=== PATIENT | female | born 1960 | race Caucasian/White ===

== ENCOUNTER 2016-07-20 19:20 | Inpatient (IN) | payer OTHER ==
[~2016-07-20] VITALS: Ht 162.6 cm; Wt 60.0 kg
[2016-07-20] MEDS ORDERED: FAMOTIDINE 20 MG INJ IV STA (20:12)
[2016-07-20] MEDS ORDERED: ONDANSETRON 4 MG INJ IV STA (20:12)
[2016-07-20] MEDS ORDERED: morphine 4 MG/ML VIAL IV STA (20:12)
[2016-07-20] MEDS ORDERED: IPRATROPIUM (NEB) 0.5 MG/2.5 ML AMP NEB STA (20:21)
[2016-07-20] MEDS ORDERED: ALBUTEROL 0.083% (NEB) 2.5 MG/3 ML AMP NEB STA (20:21)
[2016-07-20 21:36] LABS: ADD SCAN DIFF NO
[2016-07-20 21:39] LABS: HEMATOCRIT 41.1 % (37.0-47.0); HEMOGLOBIN 12.3 g/dl (12.0-16.0); MEAN CORPUSCULAR HEMOGLOBIN 31.5 pg (29.0-33.0); MEAN CORPUSCULAR HGB CONC 29.9 g/dl (32.0-37.0); MEAN CORPUSCULAR VOLUME 105.1 fl (82.0-101.0); MEAN PLATELET VOLUME 10.3 fl (7.4-10.4); PLATELET COUNT 238 10^3/UL (140-415); RED BLOOD COUNT 3.91 10^6/ul (4.20-5.40); RED CELL DISTRIBUTION WIDTH 18.8 % (11.5-14.5); WHITE BLOOD COUNT 15.3 10^3/ul (4.8-10.8)
[2016-07-20 21:54] LABS: ALBUMIN 3.7 g/dl (3.3-4.9)
[2016-07-20 21:55] LABS: CHLORIDE 93 mmol/L (97-110); POTASSIUM 4.1 mmol/L (3.5-5.1); SODIUM 136 mmol/L (135-144)
[2016-07-20 21:56] LABS: INR 1.09; PROTIME 14.1 Sec (12.2-14.2); PT RATIO 1.1
[2016-07-20 21:57] LABS: ALBUMIN/GLOBULIN RATIO 0.82; AMYLASE 114 U/L (11-123); ANION GAP 23 (8-16); ASPARTATE AMINO TRANSFERASE 35 IU/L (15-46); BILIRUBIN,INDIRECT 0.1 mg/dl (0-1.1); BILIRUBIN,TOTAL 0.1 mg/dl (0.2-1.3); BLOOD UREA NITROGEN 39 mg/dl (7-20); CARBON DIOXIDE 24 mmol/L (21-31); CREATININE 6.64 mg/dl (0.44-1.00); PARTIAL THROMBOPLASTIN TIME 32.8 Sec (25.0-35.0); TOTAL PROTEIN 8.2 g/dl (6.1-8.1)
[2016-07-20 21:58] LABS: ALANINE AMINOTRANSFERASE 23 IU/L (13-69); ALKALINE PHOSPHATASE 161 IU/L (42-121); CALCIUM 9.1 mg/dl (8.4-10.2); GLUCOSE 325 mg/dl (70-220)
[2016-07-20] MEDS ORDERED: SOD CHLORIDE 0.9% 500 ML IV ONE (22:05)
[2016-07-20] MEDS ORDERED: NEPH PO (22:10)
[2016-07-20] MEDS ORDERED: FAMOTIDINE 20 MG INJ IV ONE (22:10)
[2016-07-20] MEDS ORDERED: CETI-240 PO (22:11)
[2016-07-20] MEDS ORDERED: ASPI-664 PO (22:11)
[2016-07-20 22:12] LABS: TROPONIN-I < 0.012 ng/ml (0.00-0.12)
[2016-07-20] MEDS ORDERED: CALC667C PO (22:13)
[2016-07-20] MEDS ORDERED: CLOT30CR35 TOP (22:14)
[2016-07-20] MEDS ORDERED: FLUT16SP17 NASAL (22:15)
[2016-07-20] MEDS ORDERED: PANTOPRAZOLE IV 80 MG in SOD CHLORIDE 0.9% 100 ML IVPB ONE (22:15)
[2016-07-20] MEDS ORDERED: CARV6.2579 PO (22:18)
[2016-07-20] MEDS ORDERED: LEVO150T67 PO (22:18)
[2016-07-20] MEDS ORDERED: GLIM1TAB2 PO (22:19)
[2016-07-20] MEDS ORDERED: LOSA50TA6 PO (22:19)
[2016-07-20] MEDS ORDERED: GABA100C14 PO (22:22)
[2016-07-20] MEDS ORDERED: ACET-141 PO (22:22)
[2016-07-20] MEDS ORDERED: ATOR10TA65 PO (22:23)
[2016-07-20] MEDS ORDERED: FOLI-49 PO (22:23)
[2016-07-20] MEDS ORDERED: OMEP20CA16 PO (22:24)
[2016-07-20] MEDS ORDERED: DOCU-159 PO (22:24)
[2016-07-20] MEDS ORDERED: CHOL400C11 PO (22:25)
[2016-07-20] MEDS ORDERED: PANTOPRAZOLE IV 80 MG in SOD CHLORIDE 0.9% 100 ML IV ONE (22:30)
--- NOTE | 2016-07-20 22:37 | RADRPT ---
PROCEDURE: XR Chest. CLINICAL INDICATION: Chest and abdominal pain. TECHNIQUE: Single frontal chest x-ray. COMPARISON: None. FINDINGS: Dense consolidation is seen within the left lung base. Left lung base pneumonia is most likely. Th ere is scarring and atelectasis in the right lung base. The heart size is enlarged. There is no pn eumothorax. Post surgical median sternotomy wires are seen overlying the midline chest. Numerous s urgical clips are seen overlying the left hilum and left mediastinum. Left chest central line is se en in place with the tip in the superior vena cava, in good location. There is no evidence for pneu mothorax. The surrounding osseous structures are unremarkable. IMPRESSION: 1. Dense consolidation in the retrocardiac left lung base. Query pneumonia. 2. Low lung volumes with compressive changes and atelectasis. 3. Cardiomegaly with postsurgical changes from prior CABG surgery. 4. Left chest central line in good position without evidence for pneumothorax. RPTAT: HMJB .Chinmay Castellano MD, MD Date Time Electronically viewed and signed by .Chinmay Castellano MD, on 07/20/2016 22:37 .B/
[2016-07-20 22:38] LABS: LYMPHOCYTES # 0.5 10^3/ul (0.8-2.9); MONOCYTE # 0.3 10^3/ul (0.3-0.9); NEUTROPHIL # 13.8 10^3/ul (1.6-7.5)
[2016-07-20] MEDS ORDERED: CEFTRIAXONE 1 GM/50 ML (PMX) 50 ML IVPB ONE (23:03)
[2016-07-20] MEDS ORDERED: AZITHROMYCIN 500MG/NS (PMX) 250 ML IV ONE (23:03)
--- NOTE | 2016-07-20 23:08 | RADRPT ---
PROCEDURE: CT ABDOMEN/PELVIS WITHOUT CONTRAST CLINICAL INDICATION: 56-year-old female with abdominal pain. TECHNIQUE: The study was performed utilizing a [employer] VCT 64-slice CT scanner. Direct axia l sections were obtained through the abdomen and pelvis without the use of intravenous contrast mate rial. Sagittal and coronal reformations were obtained. One or more of the following dose reduction t echniques were utilized: automated exposure control, adjustment of the mA and/or kV according to pat ient's size or use of iterative reconstruction technique. The images were reviewed on a PACS workst [employer]. CTD/vol = 11.8 mGy; Total Exam DLP = 617.8 mGy-cm. COMPARISON: None. FINDINGS: The inferior aspect of the median sternotomy is noted. Cardiomegaly is present. Coronary artery ca lcifications are visualized. There is a small 3 mm calcification within the inferior aspect of the right middle lobe. There is bibasilar atelectasis with probable superimposed left lung base infiltr ate. There is no evidence for significant pleural effusion. The liver has a normal size and contou r. There is evidence for portal venous gas within the right and left lobes of the liver. No intrah epatic nor extrahepatic biliary ductal dilatation is seen. The gallbladder has mild dependent soft t issue which may represent noncalcified stones versus sludge. The pancreas is without areas of abnorm al attenuation. The spleen is identified and has a normal size without abnormal density. There is m inimal free fluid surrounding the spleen beneath the left hemidiaphragm. The adrenal glands are unr emarkable. The left kidney is absent. The right kidney is atrophic. There is a right mid renal cyst measuring approximately 2.0 x 1.7 x 1.8 cm. There are renal vascular calcifications present. N o hydroureteronephrosis nor nephroureterolithiasis is evident. The urinary bladder is decompressed. The stomach is distended with fluid. There is umbilical hernia with an opening of 4.3 x 1.6 cm. The re are dilated loops of small bowel with pneumatosis intestinalis present. There is gas identified within the mesenteric veins. The colon is decompressed. The appendix is visualized and is without a bnormal thickening or surrounding inflammatory reaction. The uterus is atrophic with calcifications. There is minimal pelvic free fluid. The aortoiliac vessels are diffusely calcified but without an eurysmal dilatation. The osseous structures are intact. Bilateral gluteal calcific injection granulo way are seen within the soft tissues. IMPRESSION: 1. Status post median sternotomy with cardiomegaly and coronary artery calcifications. 2. Bibasilar atelectasis with probable superimposed left lung base infiltrate. 3. Pneumatosis intestinalis with enteric venous gas and intrahepatic portal venous gas. These find ings are most suggestive of ischemic bowel. 4. Atrophic right kidney with absent left kidney. 5. Probable small noncalcified gallstones versus sludge. 6. Minimal left upper quadrant and pelvic free fluid. 7. Extensive vascular calcifications. CRITICAL RESULTS: A call report was made to [facility] ER Dr. Nava on July 20, 2016 at 10:59 p.m. .Donald Juarez MD, MD Date Time Electronically viewed and signed by .Donald Juarez MD, MD on 07/20/2016 23:08 .M/
--- NOTE | 2016-07-20 23:10 | ERA ---
ER Documentation Chief Complaint Date/Time DATE: 07/20/16 TIME: 23:00 Chief Complaint diffuse abd pain w/ vomiting x 2 days, dialyzed today via left morro cath HPI This is a very pleasant 56-year-old female with a known history of end-stage renal disease on hemodialysis every Tuesday and Tuesday. The patient a full run of dialysis earlier today and had 2 L removed. The patient indicates that for the past 3 to 4 days she has been experiencing diffuse abdominal pain which she describes as a cramping like sensation with multiple episodes of nonbloody nonbilious emesis. The patient denies any loose watery stools. She has not experienced any constipation. She does indicate for the past week she has had a productive cough with whitish sputum. She denies any fever shaking or chills. She denies any hemoptysis or hematemesis and no melanotic stools. The patient has a left Morro catheter which she receives her dialysis through in the left chest wall. The patient does make urine and denies any frequency urgency or dysuria. She indicates that the abdominal pain began to significantly worsen over the past 24 hours with no alleviating or exacerbating factors which is why she presents to the emergency department today ROS All systems reviewed and are negative except as per history of present illness. Medications Home Meds Reported Medications Cholecalciferol (Vitamin D3) 400 Unit Capsule, 400 UNIT PO DAILY, CAP 07/20/16 Omeprazole* (Omeprazole*) 20 Mg Capsule.dr, 20 MG PO DAILY, #30 CAP 07/20/16 Docusate Sodium* (Docusate Sodium*) 100 Mg Capsule, 100 MG PO BID, #60 CAP 07/20/16 Folic Acid* (Folic Acid*) 1 Mg Tablet, 1 MG PO DAILY, TAB 07/20/16 Atorvastatin Calcium (Atorvastatin Calcium) 10 Mg Tablet, 10 MG PO QHS, #30 TAB 07/20/16 Gabapentin* (Gabapentin*) 100 Mg Capsule, 100 MG PO TID, #90 CAP 07/20/16 Acetaminophen* (Acetaminophen*) 500 MG Extra Strength Tablet, 1000 MG PO Q6H Y for PAIN AND OR ELEVATED TEMP, TAB 07/20/16 Glimepiride* (Glimepiride*) 1 Mg Tablet, 1 MG PO WITH BREAKFAST, TAB 07/20/16 Losartan Potassium* (Losartan Potassium*) 50 Mg Tablet, 50 MG PO BID, TAB 07/20/16 Carvedilol* (Carvedilol*) 6.25 Mg Tablet, 6.25 MG PO BID, #60 TAB 07/20/16 Levothyroxine Sodium* (Levothyroxine Sodium*) 150 Mcg Tablet, 150 MCG PO BEFORE BREAKFAST, #30 TAB 07/20/16 Fluticasone Propionate* (Fluticasone Propionate* Nasal) 50 Mcg/Irving - 16 Gm Irving.susp, 2 SPRAYS NASAL DAILY, #1 BOTTLE TO EACH NOSTRIL 07/20/16 Clotrimazole* (Lotrimin*) 1%-30 Gm Cream..g., 1 APPLIC TOP BID, TUB 07/20/16 Calcium Acetate* (Calcium Acetate*) 667 Mg Capsule, 3335 MG PO WITH MEALS, #90 CAP 07/20/16 Cetirizine Hcl* (Cetirizine Hcl*) 10 Mg Tablet, 10 MG PO DAILY, #30 TAB 07/20/16 Aspirin* (Aspirin* EC) 81 Mg Tablet.dr, 81 MG PO DAILY, TAB 07/20/16 Multivit/Ca Carb/B Cmplx/Fa* (Cindy-Matias*) 1 Tab Tab, 1 TAB PO DAILY, TAB 07/20/16 Allergies Allergies: Coded Allergies: No Known Allergy (Unverified , 07/20/16) PMhx/Soc History of Surgery: Yes (MULTIPLE FISTULA PLACEMENTS, CABG) Anesthesia Reaction: No Hx Neurological Disorder: No Hx Respiratory Disorders: No Hx Cardiac Disorders: Yes (HTN, CAD) Hx Psychiatric Problems: No Hx Miscellaneous Medical Probl: Yes (DM, ESRD ON HD T//TUE) Hx Alcohol Use: No Hx Substance Use: No Hx Tobacco Use: No Smoking Status: Never smoker Physical Exam Vitals Vital Signs Date Time Temp Pulse Resp B/P Pulse Ox O2 Delivery O2 Flow Rate FiO2 07/20/16 22:15 78 18 118/53 98 Nasal Cannula 4.0 07/20/16 20:41 96 3.0 07/20/16 20:41 68 18 96 Nasal Cannula 3.0 07/20/16 20:05 Nasal Cannula 4 07/20/16 19:23 98.3 74 20 109/53 97 Physical Exam Constitutional:Well-developed. Well-nourished. HEENT:Normocephalic. Atraumatic.Pupils were equal round reactive to light. Very dry mucous membranes.No tonsillar exudates. Neck: No nuchal rigidity. No lymphadenopathy. No posterior cervical spine tenderness or step-offs. Respiratory: Not using accessory muscles of respiration.Lungs were clear to auscultation bilaterally. No rhonchi. No rales. No wheezing. Cardiovascular: Regular rate regular rhythm.No murmurs. No rubs were appreciated.S1, S2 normal. Distal pulses are palpable 2+ bilaterally. GI: Abdomen was soft. Tenderness in the left and the right lower quadrant with no tenderness specifically over McBurney's point. Psoas sign negative. Obturator sign negative. Voluntary guarding with no rebound tenderness. Non Distended. No pulsatile abdominal masses or bruits. No rebound. Bowel sounds were present and normal. Muscle skeletal: Full range of motion of both the upper and lower extremities bilaterally.Normal muscle tone.No assymetrical calf tenderness or swelling. Skin: No petechia, no purpura. No lesions on the palms or the soles of the feet. No maculopapular rash. Left Morro chest wall catheter is clean dry and intact. Patient has maturing fistula on the right upper extremity. Patient has a fistula in the left upper extremity which has no thrill or bruit has not been used for several years according to the patient NEURO: Patient was alert, awake, orientated x3.No facial droop. Gait observed and normal with no ataxia.Speech had regular rate and rhythm. No focal neurological deficits. Result Diagram: 07/20/16210407/20/162104 Results 24 hrs Laboratory Tests Test 07/20/16 21:05 07/20/16 22:40 White Blood Count 15.310^3/ul Red Blood Count 3.9110^6/ul Hemoglobin 12.3g/dl Hematocrit 41.1% Mean Corpuscular Volume 105.1fl Mean Corpuscular Hemoglobin 31.5pg Mean Corpuscular Hemoglobin Concent 29.9g/dl Red Cell Distribution Width 18.8% Platelet Count 78455^3/UL Mean Platelet Volume 10.3fl Neutrophils % 90.0% Band Neutrophils % 5.0% Lymphocytes % 3.0% Monocytes % 2.0% Eosinophils % % Neutrophils # 13.810^3/ul Lymphocytes # 0.510^3/ul Monocytes # 0.310^3/ul Eosinophils # 10^3/ul Prothrombin Time 14.1Sec Prothrombin Time Ratio 1.1 INR International Normalized Ratio 1.09 Activated Partial Thromboplast Time 32.8Sec Sodium Level 136mmol/L Potassium Level 4.1mmol/L Chloride Level 93mmol/L Carbon Dioxide Level 24mmol/L Anion Gap 23 Blood Urea Nitrogen 39mg/dl Creatinine 6.64mg/dl Glucose Level 325mg/dl Lactic Acid Level 2.0mmol/L 2.0mmol/L Calcium Level 9.1mg/dl Total Bilirubin 0.1mg/dl Direct Bilirubin 0.00mg/dl Indirect Bilirubin 0.1mg/dl Aspartate Amino Transf (AST/SGOT) 35IU/L Alanine Aminotransferase (ALT/SGPT) 23IU/L Alkaline Phosphatase 161IU/L Troponin I < 0.012ng/ml Total Protein 8.2g/dl Albumin 3.7g/dl Globulin 4.50g/dl Albumin/Globulin Ratio 0.82 Amylase Level 114U/L Lipase 131U/L Current Medications Medications (Trade) Dose Ordered Sig/Arlene Route PRN Reason Start Time Stop Time Status Last Admin Dose Admin Morphine Sulfate (morphine) 4 mg ONCE STAT IV 07/20/16 20:12 07/20/16 20:14 DC 07/20/16 21:02 Ondansetron HCl (Zofran Inj) 4 mg ONCE STAT IV 07/20/16 20:12 07/20/16 20:14 DC 07/20/16 21:03 Famotidine (Pepcid Iv) 20 mg ONCE STAT IV 07/20/16 20:12 07/20/16 20:14 DC 07/20/16 21:02 Albuterol (Proventil 0.083% (Neb)) 5 mg ONCE STAT NEB 07/20/16 20:21 07/20/16 20:22 DC 07/20/16 20:41 Ipratropium Lyons 0.5 mg 0.5 mg ONCE STAT NEB 07/20/16 20:21 07/20/16 20:22 DC 07/20/16 20:40 Sodium Chloride (NS) 500 ml @ 500 mls/hr Q1H ONCE IV 07/20/16 22:05 07/20/16 23:04 DC 07/20/16 22:25 Famotidine 20 mg 20 mg ONCE ONCE IV 07/20/16 22:10 07/20/16 22:11 Cancel Pantoprazole 80 mg/Sodium Chloride 100 ml @ 400 mls/hr ONCE ONCE IVPB 07/20/16 22:15 07/20/16 22:29 DC 07/20/16 22:24 Pantoprazole 80 mg/Sodium Chloride 100 ml @ 10 mls/hr ONCE ONCE IV 07/20/16 22:30 07/21/16 08:29 Cancel Ceftriaxone Sodium 50 ml @ 100 mls/hr ONCE ONCE IVPB 07/20/16 23:03 07/20/16 23:32 Cancel Azithromycin 250 ml @ 250 mls/hr ONCE ONCE IV 07/20/16 23:03 07/21/16 00:02 Cancel Vancomycin HCl 250 ml @ 125 mls/hr ONCE ONCE IVPB 07/20/16 23:30 07/21/16 01:29 Piperacillin Sod/ Tazobactam Sod 100 ml @ 200 mls/hr ONCE ONCE IVPB 07/20/16 23:26 07/20/16 23:55 07/20/16 23:39 Metronidazole (Flagyl 500 Mg (Pmx)) 100 ml @ 100 mls/hr ONCE ONCE IVPB 07/20/16 23:25 07/21/16 00:24 Ondansetron HCl (Zofran Inj) 4 mg ONCE ONCE IV 07/20/16 23:39 07/20/16 23:40 DC 07/20/16 23:39 Procedures/MDM This patient presented to the emergency department with abdominal pain and was seen and evaluated by myself. My differential diagnosis included but was not limited to abdominal aortic aneurysm, appendicitis, pancreatitis, perforated peptic ulcer, perforated viscus, Boerhaaves syndrome or visceral pain such as diverticulitis, DKA, esophagitis, hepatitis or bowel obstruction. The patient was placed on a labor training manager, continuous pulse oximetry, and IV access was established by nursing staff. The patient has a history of dialysis but did appear to be clinically dehydrated with no signs of fluid overload on the chest radiograph are physical exam and therefore received gentle IV fluid hydration with a 500 cc bolus of normal saline. The patient was given antiemetics which included Zofran. For analgesic control the patient received intravenous morphine. While in the emergency department the patient did have one episode of coffee- ground emesis. The patient had received a Protonix bolus. Given the severity of the patient's symptoms I do feel is necessary to obtain a CT scan of the abdomen. I spoke with the radiologist at 2308 and there was concern for ischemic bowel. The patient had blood cultures and urine cultures that were obtained. A chest radiograph also indicated a possible left lower lobe pneumonia. The patient had been given IV vancomycin, Flagyl and Zosyn to treat all of her infectious processes. CT scan of the abdomen was read by the radiologist and indicated the followin. Status post median sternotomy with cardiomegaly and coronary artery calcifications. 2. Bibasilar atelectasis with probable superimposed left lung base infiltrate. 3. Pneumatosis intestinalis with enteric venous gas and intrahepatic portal venous gas. These findings are most suggestive of ischemic bowel. 4. Atrophic right kidney with absent left kidney. 5. Probable small noncalcified gallstones versus sludge. 6. Minimal left upper quadrant and pelvic free fluid. 7. Extensive vascular calcifications. I have placed a call to the surgeon Dr. Boateng who kindly came to the bedside to evaluate the patient due to the severity of her symptoms. Given the severity of the patient's symptoms she will be immediately taken to the OR for definitive treatment for ischemic bowel disease. The patient had hyperglycemia without ketosis. The patient will be admitted in serious condition the hospitalist Dr. Wallace with an anticipated stay of greater than 2 midnights. The patient will be going to the intensive care unit Critical Care: Time: 55 minutes Treatments/Evaluations: Close monitoring and treatment of unstable vital signs, cardiorespiratory, and neurologic status, while maintaining tight balance of fluid, respiratory, and cardiac interventions. Time does not include performing any of the above billable procedures. Departure Diagnosis: Primary Impression: Ischemic bowel disease Additional Impression: Hyperglycemia without ketosis Condition: Serious JOVANNI SMYTH July 20, 2016 23:09
[2016-07-20] MEDS ORDERED: metroNIDAZOLE 500 MG/NS (PMX) 100 ML IVPB ONE (23:25)
[2016-07-20] MEDS ORDERED: PIPER-TAZO 3.375 GM IV (PMX) 100 ML IVPB ONE (23:26)
[2016-07-20] MEDS ORDERED: VANCOMYCIN 1 GM (PMX) 250 ML IVPB ONE (23:30)
[2016-07-20] MEDS ORDERED: ONDANSETRON 4 MG INJ IV ONE (23:39)
[2016-07-21] VITALS (34 sets, daily range): BP systolic 85–149; BP diastolic 33–69; PULSE 74–89; RESP 6–20; Ht 162.6 cm; Wt 60.0 kg
[2016-07-21] MEDS ORDERED: SOD CHLORIDE 0.9% 1,000 ML IV ONE
[2016-07-21] MEDS ORDERED: ETOMIDATE 20 MG INJ ONE (00:36)
[2016-07-21] MEDS ORDERED: ROCURONIUM 50 MG INJ ONE ×2 (00:36→01:30)
[2016-07-21] MEDS ORDERED: MIDAZOLAM 1 MG/ML 2 ML INJ ONE (00:36)
[2016-07-21] MEDS ORDERED: ONDANSETRON 4 MG INJ ONE (00:39)
[2016-07-21] MEDS ORDERED: METOCLOPRAMIDE 10 MG INJ ONE (00:39)
[2016-07-21] MEDS ORDERED: FENTAnyl 50 MCG/ML VIAL ONE (00:41)
[2016-07-21] MEDS ORDERED: ONDANSETRON 4 MG INJ IV PRN (01:00)
[2016-07-21] MEDS ORDERED: ALBUTEROL 18 GM INHALER INH ONE (01:30)
[2016-07-21] MEDS ORDERED: EPHEDrine SULFATE 50 MG/5 ML SYG ONE (01:37)
[2016-07-21] MEDS ORDERED: EPINEPHrine 0.1 MG/ML SYG ONE (02:01)
[2016-07-21] MEDS ORDERED: ROPIVACAINE 0.5 % 30 ML VIAL ONE (02:03)
[2016-07-21] MEDS ORDERED: ALBUTEROL 0.083% (NEB) 2.5 MG/3 ML AMP HHN ONE (02:30)
[2016-07-21] MEDS ORDERED: HYDROmorphONE 1 MG/ML SYG IV PRN ×3 (02:30)
[2016-07-21] MEDS ORDERED: PHENYLephrine (100 MCG/ML) 5ML SYG ONE (02:39)
[2016-07-21] MEDS: PROPOFOL 100 ML IV SCH ×2 (03:00→15:00)
--- NOTE | 2016-07-21 03:24 | OPR ---
DATE OF OPERATION: 07/21/2016 PREOPERATIVE DIAGNOSIS: Mesenteric ischemia. POSTOPERATIVE DIAGNOSIS: Mesenteric ischemia. PROCEDURE: 1. Exploratory laparotomy. 2. Extensive small-bowel resection. SURGEON: Tasneem ASSISTANT ENGINEER: None. ANESTHESIA: Endotracheal GET ESTIMATED BLOOD LOSS: 50 mL. COMPLICATIONS: None. SPECIMENS: Small bowel. FINDINGS: Ischemia of the proximal small bowel just distal to the ligament of Treitz to the mid to distal jejunum. INDICATIONS: Ms. Christopher is a 56-year-old female with a 4-day history of abdominal pain which worsened after getting hemodialysis today. She presented to the ER at [facility], where a CT showed pneumatosis intestinalis and air in the mesentery, as well as in the portal vein, as well as the liver. She had peritonitis on exam. Due to this constellation of findings, I felt she needed urgent exploration for mesenteric ischemia. I discussed laparotomy and possible bowel resection with the patient and her daughter, as well as her friend. All benefits, risks, alternatives were discussed in detail, questions answered. The patient elected to proceed. DESCRIPTION OF PROCEDURE: Patient was brought to the operating room and placed supine on the table. After preoperative antibiotics and SCDs were placed, the patient was intubated, a Kowalski catheter inserted and the abdomen was cleaned, prepped and draped in the usual sterile fashion. A midline incision was made. Using electrocautery, I dissected down through the abdominal wall until the intra-abdominal fascia was identified, staying midline into the abdominal cavity and immediately identified purulent ascites. The omentum was adherent to both sidewalls, which was taken down with electrocautery. At this point, I noted normal-appearing small bowel, as well as ischemic small bowel. I saw the area of small-bowel ischemia which was from just distal to the ligament of Treitz to mid to distal jejunum. The distal small bowel was all viable. I transected the small bowel at the distal aspect of the ischemia with a 75 mm Endo linear cutter blue load, and I transected just proximal to the ischemic segment close to ligament of Treitz. I then divided the intervening mesentery with a LigaSure and passed the small bowel off as a specimen. I performed a [id number] functional end-to-end double-stapled anastomosis with the 75 mm Endo linear cutter blue load. The enterotomy was closed with a TA 60 stapler. The anastomosis was hemostatic, it was without tension and was airtight. I then placed the bowel back into the abdomen and copiously irrigated and aspirated the abdomen until effluent was clear. I should say that I did visualize my entire colon which was completely viable with no evidence of ischemia. I closed the midline with two 0 loop PDS sutures, 1 superiorly, 1 inferiorly, it was tied in the middle. Wound was irrigated and closed with greyson. A dry sterile dressing was applied. The patient tolerated procedure well, was transferred in fair condition to the ICU intubated Dictated By: ROBERTO RAO MD MAL/NTS Conf#: [id number] DID#: [id number] CC: VERO HINOJOSA MD;*EndCC* MTDD
[2016-07-21] MEDS: AMPICILLIN/SULB 3 GM/NS (PMX) 100 ML IVPB SCH ×4 (03:51→18:42)
[2016-07-21] MEDS: D5-NS + KCL 20 MEQ 1,000 ML IV SCH ×3 (03:51→22:41)
[2016-07-21] MEDS: PANTOPRAZOLE 40 MG INJ IV SCH (05:30)
--- NOTE | 2016-07-21 06:36 | CONS ---
DATE OF ADMISSION: 07/21/2016 DATE OF CONSULTATION: 07/20/2016 PREOPERATIVE CONSULTATION HISTORY OF PRESENT ILLNESS: Ms. Christopher is a 56-year-old female who has a 4-year history o f abdominal pain. She has end-stage renal disease and underwent hemodialysis today, but had persist ent worsening abdominal pain with crampy pain in her abdomen. She had multiple episodes of nonblood y emesis. Due to her persistent symptoms, she presented to the ER. Her workup in the ER was consis tent with pneumatosis and air in the mesentery and portal vein, and I was called for consultation. MEDICATIONS: 1. Cholecalciferol. 2. Omeprazole. 3. Docusate. 4. Folic acid. 5. Atorvastatin. 6. Gabapentin. 7. Acetaminophen. 8. Glimepiride. 9. Losartan. 10. Carvedilol. 11. Levothyroxine. 12. Fluticasone. 13. Clotrimazole. 14. Calcium. 15. Cetirizine. 16. Aspirin. 17. Multivitamin. ALLERGIES: NO KNOWN DRUG ALLERGIES. PAST SURGICAL HISTORY: She is status post CABG as well as multiple fistulas for hemodialysis. PAST MEDICAL HISTORY: Significant for end-stage renal disease, hypertension, high cholesterol, hypo thyroidism, coronary artery disease. SOCIAL HISTORY: Denies drinking, drug use, or smoking. PHYSICAL EXAMINATION: GENERAL: She is an ill-appearing female, in distress. VITAL SIGNS: She has a T-max of 98.3, heart rate 78, BP 118/53. CHEST: Decreased breath sounds bilaterally. HEART: Regular rate and rhythm. ABDOMEN: Mildly distended with peritonitis. LABORATORY DATA: Reveal a white count of 15, hematocrit of 41, platelets of 238. Sodium 136, potas sium 4.1, chloride 93, CO2 of 24, BUN and creatinine 39 and 6.6, and glucose of 325. Her INR is 1.1 with a PTT of 32.8. A CT of the abdomen and pelvis reveals pneumatosis intestinalis with enteric v enous gas and intrahepatic portal venous gas concerning for ischemic bowel. ASSESSMENT AND PLAN: Ms. Ariana Christopher is a 56-year-old female with likely mesenteric is chemia. Based on her clinical findings as well as CT findings, I feel that she needs emergent surge ry. I discussed with her and her family the need for exploratory laparotomy and possible bowel rese ction. All benefits, risks, and alternatives were discussed in detail, all questions answered. The patient elects to proceed. The patient and family understand that the prognosis of this is very gr ave. She will likely survive the operation, but I am not sure she will survive this hospitalization . If surgery is not performed, she will not survive this event, so surgery is obviously indicated. Dictated By: ROBERTO ANTOINE/LEXI Conf#: [id number] DID#: [id number]
[2016-07-21] MEDS ORDERED: ENOXAPARIN 40 MG/0.4 ML SYG SC SCH (07:00)
--- NOTE | 2016-07-21 08:32 | HP ---
DATE OF ADMISSION: 07/21/2016 TIME SEEN: 6 a.m. (the patient was in the OR). HISTORY OF PRESENT ILLNESS: The patient is a 56-year-old female with a history of diabetes and end- stage renal disease on dialysis, hypertension, hypothyroidism who presented to the emergency departm ent with abdominal pain. The patient had been going on for about 4 days with associated nonbilious, nonbloody emesis. When presented to the ER, vitals were stable. CT abdomen and pelvis without con trast shows pneumatosis intestinalis with enteric venous gas and intrahepatic portal venous gas, fin dings most suggestive of ischemic bowel. The patient has been taken to the OR and now is status pos t exploratory laparotomy and extensive small bowel resection. Currently, the patient is intubated a nd admitted to the ICU for postop care. Review of systems currently unable to assess. PAST MEDICAL HISTORY: As per HPI. SOCIAL HISTORY: Unknown. ALLERGIES: NO KNOWN DRUG ALLERGIES. HOME MEDICATIONS: 1. Lipitor. 2. Coreg. 3. Losartan. 4. Tylenol. 5. Aspirin. 6. Gabapentin. 7. Calcium. 8. Fluticasone. 9. Colace. 10. Prilosec. 11. Glimepiride. 12. Synthroid. 13. Vitamin D. 14. Folic acid. 15. Multivitamin. 16. Cetirizine. PHYSICAL EXAMINATION: VITAL SIGNS: Stable. GENERAL: The patient is intubated on the vent. No distress. HEENT: No obvious head deformity. Pupils are slightly sluggish, but reactive to light. CARDIOVASCULAR: Regular rate and rhythm. LUNGS: Clear. Good air movement. ABDOMEN: Surgical site covered with ____ abdomen. EXTREMITIES: No edema. LABORATORY DATA: WBC 15.3, chloride 93, BUN 39, creatinine 6.6, glucose 325, alkaline phosphatase 1 61. Otherwise, CBC and CMP within acceptable range. IMAGING: CT abdomen and pelvis with results as mentioned in the HPI. Chest x-ray shows dense conso lidation in a retrocardiac left lung base, query pneumonia. Cardiomegaly with postsurgical change f rom prior CABG. Left chest central line in good position. IMPRESSION: 1. Mesenteric ischemia, status post exploratory laparotomy with extensive small bowel resection. 2. On a mechanical vent. 3. History of coronary artery disease with coronary artery bypass graft. 4. History of hypertension. 5. History of diabetes. 6. End-stage renal disease, on dialysis. 7. Diabetes. PLAN: Continue ICU monitoring. We will continue vent support. Continue antibiotics. She will be on insulin for her diabetes with adjustment as needed. Follow up surgical recommendations. We will place a pulmonary consult to help manage the vent. Further workup and management per clinical course. Dictated By: VERO CASTRO/LEXI Conf#: [id number] DID#: [id number]
[2016-07-21] MEDS ORDERED: GLUCAGON 1 MG INJ IM PRN (09:00)
[2016-07-21] MEDS ORDERED: GLUCOSE GEL 15 GRAM TUBE PO PRN ×2 (09:00)
[2016-07-21] MEDS ORDERED: GLUCOSE GEL 15 GRAM TUBE BUCCAL PRN (09:00)
[2016-07-21] MEDS ORDERED: DEXTROSE 50% 50 ML SYRINGE IV PRN (09:00)
--- NOTE | 2016-07-21 10:35 | CONS ---
Date/Time of Note Date/Time of Note DATE: 07/21/16 TIME: 10:30 Assessment/Plan Assessment/Plan Additional Assessment/Plan 56 yo Female S/P EX LAP ESRD HTN DM ASHD CAD, S/P CABG Pt had HD yesterday in Unit Will check BMP and CBC, PHos now Cont maintenance HD TTS schedule Next HD tomorrow I was informed Dr Christian Weaver is patients [employer] [facility] Theref[facility] Dr Weaver will assume care of ESRD Thank you for the opportunity to participate in the care of Ms Grant Consultation Date/Type/Reason Admit Date/Time July 21, 2016 at 02:30 Date of Consultation: July 21, 2016 Type of Consultation: Renal Reason for Consultation ESRD Referring Provider: LESLIE DEMPSEY Hx of Present Illness 56-year-old female with a history of diabetes and end-stage renal disease on dialysis, hypertension, hypothyroidism who presented to the emergency department with abdominal pain. Last Dialysis yesterday, TTS schedule. In ED a CT abdomen and pelvis without contrast shows pneumatosis intestinalis with enteric venous gas and intrahepatic portal venous gas, findings most suggestive of ischemic bowel. The patient has been taken to the OR and is status post exploratory laparotomy and extensive small bowel resection. Pt remains intubated in the ICU. Nephrology consulted for management of ESRD unable Subjective hx not possible: pt critical status Past Medical History Medical History: hypertension, renal disease, other Past Surgical History Past Surgical Hx: other (AVF, PC) Family History Significant Family History: no pertinent family hx Social History Alcohol Use: none Smoking Status: Never smoker Drug Use: none Exam/Review of Systems Vital Signs Vitals Vital Signs Date Time Temp Pulse Resp B/P Pulse Ox O2 Delivery O2 Flow Rate FiO2 07/21/16 10:05 81 12 100 30 07/21/16 04:15 149/58 07/21/16 03:00 97.8 Mechanical Ventilator 07/20/16 23:30 4.0 Intake and Output 07/20/16 07/20/16 07/21/16 15:00 23:00 07:00 Intake Total 200 ml Output Total 50 ml Balance 150 ml Exam Constitutional: distress ENMT: intubated, mucosa pink and moist Respiratory: crackles/rales, No diminished breath sounds Cardiovascular: regular rate and rhythm, No edema Gastrointestinal: bowel sounds (diminished), soft Neurological: other (sedated) Skin: No diaphoresis, No rash or lesions Results Result Diagram: 07/20/16210407/20/162104 Results 24 hrs Laboratory Tests Test 07/20/16 21:05 07/20/16 22:40 White Blood Count 15.3 H Red Blood Count 3.91 L Hemoglobin 12.3 Hematocrit 41.1 Mean Corpuscular Volume 105.1 H Mean Corpuscular Hemoglobin 31.5 Mean Corpuscular Hemoglobin Concent 29.9 L Red Cell Distribution Width 18.8 H Platelet Count 238 Mean Platelet Volume 10.3 Neutrophils % 90.0 H Band Neutrophils % 5.0 Lymphocytes % 3.0 L Monocytes % 2.0 Eosinophils % Neutrophils # 13.8 H Lymphocytes # 0.5 L Monocytes # 0.3 Eosinophils # Prothrombin Time 14.1 Prothrombin Time Ratio 1.1 INR International Normalized Ratio 1.09 Activated Partial Thromboplast Time 32.8 Sodium Level 136 Potassium Level 4.1 Chloride Level 93 L Carbon Dioxide Level 24 Anion Gap 23 H Blood Urea Nitrogen 39 H Creatinine 6.64 H Glucose Level 325 H Lactic Acid Level 2.0 2.0 Calcium Level 9.1 Total Bilirubin 0.1 L Direct Bilirubin 0.00 Indirect Bilirubin 0.1 Aspartate Amino Transf (AST/SGOT) 35 Alanine Aminotransferase (ALT/SGPT) 23 Alkaline Phosphatase 161 H Troponin I < 0.012 Total Protein 8.2 H Albumin 3.7 Globulin 4.50 H Albumin/Globulin Ratio 0.82 Amylase Level 114 Lipase 131 Medications Medications Current Medications Ampicillin Sodium/ Sulbactam Sodium (Unasyn 3gm/NS (Pmx)) 100 ml @ 200 mls/hr Q6H IVPB Last administered on 07/21/16 03:51; Admin Dose 200 MLS/HR; Start 12/28 at 01:00; Stop 07/22/16 at 00:59 Morphine Sulfate (morphine) 2 mg Q2H PRN IV PAIN LEVEL 6-10; Start 07/21/16 at 01:00 Ondansetron HCl (Zofran Inj) 4 mg Q6H PRN IV NAUSEA AND/OR VOMITING; Start 12/28 at 01:00 Pantoprazole 40 mg 40 mg DAILY@06 IV Last administered on 07/21/16 05:30; Admin Dose 40 MG; Start 07/21/16 at 06:00 Potassium Chloride/Dextrose/ Sod Cl (D5-NS + KCl 20 Meq) 1,000 ml @ 70 mls/hr [id number] IV Last administered on 07/21/16t 03:51; Admin Dose 70 MLS/HR; Start at 00:57 Enoxaparin Sodium 40 mg 40 mg DAILY@07 SC ; Start 07/21/16 at 07:00 Propofol (Diprivan) 100 ml @ 1.785 mls/ hr Q12H IV ; Start 07/21/16 at 03:00 Insulin Glargine (Lantus) 12 unit DAILY@09 SC ; Start 07/21/16 at 09:00 Diagnostic Test (Pha) (Accu-Chek) 1 ea 02 XX ; Start 07/22/16 at 02:00 Miscellaneous Information 1 ea NOTE XX ; Start 07/21/16 at 09:00 Glucose (Glutose) 15 gm Q15M PRN PO DECREASED GLUCOSE; Start 07/21/16 at 09:00 Glucose (Glutose) 22.5 gm Q15M PRN PO DECREASED GLUCOSE; Start 07/21/16 at 09: 00 Dextrose (D50w Syringe) 25 ml Q15M PRN IV DECREASED GLUCOSE; Start 07/21/16 at 09:00 Dextrose (D50w Syringe) 50 ml Q15M PRN IV DECREASED GLUCOSE; Start 07/21/16 at 09:00 Glucagon (Glucagen) 1 mg Q15M PRN IM DECREASED GLUCOSE; Start 07/21/16 at 09:00 Glucose (Glutose) 15 gm Q15M PRN BUCCAL DECREASED GLUCOSE; Start 07/21/16 at 09 :00 Procedures Procedures PROCEDURE: XR Chest. CLINICAL INDICATION: Chest and abdominal pain. TECHNIQUE: Single frontal chest x-ray. COMPARISON: None. FINDINGS: Dense consolidation is seen within the left lung base. Left lung base pneumonia is most likely. There is scarring and atelectasis in the right lung base. The heart size is enlarged. There is no pneumothorax. Post surgical median sternotomy wires are seen overlying the midline chest. Numerous surgical clips are seen overlying the left hilum and left mediastinum. Left chest central line is seen in place with the tip in the superior vena cava, in good location. There is no evidence for pneumothorax. The surrounding osseous structures are unremarkable. IMPRESSION: 1. Dense consolidation in the retrocardiac left lung base. Query pneumonia. 2. Low lung volumes with compressive changes and atelectasis. 3. Cardiomegaly with postsurgical changes from prior CABG surgery. 4. Left chest central line in good position without evidence for pneumothorax. RPTAT: HMJB .Chinmay Castellano MD, MD Date Time Electronically viewed and signed by .Chinmay Castellano MD, MD on 07/20/2016 22:37 CT Abd IMPRESSION: 1. Status post median sternotomy with cardiomegaly and coronary artery calcifications. 2. Bibasilar atelectasis with probable superimposed left lung base infiltrate. 3. Pneumatosis intestinalis with enteric venous gas and intrahepatic portal venous gas. These findings are most suggestive of ischemic bowel. 4. Atrophic right kidney with absent left kidney. 5. Probable small noncalcified gallstones versus sludge. 6. Minimal left upper quadrant and pelvic free fluid. 7. Extensive vascular calcifications. YUKO ALMODOVAR MD July 21, 2016 10:35
[2016-07-21 10:55] LABS: ADD SCAN DIFF NO
[2016-07-21 11:11] LABS: ABNORMAL IP MESSAGE 1; BASOPHILS % 0.2 % (0.0-2.0); EOSINOPHILS % 0.2 % (0.0-7.0); HEMOGLOBIN 9.2 g/dl (12.0-16.0); LYMPHOCYTES # 0.6 10^3/ul (0.8-2.9); LYMPHOCYTES % 4.8 % (15.0-51.0); MEAN CORPUSCULAR HEMOGLOBIN 32.7 pg (29.0-33.0); MEAN CORPUSCULAR HGB CONC 30.7 g/dl (32.0-37.0); MEAN CORPUSCULAR VOLUME 106.8 fl (82.0-101.0); MEAN PLATELET VOLUME 10.5 fl (7.4-10.4); MONOCYTE # 0.7 10^3/ul (0.3-0.9); MONOCYTES % 5.7 % (0.0-11.0); NEUTROPHIL # 10.5 10^3/ul (1.6-7.5); NEUTROPHILS % 88.7 % (39.0-77.0); PLATELET COUNT 220 10^3/UL (140-415); RED BLOOD COUNT 2.81 10^6/ul (4.20-5.40); RED CELL DISTRIBUTION WIDTH 18.8 % (11.5-14.5); WHITE BLOOD COUNT 11.8 10^3/ul (4.8-10.8)
[2016-07-21 11:20] LABS: CALCIUM 7.8 mg/dl (8.4-10.2); CREATININE 6.13 mg/dl (0.44-1.00); PHOSPHORUS 6.1 mg/dl (2.5-4.9); POTASSIUM 4.1 mmol/L (3.5-5.1)
--- NOTE | 2016-07-21 11:27 | CONS ---
DATE OF ADMISSION: 07/21/2016 DATE OF CONSULTATION: 07/21/2016 PULMONARY CONSULTATION HISTORY OF PRESENT ILLNESS: This is a 56-year-old lady, end-stage renal failure on hemodialysis, hy pertension, hyperlipidemia, hypothyroidism who presented with abdominal pain, nausea, and vomiting. CT of the abdomen showed a suggestion of ischemic bowel. The patient was taken to OR, had explorat ory laparotomy and extensive lysis of adhesions, was transferred to the intensive care for further m onitoring where she continues mechanical ventilation, but appears somewhat somnolent despite not julio ng on significant sedation. PAST MEDICAL HISTORY: As above. MEDICATIONS: Per chart. ALLERGIES: NONE. SOCIAL HISTORY: She is a nonsmoker. FAMILY HISTORY: Noncontributory. SYSTEMS REVIEW: A 14-point review of systems currently unable to perform. PHYSICAL EXAMINATION: GENERAL: Elderly-appearing lady, appears comfortable at rest, no acute distress. VITAL SIGNS: Currently afebrile, pulse is 80, blood pressure 140/50, O2 saturation 96%, FIO2 of 30% . NECK: Supple. No JVD or lymphadenopathy. CARDIAC: S1, S2, no added sounds or murmurs. CHEST: Diminished air entry bilaterally. ABDOMEN: Soft, nontender. No guarding or rebound. EXTREMITIES: No cyanosis, clubbing, edema. NEUROLOGIC: Unable to assess. LABORATORIES: Pending at time of this dictation. Initial white count was 15.3, hemoglobin 12.3, pl atelets of 238. BUN 39, creatinine 6.64. IMAGING: Chest x-ray was reviewed, shows low lung volumes with possible compressive atelectasis ___ _ consolidation in the left lung base. IMPRESSION AND PLAN: 1. Hypoxemic respiratory failure post exploratory laparotomy. 2. Ischemic bowel, status post lysis of adhesions. 3. End-stage renal failure on hemodialysis. 4. Postoperative encephalopathy. The patient will require: 1. Continued mechanical ventilation. 2. CPAP weaning trial. 3. Pain control. 4. DVT and GI prophylaxis. 5. Extubation when stable again. Dictated By: DION GANN/LEXI Conf#: [id number] DID#: [id number]
[2016-07-21] MEDS ORDERED: INSULIN ASPART [NOVOLOG] 3 ML PEN SC SCH (11:30)
--- NOTE | 2016-07-21 11:43 | CONS ---
Date/Time of Note Date/Time of Note DATE: 07/21/16 TIME: 11:40 Assessment/Plan Assessment/Plan Chief Complaint/Hosp Course A/P S/P EX LAP ESRD HTN DM ASHD S/P CABG PLAN HD TTH SAT Problems: Consultation Date/Type/Reason Admit Date/Time July 21, 2016 at 02:30 Initial Consult Date 07/21/16 Type of Consultation: Renal Referring Provider: LESLIE DEMPSEY 24 HR Interval Summary Constitutional: other (on vent d/w dr dempsey) Exam/Review of Systems Vital Signs Vitals Vital Signs Date Time Temp Pulse Resp B/P Pulse Ox O2 Delivery O2 Flow Rate FiO2 07/21/16 10:05 81 12 100 30 07/21/16 04:15 149/58 07/21/16 03:00 97.8 Mechanical Ventilator 07/20/16 23:30 4.0 Intake and Output 07/20/16 07/20/16 07/21/16 15:00 23:00 07:00 Intake Total 270 ml Output Total 50 ml Balance 220 ml Exam Neck: supple Respiratory: clear to auscultation Cardiovascular: regular rate and rhythm Gastrointestinal: bowel sounds (neg), tender Extremities: edema (tr) Results Result Diagram: 07/21/16 1040 07/21/16 1040 Results 24 hrs Laboratory Tests Test 07/20/16 21:05 07/20/16 22:40 07/21/16 10:40 07/21/16 11:30 White Blood Count 15.3 H 11.8 #H Red Blood Count 3.91 L 2.81 #L Hemoglobin 12.3 9.2 #L Hematocrit 41.1 30.0 #L Mean Corpuscular Volume 105.1 H 106.8 H Mean Corpuscular Hemoglobin 31.5 32.7 Mean Corpuscular Hemoglobin Concent 29.9 L 30.7 L Red Cell Distribution Width 18.8 H 18.8 H Platelet Count 238 220 Mean Platelet Volume 10.3 10.5 H Neutrophils % 90.0 H 88.7 H Band Neutrophils % 5.0 Lymphocytes % 3.0 L 4.8 L Monocytes % 2.0 5.7 Eosinophils % 0.2 Neutrophils # 13.8 H 10.5 H Lymphocytes # 0.5 L 0.6 L Monocytes # 0.3 0.7 Eosinophils # 0.0 Prothrombin Time 14.1 Prothrombin Time Ratio 1.1 INR International Normalized Ratio 1.09 Activated Partial Thromboplast Time 32.8 Sodium Level 136 136 Potassium Level 4.1 4.1 Chloride Level 93 L 105 # Carbon Dioxide Level 24 21 Anion Gap 23 H 14 # Blood Urea Nitrogen 39 H 44 H Creatinine 6.64 H 6.13 H Glucose Level 325 H 264 H Lactic Acid Level 2.0 2.0 Calcium Level 9.1 7.8 L Total Bilirubin 0.1 L Direct Bilirubin 0.00 Indirect Bilirubin 0.1 Aspartate Amino Transf (AST/SGOT) 35 Alanine Aminotransferase (ALT/SGPT) 23 Alkaline Phosphatase 161 H Troponin I < 0.012 Total Protein 8.2 H Albumin 3.7 Globulin 4.50 H Albumin/Globulin Ratio 0.82 Amylase Level 114 Lipase 131 Basophils % 0.2 Nucleated Red Blood Cells % 0.0 Basophils # 0.0 Nucleated Red Blood Cells # 0.0 Phosphorus Level 6.1 H Bedside Glucose 234 H Medications Medications Current Medications Ampicillin Sodium/ Sulbactam Sodium (Unasyn 3gm/NS (Pmx)) 100 ml @ 200 mls/hr Q6H IVPB Last administered on 07/21/16 03:51; Admin Dose 200 MLS/HR; Start 12/28 at 01:00; Stop 07/22/16 at 00:59 Morphine Sulfate (morphine) 2 mg Q2H PRN IV PAIN LEVEL 6-10; Start 07/21/16 at 01:00 Ondansetron HCl (Zofran Inj) 4 mg Q6H PRN IV NAUSEA AND/OR VOMITING; Start 12/28 at 01:00 Pantoprazole 40 mg 40 mg DAILY@06 IV Last administered on 07/21/16 05:30; Admin Dose 40 MG; Start 07/21/16 at 06:00 Potassium Chloride/Dextrose/ Sod Cl 1,000 ml @ 70 mls/hr [id number] IV Last administered on 07/21/16 03:51; Admin Dose 70 MLS/HR; Start 07/21/16 at 00:57 Propofol (Diprivan) 100 ml @ 1.785 mls/ hr Q12H IV ; Start 07/21/16 at 03:00 Insulin Glargine (Lantus) 12 unit DAILY@09 SC ; Start 07/21/16 at 09:00 Diagnostic Test (Pha) (Accu-Chek) 1 ea 02 XX ; Start 07/22/16 at 02:00 Miscellaneous Information 1 ea NOTE XX ; Start 07/21/16 at 09:00 Glucose (Glutose) 15 gm Q15M PRN PO DECREASED GLUCOSE; Start 07/21/16 at 09:00 Glucose (Glutose) 22.5 gm Q15M PRN PO DECREASED GLUCOSE; Start 07/21/16 at 09: 00 Dextrose (D50w Syringe) 25 ml Q15M PRN IV DECREASED GLUCOSE; Start 07/21/16 at 09:00 Dextrose (D50w Syringe) 50 ml Q15M PRN IV DECREASED GLUCOSE; Start 07/21/16 at 09:00 Glucagon (Glucagen) 1 mg Q15M PRN IM DECREASED GLUCOSE; Start 07/21/16 at 09:00 Glucose (Glutose) 15 gm Q15M PRN BUCCAL DECREASED GLUCOSE; Start 07/21/16 at 09 :00 Heparin Sodium (Porcine) (Heparin (5000 Units/0.5 ml)) 5,000 unit Q12 SC ; Start 07/21/16 at 21:00 HORACIO PERERA MD July 21, 2016 11:43
[2016-07-21] MEDS: INSULIN GLARGINE [LANtus] 3 ML PEN SC SCH (11:46)
[2016-07-21] MEDS ORDERED: HYPOGLYCEMIA PROTOCOL when Glucose is <70 mg/dL or symptomatic <90 mg/dL. XX ONE (17:00)
[2016-07-21] MEDS ORDERED: Discontinue Glyburide, Glipizide, and/or Glimepiride prior to starting Insulin XX ONE (17:00)
[2016-07-21] MEDS: INSULIN ASPART [NOVOLOG] 3 ML PEN SC SCH ×2 (17:00→21:00)
[2016-07-21] MEDS: morphine 2 MG INJ IV PRN (20:18)
[2016-07-21] MEDS: HEPARIN 5,000 UNIT/0.5 ML VIAL SC SCH (21:55)
[2016-07-21] MEDS ORDERED: ACETAMINOPHEN 1000MG/100ML IV 100 ML IVPB ONE (22:00)
[2016-07-21] MEDS: SOD CHLORIDE 0.9% 500 ML IV PRN (22:00)
[2016-07-21 23:36] LABS: AADO2 Arterial 25.3 mmHg (7.0-24.0); Arterial Base Excess -5.4 mmol/L (-3.0-3); Arterial COHb 1.4 % (0.0-3.0); Arterial Fraction of Oxyhgb 96.2 % (93.0-99.0); Arterial HCO3 20.6 mmol/L (22.0-26.0); Arterial MetHb 0.4 % (0.0-1.5); Arterial Total Hemglobin 8.6 g/dl (12.0-18.0); MODE VENT - AC
--- NOTE | 2016-07-21 23:44 | RADRPT ---
PROCEDURE: XR Chest. CLINICAL INDICATION: Intubation. TECHNIQUE: Portable AP supine view of the chest was obtained. COMPARISON: 07/20/2016 FINDINGS: The cardiomediastinal silhouette is mildly enlarged, post CABG changes are again noted. Distal tip of the new endotracheal tube is projecting in the right main bronchus ostium. The new nasogastric/o rogastric tube tip is projecting in the region of the mid esophagus. Mild bibasilar subsegmental at electasis worse on the left is similar to the prior study. A left sided approach Perma-Cath is agai n noted in good position. There is no obvious pneumothorax. The osseous structures are intact with no evidence for acute abnormality. RPTAT:HJJR IMPRESSION: 1. Distal tip of the new endotracheal tube is within the ostium of the right main bronchus and retr action by 3 cm is recommended. 2. New nasogastric/orogastric tube tip is within the mid esophagus and replacement or advancement i s recommended. 3. Findings are telephoned to the ICU nurseCharline, at 23:44 Physician Khari Date Time Electronically viewed and signed by Physician Khari on 07/21/2016 23:44 /
[2016-07-22] VITALS (96 sets, daily range): BP systolic 55–153; BP diastolic 31–74; PULSE 75–98; RESP 0–25
[2016-07-22] MEDS: SOD CHLORIDE 0.9% 500 ML IV PRN (00:35)
[2016-07-22] MEDS: INSULIN ASPART [NOVOLOG] 3 ML PEN SC SCH ×6 (01:00→20:49)
[2016-07-22] MEDS: PHENYLephrine 40 MG in DEXTROSE 5% 496 ML IV SCH ×2 (01:10→15:12)
[2016-07-22] MEDS ORDERED: PHENYLephrine 20MG IN 250 ML 250 ML ONE (01:13)
[2016-07-22] MEDS ORDERED: ACCU-CHEK XX SCH (02:00)
[2016-07-22] MEDS: morphine 2 MG INJ IV PRN ×2 (02:06→04:18)
[2016-07-22] MEDS: DEXTROSE 50% 50 ML SYRINGE IV PRN (02:16)
[2016-07-22] MEDS ORDERED: AMPICILLIN/SULB 3 GM/NS (PMX) 100 ML IVPB ONE (03:00)
[2016-07-22] MEDS: PROPOFOL 100 ML IV SCH ×2 (03:00→15:00)
[2016-07-22 06:13] LABS: ADD SCAN DIFF NO
[2016-07-22 06:56] LABS: CALCIUM 8.1 mg/dl (8.4-10.2); CREATININE 7.22 mg/dl (0.44-1.00); MAGNESIUM 1.7 mg/dl (1.7-2.5); PHOSPHORUS 5.6 mg/dl (2.5-4.9); POTASSIUM 4.6 mmol/L (3.5-5.1)
[2016-07-22] MEDS: PANTOPRAZOLE 40 MG INJ IV SCH (06:58)
[2016-07-22] MEDS ORDERED: HYDROmorphONE 1 MG/ML SYG IV PRN ×2 (08:00)
[2016-07-22 08:43] LABS: Allen Test ACCEPTAB; Arterial Base Excess -7.6 mmol/L (-3.0-3); Arterial COHb 1.4 % (0.0-3.0); Arterial Fraction of Oxyhgb 95.6 % (93.0-99.0); Arterial HCO3 18.8 mmol/L (22.0-26.0); Arterial MetHb 0.3 % (0.0-1.5); Arterial Total Hemglobin 9.3 g/dl (12.0-18.0); MODE VENT - AC
[2016-07-22] MEDS: INSULIN GLARGINE [LANtus] 3 ML PEN SC SCH (09:00)
--- NOTE | 2016-07-22 09:13 | RADRPT ---
PROCEDURE: Chest Radiograph. CLINICAL INDICATION: Pneumonia. CHF. TECHNIQUE: Single frontal chest radiograph. COMPARISON: Chest radiograph 07/21/2016 FINDINGS: There has been interval retraction of a endotracheal tube, the distal tip is now approximately 3.9 c m above the caleb. A nasogastric tube has been advanced, and the distal tip is now overlying the s tomach, in radiographically appropriate position. A left chest wall tunneled hemodialysis catheter r emains in stable position. The patient is status post sternotomy and CABG. There is patchy left re trocardiac air space disease which may represent atelectasis or infiltrate. There is mild right bas ilar atelectasis. No definitive pleural effusions are seen. The bones are grossly within normal ingram its. IMPRESSION: 1. Interval repositioning of endotracheal tube and nasogastric tube, now in radiographically approp riate position. 2. Left retrocardiac atelectasis and/or infiltrate. 3. Mild right basilar atelectasis. RPTAT: KK .Deepak Rivas MD, Date Time Electronically viewed and signed by .Deepak Rivas MD, on 07/22/2016 09:13 .B/
[2016-07-22 09:50] LABS: ABNORMAL IP MESSAGE 1; BASOPHILS % 0.2 % (0.0-2.0); EOSINOPHILS # 0.2 10^3/ul (0.0-0.5); EOSINOPHILS % 1.1 % (0.0-7.0); HEMATOCRIT 25.7 % (37.0-47.0); HEMOGLOBIN 7.8 g/dl (12.0-16.0); LYMPHOCYTES # 0.6 10^3/ul (0.8-2.9); MEAN CORPUSCULAR HEMOGLOBIN 32.9 pg (29.0-33.0); MEAN CORPUSCULAR HGB CONC 30.4 g/dl (32.0-37.0); MEAN CORPUSCULAR VOLUME 108.4 fl (82.0-101.0); MEAN PLATELET VOLUME 10.1 fl (7.4-10.4); MONOCYTE # 1.2 10^3/ul (0.3-0.9); NEUTROPHIL # 12.8 10^3/ul (1.6-7.5); NEUTROPHILS % 85.6 % (39.0-77.0); NUCLEATED RED BLOOD CELLS% 0.1 /100WBC (0.0-0.0); PLATELET COUNT 237 10^3/UL (140-415); RED BLOOD COUNT 2.37 10^6/ul (4.20-5.40); RED CELL DISTRIBUTION WIDTH 19.4 % (11.5-14.5); WHITE BLOOD COUNT 14.9 10^3/ul (4.8-10.8)
[2016-07-22] MEDS: HEPARIN 5,000 UNIT/0.5 ML VIAL SC SCH ×2 (10:11→20:48)
--- NOTE | 2016-07-22 11:17 | CONS ---
Date/Time of Note Date/Time of Note DATE: 07/22/16 TIME: 11:16 Consult Date/Type/Reason Admit Date/Time July 21, 2016 at 02:30 Initial Consult Date 07/21/16 Type of Consultation: Pulmonary ICU Ordering Provider: LESLIE DEMPSEY Subjective Patient remains awake alert and oriented comfortable at rest on mechanical ventilation Objective Vital Signs Date Time Temp Pulse Resp B/P Pulse Ox O2 Delivery O2 Flow Rate FiO2 07/22/16 11:00 91 13 113/48 100 Mechanical Ventilator 07/22/16 08:15 99.4 07/22/16 08:00 30 07/20/16 23:30 4.0 Intake and Output 07/21/16 07/21/16 07/22/16 15:00 23:00 07:00 Intake Total 660 ml 970 ml 1321.25 ml Output Total 0 ml 220 ml Balance 660 ml 970 ml 1101.25 ml Exam PHYSICAL EXAMINATION: GENERAL: Elderly-appearing lady, appears comfortable at rest, no acute distress. VITAL SIGNS: As above NECK: Supple. No JVD or lymphadenopathy. CARDIAC: S1, S2, no added sounds or murmurs. CHEST: Diminished air entry bilaterally. ABDOMEN: Soft, nontender. No guarding or rebound. EXTREMITIES: No cyanosis, clubbing, edema. NEUROLOGIC: Unable to assess. Results/Medications Result Diagram: 07/22/16 0935 07/22/16 0535 Results 24 hrs Laboratory Tests Test 07/21/16 11:30 07/21/16 17:46 07/21/16 22:01 07/21/16 22:58 Bedside Glucose 234 H 115 111 Blood Gas Specimen Source Blood arterial Arterial Blood Date Drawn 07/21/2016 11:24:34 PM Arterial Blood pH (Temp corrected) 7.302 L Arterial Blood pCO2 (Temp correct) 42.7 Arterial Blood pO2 (Temp corrected) 138.4 H Arterial Blood HCO3 20.6 L Arterial Blood Base Excess -5.4 L Arterial Blood Oxygen Saturation 98.0 Lázaro Test N/A Arterial Blood Gas Puncture Site Right Brachial Arterial Blood Carboxyhemoglobin 1.4 Arterial Blood Methemoglobin 0.4 Blood Gas A-a O2 Differential 25.3 H Oxyhemoglobin Percent 96.2 Total Hemoglobin 8.6 L Blood Gas Temperature 37.0 Blood Gas Respiration Rate 12.0 Blood Gas Actual Respiration Rate 13 Blood Gas Modality VENT - AC FiO2 30.0 Blood Gas Low PEEP Setting 5.0 Blood Gas Notified Whom Kali BHATT Blood Gas Notified Time 07/21/2016 11:35:59 PM Test 07/22/16 02:11 07/22/16 02:43 07/22/16 04:04 07/22/16 05:35 Bedside Glucose 60 L 120 107 Sodium Level 141 Potassium Level 4.6 Chloride Level 112 H Carbon Dioxide Level 20 L Anion Gap 14 Blood Urea Nitrogen 51 H Creatinine 7.22 H Glucose Level 79 # Calcium Level 8.1 L Phosphorus Level 5.6 H Magnesium Level 1.7 Test 07/22/16 07:00 07/22/16 08:59 07/22/16 09:35 Blood Gas Specimen Source Blood arterial Arterial Blood Date Drawn 07/22/2016 8:04:51 AM Arterial Blood pH (Temp corrected) 7.270 *L Arterial Blood pCO2 (Temp correct) 41.8 Arterial Blood pO2 (Temp corrected) 115.8 H Arterial Blood HCO3 18.8 L Arterial Blood Base Excess -7.6 L Arterial Blood Oxygen Saturation 97.3 Lázaro Test ACCEPTAB Arterial Blood Gas Puncture Site Left Radial Arterial Blood Carboxyhemoglobin 1.4 Arterial Blood Methemoglobin 0.3 Blood Gas A-a O2 Differential 49.0 H Oxyhemoglobin Percent 95.6 Total Hemoglobin 9.3 L Blood Gas Temperature 37.0 Blood Gas Modality VENT - AC FiO2 30.0 Blood Gas Tidal Volume 450.0 Blood Gas Critical Value Read Back Janeen GAY RN Blood Gas Notified Whom MISA Blood Gas Notified Time 07/22/2016 8:43:16 AM Bedside Glucose 91 White Blood Count 14.9 #H Red Blood Count 2.37 L Hemoglobin 7.8 L Hematocrit 25.7 L Mean Corpuscular Volume 108.4 H Mean Corpuscular Hemoglobin 32.9 Mean Corpuscular Hemoglobin Concent 30.4 L Red Cell Distribution Width 19.4 H Platelet Count 237 Mean Platelet Volume 10.1 Neutrophils % 85.6 H Lymphocytes % 4.0 L Monocytes % 8.0 Eosinophils % 1.1 Basophils % 0.2 Nucleated Red Blood Cells % 0.1 H Neutrophils # 12.8 H Lymphocytes # 0.6 L Monocytes # 1.2 H Eosinophils # 0.2 Basophils # 0.0 Nucleated Red Blood Cells # 0.0 Medications Current Medications Morphine Sulfate (morphine) 2 mg Q2H PRN IV PAIN LEVEL 6-10 Last administered on 07/22/16 04:18; Admin Dose 2 MG; Start 07/21/16 at 01:00 Ondansetron HCl (Zofran Inj) 4 mg Q6H PRN IV NAUSEA AND/OR VOMITING; Start 12/28 at 01:00 Pantoprazole 40 mg 40 mg DAILY@06 IV Last administered on 07/22/16 06:58; Admin Dose 40 MG; Start 07/21/16 at 06:00 Potassium Chloride/Dextrose/ Sod Cl 1,000 ml @ 70 mls/hr [id number] IV Last administered on 07/21/16 22:41; Admin Dose 70 MLS/HR; Start 07/21/16 at 00:57 Propofol (Diprivan) 100 ml @ 1.785 mls/ hr Q12H IV ; Start 07/21/16 at 03:00 Insulin Glargine (Lantus) 12 unit DAILY@09 SC Last administered on 07/21/16 11 :46; Admin Dose 12 UNIT; Start 07/21/16 at 09:00 Miscellaneous Information 1 ea NOTE XX ; Start 07/21/16 at 09:00 Glucose (Glutose) 15 gm Q15M PRN PO DECREASED GLUCOSE; Start 07/21/16 at 09:00 Glucose (Glutose) 22.5 gm Q15M PRN PO DECREASED GLUCOSE; Start 07/21/16 at 09: 00 Dextrose (D50w Syringe) 25 ml Q15M PRN IV DECREASED GLUCOSE Last administered on 07/22/16 02:16; Admin Dose 25 ML; Start 07/21/16 at 09:00 Dextrose (D50w Syringe) 50 ml Q15M PRN IV DECREASED GLUCOSE; Start 07/21/16 at 09:00 Glucagon (Glucagen) 1 mg Q15M PRN IM DECREASED GLUCOSE; Start 07/21/16 at 09:00 Glucose (Glutose) 15 gm Q15M PRN BUCCAL DECREASED GLUCOSE; Start 07/21/16 at 09 :00 Heparin Sodium (Porcine) (Heparin (5000 Units/0.5 ml)) 5,000 unit Q12 SC Last administered on 07/21/16 21:55; Admin Dose 5,000 UNIT; Start 07/21/16 at 21:00 Insulin Aspart NOVOLOG *MODERATE* ALGORI... Q4 SC ; Start 07/21/16 at 17:00 Phenylephrine HCl/ Dextrose (Sheldon-Syneph/D5W) 500 ml @ 75 mls/hr TITRATE IV Last administered on 07/22/16t 01:10; Admin Dose 26.25 MLS/HR; Start 07/22/16 at 01:30 Hydromorphone HCl (Dilaudid) 0.5 mg Q2 PRN IV SEVERE PAIN LEVEL 7-10; Start 01/28 at 08:00 Hydromorphone HCl (Dilaudid) 0.25 mg Q2 PRN IV PAIN LEVEL 1-6; Start 07/22/16 at 08:00 Assessment/Plan Chief Complaint/Hosp Course IMPRESSION AND PLAN: 1. Hypoxemic respiratory failure post exploratory laparotomy. 2. Ischemic bowel, status post lysis of adhesions. 3. End-stage renal failure on hemodialysis. Evidence of metabolic acidosis today 4. Postoperative encephalopathy. 5. Anemia The patient will require: 1. Continued mechanical ventilation. CPAP weaning trial 2. postextubation incentive spirometry speech therapy evaluation 3. Pain control. 4. DVT and GI prophylaxis. 5. Hemodialysis today with correction of metabolic acidosis Problems: DION CONTRERAS MD, [facility] July 22, 2016 11:17
[2016-07-22] MEDS ORDERED: VANCOMYCIN IV PER PHARMACY XX SCH (12:00)
--- NOTE | 2016-07-22 12:27 | PN ---
DATE: 07/22/2016 SUBJECTIVE: The patient is still intubated, seen by pulmonary team seen by renal team as well. No acute events overnight. Off of pressor support since this morning. OBJECTIVE: VITAL SIGNS: Vital signs stable. ____ The patient is lying in bed, intubated and sedated. HEENT: Unable to fully assess. NECK: Supple, no thyromegaly. LUNGS: Slightly distant breath sounds bilaterally. CARDIOVASCULAR: S1, S2 heard. No rubs or gallops. ABDOMEN: Soft, nontender, nondistended. Normal bowel sounds. No rebound or guarding. MUSCULOSKELETAL: No lower extremity edema bilaterally. NEUROLOGIC: Unable to fully assess. LABORATORY DATA: WBC 14.9, hemoglobin 7.8, hematocrit 25.7, platelets 237. Sodium 141, potassium 4 .6, chloride 112, CO2 20, BUN 51, creatinine 7.22, glucose 79. IMAGING: Chest x-ray this morning, interval repositioning of the endotracheal tube and an NG tube n ow in radiographically appropriate position, ____ atelectasis or infiltrate, mild right basilar ate lectasis. ASSESSMENT AND PLAN: A 56-year-old female with history of diabetes, end-stage renal disease on dial ysis, hypertension, hypothyroidism, presents with abdominal pain secondary to mesenteric ischemia, s tatus post exploratory laparotomy with extensive small bowel resections. 1. Abdominal pain secondary to mesenteric ischemia, status post resection. Follow up postoperative recommendations surgery team and control medications, IV fluids as well. Check labs in the morning . 2. Hypoxemic respiratory failure, status post exploratory laparotomy, follow pulmonary recommendati ons. Continue to try to wean off vent as tolerated. Monitor. DuoNebs p.r.n. 3. End-stage renal disease on dialysis. Follow up renal recommendations for possible dialysis late r today. 4. Hypertension. Continue to monitor for now. Blood pressure stable. 5. Type 2 diabetes, continue sliding scale insulin. Follow up A1c. Continue Lantus. 6. Gastrointestinal prophylaxis, proton pump inhibitor. 7. Deep venous thrombosis prophylaxis, sequential compression devices for now. ____nursing notes. Critical care time spent on patient care today: 40 minutes. Dictated By: LESLIE CAMERON Conf#: [id number] DID#: [id number]
[2016-07-22] MEDS: DEXTROSE 5%-0.45% NACL 1,000 ML IV SCH (13:06)
[2016-07-22] MEDS: CEFEPIME 1GM/50 ML (PMX) 50 ML IVPB SCH (14:19)
[2016-07-22] MEDS ORDERED: VANCOMYCIN 1.25 GM in SOD CHLORIDE 0.9% 250 ML IVPB SCH (14:30)
--- NOTE | 2016-07-22 15:44 | CONS ---
Date/Time of Note Date/Time of Note DATE: 07/22/16 TIME: 15:43 Assessment/Plan Assessment/Plan Chief Complaint/Hosp Course A/P S/P EX LAP AND BOWEL RESECTION ESRD HTN DM ASHD S/P CABG PLAN HD TTH SAT PER SURGERY Problems: Consultation Date/Type/Reason Admit Date/Time July 21, 2016 at 02:30 Initial Consult Date 07/21/16 Type of Consultation: renal Referring Provider: LESLIE DEMPSEY 24 HR Interval Summary Constitutional: no complaints, other (on vent) Exam/Review of Systems Vital Signs Vitals Vital Signs Date Time Temp Pulse Resp B/P Pulse Ox O2 Delivery O2 Flow Rate FiO2 07/22/16 14:30 90 17 92/34 100 07/22/16 14:00 Mechanical Ventilator 07/22/16 13:48 30 07/22/16 12:00 98.4 07/20/16 23:30 4.0 Intake and Output 07/21/16 07/21/16 07/22/16 15:00 23:00 07:00 Intake Total 660 ml 970 ml 1321.25 ml Output Total 0 ml 220 ml Balance 660 ml 970 ml 1101.25 ml Exam Neck: supple Respiratory: clear to auscultation Cardiovascular: regular rate and rhythm Gastrointestinal: bowel sounds (+), soft Results Result Diagram: 07/22/16 0935 07/22/16 0535 Results 24 hrs Laboratory Tests Test 07/21/16 17:46 07/21/16 22:01 07/21/16 22:58 07/22/16 02:11 Bedside Glucose 115 111 60 L Blood Gas Specimen Source Blood arterial Arterial Blood Date Drawn 07/21/2016 11:24:34 PM Arterial Blood pH (Temp corrected) 7.302 L Arterial Blood pCO2 (Temp correct) 42.7 Arterial Blood pO2 (Temp corrected) 138.4 H Arterial Blood HCO3 20.6 L Arterial Blood Base Excess -5.4 L Arterial Blood Oxygen Saturation 98.0 Lázaro Test N/A Arterial Blood Gas Puncture Site Right Brachial Arterial Blood Carboxyhemoglobin 1.4 Arterial Blood Methemoglobin 0.4 Blood Gas A-a O2 Differential 25.3 H Oxyhemoglobin Percent 96.2 Total Hemoglobin 8.6 L Blood Gas Temperature 37.0 Blood Gas Respiration Rate 12.0 Blood Gas Actual Respiration Rate 13 Blood Gas Modality VENT - AC FiO2 30.0 Blood Gas Low PEEP Setting 5.0 Blood Gas Notified Whom Kali BHATT Blood Gas Notified Time 07/21/2016 11:35:59 PM Test 07/22/16 02:43 07/22/16 04:04 07/22/16 05:35 07/22/16 07:00 Bedside Glucose 120 107 Sodium Level 141 Potassium Level 4.6 Chloride Level 112 H Carbon Dioxide Level 20 L Anion Gap 14 Blood Urea Nitrogen 51 H Creatinine 7.22 H Glucose Level 79 # Calcium Level 8.1 L Phosphorus Level 5.6 H Magnesium Level 1.7 Blood Gas Specimen Source Blood arterial Arterial Blood Date Drawn 07/22/2016 8:04:51 AM Arterial Blood pH (Temp corrected) 7.270 *L Arterial Blood pCO2 (Temp correct) 41.8 Arterial Blood pO2 (Temp corrected) 115.8 H Arterial Blood HCO3 18.8 L Arterial Blood Base Excess -7.6 L Arterial Blood Oxygen Saturation 97.3 Lázaro Test ACCEPTAB Arterial Blood Gas Puncture Site Left Radial Arterial Blood Carboxyhemoglobin 1.4 Arterial Blood Methemoglobin 0.3 Blood Gas A-a O2 Differential 49.0 H Oxyhemoglobin Percent 95.6 Total Hemoglobin 9.3 L Blood Gas Temperature 37.0 Blood Gas Modality VENT - AC FiO2 30.0 Blood Gas Tidal Volume 450.0 Blood Gas Critical Value Read Back Janeen GAY RN Blood Gas Notified Whom MISA Blood Gas Notified Time 07/22/2016 8:43:16 AM Test 07/22/16 08:59 07/22/16 09:35 07/22/16 12:16 Bedside Glucose 91 103 White Blood Count 14.9 #H Red Blood Count 2.37 L Hemoglobin 7.8 L Hematocrit 25.7 L Mean Corpuscular Volume 108.4 H Mean Corpuscular Hemoglobin 32.9 Mean Corpuscular Hemoglobin Concent 30.4 L Red Cell Distribution Width 19.4 H Platelet Count 237 Mean Platelet Volume 10.1 Neutrophils % 85.6 H Lymphocytes % 4.0 L Monocytes % 8.0 Eosinophils % 1.1 Basophils % 0.2 Nucleated Red Blood Cells % 0.1 H Neutrophils # 12.8 H Lymphocytes # 0.6 L Monocytes # 1.2 H Eosinophils # 0.2 Basophils # 0.0 Nucleated Red Blood Cells # 0.0 Medications Medications Current Medications Morphine Sulfate (morphine) 2 mg Q2H PRN IV PAIN LEVEL 6-10 Last administered on 07/22/16 04:18; Admin Dose 2 MG; Start 07/21/16 at 01:00 Ondansetron HCl (Zofran Inj) 4 mg Q6H PRN IV NAUSEA AND/OR VOMITING; Start 12/28 at 01:00 Pantoprazole 40 mg 40 mg DAILY@06 IV Last administered on 07/22/16 06:58; Admin Dose 40 MG; Start 07/21/16 at 06:00 Propofol (Diprivan) 100 ml @ 1.785 mls/ hr Q12H IV ; Start 07/21/16 at 03:00 Insulin Glargine (Lantus) 12 unit DAILY@09 SC Last administered on 07/21/16 11 :46; Admin Dose 12 UNIT; Start 07/21/16 at 09:00 Miscellaneous Information 1 ea NOTE XX ; Start 07/21/16 at 09:00 Glucose (Glutose) 15 gm Q15M PRN PO DECREASED GLUCOSE; Start 07/21/16 at 09:00 Glucose (Glutose) 22.5 gm Q15M PRN PO DECREASED GLUCOSE; Start 07/21/16 at 09: 00 Dextrose (D50w Syringe) 25 ml Q15M PRN IV DECREASED GLUCOSE Last administered on 07/22/16 02:16; Admin Dose 25 ML; Start 07/21/16 at 09:00 Dextrose (D50w Syringe) 50 ml Q15M PRN IV DECREASED GLUCOSE; Start 07/21/16 at 09:00 Glucagon (Glucagen) 1 mg Q15M PRN IM DECREASED GLUCOSE; Start 07/21/16 at 09:00 Glucose (Glutose) 15 gm Q15M PRN BUCCAL DECREASED GLUCOSE; Start 07/21/16 at 09 :00 Heparin Sodium (Porcine) (Heparin (5000 Units/0.5 ml)) 5,000 unit Q12 SC Last administered on 07/21/16 21:55; Admin Dose 5,000 UNIT; Start 07/21/16 at 21:00 Insulin Aspart NOVOLOG *MODERATE* ALGORI... Q4 SC ; Start 07/21/16 at 17:00 Phenylephrine HCl/ Dextrose (Sheldon-Syneph/D5W) 500 ml @ 75 mls/hr TITRATE IV Last administered on 07/22/16 15:12; Admin Dose 30 MLS/HR; Start 07/22/16 at 01 :30 Hydromorphone HCl (Dilaudid) 0.5 mg Q2 PRN IV SEVERE PAIN LEVEL 7-10; Start 01/28 at 08:00 Hydromorphone HCl 0.25 mg 0.25 mg Q2 PRN IV PAIN LEVEL 1-6 Last administered on 07/22/16 12:12; Admin Dose 0.25 MG; Start 07/22/16 at 08:00 Cefepime HCl 50 ml @ 100 mls/hr Q24H IVPB Last administered on 07/22/16 14:19 ; Admin Dose 100 MLS/HR; Start 07/22/16 at 14:00 Dextrose/Sodium Chloride 1,000 ml @ 40 mls/hr Q24H IV Last administered on 13:06; Admin Dose 40 MLS/HR; Start 07/22/16 at 13:00 Vancomycin HCl/ Sodium Chloride (Vancocin/NS) 250 ml @ 83.333 mls/ hr ONCE IVPB Last administered on 07/22/16 15:06; Admin Dose 83.333 MLS/HR; Start 01/28 at 14:30; Stop 07/22/16 at 16:30 HORACIO PERERA MD July 22, 2016 15:44
--- NOTE | 2016-07-22 17:36 | PN ---
DATE: SUBJECTIVE: Ms. Lou is postop day 1 from exploratory laparotomy and small bowel resec tion. The patient is intubated but responsive. OBJECTIVE: VITAL SIGNS: She is currently afebrile. Vital signs stable. She is currently on phenylephrine for her dialysis. ABDOMEN: Soft, nondistended. Her wound is clean, dry and intact. LABORATORY DATA: Today reveal white count of 15, hematocrit of 26 and platelets of 237. Sodium 141 , potassium 4.6, chloride 112, CO2 of 20, BUN and creatinine 51 and 7 and glucose of 91. IMAGING: Chest x-ray today revealed left retrocardiac atelectasis or infiltrate and mild right basi lar atelectasis. ASSESSMENT AND PLAN: 1. Ms. Lou is postop day 1 from a small bowel resection, n.p.o., IV fluids, NG tube. 2. Await for ileus to resolve. 3. Wean ventilation. 4. Wean pressors. 5. Prognosis is still guarded. Dictated By: ROBERTO ANTOINE/LEXI Conf#: [id number] DID#: [id number]
--- NOTE | 2016-07-22 18:05 | PN ---
Date/Time of Note Date/Time of Note DATE: 07/21/16 TIME: 11:21 A 56 y female s/p exp lap, SB resection under Ga, pOD # 1. pt is intubated, on vent, V/S stable BP 111/55, HR 76, sat 100%, afebrile. not on any sedative or vasopressor. waiting to be more awake to wean off. are per ICU and surgery team Assessment/Plan VTE Prophylaxis VTE Prophylaxis Intervention: heparin Lines/Catheters IV Catheter Type (from Nrs): Peripheral IV Urinary Cath still in place: Yes Exam/Review of Systems Vital Signs Vitals Vital Signs Date Time Temp Pulse Resp B/P Pulse Ox O2 Delivery O2 Flow Rate FiO2 07/22/16 17:45 83 16 109/49 100 Mechanical Ventilator 07/22/16 17:32 30 07/22/16 16:00 98.9 07/20/16 23:30 4.0 Intake and Output 07/21/16 07/21/16 07/22/16 15:00 23:00 07:00 Intake Total 660 ml 970 ml 1321.25 ml Output Total 0 ml 220 ml Balance 660 ml 970 ml 1101.25 ml Results Result Diagram: 07/22/16 0935 07/22/16 0535 Results 24 hrs Laboratory Tests Test 07/21/16 22:01 07/21/16 22:58 07/22/16 02:11 07/22/16 02:43 Bedside Glucose 111 60 L 120 Blood Gas Specimen Source Blood arterial Arterial Blood Date Drawn 07/21/2016 11:24:34 PM Arterial Blood pH (Temp corrected) 7.302 L Arterial Blood pCO2 (Temp correct) 42.7 Arterial Blood pO2 (Temp corrected) 138.4 H Arterial Blood HCO3 20.6 L Arterial Blood Base Excess -5.4 L Arterial Blood Oxygen Saturation 98.0 Lázaro Test N/A Arterial Blood Gas Puncture Site Right Brachial Arterial Blood Carboxyhemoglobin 1.4 Arterial Blood Methemoglobin 0.4 Blood Gas A-a O2 Differential 25.3 H Oxyhemoglobin Percent 96.2 Total Hemoglobin 8.6 L Blood Gas Temperature 37.0 Blood Gas Respiration Rate 12.0 Blood Gas Actual Respiration Rate 13 Blood Gas Modality VENT - AC FiO2 30.0 Blood Gas Low PEEP Setting 5.0 Blood Gas Notified Bam BHATT Blood Gas Notified Time 07/21/2016 11:35:59 PM Test 07/22/16 04:04 07/22/16 05:35 07/22/16 07:00 07/22/16 08:59 Bedside Glucose 107 91 Sodium Level 141 Potassium Level 4.6 Chloride Level 112 H Carbon Dioxide Level 20 L Anion Gap 14 Blood Urea Nitrogen 51 H Creatinine 7.22 H Glucose Level 79 # Calcium Level 8.1 L Phosphorus Level 5.6 H Magnesium Level 1.7 Blood Gas Specimen Source Blood arterial Arterial Blood Date Drawn 07/22/2016 8:04:51 AM Arterial Blood pH (Temp corrected) 7.270 *L Arterial Blood pCO2 (Temp correct) 41.8 Arterial Blood pO2 (Temp corrected) 115.8 H Arterial Blood HCO3 18.8 L Arterial Blood Base Excess -7.6 L Arterial Blood Oxygen Saturation 97.3 Lázaro Test ACCEPTAB Arterial Blood Gas Puncture Site Left Radial Arterial Blood Carboxyhemoglobin 1.4 Arterial Blood Methemoglobin 0.3 Blood Gas A-a O2 Differential 49.0 H Oxyhemoglobin Percent 95.6 Total Hemoglobin 9.3 L Blood Gas Temperature 37.0 Blood Gas Modality VENT - AC FiO2 30.0 Blood Gas Tidal Volume 450.0 Blood Gas Critical Value Read Back E DEIDRA PRICE Blood Gas Notified Whom OTISD Blood Gas Notified Time 07/22/2016 8:43:16 AM Test 07/22/16 09:35 07/22/16 12:16 07/22/16 17:12 White Blood Count 14.9 #H Red Blood Count 2.37 L Hemoglobin 7.8 L Hematocrit 25.7 L Mean Corpuscular Volume 108.4 H Mean Corpuscular Hemoglobin 32.9 Mean Corpuscular Hemoglobin Concent 30.4 L Red Cell Distribution Width 19.4 H Platelet Count 237 Mean Platelet Volume 10.1 Neutrophils % 85.6 H Lymphocytes % 4.0 L Monocytes % 8.0 Eosinophils % 1.1 Basophils % 0.2 Nucleated Red Blood Cells % 0.1 H Neutrophils # 12.8 H Lymphocytes # 0.6 L Monocytes # 1.2 H Eosinophils # 0.2 Basophils # 0.0 Nucleated Red Blood Cells # 0.0 Bedside Glucose 103 125 Medications Medications Current Medications Morphine Sulfate (morphine) 2 mg Q2H PRN IV PAIN LEVEL 6-10 Last administered on 07/22/16t 04:18; Admin Dose 2 MG; Start 07/21/16 at 01:00 Ondansetron HCl (Zofran Inj) 4 mg Q6H PRN IV NAUSEA AND/OR VOMITING; Start 12/28 at 01:00 Pantoprazole 40 mg 40 mg DAILY@06 IV Last administered on 07/22/16 06:58; Admin Dose 40 MG; Start 07/21/16 at 06:00 Propofol (Diprivan) 100 ml @ 1.785 mls/ hr Q12H IV ; Start 07/21/16 at 03:00 Insulin Glargine (Lantus) 12 unit DAILY@09 SC Last administered on 07/21/16 11 :46; Admin Dose 12 UNIT; Start 07/21/16 at 09:00 Miscellaneous Information 1 ea NOTE XX ; Start 07/21/16 at 09:00 Glucose (Glutose) 15 gm Q15M PRN PO DECREASED GLUCOSE; Start 07/21/16 at 09:00 Glucose (Glutose) 22.5 gm Q15M PRN PO DECREASED GLUCOSE; Start 07/21/16 at 09: 00 Dextrose (D50w Syringe) 25 ml Q15M PRN IV DECREASED GLUCOSE Last administered on 07/22/16 02:16; Admin Dose 25 ML; Start 07/21/16 at 09:00 Dextrose (D50w Syringe) 50 ml Q15M PRN IV DECREASED GLUCOSE; Start 07/21/16 at 09:00 Glucagon (Glucagen) 1 mg Q15M PRN IM DECREASED GLUCOSE; Start 07/21/16 at 09:00 Glucose (Glutose) 15 gm Q15M PRN BUCCAL DECREASED GLUCOSE; Start 07/21/16 at 09 :00 Heparin Sodium (Porcine) (Heparin (5000 Units/0.5 ml)) 5,000 unit Q12 SC Last administered on 07/21/16 21:55; Admin Dose 5,000 UNIT; Start 07/21/16 at 21:00 Insulin Aspart NOVOLOG *MODERATE* ALGORI... Q4 SC ; Start 07/21/16 at 17:00 Phenylephrine HCl/ Dextrose (Sheldon-Syneph/D5W) 500 ml @ 75 mls/hr TITRATE IV Last administered on 07/22/16 15:12; Admin Dose 30 MLS/HR; Start 07/22/16 at 01 :30 Hydromorphone HCl (Dilaudid) 0.5 mg Q2 PRN IV SEVERE PAIN LEVEL 7-10; Start 01/28 at 08:00 Hydromorphone HCl 0.25 mg 0.25 mg Q2 PRN IV PAIN LEVEL 1-6 Last administered on 07/22/16 12:12; Admin Dose 0.25 MG; Start 07/22/16 at 08:00 Cefepime HCl 50 ml @ 100 mls/hr Q24H IVPB Last administered on 07/22/16 14:19 ; Admin Dose 100 MLS/HR; Start 07/22/16 at 14:00 Dextrose/Sodium Chloride (D5-1/2ns) 1,000 ml @ 40 mls/hr Q24H IV Last administered on 07/22/16 13:06; Admin Dose 40 MLS/HR; Start 07/22/16 at 13:00 ELIJAH LONG MD July 22, 2016 18:05
[2016-07-22 18:35] LABS: HEMATOCRIT 28.1 % (37.0-47.0); HEMOGLOBIN 8.8 g/dl (12.0-16.0)
[2016-07-23] VITALS (78 sets, daily range): BP systolic 73–151; BP diastolic 38–97; PULSE 68–100; RESP 0–32
[2016-07-23] MEDS: morphine 2 MG INJ IV PRN ×2 (01:26→08:12)
[2016-07-23] MEDS: INSULIN ASPART [NOVOLOG] 3 ML PEN SC SCH ×6 (01:27→21:00)
[2016-07-23] MEDS: PROPOFOL 100 ML IV SCH ×2 (03:00→13:46)
[2016-07-23 06:18] LABS: ADD SCAN DIFF NO
[2016-07-23 06:28] LABS: BASOPHILS % 0.2 % (0.0-2.0); EOSINOPHILS # 0.2 10^3/ul (0.0-0.5); EOSINOPHILS % 1.3 % (0.0-7.0); HEMOGLOBIN 7.6 g/dl (12.0-16.0); LYMPHOCYTES # 0.8 10^3/ul (0.8-2.9); LYMPHOCYTES % 6.5 % (15.0-51.0); MEAN CORPUSCULAR HEMOGLOBIN 32.1 pg (29.0-33.0); MEAN CORPUSCULAR HGB CONC 30.4 g/dl (32.0-37.0); MEAN CORPUSCULAR VOLUME 105.5 fl (82.0-101.0); MEAN PLATELET VOLUME 10.4 fl (7.4-10.4); MONOCYTE # 0.9 10^3/ul (0.3-0.9); MONOCYTES % 7.2 % (0.0-11.0); NEUTROPHIL # 10.2 10^3/ul (1.6-7.5); NEUTROPHILS % 84.4 % (39.0-77.0); PLATELET COUNT 220 10^3/UL (140-415); RED BLOOD COUNT 2.37 10^6/ul (4.20-5.40); RED CELL DISTRIBUTION WIDTH 19.1 % (11.5-14.5); WHITE BLOOD COUNT 12.1 10^3/ul (4.8-10.8)
[2016-07-23] MEDS: PANTOPRAZOLE 40 MG INJ IV SCH (06:29)
[2016-07-23 08:01] LABS: CALCIUM 8.4 mg/dl (8.4-10.2); CREATININE 4.59 mg/dl (0.44-1.00); MAGNESIUM 1.7 mg/dl (1.7-2.5); PHOSPHORUS 3.7 mg/dl (2.5-4.9); POTASSIUM 3.6 mmol/L (3.5-5.1)
[2016-07-23 08:55] LABS: AADO2 Arterial 71.1 mmHg (7.0-24.0); Allen Test ACCEPTAB; Arterial Base Excess 1.9 mmol/L (-3.0-3); Arterial COHb 1.3 % (0.0-3.0); Arterial Fraction of Oxyhgb 95.6 % (93.0-99.0); Arterial HCO3 25.5 mmol/L (22.0-26.0); Arterial MetHb 0.3 % (0.0-1.5); Arterial Total Hemglobin 10.9 g/dl (12.0-18.0); MODE VENT - AC
[2016-07-23] MEDS: HEPARIN 5,000 UNIT/0.5 ML VIAL SC SCH ×2 (08:59→21:00)
[2016-07-23] MEDS: INSULIN GLARGINE [LANtus] 3 ML PEN SC SCH (09:09)
--- NOTE | 2016-07-23 10:48 | RADRPT ---
PROCEDURE: XR Chest. CLINICAL INDICATION: Pneumonia; CHF. TECHNIQUE: Single frontal view of the chest was obtained. COMPARISON: Chest x-ray 07/22/2016 05:52 a.m. FINDINGS: The soft tissues are normal. A mediastinotomy was performed. Degenerative osteophytes are noted in the thoracic spine. The heart is enlarged. The cardiomediastinal silhouette and hilar structures are normal. The pulmonary vasculature is increased. There are clips in the aorticopulmonary window and along the left heart border from prior bypass surgery. There are vascular calcifications in the aortic arch. There are interstitial infiltrates extending from the perihilar areas. There are bila teral pleural effusions. An NG tube is positioned distal to the GE junction. An endotracheal tube is in place at the level of T4. IMPRESSION: 1. No significant changes noted compared to the prior exam. Satisfactory positioning of the endotra cheal tube, nasogastric tube and Perma-Cath central venous catheter. 2. Cardiomegaly with mild CHF and interstitial pulmonary edema with small pleural effusions. 3. Status post median sternotomy for coronary artery bypass surgery. RPTAT:AAJJ Physician Victorino Date Time Electronically viewed and signed by Physician Victorino on 07/23/2016 10:47 JM/
[2016-07-23] MEDS ORDERED: LORAZEPAM 2 MG INJ IV PRN (13:00)
--- NOTE | 2016-07-23 13:02 | PN ---
Date/Time of Note Date/Time of Note DATE: 07/23/16 TIME: 12:57 Assessment/Plan VTE Prophylaxis VTE Prophylaxis Intervention: SCD's Lines/Catheters IV Catheter Type (from Nrs): Peripheral IV Urinary Cath still in place: Yes Reason Cath still needed: urinary retention Assessment/Plan Chief Complaint/Hosp Course ASSESSMENT AND PLAN: 56-year-old female with history of diabetes, end-stage renal disease on dialysis, hypertension, hypothyroidism, presents with abdominal pain secondary to mesenteric ischemia, status post exploratory laparotomy with extensive small bowel resection. 1. Abdominal pain secondary to mesenteric ischemia, status post resection POD # 2. - Follow up postoperative recommendations surgery team and control medications - continue IV fluids as well. - Check labs in the morning. 2. Hypoxemic respiratory failure, status post exploratory laparotomy. Failed CPAP trial this AM - follow pulmonary recommendations. - Continue to try to wean off vent as tolerated. - Monitor, DuoNebs p.r.n. 3. End-stage renal disease on dialysis. - Follow up renal recommendations; dialysis per their rec's 4. Hypertension. Continue to monitor for now. Blood pressure stable, off pressor now. 5. Type 2 diabetes - continue sliding scale insulin. - Follow up A1c. - Continue Lantus. 6. Gastrointestinal prophylaxis, proton pump inhibitor. 7. Deep venous thrombosis prophylaxis, sequential compression devices for now. Critical care time spent on patient care today: 40 minutes. Problems: Subjective 24 Hr Interval Summary Free Text/Dictation Pt off sedation, not able to be extubated today, off of pressor however. Exam/Review of Systems Vital Signs Vitals Vital Signs Date Time Temp Pulse Resp B/P Pulse Ox O2 Delivery O2 Flow Rate FiO2 07/23/16 12:56 79 07/23/16 10:45 14 109/53 100 07/23/16 10:00 Mechanical Ventilator 07/23/16 08:00 99.4 07/23/16 08:00 30 07/20/16 23:30 4.0 Intake and Output 07/22/16 07/22/16 07/23/16 15:00 23:00 07:00 Intake Total 652.5 ml 1000.5 ml 373 ml Output Total 10 ml 1810 ml 25 ml Balance 642.5 ml -809.5 ml 348 ml Exam GEN: pt intubated HEENT: opens eyes (off sedation) NECK: Supple, no thyromegaly. LUNGS: Slightly distant breath sounds bilaterally. CARDIOVASCULAR: S1, S2 heard. No rubs or gallops. ABDOMEN: Soft, nontender, nondistended. Normal bowel sounds. No rebound or guarding. MUSCULOSKELETAL: No lower extremity edema bilaterally. NEUROLOGIC: Unable to fully assess as lethargic Results Result Diagram: 07/23/16 0500 07/23/16 0500 Results 24 hrs Laboratory Tests Test 07/22/16 17:12 07/22/16 18:07 07/22/16 20:46 07/23/16 01:14 Bedside Glucose 125 154 172 Hemoglobin 8.8 L Hematocrit 28.1 L Test 07/23/16 05:00 07/23/16 05:56 07/23/16 07:00 07/23/16 08:30 White Blood Count 12.1 H Red Blood Count 2.37 L Hemoglobin 7.6 L Hematocrit 25.0 L Mean Corpuscular Volume 105.5 H Mean Corpuscular Hemoglobin 32.1 Mean Corpuscular Hemoglobin Concent 30.4 L Red Cell Distribution Width 19.1 H Platelet Count 220 Mean Platelet Volume 10.4 Neutrophils % 84.4 H Lymphocytes % 6.5 L Monocytes % 7.2 Eosinophils % 1.3 Basophils % 0.2 Nucleated Red Blood Cells % 0.0 Neutrophils # 10.2 H Lymphocytes # 0.8 Monocytes # 0.9 Eosinophils # 0.2 Basophils # 0.0 Nucleated Red Blood Cells # 0.0 Sodium Level 133 L Potassium Level 3.6 Chloride Level 98 # Carbon Dioxide Level 25 Anion Gap 14 Blood Urea Nitrogen 25 #H Creatinine 4.59 #H Glucose Level 138 # Calcium Level 8.4 Phosphorus Level 3.7 Magnesium Level 1.7 Bedside Glucose 129 150 Blood Gas Specimen Source Blood arterial Arterial Blood Date Drawn 07/23/2016 7:22:14 AM Arterial Blood pH (Temp corrected) 7.466 H Arterial Blood pCO2 (Temp correct) 36.2 Arterial Blood pO2 (Temp corrected) 100.3 H Arterial Blood HCO3 25.5 Arterial Blood Base Excess 1.9 Arterial Blood Oxygen Saturation 97.2 Lázaro Test ACCEPTAB Arterial Blood Gas Puncture Site Left Radial Arterial Blood Carboxyhemoglobin 1.3 Arterial Blood Methemoglobin 0.3 Blood Gas A-a O2 Differential 71.1 H Oxyhemoglobin Percent 95.6 Total Hemoglobin 10.9 L Blood Gas Temperature 37.0 Blood Gas Respiration Rate 13.0 Blood Gas Actual Respiration Rate 14 Blood Gas Modality VENT - AC FiO2 30.0 Blood Gas Tidal Volume 450.0 Blood Gas Low PEEP Setting 5.0 Blood Gas Notified Whom [facility] Blood Gas Notified Time 07/23/2016 8:55:24 AM Medications Medications Current Medications Morphine Sulfate (morphine) 2 mg Q2H PRN IV PAIN LEVEL 6-10 Last administered on 07/23/16 08:12; Admin Dose 2 MG; Start 07/21/16 at 01:00 Ondansetron HCl (Zofran Inj) 4 mg Q6H PRN IV NAUSEA AND/OR VOMITING Last administered on 07/23/16 09:21; Admin Dose 4 MG; Start 07/21/16 at 01:00 Pantoprazole 40 mg 40 mg DAILY@06 IV Last administered on 07/23/16 06:29; Admin Dose 40 MG; Start 07/21/16 at 06:00 Propofol (Diprivan) 100 ml @ 1.785 mls/ hr Q12H IV ; Start 07/21/16 at 03:00 Insulin Glargine (Lantus) 12 unit DAILY@09 SC Last administered on 07/23/16 09 :09; Admin Dose 12 UNIT; Start 07/21/16 at 09:00 Miscellaneous Information 1 ea NOTE XX ; Start 07/21/16 at 09:00 Glucose (Glutose) 15 gm Q15M PRN PO DECREASED GLUCOSE; Start 07/21/16 at 09:00 Glucose (Glutose) 22.5 gm Q15M PRN PO DECREASED GLUCOSE; Start 07/21/16 at 09: 00 Dextrose (D50w Syringe) 25 ml Q15M PRN IV DECREASED GLUCOSE Last administered on 07/22/16 02:16; Admin Dose 25 ML; Start 07/21/16 at 09:00 Dextrose (D50w Syringe) 50 ml Q15M PRN IV DECREASED GLUCOSE; Start 07/21/16 at 09:00 Glucagon (Glucagen) 1 mg Q15M PRN IM DECREASED GLUCOSE; Start 07/21/16 at 09:00 Glucose (Glutose) 15 gm Q15M PRN BUCCAL DECREASED GLUCOSE; Start 07/21/16 at 09 :00 Heparin Sodium (Porcine) (Heparin (5000 Units/0.5 ml)) 5,000 unit Q12 SC Last administered on 07/21/16 21:55; Admin Dose 5,000 UNIT; Start 07/21/16 at 21:00 Insulin Aspart NOVOLOG *MODERATE* ALGORI... Q4 SC Last administered on 09:10; Admin Dose 2 UNIT; Start 07/21/16 at 17:00 Phenylephrine HCl/ Dextrose (Sheldon-Syneph/D5W) 500 ml @ 75 mls/hr TITRATE IV Last administered on 07/22/16 15:12; Admin Dose 30 MLS/HR; Start 07/22/16 at 01 :30 Hydromorphone HCl (Dilaudid) 0.5 mg Q2 PRN IV SEVERE PAIN LEVEL 7-10 Last administered on 07/23/16 09:22; Admin Dose 0.5 MG; Start 07/22/16 at 08:00 Hydromorphone HCl 0.25 mg 0.25 mg Q2 PRN IV PAIN LEVEL 1-6 Last administered on 07/22/16 12:12; Admin Dose 0.25 MG; Start 07/22/16 at 08:00 Cefepime HCl 50 ml @ 100 mls/hr Q24H IVPB Last administered on 07/22/16 14:19 ; Admin Dose 100 MLS/HR; Start 07/22/16 at 14:00 Dextrose/Sodium Chloride (D5-1/2ns) 1,000 ml @ 40 mls/hr Q24H IV Last administered on 07/22/16 13:06; Admin Dose 40 MLS/HR; Start 07/22/16 at 13:00 Lorazepam (Ativan) 1 mg Q6H PRN IV ANXIETY; Start 07/23/16 at 13:00 LESLIE DEMPSEY July 23, 2016 13:02
[2016-07-23] MEDS: DEXTROSE 5%-0.45% NACL 1,000 ML IV SCH (13:21)
[2016-07-23] MEDS: CEFEPIME 1GM/50 ML (PMX) 50 ML IVPB SCH (13:29)
--- NOTE | 2016-07-23 13:30 | CONS ---
DATE OF ADMISSION: 07/21/2016 DATE OF CONSULTATION: REASON FOR CONSULTATION: Evaluation for dialysis access. HISTORY OF PRESENT ILLNESS: This is a 56-year-old female currently on a dialysis PermCath. The pat ient has a left upper extremity AV fistula which is not functioning well. The patient is being admi tted because of mesenteric ischemia and has undergone a small bowel resection. PAST MEDICAL HISTORY: Hypertension, hyperlipidemia, end-stage renal disease, diabetes, obesity. PAST SURGICAL HISTORY: As above. ALLERGIES: NONE. SOCIAL HISTORY: No smoking, drinking or drug use. MEDICATIONS: List reviewed. PHYSICAL EXAMINATION: VITAL SIGNS: Blood pressure is 109/53, pulse is 85, respirations 14, saturation is 100% on the vent ilator. CARDIOVASCULAR EXAM: Regular rate and rhythm. LUNGS: Clear. ABDOMEN: Soft. EXTREMITIES: Warm. PermCath was inspected. Left upper extremity AV fistula noted. No thrill or br uit. LABORATORY VALUES: Significant for a hemoglobin of 7.6, white count 12.1, platelet count 220, annabella l coagulation factors and a potassium of 3.6. IMPRESSION: 1. Dysfunctional left upper extremity arteriovenous fistula. 2. Anemia. 3. Status post laparotomy and bowel resection. RECOMMENDATIONS: Will proceed with revision of the left upper extremity AV fistula when the patient is medically more stable. Discussed with the referring physicians. Dictated By: BABITA AVALOS/LEXI Conf#: [id number] DID#: [id number]
--- NOTE | 2016-07-23 14:10 | CONS ---
Date/Time of Note Date/Time of Note DATE: 07/23/16 TIME: 14:09 Consult Date/Type/Reason Admit Date/Time July 21, 2016 at 02:30 Initial Consult Date 07/21/16 Type of Consultation: Pulmonary ICU Ordering Provider: LESLIE DEMPSEY Subjective Patient awake alert and oriented on mechanical ventilation Objective Vital Signs Date Time Temp Pulse Resp B/P Pulse Ox O2 Delivery O2 Flow Rate FiO2 07/23/16 13:45 81 14 111/39 100 07/23/16 13:00 Mechanical Ventilator 07/23/16 12:00 98.4 07/23/16 08:00 30 07/20/16 23:30 4.0 Intake and Output 07/22/16 07/22/16 07/23/16 15:00 23:00 07:00 Intake Total 652.5 ml 1000.5 ml 373 ml Output Total 10 ml 1810 ml 25 ml Balance 642.5 ml -809.5 ml 348 ml Exam PHYSICAL EXAMINATION: GENERAL: Elderly-appearing lady, appears comfortable at rest, no acute distress. VITAL SIGNS: As above NECK: Supple. No JVD or lymphadenopathy. CARDIAC: S1, S2, no added sounds or murmurs. CHEST: Diminished air entry bilaterally. ABDOMEN: Soft, nontender. No guarding or rebound. EXTREMITIES: No cyanosis, clubbing, edema. NEUROLOGIC: Unable to assess. Results/Medications Result Diagram: 07/23/16 0500 07/23/16 0500 Results 24 hrs Laboratory Tests Test 07/22/16 17:12 07/22/16 18:07 07/22/16 20:46 07/23/16 01:14 Bedside Glucose 125 154 172 Hemoglobin 8.8 L Hematocrit 28.1 L Test 07/23/16 05:00 07/23/16 05:56 07/23/16 07:00 07/23/16 08:30 White Blood Count 12.1 H Red Blood Count 2.37 L Hemoglobin 7.6 L Hematocrit 25.0 L Mean Corpuscular Volume 105.5 H Mean Corpuscular Hemoglobin 32.1 Mean Corpuscular Hemoglobin Concent 30.4 L Red Cell Distribution Width 19.1 H Platelet Count 220 Mean Platelet Volume 10.4 Neutrophils % 84.4 H Lymphocytes % 6.5 L Monocytes % 7.2 Eosinophils % 1.3 Basophils % 0.2 Nucleated Red Blood Cells % 0.0 Neutrophils # 10.2 H Lymphocytes # 0.8 Monocytes # 0.9 Eosinophils # 0.2 Basophils # 0.0 Nucleated Red Blood Cells # 0.0 Sodium Level 133 L Potassium Level 3.6 Chloride Level 98 # Carbon Dioxide Level 25 Anion Gap 14 Blood Urea Nitrogen 25 #H Creatinine 4.59 #H Glucose Level 138 # Hemoglobin A1c 5.1 Calcium Level 8.4 Phosphorus Level 3.7 Magnesium Level 1.7 Bedside Glucose 129 150 Blood Gas Specimen Source Blood arterial Arterial Blood Date Drawn 07/23/2016 7:22:14 AM Arterial Blood pH (Temp corrected) 7.466 H Arterial Blood pCO2 (Temp correct) 36.2 Arterial Blood pO2 (Temp corrected) 100.3 H Arterial Blood HCO3 25.5 Arterial Blood Base Excess 1.9 Arterial Blood Oxygen Saturation 97.2 Lázaro Test ACCEPTAB Arterial Blood Gas Puncture Site Left Radial Arterial Blood Carboxyhemoglobin 1.3 Arterial Blood Methemoglobin 0.3 Blood Gas A-a O2 Differential 71.1 H Oxyhemoglobin Percent 95.6 Total Hemoglobin 10.9 L Blood Gas Temperature 37.0 Blood Gas Respiration Rate 13.0 Blood Gas Actual Respiration Rate 14 Blood Gas Modality VENT - AC FiO2 30.0 Blood Gas Tidal Volume 450.0 Blood Gas Low PEEP Setting 5.0 Blood Gas Notified Whom [facility] Blood Gas Notified Time 07/23/2016 8:55:24 AM Test 07/23/16 13:20 Bedside Glucose 114 Medications Current Medications Morphine Sulfate (morphine) 2 mg Q2H PRN IV PAIN LEVEL 6-10 Last administered on 07/23/16 08:12; Admin Dose 2 MG; Start 07/21/16 at 01:00 Ondansetron HCl (Zofran Inj) 4 mg Q6H PRN IV NAUSEA AND/OR VOMITING Last administered on 07/23/16 09:21; Admin Dose 4 MG; Start 07/21/16 at 01:00 Pantoprazole 40 mg 40 mg DAILY@06 IV Last administered on 07/23/16 06:29; Admin Dose 40 MG; Start 07/21/16 at 06:00 Propofol (Diprivan) 100 ml @ 1.785 mls/ hr Q12H IV ; Start 07/21/16 at 03:00 Insulin Glargine (Lantus) 12 unit DAILY@09 SC Last administered on 07/23/16 09 :09; Admin Dose 12 UNIT; Start 07/21/16 at 09:00 Miscellaneous Information 1 ea NOTE XX ; Start 07/21/16 at 09:00 Glucose (Glutose) 15 gm Q15M PRN PO DECREASED GLUCOSE; Start 07/21/16 at 09:00 Glucose (Glutose) 22.5 gm Q15M PRN PO DECREASED GLUCOSE; Start 07/21/16 at 09: 00 Dextrose (D50w Syringe) 25 ml Q15M PRN IV DECREASED GLUCOSE Last administered on 07/22/16 02:16; Admin Dose 25 ML; Start 07/21/16 at 09:00 Dextrose (D50w Syringe) 50 ml Q15M PRN IV DECREASED GLUCOSE; Start 07/21/16 at 09:00 Glucagon (Glucagen) 1 mg Q15M PRN IM DECREASED GLUCOSE; Start 07/21/16 at 09:00 Glucose (Glutose) 15 gm Q15M PRN BUCCAL DECREASED GLUCOSE; Start 07/21/16 at 09 :00 Heparin Sodium (Porcine) (Heparin (5000 Units/0.5 ml)) 5,000 unit Q12 SC Last administered on 07/21/16 21:55; Admin Dose 5,000 UNIT; Start 07/21/16 at 21:00 Insulin Aspart NOVOLOG *MODERATE* ALGORI... Q4 SC Last administered on 09:10; Admin Dose 2 UNIT; Start 07/21/16 at 17:00 Phenylephrine HCl/ Dextrose (Sheldon-Syneph/D5W) 500 ml @ 75 mls/hr TITRATE IV Last administered on 07/22/16 15:12; Admin Dose 30 MLS/HR; Start 07/22/16 at 01 :30 Hydromorphone HCl (Dilaudid) 0.5 mg Q2 PRN IV SEVERE PAIN LEVEL 7-10 Last administered on 07/23/16 09:22; Admin Dose 0.5 MG; Start 07/22/16 at 08:00 Hydromorphone HCl 0.25 mg 0.25 mg Q2 PRN IV PAIN LEVEL 1-6 Last administered on 07/22/16 12:12; Admin Dose 0.25 MG; Start 07/22/16 at 08:00 Cefepime HCl 50 ml @ 100 mls/hr Q24H IVPB Last administered on 07/23/16 13:29 ; Admin Dose 100 MLS/HR; Start 07/22/16 at 14:00 Dextrose/Sodium Chloride (D5-1/2ns) 1,000 ml @ 40 mls/hr Q24H IV Last administered on 07/23/16 13:21; Admin Dose 40 MLS/HR; Start 07/22/16 at 13:00 Lorazepam (Ativan) 1 mg Q6H PRN IV ANXIETY; Start 07/23/16 at 13:00 Assessment/Plan Chief Complaint/Hosp Course IMPRESSION AND PLAN: 1. Hypoxemic respiratory failure post exploratory laparotomy. 2. Ischemic bowel, status post lysis of adhesions. 3. End-stage renal failure on hemodialysis. Evidence of metabolic acidosis today 4. Postoperative encephalopathy. 5. Anemia Plan 1. Continued mechanical ventilation. Failed CPAP weaning trial this morning secondary to increased work of breathing, will repeat 2. postextubation incentive spirometry speech therapy evaluation 3. Pain control. 4. DVT and GI prophylaxis. 5. Continue hemodialysis with volume removal Disposition Continue ICU care Problems: DION CONTRERAS [facility], [facility] July 23, 2016 14:10
--- NOTE | 2016-07-23 19:14 | CONS ---
Date/Time of Note Date/Time of Note DATE: 07/23/16 TIME: 19:12 Assessment/Plan Assessment/Plan Chief Complaint/Hosp Course 1. S/P EX LAP AND BOWEL RESECTION 2. ESRD, HD de[pendent 3. HTN 4. DM 5. ASHD 6. S/P CABG Problems: Additional Assessment/Plan 1. Per primary 2. Continue HD Consultation Date/Type/Reason Admit Date/Time July 21, 2016 at 02:30 Initial Consult Date 07/21/16 Type of Consultation: nephrology Reason for Consultation Dr Weaver Referring Provider: LESLIE DEMPSEY Exam/Review of Systems Vital Signs Vitals Vital Signs Date Time Temp Pulse Resp B/P Pulse Ox O2 Delivery O2 Flow Rate FiO2 07/23/16 18:00 74 12 109/41 100 Mechanical Ventilator 07/23/16 14:00 98.6 07/23/16 08:00 30 07/20/16 23:30 4.0 Intake and Output 07/22/16 07/22/16 07/23/16 15:00 23:00 07:00 Intake Total 652.5 ml 1000.5 ml 373 ml Output Total 10 ml 1810 ml 25 ml Balance 642.5 ml -809.5 ml 348 ml Exam Constitutional: other (sedated) Neck: supple Respiratory: diminished breath sounds Cardiovascular: regular rate and rhythm Gastrointestinal: distended, surgical scars Genitourinary - Female: nl adnexae Results Result Diagram: 07/23/16 0500 07/23/16 0500 Results 24 hrs Laboratory Tests Test 07/22/16 20:46 07/23/16 01:14 07/23/16 05:00 07/23/16 05:56 Bedside Glucose 154 172 129 White Blood Count 12.1 H Red Blood Count 2.37 L Hemoglobin 7.6 L Hematocrit 25.0 L Mean Corpuscular Volume 105.5 H Mean Corpuscular Hemoglobin 32.1 Mean Corpuscular Hemoglobin Concent 30.4 L Red Cell Distribution Width 19.1 H Platelet Count 220 Mean Platelet Volume 10.4 Neutrophils % 84.4 H Lymphocytes % 6.5 L Monocytes % 7.2 Eosinophils % 1.3 Basophils % 0.2 Nucleated Red Blood Cells % 0.0 Neutrophils # 10.2 H Lymphocytes # 0.8 Monocytes # 0.9 Eosinophils # 0.2 Basophils # 0.0 Nucleated Red Blood Cells # 0.0 Sodium Level 133 L Potassium Level 3.6 Chloride Level 98 # Carbon Dioxide Level 25 Anion Gap 14 Blood Urea Nitrogen 25 #H Creatinine 4.59 #H Glucose Level 138 # Hemoglobin A1c 5.1 Calcium Level 8.4 Phosphorus Level 3.7 Magnesium Level 1.7 Test 07/23/16 07:00 07/23/16 08:30 07/23/16 13:20 07/23/16 16:39 Blood Gas Specimen Source Blood arterial Arterial Blood Date Drawn 07/23/2016 7:22:14 AM Arterial Blood pH (Temp corrected) 7.466 H Arterial Blood pCO2 (Temp correct) 36.2 Arterial Blood pO2 (Temp corrected) 100.3 H Arterial Blood HCO3 25.5 Arterial Blood Base Excess 1.9 Arterial Blood Oxygen Saturation 97.2 Lázaro Test ACCEPTAB Arterial Blood Gas Puncture Site Left Radial Arterial Blood Carboxyhemoglobin 1.3 Arterial Blood Methemoglobin 0.3 Blood Gas A-a O2 Differential 71.1 H Oxyhemoglobin Percent 95.6 Total Hemoglobin 10.9 L Blood Gas Temperature 37.0 Blood Gas Respiration Rate 13.0 Blood Gas Actual Respiration Rate 14 Blood Gas Modality VENT - AC FiO2 30.0 Blood Gas Tidal Volume 450.0 Blood Gas Low PEEP Setting 5.0 Blood Gas Notified Wh[facility] Blood Gas Notified Time 07/23/2016 8:55:24 AM Bedside Glucose 150 114 97 Medications Medications Current Medications Morphine Sulfate (morphine) 2 mg Q2H PRN IV PAIN LEVEL 6-10 Last administered on 07/23/16 08:12; Admin Dose 2 MG; Start 07/21/16 at 01:00 Ondansetron HCl (Zofran Inj) 4 mg Q6H PRN IV NAUSEA AND/OR VOMITING Last administered on 07/23/16 09:21; Admin Dose 4 MG; Start 07/21/16 at 01:00 Pantoprazole 40 mg 40 mg DAILY@06 IV Last administered on 07/23/16 06:29; Admin Dose 40 MG; Start 07/21/16 at 06:00 Propofol (Diprivan) 100 ml @ 1.785 mls/ hr Q12H IV ; Start 07/21/16 at 03:00 Insulin Glargine (Lantus) 12 unit DAILY@09 SC Last administered on 07/23/16 09 :09; Admin Dose 12 UNIT; Start 07/21/16 at 09:00 Miscellaneous Information 1 ea NOTE XX ; Start 07/21/16 at 09:00 Glucose (Glutose) 15 gm Q15M PRN PO DECREASED GLUCOSE; Start 07/21/16 at 09:00 Glucose (Glutose) 22.5 gm Q15M PRN PO DECREASED GLUCOSE; Start 07/21/16 at 09: 00 Dextrose (D50w Syringe) 25 ml Q15M PRN IV DECREASED GLUCOSE Last administered on 07/22/16 02:16; Admin Dose 25 ML; Start 07/21/16 at 09:00 Dextrose (D50w Syringe) 50 ml Q15M PRN IV DECREASED GLUCOSE; Start 07/21/16 at 09:00 Glucagon (Glucagen) 1 mg Q15M PRN IM DECREASED GLUCOSE; Start 07/21/16 at 09:00 Glucose (Glutose) 15 gm Q15M PRN BUCCAL DECREASED GLUCOSE; Start 07/21/16 at 09 :00 Heparin Sodium (Porcine) (Heparin (5000 Units/0.5 ml)) 5,000 unit Q12 SC Last administered on 07/21/16 21:55; Admin Dose 5,000 UNIT; Start 07/21/16 at 21:00 Insulin Aspart NOVOLOG *MODERATE* ALGORI... Q4 SC Last administered on 09:10; Admin Dose 2 UNIT; Start 07/21/16 at 17:00 Phenylephrine HCl/ Dextrose (Sheldon-Syneph/D5W) 500 ml @ 75 mls/hr TITRATE IV Last administered on 07/22/16 15:12; Admin Dose 30 MLS/HR; Start 07/22/16 at 01 :30 Hydromorphone HCl (Dilaudid) 0.5 mg Q2 PRN IV SEVERE PAIN LEVEL 7-10 Last administered on 07/23/16 09:22; Admin Dose 0.5 MG; Start 07/22/16 at 08:00 Hydromorphone HCl 0.25 mg 0.25 mg Q2 PRN IV PAIN LEVEL 1-6 Last administered on 07/22/16 12:12; Admin Dose 0.25 MG; Start 07/22/16 at 08:00 Cefepime HCl 50 ml @ 100 mls/hr Q24H IVPB Last administered on 5/12/17at 13:29 ; Admin Dose 100 MLS/HR; Start 07/22/16 at 14:00 Dextrose/Sodium Chloride (D5-1/2ns) 1,000 ml @ 40 mls/hr Q24H IV Last administered on 07/23/16t 13:21; Admin Dose 40 MLS/HR; Start 07/22/16 at 13:00 Lorazepam (Ativan) 1 mg Q6H PRN IV ANXIETY; Start 07/23/16 at 13:00 CARMEN HERRERA July 23, 2016 19:14
[2016-07-24] VITALS (64 sets, daily range): BP systolic 95–170; BP diastolic 40–74; PULSE 62–102; RESP 7–28
[2016-07-24] MEDS: INSULIN ASPART [NOVOLOG] 3 ML PEN SC SCH ×6 (01:00→20:47)
[2016-07-24] MEDS: DEXTROSE 50% 50 ML SYRINGE IV PRN (01:22)
[2016-07-24] MEDS: PROPOFOL 100 ML IV SCH ×2 (02:40→15:00)
[2016-07-24 05:31] LABS: ADD SCAN DIFF NO
[2016-07-24] MEDS: PANTOPRAZOLE 40 MG INJ IV SCH (06:00)
[2016-07-24 06:03] LABS: ABNORMAL IP MESSAGE 1; HEMATOCRIT 21.6 % (37.0-47.0); MEAN CORPUSCULAR HEMOGLOBIN 32.5 pg (29.0-33.0); MEAN CORPUSCULAR HGB CONC 30.6 g/dl (32.0-37.0); MEAN CORPUSCULAR VOLUME 106.4 fl (82.0-101.0); MEAN PLATELET VOLUME 10.8 fl (7.4-10.4); PLATELET COUNT 175 10^3/UL (140-415); RED BLOOD COUNT 2.03 10^6/ul (4.20-5.40); RED CELL DISTRIBUTION WIDTH 18.6 % (11.5-14.5); WHITE BLOOD COUNT 7.2 10^3/ul (4.8-10.8)
[2016-07-24 06:10] LABS: CREATININE 5.52 mg/dl (0.44-1.00); MAGNESIUM 1.8 mg/dl (1.7-2.5); PHOSPHORUS 4.2 mg/dl (2.5-4.9); POTASSIUM 3.3 mmol/L (3.5-5.1)
[2016-07-24 07:04] LABS: HEMOGLOBIN 6.6 g/dl (12.0-16.0)
[2016-07-24] MEDS ORDERED: SOD CHLORIDE 0.9% 250 ML IV* ONE (07:07)
[2016-07-24] MEDS: HEPARIN 5,000 UNIT/0.5 ML VIAL SC SCH ×2 (08:24→20:45)
--- NOTE | 2016-07-24 08:31 | PN ---
Date/Time of Note Date/Time of Note DATE: 07/24/16 TIME: 08:30 Assessment/Plan Lines/Catheters IV Catheter Type (from Nrsg): Peripheral IV Kowalski in Place (from Nrsg): Yes Assessment/Plan Chief Complaint/Hosp Course IMPRESSION: 1. Dysfunctional left upper extremity arteriovenous fistula. 2. Anemia. 3. Status post laparotomy and bowel resection. RECOMMENDATIONS: Will proceed with revision of the left upper extremity AV fistula when the patient is medically more stable. Discussed with the referring physicians. Problems: Subjective 24 Hr Interval Summary Constitutional: improved Pain Control: mild Exam/Review of Systems Vital Signs Vitals Vital Signs Date Time Temp Pulse Resp B/P Pulse Ox O2 Delivery O2 Flow Rate FiO2 07/24/16 06:30 75 22 07/24/16 06:00 107/48 100 Mechanical Ventilator 07/24/16 05:23 30 07/24/16 04:00 98.2 07/20/16 23:30 4.0 Intake and Output 07/23/16 07/23/16 07/24/16 15:00 23:00 07:00 Intake Total 101.25 ml 320 ml 580 ml Output Total 15 ml 0 ml 2300 ml Balance 86.25 ml 320 ml -1720 ml Exam Neck: non-tender, supple Respiratory: clear to auscultation, normal air movement Cardiovascular: nl pulses, regular rate and rhythm Gastrointestinal: nl liver, spleen, non-tender, soft Results Result Diagram: 07/24/16 0515 07/24/16 0515 BABITA GRIGGS MD July 24, 2016 08:31
[2016-07-24] MEDS: INSULIN GLARGINE [LANtus] 3 ML PEN SC SCH (09:00)
[2016-07-24] MEDS: morphine 2 MG INJ IV PRN (10:33)
--- NOTE | 2016-07-24 10:33 | PN ---
DATE: 07/24/2016 SUBJECTIVE: Ms. Lou is postop day 3 from a small-bowel resection. The patient was in tubated and sedated. She is minimally responsive and awake. She had a bowel movement and currently not really responsive. OBJECTIVE VITAL SIGNS: He is afebrile. Vital signs stable. ABDOMEN: Soft, nondistended. Her wound is clean, dry and intact. LABORATORY DATA: Reveal a white count of 7, hematocrit of 22 and platelets of 175. Sodium 133, pot assium 2.3, chloride 100, CO2 of 27, BUN and creatinine 35 and 5.2 and a glucose of 90. ASSESSMENT AND PLAN: 1. Ms. Lou is a 56-year-old female status post a small-bowel resection for mesenteric ischemia. Continue n.p.o., continue IV fluids. Discussed the possibility of starting TPN if unabl e to wean. 2. Hematocrit is 21, recommend blood transfusion today. Dictated By: ROBERTO ANTOINE/LEXI Conf#: [id number] DID#: [id number]
[2016-07-24 10:56] LABS: EOSINOPHILS # 0.1 10^3/ul (0.0-0.5); LYMPHOCYTES # 0.6 10^3/ul (0.8-2.9); MONOCYTE # 0.7 10^3/ul (0.3-0.9); NEUTROPHIL # 5.7 10^3/ul (1.6-7.5); POLYCHROMASIA 1+
--- NOTE | 2016-07-24 11:27 | RADRPT ---
PROCEDURE: XR Chest. CLINICAL INDICATION: Pneumonia, CHF TECHNIQUE: Single frontal chest x-ray. COMPARISON: 07/23/2016 FINDINGS: Hazy opacity at the left lung base is grossly stable, likely atelectasis and/or mild pleural effusio n. No pneumothorax is identified. There is stable mild to moderate cardiomegaly mild pulmonary vas cular congestion. The patient is status post sternotomy. Endotracheal tube, nasogastric tube, and left-sided dialysis catheter remain in place. The osseous structures are unremarkable. IMPRESSION: 1. Stable atelectasis and/or mild effusion at the left lung base. 2. Stable mild to moderate cardiomegaly and mild pulmonary vascular congestion. 3. Lines and tubes remain in place. 4. No significant change. RPTAT: QQ .Eriberto Cannon MD, Date Time Electronically viewed and signed by .Eriberto Cannon MD, on 07/24/2016 11:27 .R/
--- NOTE | 2016-07-24 11:44 | PN ---
Date/Time of Note Date/Time of Note DATE: 07/24/16 TIME: 11:41 Assessment/Plan VTE Prophylaxis VTE Prophylaxis Intervention: SCD's Lines/Catheters IV Catheter Type (from Nrs): Peripheral IV Urinary Cath still in place: Yes Reason Cath still needed: urinary retention Assessment/Plan Chief Complaint/Hosp Course ASSESSMENT AND PLAN: 56-year-old female with history of diabetes, end-stage renal disease on dialysis, hypertension, hypothyroidism, presents with abdominal pain secondary to mesenteric ischemia, status post exploratory laparotomy with extensive small bowel resection. 1. Abdominal pain secondary to mesenteric ischemia, status post resection POD # 3. - Follow up postoperative recommendations surgery team and control medications - continue IV fluids as well. - Check labs in the morning. - for pRBC transfusion today given anemia 2. Hypoxemic respiratory failure, status post exploratory laparotomy. Failed CPAP trial again. - follow pulmonary recommendations. - Continue to try to wean off vent as tolerated. - Monitor, DuoNebs p.r.n. 3. End-stage renal disease on dialysis. - Follow up renal recommendations; dialysis per their rec's 4. Hypertension. Continue to monitor for now. Blood pressure stable, off pressor now. 5. Type 2 diabetes - continue sliding scale insulin. - Continue Lantus. 6. Gastrointestinal prophylaxis, proton pump inhibitor. 7. Deep venous thrombosis prophylaxis, sequential compression devices for now. Critical care time spent on patient care today: 40 minutes. Problems: Subjective 24 Hr Interval Summary Free Text/Dictation Pt agitated this AM, now in restraints. Getting pRBC transfusion today. Had HD this AM. Failed extubation trial yesterday. Exam/Review of Systems Vital Signs Vitals Vital Signs Date Time Temp Pulse Resp B/P Pulse Ox O2 Delivery O2 Flow Rate FiO2 07/24/16 10:30 100 24 147/56 74 Mechanical Ventilator 07/24/16 08:00 30 07/24/16 07:30 98.1 07/20/16 23:30 4.0 Intake and Output 07/23/16 07/23/16 07/24/16 14:59 22:59 06:59 Intake Total 101.25 ml 280 ml 620 ml Output Total 20 ml 0 ml 2300 ml Balance 81.25 ml 280 ml -1680 ml Exam GEN: pt intubated HEENT: opens eyes (off sedation), trying to move around NECK: Supple, no thyromegaly. LUNGS: Slightly distant breath sounds bilaterally. CARDIOVASCULAR: S1, S2 heard. No rubs or gallops. ABDOMEN: Soft, nontender, nondistended. Normal bowel sounds. No rebound or guarding. MUSCULOSKELETAL: No lower extremity edema bilaterally. NEUROLOGIC: Unable to fully assess as lethargic Results Result Diagram: 07/24/16 0515 07/24/16 0515 Results 24 hrs Laboratory Tests Test 07/23/16 13:20 07/23/16 16:39 07/23/16 21:18 07/24/16 01:11 Bedside Glucose 114 97 78 58 L Test 07/24/16 01:50 07/24/16 05:05 07/24/16 05:15 07/24/16 09:21 Bedside Glucose 104 98 115 White Blood Count 7.2 # Red Blood Count 2.03 L Hemoglobin 6.6 *L Hematocrit 21.6 L Mean Corpuscular Volume 106.4 H Mean Corpuscular Hemoglobin 32.5 Mean Corpuscular Hemoglobin Concent 30.6 L Red Cell Distribution Width 18.6 H Platelet Count 175 # Mean Platelet Volume 10.8 H Neutrophils % 79.0 H Lymphocytes % 9.0 L Monocytes % 10.0 Eosinophils % 2.0 Neutrophils # 5.7 Lymphocytes # 0.6 L Monocytes # 0.7 Eosinophils # 0.1 Polychromasia 1+ Sodium Level 133 L Potassium Level 3.3 L Chloride Level 100 Carbon Dioxide Level 27 Anion Gap 9 # Blood Urea Nitrogen 35 H Creatinine 5.52 H Glucose Level 90 # Calcium Level 8.0 L Phosphorus Level 4.2 Magnesium Level 1.8 Medications Medications Current Medications Morphine Sulfate (morphine) 2 mg Q2H PRN IV PAIN LEVEL 6-10 Last administered on 07/24/16 10:33; Admin Dose 2 MG; Start 07/21/16 at 01:00 Ondansetron HCl (Zofran Inj) 4 mg Q6H PRN IV NAUSEA AND/OR VOMITING Last administered on 07/23/16 09:21; Admin Dose 4 MG; Start 07/21/16 at 01:00 Pantoprazole 40 mg 40 mg DAILY@06 IV Last administered on 07/23/16 06:29; Admin Dose 40 MG; Start 07/21/16 at 06:00 Propofol (Diprivan) 100 ml @ 1.785 mls/ hr Q12H IV ; Start 07/21/16 at 03:00 Insulin Glargine (Lantus) 12 unit DAILY@09 SC Last administered on 07/23/16 09 :09; Admin Dose 12 UNIT; Start 07/21/16 at 09:00 Miscellaneous Information 1 ea NOTE XX ; Start 07/21/16 at 09:00 Glucose (Glutose) 15 gm Q15M PRN PO DECREASED GLUCOSE; Start 07/21/16 at 09:00 Glucose (Glutose) 22.5 gm Q15M PRN PO DECREASED GLUCOSE; Start 07/21/16 at 09: 00 Dextrose (D50w Syringe) 25 ml Q15M PRN IV DECREASED GLUCOSE Last administered on 07/24/16 01:22; Admin Dose 25 ML; Start 07/21/16 at 09:00 Dextrose (D50w Syringe) 50 ml Q15M PRN IV DECREASED GLUCOSE; Start 07/21/16 at 09:00 Glucagon (Glucagen) 1 mg Q15M PRN IM DECREASED GLUCOSE; Start 07/21/16 at 09:00 Glucose (Glutose) 15 gm Q15M PRN BUCCAL DECREASED GLUCOSE; Start 07/21/16 at 09 :00 Heparin Sodium (Porcine) (Heparin (5000 Units/0.5 ml)) 5,000 unit Q12 SC Last administered on 07/21/16 21:55; Admin Dose 5,000 UNIT; Start 07/21/16 at 21:00 Insulin Aspart NOVOLOG *MODERATE* ALGORI... Q4 SC Last administered on 09:10; Admin Dose 2 UNIT; Start 07/21/16 at 17:00 Phenylephrine HCl/ Dextrose (Sheldon-Syneph/D5W) 500 ml @ 75 mls/hr TITRATE IV Last administered on 07/22/16 15:12; Admin Dose 30 MLS/HR; Start 07/22/16 at 01 :30 Hydromorphone HCl (Dilaudid) 0.5 mg Q2 PRN IV SEVERE PAIN LEVEL 7-10 Last administered on 07/23/16 09:22; Admin Dose 0.5 MG; Start 07/22/16 at 08:00 Hydromorphone HCl 0.25 mg 0.25 mg Q2 PRN IV PAIN LEVEL 1-6 Last administered on 07/22/16 12:12; Admin Dose 0.25 MG; Start 07/22/16 at 08:00 Cefepime HCl 50 ml @ 100 mls/hr Q24H IVPB Last administered on 07/23/16 13:29 ; Admin Dose 100 MLS/HR; Start 07/22/16 at 14:00 Dextrose/Sodium Chloride (D5-1/2ns) 1,000 ml @ 40 mls/hr Q24H IV Last administered on 07/23/16 13:21; Admin Dose 40 MLS/HR; Start 07/22/16 at 13:00 Lorazepam (Ativan) 1 mg Q6H PRN IV ANXIETY Last administered on 07/24/16 08:14 ; Admin Dose 1 MG; Start 07/23/16 at 13:00 LESLIE DEMPSEY July 24, 2016 11:44
--- NOTE | 2016-07-24 12:08 | CONS ---
Date/Time of Note Date/Time of Note DATE: 07/24/16 TIME: 12:06 Assessment/Plan Assessment/Plan Chief Complaint/Hosp Course 1. S/P EX LAP AND BOWEL RESECTION 2. ESRD, HD dependent 3. HTN 4. DM 5. ASHD 6. S/P CABG Problems: Additional Assessment/Plan 1. Blood transfusion in progress 2. Pt is after HD 3. Hypokalemia 4. Repeat BMP in 2 hours Consultation Date/Type/Reason Admit Date/Time July 21, 2016 at 02:30 Initial Consult Date 07/21/16 Type of Consultation: nephrology Reason for Consultation Weaver Referring Provider: LESLIE DEMPSEY 24 HR Interval Summary Constitutional: no complaints Exam/Review of Systems Vital Signs Vitals Vital Signs Date Time Temp Pulse Resp B/P Pulse Ox O2 Delivery O2 Flow Rate FiO2 07/24/16 10:30 100 24 147/56 74 Mechanical Ventilator 07/24/16 08:00 30 07/24/16 07:30 98.1 07/20/16 23:30 4.0 Intake and Output 07/23/16 07/23/16 07/24/16 15:00 23:00 07:00 Intake Total 101.25 ml 320 ml 580 ml Output Total 15 ml 0 ml 2300 ml Balance 86.25 ml 320 ml -1720 ml Exam Constitutional: alert ENMT: nl external ears & nose Neck: supple Respiratory: clear to auscultation, diminished breath sounds Cardiovascular: regular rate and rhythm Gastrointestinal: soft Results Result Diagram: 07/24/16 0515 07/24/16 0515 Results 24 hrs Laboratory Tests Test 07/23/16 13:20 07/23/16 16:39 07/23/16 21:18 07/24/16 01:11 Bedside Glucose 114 97 78 58 L Test 07/24/16 01:50 07/24/16 05:05 07/24/16 05:15 07/24/16 09:21 Bedside Glucose 104 98 115 White Blood Count 7.2 # Red Blood Count 2.03 L Hemoglobin 6.6 *L Hematocrit 21.6 L Mean Corpuscular Volume 106.4 H Mean Corpuscular Hemoglobin 32.5 Mean Corpuscular Hemoglobin Concent 30.6 L Red Cell Distribution Width 18.6 H Platelet Count 175 # Mean Platelet Volume 10.8 H Neutrophils % 79.0 H Lymphocytes % 9.0 L Monocytes % 10.0 Eosinophils % 2.0 Neutrophils # 5.7 Lymphocytes # 0.6 L Monocytes # 0.7 Eosinophils # 0.1 Polychromasia 1+ Sodium Level 133 L Potassium Level 3.3 L Chloride Level 100 Carbon Dioxide Level 27 Anion Gap 9 # Blood Urea Nitrogen 35 H Creatinine 5.52 H Glucose Level 90 # Calcium Level 8.0 L Phosphorus Level 4.2 Magnesium Level 1.8 Medications Medications Current Medications Morphine Sulfate (morphine) 2 mg Q2H PRN IV PAIN LEVEL 6-10 Last administered on 07/24/16 10:33; Admin Dose 2 MG; Start 07/21/16 at 01:00 Ondansetron HCl (Zofran Inj) 4 mg Q6H PRN IV NAUSEA AND/OR VOMITING Last administered on 07/23/16 09:21; Admin Dose 4 MG; Start 07/21/16 at 01:00 Pantoprazole 40 mg 40 mg DAILY@06 IV Last administered on 07/23/16 06:29; Admin Dose 40 MG; Start 07/21/16 at 06:00 Propofol (Diprivan) 100 ml @ 1.785 mls/ hr Q12H IV ; Start 07/21/16 at 03:00 Insulin Glargine (Lantus) 12 unit DAILY@09 SC Last administered on 07/23/16 09 :09; Admin Dose 12 UNIT; Start 07/21/16 at 09:00 Miscellaneous Information 1 ea NOTE XX ; Start 07/21/16 at 09:00 Glucose (Glutose) 15 gm Q15M PRN PO DECREASED GLUCOSE; Start 07/21/16 at 09:00 Glucose (Glutose) 22.5 gm Q15M PRN PO DECREASED GLUCOSE; Start 07/21/16 at 09: 00 Dextrose (D50w Syringe) 25 ml Q15M PRN IV DECREASED GLUCOSE Last administered on 07/24/16 01:22; Admin Dose 25 ML; Start 07/21/16 at 09:00 Dextrose (D50w Syringe) 50 ml Q15M PRN IV DECREASED GLUCOSE; Start 07/21/16 at 09:00 Glucagon (Glucagen) 1 mg Q15M PRN IM DECREASED GLUCOSE; Start 07/21/16 at 09:00 Glucose (Glutose) 15 gm Q15M PRN BUCCAL DECREASED GLUCOSE; Start 07/21/16 at 09 :00 Heparin Sodium (Porcine) (Heparin (5000 Units/0.5 ml)) 5,000 unit Q12 SC Last administered on 07/21/16 21:55; Admin Dose 5,000 UNIT; Start 07/21/16 at 21:00 Insulin Aspart NOVOLOG *MODERATE* ALGORI... Q4 SC Last administered on 09:10; Admin Dose 2 UNIT; Start 07/21/16 at 17:00 Phenylephrine HCl/ Dextrose (Sheldon-Syneph/D5W) 500 ml @ 75 mls/hr TITRATE IV Last administered on 07/22/16 15:12; Admin Dose 30 MLS/HR; Start 07/22/16 at 01 :30 Hydromorphone HCl (Dilaudid) 0.5 mg Q2 PRN IV SEVERE PAIN LEVEL 7-10 Last administered on 07/23/16 09:22; Admin Dose 0.5 MG; Start 07/22/16 at 08:00 Hydromorphone HCl 0.25 mg 0.25 mg Q2 PRN IV PAIN LEVEL 1-6 Last administered on 07/22/16 12:12; Admin Dose 0.25 MG; Start 07/22/16 at 08:00 Cefepime HCl 50 ml @ 100 mls/hr Q24H IVPB Last administered on 07/23/16 13:29 ; Admin Dose 100 MLS/HR; Start 07/22/16 at 14:00 Dextrose/Sodium Chloride (D5-1/2ns) 1,000 ml @ 40 mls/hr Q24H IV Last administered on 07/23/16 13:21; Admin Dose 40 MLS/HR; Start 07/22/16 at 13:00 Lorazepam (Ativan) 1 mg Q6H PRN IV ANXIETY Last administered on 07/24/16 08:14 ; Admin Dose 1 MG; Start 07/23/16 at 13:00 CARMEN HERRERA July 24, 2016 12:08
[2016-07-24] MEDS: DEXTROSE 5%-0.45% NACL 1,000 ML IV SCH ×2 (13:00→17:02)
[2016-07-24] MEDS: CEFEPIME 1GM/50 ML (PMX) 50 ML IVPB SCH (13:15)
--- NOTE | 2016-07-24 14:09 | CONS ---
Date/Time of Note Date/Time of Note DATE: 07/24/16 TIME: 14:05 Consult Date/Type/Reason Admit Date/Time July 21, 2016 at 02:30 Initial Consult Date 07/21/16 Type of Consultation: Pulm/CCM Ordering Provider: LESLIE DEMPSEY Subjective Awake on vent on CPAP/PS. RSBI is ~ 60 Objective Vital Signs Date Time Temp Pulse Resp B/P Pulse Ox O2 Delivery O2 Flow Rate FiO2 07/24/16 10:30 100 24 147/56 74 Mechanical Ventilator 07/24/16 08:00 30 07/24/16 07:30 98.1 07/20/16 23:30 4.0 Intake and Output 07/23/16 07/23/16 07/24/16 15:00 23:00 07:00 Intake Total 101.25 ml 320 ml 580 ml Output Total 15 ml 0 ml 2300 ml Balance 86.25 ml 320 ml -1720 ml Exam NECK: Supple. No JVD or lymphadenopathy. CARDIAC: S1, S2, no added sounds or murmurs. CHEST: Clear ABDOMEN: NT; decreased BS; wound clean EXTREMITIES: No cyanosis, clubbing, edema. Results/Medications Result Diagram: 07/24/16 0515 07/24/16 0515 Results 24 hrs Laboratory Tests Test 07/23/16 16:39 07/23/16 21:18 07/24/16 01:11 07/24/16 01:50 Bedside Glucose 97 78 58 L 104 Test 07/24/16 05:05 07/24/16 05:15 07/24/16 09:21 07/24/16 13:17 Bedside Glucose 98 115 131 White Blood Count 7.2 # Red Blood Count 2.03 L Hemoglobin 6.6 *L Hematocrit 21.6 L Mean Corpuscular Volume 106.4 H Mean Corpuscular Hemoglobin 32.5 Mean Corpuscular Hemoglobin Concent 30.6 L Red Cell Distribution Width 18.6 H Platelet Count 175 # Mean Platelet Volume 10.8 H Neutrophils % 79.0 H Lymphocytes % 9.0 L Monocytes % 10.0 Eosinophils % 2.0 Neutrophils # 5.7 Lymphocytes # 0.6 L Monocytes # 0.7 Eosinophils # 0.1 Polychromasia 1+ Sodium Level 133 L Potassium Level 3.3 L Chloride Level 100 Carbon Dioxide Level 27 Anion Gap 9 # Blood Urea Nitrogen 35 H Creatinine 5.52 H Glucose Level 90 # Calcium Level 8.0 L Phosphorus Level 4.2 Magnesium Level 1.8 Medications Current Medications Morphine Sulfate (morphine) 2 mg Q2H PRN IV PAIN LEVEL 6-10 Last administered on 07/24/16 10:33; Admin Dose 2 MG; Start 07/21/16 at 01:00 Ondansetron HCl (Zofran Inj) 4 mg Q6H PRN IV NAUSEA AND/OR VOMITING Last administered on 07/23/16 09:21; Admin Dose 4 MG; Start 07/21/16 at 01:00 Pantoprazole 40 mg 40 mg DAILY@06 IV Last administered on 07/23/16 06:29; Admin Dose 40 MG; Start 07/21/16 at 06:00 Propofol (Diprivan) 100 ml @ 1.785 mls/ hr Q12H IV ; Start 07/21/16 at 03:00 Insulin Glargine (Lantus) 12 unit DAILY@09 SC Last administered on 07/23/16 09 :09; Admin Dose 12 UNIT; Start 07/21/16 at 09:00 Miscellaneous Information 1 ea NOTE XX ; Start 07/21/16 at 09:00 Glucose (Glutose) 15 gm Q15M PRN PO DECREASED GLUCOSE; Start 07/21/16 at 09:00 Glucose (Glutose) 22.5 gm Q15M PRN PO DECREASED GLUCOSE; Start 07/21/16 at 09: 00 Dextrose (D50w Syringe) 25 ml Q15M PRN IV DECREASED GLUCOSE Last administered on 07/24/16 01:22; Admin Dose 25 ML; Start 07/21/16 at 09:00 Dextrose (D50w Syringe) 50 ml Q15M PRN IV DECREASED GLUCOSE; Start 07/21/16 at 09:00 Glucagon (Glucagen) 1 mg Q15M PRN IM DECREASED GLUCOSE; Start 07/21/16 at 09:00 Glucose (Glutose) 15 gm Q15M PRN BUCCAL DECREASED GLUCOSE; Start 07/21/16 at 09 :00 Heparin Sodium (Porcine) (Heparin (5000 Units/0.5 ml)) 5,000 unit Q12 SC Last administered on 07/21/16 21:55; Admin Dose 5,000 UNIT; Start 07/21/16 at 21:00 Insulin Aspart NOVOLOG *MODERATE* ALGORI... Q4 SC Last administered on 09:10; Admin Dose 2 UNIT; Start 07/21/16 at 17:00 Phenylephrine HCl/ Dextrose (Sheldon-Syneph/D5W) 500 ml @ 75 mls/hr TITRATE IV Last administered on 07/22/16 15:12; Admin Dose 30 MLS/HR; Start 07/22/16 at 01 :30 Hydromorphone HCl (Dilaudid) 0.5 mg Q2 PRN IV SEVERE PAIN LEVEL 7-10 Last administered on 07/23/16 09:22; Admin Dose 0.5 MG; Start 07/22/16 at 08:00 Hydromorphone HCl 0.25 mg 0.25 mg Q2 PRN IV PAIN LEVEL 1-6 Last administered on 07/22/16 12:12; Admin Dose 0.25 MG; Start 07/22/16 at 08:00 Cefepime HCl 50 ml @ 100 mls/hr Q24H IVPB Last administered on 07/24/16 13:15 ; Admin Dose 100 MLS/HR; Start 07/22/16 at 14:00 Dextrose/Sodium Chloride (D5-1/2ns) 1,000 ml @ 40 mls/hr Q24H IV Last administered on 07/23/16 13:21; Admin Dose 40 MLS/HR; Start 07/22/16 at 13:00 Lorazepam (Ativan) 1 mg Q6H PRN IV ANXIETY Last administered on 07/24/16 08:14 ; Admin Dose 1 MG; Start 07/23/16 at 13:00 Assessment/Plan Additional Assessment/Plan IMPRESSION: 1. Hypoxemic respiratory failure post exploratory laparotomy. 2. Ischemic bowel s/p resection 3. End-stage renal failure on hemodialysis. Evidence of metabolic acidosis today 4. Postoperative encephalopathy. 5. Anemia 6. HTN RECS 1. Extubate to NC 2. Postextubation incentive spirometry speech therapy evaluation 3. BP control. 4. DVT and GI prophylaxis. 5. Continue hemodialysis with volume removal 35 min cc time SHA JAY MD July 24, 2016 14:09
[2016-07-24] MEDS: hydrALAzine 20 MG INJ IV PRN (14:18)
--- NOTE | 2016-07-24 14:25 | RADRPT ---
Echocardiogram Report Patient Name: JULIO JARRETT Gender: Female Date: 1960 Study Date: 23-Jul-2016 Design Release Engineer: TATIANA MOONEY Location: [address] Ref. Physician: LESLIE DEMPSEY Quality: Technically Difficult Study Procedures: Transthoracic echocardiogram with complete 2D, M-Mode, and doppler examination. Indications: Mesenteric ischemia?. 2D/M Mode Doppler Measurement Value Normal Ranges Measurement Value Normal Ranges LVIDd 2D 4.3 3.5 - 5.6 cm KERRI Vmax 1.5 cm2 LVIDs 2D 3.0 2.1 - 4.1 cm KERRI VTI 1.5 cm2 FS 2D 28.9 % AV Mean Marcelino 1.4 m/sec LVPWd 2D 1.2 0.6 - 1.1 cm AV Mean PG 9.0 mmHg IVSd 2D 1.2 0.6 - 1.1 cm AV Peak Marcelino 2.1 m/sec IVS/LVPW 2D 1.0 AV Peak PG 18.0 mmHg AoR Diam 2D 2.4 2.0 - 3.7 cm AV VTI 44.3 cm LA/Ao 2D 1 0 - 1 LVOT Mean Marcelino 0.9 m/sec EDV 2D 79.0 cm3 LVOT Mean PG 4.0 mmHg ESV 2D 28.4 cm3 LVOT Peak Marcelino 1.4 m/sec LA Dimen 2D 2.6 2.3 - 4.0 cm LVOT Peak PG 8.0 mmHg LVOT Diam 1.7 cm LVOT VTI 29.0 cm LVOT Area 2.3 cm2 MV E Peak Marcelino 1.1 m/sec MV A Peak Marcelino 0.9 m/sec MV E/A 1.2 MV Decel Time 180 msec MV E/A 1.2 TR Peak Marcelino 3.0 m/sec TR Peak PG 36.0 mmHg RVSP 39.0 mmHg Findings Left Ventricle: Normal left ventricular systolic function. Normal left ventricular cavity size. Mild concentric left ventricular hypertrophy. Ejection fraction is visually estimated at 65 %. Tissue Doppler/Mitral Doppler indices are consistent with impaired relaxation (Stage I diastolic dysfunction). Right Ventricle: Normal right ventricular size. Normal right ventricular systolic function. Left Atrium: There is moderate enlargement of left atrium. Right Atrium: The right atrium is normal in size. Mitral Valve: Mild mitral leaflet calcification. Mild mitral annular calcification. Mild mitral valve regurgitation. Aortic Valve: Normal appearance of the aortic valve. No significant aortic stenosis or insufficiency. Tricuspid Valve: Tricuspid valve not well visualized. Estimated peak PA systolic pressure 39 mmHg. There is mild tricuspid regurgitation. Pulmonic Valve: Normal pulmonic valve appearance. Pericardium: Normal pericardium with no significant pericardial effusion. Aorta: Normal aortic root. IVC: Inferior vena cava without respiratory collapse, however, patient on ventilator. Conclusions 1.Normal left ventricular systolic function. Normal left ventricular cavity size. Mild concentric left ventricular hypertrophy. Ejection fraction is visually estimated at 65 %. Tissue Doppler/Mitral Doppler indices are consistent with impaired relaxation (Stage I diastolic dysfunction). 2.No significant valvular stenosis or regurgitation seen. 3.Estimated peak PA systolic pressure 39 mmHg based on RA pressure of 8 mmHg. Inferior vena cava without respiratory collapse, however, patient on ventilator. Electronically Signed By: Robbie Serna 24-Jul-2016 14:24:07 -0700 Patient Name: JULIO JARRETT Study Date: 23-Jul-2016 [id number]
[2016-07-25] VITALS (24 sets, daily range): BP systolic 119–160; BP diastolic 49–71; PULSE 69–87; RESP 8–23
[2016-07-25] MEDS: INSULIN ASPART [NOVOLOG] 3 ML PEN SC SCH ×6 (01:00→21:00)
[2016-07-25] MEDS: PROPOFOL 100 ML IV SCH ×3 (02:56→20:26)
[2016-07-25] MEDS: PANTOPRAZOLE 40 MG INJ IV SCH (05:20)
[2016-07-25 05:35] LABS: ADD SCAN DIFF NO
[2016-07-25 05:43] LABS: ABNORMAL IP MESSAGE 1; BASOPHILS % 0.5 % (0.0-2.0); EOSINOPHILS # 0.2 10^3/ul (0.0-0.5); EOSINOPHILS % 3.6 % (0.0-7.0); HEMATOCRIT 33.9 % (37.0-47.0); HEMOGLOBIN 10.7 g/dl (12.0-16.0); LYMPHOCYTES # 0.5 10^3/ul (0.8-2.9); LYMPHOCYTES % 8.6 % (15.0-51.0); MEAN CORPUSCULAR HEMOGLOBIN 30.9 pg (29.0-33.0); MEAN CORPUSCULAR HGB CONC 31.6 g/dl (32.0-37.0); MEAN PLATELET VOLUME 10.5 fl (7.4-10.4); MONOCYTE # 0.7 10^3/ul (0.3-0.9); MONOCYTES % 12.2 % (0.0-11.0); NEUTROPHIL # 4.4 10^3/ul (1.6-7.5); NEUTROPHILS % 74.4 % (39.0-77.0); PLATELET COUNT 188 10^3/UL (140-415); RED BLOOD COUNT 3.46 10^6/ul (4.20-5.40); RED CELL DISTRIBUTION WIDTH 21.5 % (11.5-14.5); WHITE BLOOD COUNT 5.9 10^3/ul (4.8-10.8)
[2016-07-25 06:12] LABS: CALCIUM 8.4 mg/dl (8.4-10.2); CREATININE 4.45 mg/dl (0.44-1.00); POTASSIUM 3.7 mmol/L (3.5-5.1)
[2016-07-25 06:13] LABS: MAGNESIUM 1.8 mg/dl (1.7-2.5); PHOSPHORUS 4.7 mg/dl (2.5-4.9)
[2016-07-25] MEDS: INSULIN GLARGINE [LANtus] 3 ML PEN SC SCH (09:00)
[2016-07-25] MEDS: HEPARIN 5,000 UNIT/0.5 ML VIAL SC SCH ×2 (09:26→21:41)
--- NOTE | 2016-07-25 09:33 | PN ---
DATE: 07/25/2016 SUBJECTIVE: Ms. Rudy Haney is postop day 4 from a small bowel resection. The patient is wit hout complaints. She was extubated yesterday. She has not passed gas or had a bowel movement. PHYSICAL EXAMINATION: VITAL SIGNS: She is afebrile. Vital signs stable. ABDOMEN: Soft, nontender, nondistended. Her wound is clean and dry. The lower aspect had some colton thema. Lamy were removed and it was packed. There was no purulent discharge. LABORATORY DATA: Reveal a white count of 6, hematocrit 34 and platelets of 188. Sodium 135, potass ium 3.7, chloride 101, CO2 26, BUN and creatinine 26 and 4.45 and glucose 111. ASSESSMENT AND PLAN: 1. Ms. Rudy Haney is postop day 4 from a small bowel resection. 2. Discontinue NG tube. 3. Await for resolution of ileus. After bowel movement or flatus may start clears. 4. Restart heparin as hematocrit is stable. 5. Aggressive physical therapy. Dictated By: ROBERTO ANTOINE/LEXI Conf#: [id number] DID#: [id number]
--- NOTE | 2016-07-25 10:31 | PN ---
Date/Time of Note Date/Time of Note DATE: 07/25/16 TIME: 10:29 Assessment/Plan VTE Prophylaxis VTE Prophylaxis Intervention: heparin Lines/Catheters IV Catheter Type (from Nrs): Peripheral IV Urinary Cath still in place: Yes Reason Cath still needed: urinary retention Assessment/Plan Chief Complaint/Hosp Course ASSESSMENT AND PLAN: 56-year-old female with history of diabetes, end-stage renal disease on dialysis, hypertension, hypothyroidism, presents with abdominal pain secondary to mesenteric ischemia, status post exploratory laparotomy with extensive small bowel resection. 1. Abdominal pain secondary to mesenteric ischemia, status post resection POD # 4. - Follow up postoperative recommendations surgery team and control medications - continue IV fluids as well. 2. Hypoxemic respiratory failure, status post exploratory laparotomy - extubated yesterday - follow pulmonary recommendations. - ST eval - Monitor, DuoNebs p.r.n. 3. End-stage renal disease on dialysis. - Follow up renal recommendations; dialysis per their rec's 4. Hypertension. Continue to monitor for now. Blood pressure stable, off pressor now. 5. Type 2 diabetes - continue sliding scale insulin. - Continue Lantus. 6. Gastrointestinal prophylaxis, proton pump inhibitor. 7. Deep venous thrombosis prophylaxis - Heparin Critical care time spent on patient care today: 40 minutes. Problems: Subjective 24 Hr Interval Summary Free Text/Dictation Pt had pRBC transfusion yesterday, and extubated yesterday. Seen by surgery team today. Exam/Review of Systems Vital Signs Vitals Vital Signs Date Time Temp Pulse Resp B/P Pulse Ox O2 Delivery O2 Flow Rate FiO2 07/25/16 09:00 80 19 149/63 100 Nasal Cannula 07/25/16 08:00 97.6 07/25/16 08:00 2.0 07/24/16 13:03 30 Intake and Output 07/24/16 07/24/16 07/25/16 15:00 23:00 07:00 Intake Total 620 ml 645 ml 280 ml Output Total 25 ml 15 ml Balance 620 ml 620 ml 265 ml Exam GEN: pt alert, NAD HEENT: opens eyes (off sedation), trying to move around NECK: Supple, no thyromegaly. LUNGS: Slightly distant breath sounds bilaterally. CARDIOVASCULAR: S1, S2 heard. No rubs or gallops. ABDOMEN: Soft, nontender, nondistended. Normal bowel sounds. No rebound or guarding. MUSCULOSKELETAL: No lower extremity edema bilaterally. NEUROLOGIC: no focal deficits Results Result Diagram: 07/25/16 0500 07/25/16 0500 Results 24 hrs Laboratory Tests Test 07/24/16 13:17 07/24/16 17:33 07/24/16 20:47 07/25/16 00:44 Bedside Glucose 131 128 117 112 Test 07/25/16 05:00 07/25/16 05:00 07/25/16 05:19 07/25/16 09:19 White Blood Count 5.9 Red Blood Count 3.46 #L Hemoglobin 10.7 #L Hematocrit 33.9 #L Mean Corpuscular Volume 98.0 Mean Corpuscular Hemoglobin 30.9 Mean Corpuscular Hemoglobin Concent 31.6 L Red Cell Distribution Width 21.5 H Platelet Count 188 Mean Platelet Volume 10.5 H Neutrophils % 74.4 Lymphocytes % 8.6 L Monocytes % 12.2 H Eosinophils % 3.6 Basophils % 0.5 Nucleated Red Blood Cells % 0.0 Neutrophils # 4.4 Lymphocytes # 0.5 L Monocytes # 0.7 Eosinophils # 0.2 Basophils # 0.0 Nucleated Red Blood Cells # 0.0 Sodium Level 135 Potassium Level 3.7 Chloride Level 101 Carbon Dioxide Level 26 Anion Gap 12 Blood Urea Nitrogen 26 H Creatinine 4.45 #H Glucose Level 111 Calcium Level 8.4 Phosphorus Level 4.7 Magnesium Level 1.8 Lab Scanned Report BLOOD TRANSFUSION Bedside Glucose 120 96 Medications Medications Current Medications Morphine Sulfate (morphine) 2 mg Q2H PRN IV PAIN LEVEL 6-10 Last administered on 07/24/16 10:33; Admin Dose 2 MG; Start 07/21/16 at 01:00 Ondansetron HCl (Zofran Inj) 4 mg Q6H PRN IV NAUSEA AND/OR VOMITING Last administered on 07/23/16 09:21; Admin Dose 4 MG; Start 07/21/16 at 01:00 Pantoprazole 40 mg 40 mg DAILY@06 IV Last administered on 07/25/16 05:20; Admin Dose 40 MG; Start 07/21/16 at 06:00 Propofol (Diprivan) 100 ml @ 1.785 mls/ hr Q12H IV ; Start 07/21/16 at 03:00 Insulin Glargine (Lantus) 12 unit DAILY@09 SC Last administered on 07/23/16 09 :09; Admin Dose 12 UNIT; Start 07/21/16 at 09:00 Miscellaneous Information 1 ea NOTE XX ; Start 07/21/16 at 09:00 Glucose (Glutose) 15 gm Q15M PRN PO DECREASED GLUCOSE; Start 07/21/16 at 09:00 Glucose (Glutose) 22.5 gm Q15M PRN PO DECREASED GLUCOSE; Start 07/21/16 at 09: 00 Dextrose (D50w Syringe) 25 ml Q15M PRN IV DECREASED GLUCOSE Last administered on 07/24/16 01:22; Admin Dose 25 ML; Start 07/21/16 at 09:00 Dextrose (D50w Syringe) 50 ml Q15M PRN IV DECREASED GLUCOSE; Start 07/21/16 at 09:00 Glucagon (Glucagen) 1 mg Q15M PRN IM DECREASED GLUCOSE; Start 07/21/16 at 09:00 Glucose (Glutose) 15 gm Q15M PRN BUCCAL DECREASED GLUCOSE; Start 07/21/16 at 09 :00 Heparin Sodium (Porcine) 5000 unit 5,000 unit Q12 SC Last administered on 09:26; Admin Dose 5,000 UNIT; Start 07/21/16 at 21:00 Phenylephrine HCl/ Dextrose (Sheldon-Syneph/D5W) 500 ml @ 75 mls/hr TITRATE IV Last administered on 07/22/16 15:12; Admin Dose 30 MLS/HR; Start 07/22/16 at 01 :30 Hydromorphone HCl (Dilaudid) 0.5 mg Q2 PRN IV SEVERE PAIN LEVEL 7-10 Last administered on 07/23/16 09:22; Admin Dose 0.5 MG; Start 07/22/16 at 08:00 Hydromorphone HCl 0.25 mg 0.25 mg Q2 PRN IV PAIN LEVEL 1-6 Last administered on 07/22/16 12:12; Admin Dose 0.25 MG; Start 07/22/16 at 08:00 Cefepime HCl 50 ml @ 100 mls/hr Q24H IVPB Last administered on 07/24/16 13:15 ; Admin Dose 100 MLS/HR; Start 07/22/16 at 14:00 Dextrose/Sodium Chloride (D5-1/2ns) 1,000 ml @ 40 mls/hr Q24H IV Last administered on 07/24/16 17:02; Admin Dose 40 MLS/HR; Start 07/22/16 at 13:00 Lorazepam (Ativan) 1 mg Q6H PRN IV ANXIETY Last administered on 07/24/16 08:14 ; Admin Dose 1 MG; Start 07/23/16 at 13:00 Hydralazine HCl (Apresoline) 20 mg Q6H PRN IV ELEVATED BLOOD PRESSURE Last administered on 07/24/16 14:18; Admin Dose 20 MG; Start 07/24/16 at 14:30 Insulin Aspart (Novolog Insulin Pen) NOVOLOG *MILD* ALGORI... Q4 SC ; Start at 17:00 LESLIE DEMPSEY July 25, 2016 10:31
--- NOTE | 2016-07-25 13:30 | CONS ---
Date/Time of Note Date/Time of Note DATE: 07/25/16 TIME: 13:29 Consult Date/Type/Reason Admit Date/Time July 21, 2016 at 02:30 Initial Consult Date 07/21/16 Type of Consultation: Pulm/CCM Ordering Provider: LESLIE DEMPSEY Subjective No events. s/p extubation. Objective Vital Signs Date Time Temp Pulse Resp B/P Pulse Ox O2 Delivery O2 Flow Rate FiO2 07/25/16 12:00 97.9 78 18 142/71 100 Nasal Cannula 07/25/16 08:00 2.0 07/24/16 13:03 30 Intake and Output 07/24/16 07/24/16 07/25/16 15:00 23:00 07:00 Intake Total 620 ml 645 ml 280 ml Output Total 25 ml 15 ml Balance 620 ml 620 ml 265 ml Exam NECK: Supple. No JVD or lymphadenopathy. CARDIAC: S1, S2, no added sounds or murmurs. CHEST: Clear ABDOMEN: NT; decreased BS; wound clean EXTREMITIES: No cyanosis, clubbing, edema. Results/Medications Result Diagram: 07/25/16 0500 07/25/16 0500 Results 24 hrs Laboratory Tests Test 07/24/16 17:33 07/24/16 20:47 07/25/16 00:44 07/25/16 05:00 Bedside Glucose 128 117 112 White Blood Count 5.9 Red Blood Count 3.46 #L Hemoglobin 10.7 #L Hematocrit 33.9 #L Mean Corpuscular Volume 98.0 Mean Corpuscular Hemoglobin 30.9 Mean Corpuscular Hemoglobin Concent 31.6 L Red Cell Distribution Width 21.5 H Platelet Count 188 Mean Platelet Volume 10.5 H Neutrophils % 74.4 Lymphocytes % 8.6 L Monocytes % 12.2 H Eosinophils % 3.6 Basophils % 0.5 Nucleated Red Blood Cells % 0.0 Neutrophils # 4.4 Lymphocytes # 0.5 L Monocytes # 0.7 Eosinophils # 0.2 Basophils # 0.0 Nucleated Red Blood Cells # 0.0 Sodium Level 135 Potassium Level 3.7 Chloride Level 101 Carbon Dioxide Level 26 Anion Gap 12 Blood Urea Nitrogen 26 H Creatinine 4.45 #H Glucose Level 111 Calcium Level 8.4 Phosphorus Level 4.7 Magnesium Level 1.8 Test 07/25/16 05:00 07/25/16 05:19 07/25/16 09:19 07/25/16 13:13 Lab Scanned Report BLOOD TRANSFUSION Bedside Glucose 120 96 113 Medications Current Medications Morphine Sulfate (morphine) 2 mg Q2H PRN IV PAIN LEVEL 6-10 Last administered on 07/24/16 10:33; Admin Dose 2 MG; Start 07/21/16 at 01:00 Ondansetron HCl (Zofran Inj) 4 mg Q6H PRN IV NAUSEA AND/OR VOMITING Last administered on 07/23/16 09:21; Admin Dose 4 MG; Start 07/21/16 at 01:00 Pantoprazole 40 mg 40 mg DAILY@06 IV Last administered on 07/25/16 05:20; Admin Dose 40 MG; Start 07/21/16 at 06:00 Propofol (Diprivan) 100 ml @ 1.785 mls/ hr Q12H IV ; Start 07/21/16 at 03:00 Insulin Glargine (Lantus) 12 unit DAILY@09 SC Last administered on 07/23/16 09 :09; Admin Dose 12 UNIT; Start 07/21/16 at 09:00 Miscellaneous Information 1 ea NOTE XX ; Start 07/21/16 at 09:00 Glucose (Glutose) 15 gm Q15M PRN PO DECREASED GLUCOSE; Start 07/21/16 at 09:00 Glucose (Glutose) 22.5 gm Q15M PRN PO DECREASED GLUCOSE; Start 07/21/16 at 09: 00 Dextrose (D50w Syringe) 25 ml Q15M PRN IV DECREASED GLUCOSE Last administered on 07/24/16 01:22; Admin Dose 25 ML; Start 07/21/16 at 09:00 Dextrose (D50w Syringe) 50 ml Q15M PRN IV DECREASED GLUCOSE; Start 07/21/16 at 09:00 Glucagon (Glucagen) 1 mg Q15M PRN IM DECREASED GLUCOSE; Start 07/21/16 at 09:00 Glucose (Glutose) 15 gm Q15M PRN BUCCAL DECREASED GLUCOSE; Start 07/21/16 at 09 :00 Heparin Sodium (Porcine) 5000 unit 5,000 unit Q12 SC Last administered on 09:26; Admin Dose 5,000 UNIT; Start 07/21/16 at 21:00 Phenylephrine HCl/ Dextrose (Sheldon-Syneph/D5W) 500 ml @ 75 mls/hr TITRATE IV Last administered on 07/22/16 15:12; Admin Dose 30 MLS/HR; Start 07/22/16 at 01 :30 Hydromorphone HCl (Dilaudid) 0.5 mg Q2 PRN IV SEVERE PAIN LEVEL 7-10 Last administered on 07/23/16 09:22; Admin Dose 0.5 MG; Start 07/22/16 at 08:00 Hydromorphone HCl 0.25 mg 0.25 mg Q2 PRN IV PAIN LEVEL 1-6 Last administered on 07/22/16 12:12; Admin Dose 0.25 MG; Start 07/22/16 at 08:00 Cefepime HCl 50 ml @ 100 mls/hr Q24H IVPB Last administered on 07/24/16 13:15 ; Admin Dose 100 MLS/HR; Start 07/22/16 at 14:00 Dextrose/Sodium Chloride (D5-1/2ns) 1,000 ml @ 40 mls/hr Q24H IV Last administered on 07/24/16 17:02; Admin Dose 40 MLS/HR; Start 07/22/16 at 13:00 Lorazepam (Ativan) 1 mg Q6H PRN IV ANXIETY Last administered on 07/24/16 08:14 ; Admin Dose 1 MG; Start 07/23/16 at 13:00 Hydralazine HCl (Apresoline) 20 mg Q6H PRN IV ELEVATED BLOOD PRESSURE Last administered on 07/24/16 14:18; Admin Dose 20 MG; Start 07/24/16 at 14:30 Insulin Aspart (Novolog Insulin Pen) NOVOLOG *MILD* ALGORI... Q4 SC ; Start at 17:00 Assessment/Plan Additional Assessment/Plan IMPRESSION: 1. s/p Hypoxemic respiratory failure--extubated 2. Ischemic bowel s/p resection 3. End-stage renal failure on hemodialysis. 4. Postoperative encephalopathy. 5. Anemia 6. HTN RECS 1. Mobilize OOB/PT/OT 2. ICS 3. BP control. 4. DVT and GI prophylaxis. 5. Continue hemodialysis with volume removal SHA JAY MD July 25, 2016 13:30
[2016-07-25] MEDS: CEFEPIME 1GM/50 ML (PMX) 50 ML IVPB SCH (14:14)
--- NOTE | 2016-07-25 17:36 | CONS ---
Date/Time of Note Date/Time of Note DATE: 07/25/16 TIME: 17:35 Assessment/Plan Assessment/Plan Chief Complaint/Hosp Course A/P S/P EX LAP AND BOWEL RESECTION ESRD HTN DM ASHD S/P CABG PLAN HD AM PER SURGERY Problems: Consultation Date/Type/Reason Admit Date/Time July 21, 2016 at 02:30 Initial Consult Date 07/21/16 Type of Consultation: RENAL Referring Provider: LESLIE DEMPSEY 24 HR Interval Summary Constitutional: no complaints Exam/Review of Systems Vital Signs Vitals Vital Signs Date Time Temp Pulse Resp B/P Pulse Ox O2 Delivery O2 Flow Rate FiO2 07/25/16 16:00 80 07/25/16 16:00 98.2 16 151/60 100 Nasal Cannula 2.0 07/24/16 13:03 30 Intake and Output 07/24/16 07/24/16 07/25/16 15:00 23:00 07:00 Intake Total 620 ml 645 ml 280 ml Output Total 25 ml 15 ml Balance 620 ml 620 ml 265 ml Exam Neck: supple Respiratory: clear to auscultation Gastrointestinal: bowel sounds (+) Results Result Diagram: 07/25/16 0500 07/25/16 0500 Results 24 hrs Laboratory Tests Test 07/24/16 20:47 07/25/16 00:44 07/25/16 05:00 07/25/16 05:00 Bedside Glucose 117 112 White Blood Count 5.9 Red Blood Count 3.46 #L Hemoglobin 10.7 #L Hematocrit 33.9 #L Mean Corpuscular Volume 98.0 Mean Corpuscular Hemoglobin 30.9 Mean Corpuscular Hemoglobin Concent 31.6 L Red Cell Distribution Width 21.5 H Platelet Count 188 Mean Platelet Volume 10.5 H Neutrophils % 74.4 Lymphocytes % 8.6 L Monocytes % 12.2 H Eosinophils % 3.6 Basophils % 0.5 Nucleated Red Blood Cells % 0.0 Neutrophils # 4.4 Lymphocytes # 0.5 L Monocytes # 0.7 Eosinophils # 0.2 Basophils # 0.0 Nucleated Red Blood Cells # 0.0 Sodium Level 135 Potassium Level 3.7 Chloride Level 101 Carbon Dioxide Level 26 Anion Gap 12 Blood Urea Nitrogen 26 H Creatinine 4.45 #H Glucose Level 111 Calcium Level 8.4 Phosphorus Level 4.7 Magnesium Level 1.8 Lab Scanned Report BLOOD TRANSFUSION Test 07/25/16 05:19 07/25/16 09:19 07/25/16 13:13 07/25/16 17:03 Bedside Glucose 120 96 113 118 Medications Medications Current Medications Morphine Sulfate (morphine) 2 mg Q2H PRN IV PAIN LEVEL 6-10 Last administered on 07/24/16 10:33; Admin Dose 2 MG; Start 07/21/16 at 01:00 Ondansetron HCl (Zofran Inj) 4 mg Q6H PRN IV NAUSEA AND/OR VOMITING Last administered on 07/23/16 09:21; Admin Dose 4 MG; Start 07/21/16 at 01:00 Pantoprazole 40 mg 40 mg DAILY@06 IV Last administered on 07/25/16 05:20; Admin Dose 40 MG; Start 07/21/16 at 06:00 Propofol (Diprivan) 100 ml @ 1.785 mls/ hr Q12H IV ; Start 07/21/16 at 03:00 Insulin Glargine (Lantus) 12 unit DAILY@09 SC Last administered on 07/23/16 09 :09; Admin Dose 12 UNIT; Start 07/21/16 at 09:00 Miscellaneous Information 1 ea NOTE XX ; Start 07/21/16 at 09:00 Glucose (Glutose) 15 gm Q15M PRN PO DECREASED GLUCOSE; Start 07/21/16 at 09:00 Glucose (Glutose) 22.5 gm Q15M PRN PO DECREASED GLUCOSE; Start 07/21/16 at 09: 00 Dextrose (D50w Syringe) 25 ml Q15M PRN IV DECREASED GLUCOSE Last administered on 07/24/16 01:22; Admin Dose 25 ML; Start 07/21/16 at 09:00 Dextrose (D50w Syringe) 50 ml Q15M PRN IV DECREASED GLUCOSE; Start 07/21/16 at 09:00 Glucagon (Glucagen) 1 mg Q15M PRN IM DECREASED GLUCOSE; Start 07/21/16 at 09:00 Glucose (Glutose) 15 gm Q15M PRN BUCCAL DECREASED GLUCOSE; Start 07/21/16 at 09 :00 Heparin Sodium (Porcine) 5000 unit 5,000 unit Q12 SC Last administered on 09:26; Admin Dose 5,000 UNIT; Start 07/21/16 at 21:00 Phenylephrine HCl/ Dextrose (Sheldon-Syneph/D5W) 500 ml @ 75 mls/hr TITRATE IV Last administered on 07/22/16 15:12; Admin Dose 30 MLS/HR; Start 07/22/16 at 01 :30 Hydromorphone HCl (Dilaudid) 0.5 mg Q2 PRN IV SEVERE PAIN LEVEL 7-10 Last administered on 07/23/16 09:22; Admin Dose 0.5 MG; Start 07/22/16 at 08:00 Hydromorphone HCl 0.25 mg 0.25 mg Q2 PRN IV PAIN LEVEL 1-6 Last administered on 07/22/16 12:12; Admin Dose 0.25 MG; Start 07/22/16 at 08:00 Cefepime HCl 50 ml @ 100 mls/hr Q24H IVPB Last administered on 07/25/16 14:14 ; Admin Dose 100 MLS/HR; Start 07/22/16 at 14:00 Dextrose/Sodium Chloride (D5-1/2ns) 1,000 ml @ 40 mls/hr Q24H IV Last administered on 07/24/16 17:02; Admin Dose 40 MLS/HR; Start 07/22/16 at 13:00 Lorazepam (Ativan) 1 mg Q6H PRN IV ANXIETY Last administered on 07/24/16 08:14 ; Admin Dose 1 MG; Start 07/23/16 at 13:00 Hydralazine HCl (Apresoline) 20 mg Q6H PRN IV ELEVATED BLOOD PRESSURE Last administered on 07/24/16 14:18; Admin Dose 20 MG; Start 07/24/16 at 14:30 Insulin Aspart (Novolog Insulin Pen) NOVOLOG *MILD* ALGORI... Q4 SC ; Start at 17:00 HORACIO PERERA MD July 25, 2016 17:35
[2016-07-25] MEDS: DEXTROSE 5%-0.45% NACL 1,000 ML IV SCH (19:26)
--- NOTE | 2016-07-25 20:39 | PN ---
Date/Time of Note Date/Time of Note DATE: 07/25/16 TIME: 20:39 Assessment/Plan Lines/Catheters IV Catheter Type (from Nrsg): Peripheral IV Kowalski in Place (from Nrsg): Yes Assessment/Plan Chief Complaint/Hosp Course IMPRESSION: 1. Dysfunctional left upper extremity arteriovenous fistula. 2. Anemia. 3. Status post laparotomy and bowel resection. RECOMMENDATIONS: Will proceed with revision of the left upper extremity AV fistula when the patient is medically more stable. Discussed with the referring physicians. Problems: Subjective 24 Hr Interval Summary Constitutional: improved Pain Control: mild Exam/Review of Systems Vital Signs Vitals Vital Signs Date Time Temp Pulse Resp B/P Pulse Ox O2 Delivery O2 Flow Rate FiO2 07/25/16 18:00 72 18 143/55 100 Nasal Cannula 2.0 07/25/16 16:00 98.2 07/24/16 13:03 30 Intake and Output 07/24/16 07/24/16 07/25/16 15:00 23:00 07:00 Intake Total 620 ml 645 ml 280 ml Output Total 25 ml 15 ml Balance 620 ml 620 ml 265 ml Exam ENMT: mucosa pink and moist, nl external ears & nose, nl lips & teeth, nl nasal mucosa & septum Neck: non-tender, supple Respiratory: clear to auscultation, normal air movement Cardiovascular: nl pulses, regular rate and rhythm Results Result Diagram: 07/25/16 0500 07/25/16 0500 BABITA GRIGGS MD July 25, 2016 20:39
[2016-07-26] VITALS (35 sets, daily range): BP systolic 115–183; BP diastolic 52–91; PULSE 65–80; RESP 7–21
[2016-07-26] MEDS: INSULIN ASPART [NOVOLOG] 3 ML PEN SC SCH ×5 (01:00→18:00)
[2016-07-26] MEDS: PANTOPRAZOLE 40 MG INJ IV SCH (05:19)
[2016-07-26 05:40] LABS: ADD SCAN DIFF NO
[2016-07-26 05:41] LABS: BASOPHILS % 0.7 % (0.0-2.0); EOSINOPHILS # 0.2 10^3/ul (0.0-0.5); EOSINOPHILS % 4.4 % (0.0-7.0); HEMATOCRIT 34.3 % (37.0-47.0); HEMOGLOBIN 10.5 g/dl (12.0-16.0); LYMPHOCYTES # 0.7 10^3/ul (0.8-2.9); LYMPHOCYTES % 16.3 % (15.0-51.0); MEAN CORPUSCULAR HEMOGLOBIN 30.6 pg (29.0-33.0); MEAN CORPUSCULAR HGB CONC 30.6 g/dl (32.0-37.0); MEAN PLATELET VOLUME 10.2 fl (7.4-10.4); MONOCYTE # 0.6 10^3/ul (0.3-0.9); MONOCYTES % 13.6 % (0.0-11.0); NEUTROPHIL # 2.9 10^3/ul (1.6-7.5); NEUTROPHILS % 63.7 % (39.0-77.0); PLATELET COUNT 178 10^3/UL (140-415); RED BLOOD COUNT 3.43 10^6/ul (4.20-5.40); RED CELL DISTRIBUTION WIDTH 20.8 % (11.5-14.5); WHITE BLOOD COUNT 4.6 10^3/ul (4.8-10.8)
[2016-07-26 06:05] LABS: ALBUMIN 2.6 g/dl (3.3-4.9); ALBUMIN/GLOBULIN RATIO 0.7; BILIRUBIN,DIRECT 0.2 mg/dl (0.00-0.20); BILIRUBIN,TOTAL 0.2 mg/dl (0.2-1.3); CALCIUM 8.2 mg/dl (8.4-10.2); CREATININE 6.21 mg/dl (0.44-1.00); POTASSIUM 3.6 mmol/L (3.5-5.1); TOTAL PROTEIN 6.3 g/dl (6.1-8.1)
[2016-07-26] MEDS: HEPARIN 5,000 UNIT/0.5 ML VIAL SC SCH ×2 (08:49→21:38)
[2016-07-26] MEDS: morphine 2 MG INJ IV PRN ×2 (08:52→15:25)
[2016-07-26] MEDS: INSULIN GLARGINE [LANtus] 3 ML PEN SC SCH ×2 (08:53→09:05)
[2016-07-26 09:29] LABS: MAGNESIUM 1.9 mg/dl (1.7-2.5); PHOSPHORUS 5.7 mg/dl (2.5-4.9)
--- NOTE | 2016-07-26 09:45 | PN ---
Date/Time of Note Date/Time of Note DATE: 07/26/16 TIME: 09:42 Assessment/Plan VTE Prophylaxis VTE Prophylaxis Intervention: SCD's Lines/Catheters IV [facility] Type (from [facility]): Peripheral IV Urinary Cath still in place: Yes Reason Cath still needed: other (indicate) Assessment/Plan Assessment/Plan 56-year-old female with history of diabetes, end-stage renal disease on dialysis , hypertension, hypothyroidism, presents with abdominal pain secondary to mesenteric ischemia, status post exploratory laparotomy with extensive small bowel resection. 1. Abdominal pain secondary to mesenteric ischemia, status post resection - Follow up postoperative recommendations surgery team and control medications - continue IV fluids as well. 2. Hypoxemic respiratory failure, status post exploratory laparotomy - extubated now - follow pulmonary recommendations. - ST eval - Monitor, DuoNebs p.r.n. 3. End-stage renal disease on dialysis. - Follow up renal recommendations; dialysis per their rec's 4. Hypertension. Continue to monitor for now. Blood pressure stable, off pressor now. 5. Type 2 diabetes - continue sliding scale insulin. - Continue Lantus. 6. Severe anemia : improved post transfusion DISPO: * Ambulate with PT * cough meds PRN * OK to transfer. Gastrointestinal prophylaxis, proton pump inhibitor. Deep venous thrombosis prophylaxis - Heparin Critical care time spent on patient care today: 40 minutes. Subjective 24 Hr Interval Summary Free Text/Dictation * Still no BM or flatus * Patient trying to cough up secretions, but limited by abd discomfort Exam/Review of Systems Vital Signs Vitals Vital Signs Date Time Temp Pulse Resp B/P Pulse Ox O2 Delivery O2 Flow Rate FiO2 07/26/16 09:30 69 16 147/55 100 Nasal Cannula 07/26/16 08:00 97.6 07/26/16 02:16 2.0 27 Intake and Output 07/25/16 07/25/16 07/26/16 15:00 23:00 07:00 Intake Total 350 ml 320 ml 80 ml Output Total 10 ml 30 ml 15 ml Balance 340 ml 290 ml 65 ml Exam GEN: pt alert, NAD HEENT: TARA NECK: Supple, no thyromegaly. LUNGS: Slightly distant breath sounds bilaterally. secretions CARDIOVASCULAR: S1, S2 heard. No rubs or gallops. ABDOMEN: Soft, nontender, nondistended. Normal bowel sounds. No rebound or guarding. Infraumbilical Midline surgical scar with greyson in place, clean , non oozing MUSCULOSKELETAL: No lower extremity edema bilaterally. NEUROLOGIC: no focal deficits Results Result Diagram: 07/26/16 0533 07/26/16 0533 Results 24 hrs Laboratory Tests Test 07/25/16 13:13 07/25/16 17:03 07/25/16 21:35 07/26/16 02:01 Bedside Glucose 113 118 92 83 Test 07/26/16 05:00 07/26/16 05:33 07/26/16 08:51 Bedside Glucose 76 113 White Blood Count 4.6 #L Red Blood Count 3.43 L Hemoglobin 10.5 L Hematocrit 34.3 L Mean Corpuscular Volume 100.0 Mean Corpuscular Hemoglobin 30.6 Mean Corpuscular Hemoglobin Concent 30.6 L Red Cell Distribution Width 20.8 H Platelet Count 178 Mean Platelet Volume 10.2 Neutrophils % 63.7 Lymphocytes % 16.3 Monocytes % 13.6 H Eosinophils % 4.4 Basophils % 0.7 Nucleated Red Blood Cells % 0.0 Neutrophils # 2.9 Lymphocytes # 0.7 L Monocytes # 0.6 Eosinophils # 0.2 Basophils # 0.0 Nucleated Red Blood Cells # 0.0 Sodium Level 135 Potassium Level 3.6 Chloride Level 103 Carbon Dioxide Level 24 Anion Gap 12 Blood Urea Nitrogen 33 H Creatinine 6.21 H Glucose Level 88 Calcium Level 8.2 L Phosphorus Level 5.7 H Magnesium Level 1.9 Total Bilirubin 0.2 Direct Bilirubin 0.20 Indirect Bilirubin 0.0 Aspartate Amino Transf (AST/SGOT) 19 Alanine Aminotransferase (ALT/SGPT) 19 Alkaline Phosphatase 106 Total Protein 6.3 Albumin 2.6 L Globulin 3.70 H Albumin/Globulin Ratio 0.70 Medications Medications Current Medications Morphine Sulfate (morphine) 2 mg Q2H PRN IV PAIN LEVEL 6-10 Last administered on 07/26/16 08:52; Admin Dose 2 MG; Start 07/21/16 at 01:00 Ondansetron HCl (Zofran Inj) 4 mg Q6H PRN IV NAUSEA AND/OR VOMITING Last administered on 07/23/16 09:21; Admin Dose 4 MG; Start 07/21/16 at 01:00 Pantoprazole 40 mg 40 mg DAILY@06 IV Last administered on 07/26/16 05:19; Admin Dose 40 MG; Start 07/21/16 at 06:00 Propofol (Diprivan) 100 ml @ 1.785 mls/ hr Q12H IV ; Start 07/21/16 at 03:00 Insulin Glargine (Lantus) 12 unit DAILY@09 SC Last administered on 07/23/16 09 :09; Admin Dose 12 UNIT; Start 07/21/16 at 09:00 Miscellaneous Information 1 ea NOTE XX ; Start 07/21/16 at 09:00 Glucose (Glutose) 15 gm Q15M PRN PO DECREASED GLUCOSE; Start 07/21/16 at 09:00 Glucose (Glutose) 22.5 gm Q15M PRN PO DECREASED GLUCOSE; Start 07/21/16 at 09: 00 Dextrose (D50w Syringe) 25 ml Q15M PRN IV DECREASED GLUCOSE Last administered on 07/24/16 01:22; Admin Dose 25 ML; Start 07/21/16 at 09:00 Dextrose (D50w Syringe) 50 ml Q15M PRN IV DECREASED GLUCOSE; Start 07/21/16 at 09:00 Glucagon (Glucagen) 1 mg Q15M PRN IM DECREASED GLUCOSE; Start 07/21/16 at 09:00 Glucose (Glutose) 15 gm Q15M PRN BUCCAL DECREASED GLUCOSE; Start 07/21/16 at 09 :00 Heparin Sodium (Porcine) 5000 unit 5,000 unit Q12 SC Last administered on 08:49; Admin Dose 5,000 UNIT; Start 07/21/16 at 21:00 Phenylephrine HCl/ Dextrose (Sheldon-Syneph/D5W) 500 ml @ 75 mls/hr TITRATE IV Last administered on 07/22/16 15:12; Admin Dose 30 MLS/HR; Start 07/22/16 at 01 :30 Hydromorphone HCl (Dilaudid) 0.5 mg Q2 PRN IV SEVERE PAIN LEVEL 7-10 Last administered on 07/23/16 09:22; Admin Dose 0.5 MG; Start 07/22/16 at 08:00 Hydromorphone HCl 0.25 mg 0.25 mg Q2 PRN IV PAIN LEVEL 1-6 Last administered on 07/22/16 12:12; Admin Dose 0.25 MG; Start 07/22/16 at 08:00 Cefepime HCl 50 ml @ 100 mls/hr Q24H IVPB Last administered on 07/25/16 14:14 ; Admin Dose 100 MLS/HR; Start 07/22/16 at 14:00 Dextrose/Sodium Chloride (D5-1/2ns) 1,000 ml @ 40 mls/hr Q24H IV Last administered on 07/25/16 19:26; Admin Dose 40 MLS/HR; Start 07/22/16 at 13:00 Lorazepam (Ativan) 1 mg Q6H PRN IV ANXIETY Last administered on 07/24/16 08:14 ; Admin Dose 1 MG; Start 07/23/16 at 13:00 Hydralazine HCl (Apresoline) 20 mg Q6H PRN IV ELEVATED BLOOD PRESSURE Last administered on 07/24/16 14:18; Admin Dose 20 MG; Start 07/24/16 at 14:30 Insulin Aspart (Novolog Insulin Pen) NOVOLOG *MILD* ALGORI... Q6 SC ; Start at 12:00; Status FLY WALL July 26, 2016 09:45
[2016-07-26] MEDS ORDERED: GUAIFENESIN/CODEINE 5ML CUP PO PRN (10:00)
--- NOTE | 2016-07-26 10:12 | CONS ---
Date/Time of Note Date/Time of Note DATE: 07/26/16 TIME: 10:05 Assessment/Plan Assessment/Plan Additional Assessment/Plan Assessment recommendations; 1. Patient admitted for bowel obstruction status post small bowel resection with significantly improved clinical status. 2. Chronic renal failure, on hemodialysis. 3. Possibly some element of sepsis., Currently on appropriate antibiotic regimen. Patient would warrant a feeding trial, failing that, patient will need to be started on TPN. She can be transferred out of ICU to the medical floor. Consultation Date/Type/Reason Admit Date/Time July 21, 2016 at 02:30 Initial Consult Date 07/21/16 Type of Consultation: Pulmonary/critical care Referring Provider: LESLIE DEMPSEY 24 HR Interval Summary Free Text/Dictation Patient condition is stable. Remains awake alert. Denies any nausea vomiting. Still complains of abdominal pain. Denies any shortness of breath. General exam; middle-aged woman, awake alert currently in no distress. Exam/Review of Systems Vital Signs Vitals Vital Signs Date Time Temp Pulse Resp B/P Pulse Ox O2 Delivery O2 Flow Rate FiO2 07/26/16 09:30 69 16 147/55 100 Nasal Cannula 07/26/16 08:00 97.6 07/26/16 08:00 2.0 07/26/16 02:16 27 Intake and Output 07/25/16 07/25/16 07/26/16 14:59 22:59 06:59 Intake Total 280 ml 350 ml 120 ml Output Total 10 ml 25 ml 20 ml Balance 270 ml 325 ml 100 ml Exam HEENT exam; supple neck, no JVD. No lymphadenopathy. Midline trachea. No thyromegaly. No neck masses. Pharynx is clear. Chest examination; clear to auscultation. S1-S2 audible, no murmurs. Regular rhythm. Abdomen examination; soft, there is mild generalized tenderness. Bowel sounds audible. There is a well-healed midline incision with greyson applied. Abdomen is nondistended. Next Extremity examination; no peripheral edema. PROGRAM ANALYST examination; no focal deficit. Results Result Diagram: 07/26/16 0533 07/26/16 0533 Results 24 hrs Laboratory Tests Test 07/25/16 13:13 07/25/16 17:03 07/25/16 21:35 07/26/16 02:01 Bedside Glucose 113 118 92 83 Test 07/26/16 05:00 07/26/16 05:33 07/26/16 08:51 Bedside Glucose 76 113 White Blood Count 4.6 #L Red Blood Count 3.43 L Hemoglobin 10.5 L Hematocrit 34.3 L Mean Corpuscular Volume 100.0 Mean Corpuscular Hemoglobin 30.6 Mean Corpuscular Hemoglobin Concent 30.6 L Red Cell Distribution Width 20.8 H Platelet Count 178 Mean Platelet Volume 10.2 Neutrophils % 63.7 Lymphocytes % 16.3 Monocytes % 13.6 H Eosinophils % 4.4 Basophils % 0.7 Nucleated Red Blood Cells % 0.0 Neutrophils # 2.9 Lymphocytes # 0.7 L Monocytes # 0.6 Eosinophils # 0.2 Basophils # 0.0 Nucleated Red Blood Cells # 0.0 Sodium Level 135 Potassium Level 3.6 Chloride Level 103 Carbon Dioxide Level 24 Anion Gap 12 Blood Urea Nitrogen 33 H Creatinine 6.21 H Glucose Level 88 Calcium Level 8.2 L Phosphorus Level 5.7 H Magnesium Level 1.9 Total Bilirubin 0.2 Direct Bilirubin 0.20 Indirect Bilirubin 0.0 Aspartate Amino Transf (AST/SGOT) 19 Alanine Aminotransferase (ALT/SGPT) 19 Alkaline Phosphatase 106 Total Protein 6.3 Albumin 2.6 L Globulin 3.70 H Albumin/Globulin Ratio 0.70 Medications Medications Current Medications Morphine Sulfate (morphine) 2 mg Q2H PRN IV PAIN LEVEL 6-10 Last administered on 07/26/16 08:52; Admin Dose 2 MG; Start 07/21/16 at 01:00 Ondansetron HCl (Zofran Inj) 4 mg Q6H PRN IV NAUSEA AND/OR VOMITING Last administered on 07/23/16 09:21; Admin Dose 4 MG; Start 07/21/16 at 01:00 Pantoprazole (Protonix Iv) 40 mg DAILY@06 IV Last administered on 07/26/16 05: 19; Admin Dose 40 MG; Start 07/21/16 at 06:00 Insulin Glargine (Lantus) 12 unit DAILY@09 SC Last administered on 07/23/16 09 :09; Admin Dose 12 UNIT; Start 07/21/16 at 09:00; Status Future Hold Miscellaneous Information 1 ea NOTE XX ; Start 07/21/16 at 09:00 Glucose (Glutose) 15 gm Q15M PRN PO DECREASED GLUCOSE; Start 07/21/16 at 09:00 Glucose (Glutose) 22.5 gm Q15M PRN PO DECREASED GLUCOSE; Start 07/21/16 at 09: 00 Dextrose (D50w Syringe) 25 ml Q15M PRN IV DECREASED GLUCOSE Last administered on 07/24/16 01:22; Admin Dose 25 ML; Start 07/21/16 at 09:00 Dextrose (D50w Syringe) 50 ml Q15M PRN IV DECREASED GLUCOSE; Start 07/21/16 at 09:00 Glucagon (Glucagen) 1 mg Q15M PRN IM DECREASED GLUCOSE; Start 07/21/16 at 09:00 Glucose (Glutose) 15 gm Q15M PRN BUCCAL DECREASED GLUCOSE; Start 07/21/16 at 09 :00 Heparin Sodium (Porcine) (Heparin (5000 Units/0.5 ml)) 5,000 unit Q12 SC Last administered on 07/26/16 08:49; Admin Dose 5,000 UNIT; Start 07/21/16 at 21:00 Hydromorphone HCl (Dilaudid) 0.5 mg Q2 PRN IV SEVERE PAIN LEVEL 7-10 Last administered on 07/23/16 09:22; Admin Dose 0.5 MG; Start 07/22/16 at 08:00 Hydromorphone HCl 0.25 mg 0.25 mg Q2 PRN IV PAIN LEVEL 1-6 Last administered on 07/22/16 12:12; Admin Dose 0.25 MG; Start 07/22/16 at 08:00 Cefepime HCl 50 ml @ 100 mls/hr Q24H IVPB Last administered on 07/25/16 14:14 ; Admin Dose 100 MLS/HR; Start 07/22/16 at 14:00 Dextrose/Sodium Chloride (D5-1/2ns) 1,000 ml @ 40 mls/hr Q24H IV Last administered on 07/25/16 19:26; Admin Dose 40 MLS/HR; Start 07/22/16 at 13:00 Lorazepam (Ativan) 1 mg Q6H PRN IV ANXIETY Last administered on 07/24/16 08:14 ; Admin Dose 1 MG; Start 07/23/16 at 13:00 Hydralazine HCl (Apresoline) 20 mg Q6H PRN IV ELEVATED BLOOD PRESSURE Last administered on 5/13/17at 14:18; Admin Dose 20 MG; Start 07/24/16 at 14:30 Insulin Aspart (Novolog Insulin Pen) NOVOLOG *MILD* ALGORI... Q6 SC ; Start at 12:00 Guaifenesin/ Codeine Phosphate (Robitussin Ac Liquid Cup) 5 ml Q4H PRN PO cough ; Start 07/26/16 at 10:00; Status RAI RESENDIZ July 26, 2016 10:12
[2016-07-26] MEDS: CEFEPIME 1GM/50 ML (PMX) 50 ML IVPB SCH (14:11)
--- NOTE | 2016-07-26 17:53 | CONS ---
Date/Time of Note Date/Time of Note DATE: 07/26/16 TIME: 17:52 Assessment/Plan Assessment/Plan Chief Complaint/Hosp Course A/P S/P EX LAP AND BOWEL RESECTION ESRD HTN DM ASHD S/P CABG PLAN HD AM PER SURGERY PER SURGERY Problems: Consultation Date/Type/Reason Admit Date/Time July 21, 2016 at 02:30 Initial Consult Date 07/21/16 Type of Consultation: RENAL Referring Provider: LESLIE DEMPSEY 24 HR Interval Summary Constitutional: no complaints Exam/Review of Systems Vital Signs Vitals Vital Signs Date Time Temp Pulse Resp B/P Pulse Ox O2 Delivery O2 Flow Rate FiO2 07/26/16 17:00 71 14 145/72 100 Nasal Cannula 2.0 07/26/16 16:00 98.3 07/26/16 02:16 27 Intake and Output 07/25/16 07/25/16 07/26/16 15:00 23:00 07:00 Intake Total 350 ml 320 ml 80 ml Output Total 10 ml 30 ml 15 ml Balance 340 ml 290 ml 65 ml Exam Cardiovascular: regular rate and rhythm Gastrointestinal: soft Musculoskeletal: nl extremities to inspection Extremities: normal pulses Results Result Diagram: 07/26/16 0533 07/26/16 0533 Results 24 hrs Laboratory Tests Test 07/25/16 21:35 07/26/16 02:01 07/26/16 05:00 07/26/16 05:33 Bedside Glucose 92 83 76 White Blood Count 4.6 #L Red Blood Count 3.43 L Hemoglobin 10.5 L Hematocrit 34.3 L Mean Corpuscular Volume 100.0 Mean Corpuscular Hemoglobin 30.6 Mean Corpuscular Hemoglobin Concent 30.6 L Red Cell Distribution Width 20.8 H Platelet Count 178 Mean Platelet Volume 10.2 Neutrophils % 63.7 Lymphocytes % 16.3 Monocytes % 13.6 H Eosinophils % 4.4 Basophils % 0.7 Nucleated Red Blood Cells % 0.0 Neutrophils # 2.9 Lymphocytes # 0.7 L Monocytes # 0.6 Eosinophils # 0.2 Basophils # 0.0 Nucleated Red Blood Cells # 0.0 Sodium Level 135 Potassium Level 3.6 Chloride Level 103 Carbon Dioxide Level 24 Anion Gap 12 Blood Urea Nitrogen 33 H Creatinine 6.21 H Glucose Level 88 Calcium Level 8.2 L Phosphorus Level 5.7 H Magnesium Level 1.9 Total Bilirubin 0.2 Direct Bilirubin 0.20 Indirect Bilirubin 0.0 Aspartate Amino Transf (AST/SGOT) 19 Alanine Aminotransferase (ALT/SGPT) 19 Alkaline Phosphatase 106 Total Protein 6.3 Albumin 2.6 L Globulin 3.70 H Albumin/Globulin Ratio 0.70 Test 07/26/16 08:51 07/26/16 12:26 Bedside Glucose 113 105 Medications Medications Current Medications Morphine Sulfate (morphine) 2 mg Q2H PRN IV PAIN LEVEL 6-10 Last administered on 07/26/16 15:25; Admin Dose 2 MG; Start 07/21/16 at 01:00 Ondansetron HCl (Zofran Inj) 4 mg Q6H PRN IV NAUSEA AND/OR VOMITING Last administered on 07/23/16 09:21; Admin Dose 4 MG; Start 07/21/16 at 01:00 Pantoprazole (Protonix Iv) 40 mg DAILY@06 IV Last administered on 07/26/16 05: 19; Admin Dose 40 MG; Start 07/21/16 at 06:00 Insulin Glargine (Lantus) 12 unit DAILY@09 SC Last administered on 07/23/16 09 :09; Admin Dose 12 UNIT; Start 07/21/16 at 09:00; Status Future Hold Miscellaneous Information 1 ea NOTE XX ; Start 07/21/16 at 09:00 Glucose (Glutose) 15 gm Q15M PRN PO DECREASED GLUCOSE; Start 07/21/16 at 09:00 Glucose (Glutose) 22.5 gm Q15M PRN PO DECREASED GLUCOSE; Start 07/21/16 at 09: 00 Dextrose (D50w Syringe) 25 ml Q15M PRN IV DECREASED GLUCOSE Last administered on 07/24/16 01:22; Admin Dose 25 ML; Start 07/21/16 at 09:00 Dextrose (D50w Syringe) 50 ml Q15M PRN IV DECREASED GLUCOSE; Start 07/21/16 at 09:00 Glucagon (Glucagen) 1 mg Q15M PRN IM DECREASED GLUCOSE; Start 07/21/16 at 09:00 Glucose (Glutose) 15 gm Q15M PRN BUCCAL DECREASED GLUCOSE; Start 07/21/16 at 09 :00 Heparin Sodium (Porcine) (Heparin (5000 Units/0.5 ml)) 5,000 unit Q12 SC Last administered on 07/26/16 08:49; Admin Dose 5,000 UNIT; Start 07/21/16 at 21:00 Hydromorphone HCl (Dilaudid) 0.5 mg Q2 PRN IV SEVERE PAIN LEVEL 7-10 Last administered on 07/23/16 09:22; Admin Dose 0.5 MG; Start 07/22/16 at 08:00 Hydromorphone HCl 0.25 mg 0.25 mg Q2 PRN IV PAIN LEVEL 1-6 Last administered on 07/22/16 12:12; Admin Dose 0.25 MG; Start 07/22/16 at 08:00 Cefepime HCl 50 ml @ 100 mls/hr Q24H IVPB Last administered on 07/26/16 14:11 ; Admin Dose 100 MLS/HR; Start 07/22/16 at 14:00 Dextrose/Sodium Chloride (D5-1/2ns) 1,000 ml @ 40 mls/hr Q24H IV Last administered on 07/25/16 19:26; Admin Dose 40 MLS/HR; Start 07/22/16 at 13:00 Lorazepam (Ativan) 1 mg Q6H PRN IV ANXIETY Last administered on 07/24/16 08:14 ; Admin Dose 1 MG; Start 07/23/16 at 13:00 Hydralazine HCl (Apresoline) 20 mg Q6H PRN IV ELEVATED BLOOD PRESSURE Last administered on 07/24/16 14:18; Admin Dose 20 MG; Start 07/24/16 at 14:30 Insulin Aspart (Novolog Insulin Pen) NOVOLOG *MILD* ALGORI... Q6 SC ; Start at 12:00 Guaifenesin/ Codeine Phosphate (Robitussin Ac Liquid Cup) 5 ml Q4H PRN PO cough ; Start 07/26/16 at 10:00 HORACIO PERERA MD July 26, 2016 17:53
--- NOTE | 2016-07-26 20:42 | PN ---
Date/Time of Note Date/Time of Note DATE: 07/26/16 TIME: 20:42 Assessment/Plan Lines/Catheters IV Catheter Type (from Nrsg): PERMACATH Kowalski in Place (from Nrsg): Yes Assessment/Plan Chief Complaint/Hosp Course IMPRESSION: 1. Dysfunctional left upper extremity arteriovenous fistula. 2. Anemia. 3. Status post laparotomy and bowel resection. RECOMMENDATIONS: Will proceed with revision of the left upper extremity AV fistula when the patient is medically more stable. Discussed with the referring physicians. Problems: Subjective 24 Hr Interval Summary Constitutional: improved Pain Control: mild Exam/Review of Systems Vital Signs Vitals Vital Signs Date Time Temp Pulse Resp B/P Pulse Ox O2 Delivery O2 Flow Rate FiO2 07/26/16 20:21 98.1 76 16 182/74 100 07/26/16 17:00 Nasal Cannula 2.0 07/26/16 02:16 27 Intake and Output 07/25/16 07/25/16 07/26/16 15:00 23:00 07:00 Intake Total 350 ml 320 ml 80 ml Output Total 10 ml 30 ml 15 ml Balance 340 ml 290 ml 65 ml Exam ENMT: mucosa pink and moist, nl external ears & nose, nl lips & teeth, nl nasal mucosa & septum Neck: non-tender, supple Respiratory: clear to auscultation, normal air movement Cardiovascular: nl pulses, regular rate and rhythm Results Result Diagram: 07/26/16 0533 07/26/16 0533 BABITA GRIGGS MD July 26, 2016 20:42
[2016-07-26] MEDS: hydrALAzine 20 MG INJ IV PRN (21:28)
[2016-07-27] VITALS (13 sets, daily range): BP systolic 109–186; BP diastolic 55–81; PULSE 70–80; RESP 16–18
--- NOTE | 2016-07-27 03:04 | PN ---
DATE: 07/26/2016 SUBJECTIVE: Ms. Rudy Haney is now postoperative day 5 from a small bowel resection. She is without complaint. She is passing flatus. No bowel movement. OBJECTIVE: VITAL SIGNS: She is afebrile. Vital signs stable. ABDOMEN: Soft, nontender, nondistended. Her wound is clean, dry and intact. LABORATORY DATA: Today reveal a white count of 5, hematocrit of 34 and platelets of 178. Sodium 13 5, potassium 3.6, chloride 103, CO2 of 24, BUN 33 and creatinine 6.2, glucose of 88. ASSESSMENT AND PLAN: Mr. Rudy Haney is a 56-year-old female status post a small bowel resect ion for small bowel ischemia. 1. The patient had flatus and was advanced to clears. If tolerates clears tomorrow, may advance to soft diet on Tuesday. 2. If tolerates soft diet, she is stable for discharge on Tuesday from my perspective. Dictated By: ROBERTO ANTOINE/LEXI Conf#: [id number] DID#: [id number]
[2016-07-27] MEDS: DEXTROSE 5%-0.45% NACL 1,000 ML IV SCH (04:55)
[2016-07-27] MEDS: PANTOPRAZOLE 40 MG INJ IV SCH (04:55)
[2016-07-27] MEDS: INSULIN ASPART [NOVOLOG] 3 ML PEN SC SCH ×5 (05:34→21:00)
[2016-07-27] MEDS: HEPARIN 5,000 UNIT/0.5 ML VIAL SC SCH ×2 (09:10→21:37)
--- NOTE | 2016-07-27 10:37 | RADRPT ---
PROCEDURE: XR Chest 1 view. CLINICAL INDICATION: Shortness of breath, respiratory failure TECHNIQUE: AP views of the chest were obtained. COMPARISON: July 24, 2016 FINDINGS: The heart is large. Calcified atherosclerosis is noted in the aorta. Left-sided dialysis catheter h as its tip in the expected location of the mid superior vena cava. Median sternotomy wires and surg ical clips overlie the heart. Retrocardiac opacity is unchanged. Small right pleural effusion with associated basilar atelectasis/infiltrate is observed. Mild central pulmonary vascular congestion and interstitial prominence is seen in both lungs. The osseous structures are osteopenic, but appea r grossly intact. IMPRESSION: Cardiomegaly with calcified atherosclerosis in the aorta. Interval extubation and nasogastric tube removal. Stable mild central pulmonary vascular congestion and interstitial prominence in both lungs. Stable retrocardiac opacity that may reflect left lower lobe atelectasis or infiltrate combined with small pleural effusion. Interval development of small right pleural effusion with associated basilar atelectasis/infiltrate. RPTAT: AA .Roque Slade MD, Date Time Electronically viewed and signed by .Roque Slade MD, on 07/27/2016 10:37 .P/
--- NOTE | 2016-07-27 12:17 | CONS ---
Date/Time of Note Date/Time of Note DATE: 07/27/16 TIME: 12:15 Assessment/Plan Assessment/Plan Additional Assessment/Plan Assessment recommendations; 1. Patient admitted for bowel obstruction status post resection with excellent overall clinical status. 2. Postop ileus, with interval resolution. Patient able to eat now. 3. End-stage renal disease, on hemodialysis. Continue current supportive care. Consultation Date/Type/Reason Admit Date/Time July 21, 2016 at 02:30 Initial Consult Date 07/21/16 Type of Consultation: Pulmonary Referring Provider: LESLIE DEMPSEY 24 HR Interval Summary Free Text/Dictation Patient condition stable. Has been transferred out of ICU to medical floor. Patient also is not able to eat. Denies any nausea vomiting shortness of breath. General exam; middle-aged woman, awake alert currently in no distress. Exam/Review of Systems Vital Signs Vitals Vital Signs Date Time Temp Pulse Resp B/P Pulse Ox O2 Delivery O2 Flow Rate FiO2 07/27/16 11:36 97.8 75 18 152/67 100 07/27/16 08:50 Nasal Cannula 2.0 07/26/16 02:16 27 Intake and Output 07/26/16 07/26/16 07/27/16 15:00 23:00 07:00 Intake Total 620 ml 80 ml 520 ml Output Total 2815 ml 5 ml Balance -2195 ml 75 ml 520 ml Exam HEENT exam is; supple neck, no JVD. No lymphadenopathy. Midline trachea. No thyromegaly. Pharynx is clear. Pupils are small bilaterally. Patient has fair dentition. Chest examination; clear to auscultation. S1-S2 audible, no murmurs. Regular rhythm. Abdomen examination; soft, mildly tender. There is a well-healed laparotomy scar with greyson applied. Bowel sounds audible. Abdomen is nondistended. Extremity examination; no peripheral edema. PSYCHOLOGICAL OPERATIONS examination; no focal deficit. Results Result Diagram: 07/26/16 0533 07/26/16 0533 Results 24 hrs Laboratory Tests Test 07/26/16 12:26 07/26/16 18:16 07/27/16 00:15 Bedside Glucose 105 101 87 Medications Medications Current Medications Morphine Sulfate (morphine) 2 mg Q2H PRN IV PAIN LEVEL 6-10 Last administered on 07/26/16t 15:25; Admin Dose 2 MG; Start 07/21/16 at 01:00 Ondansetron HCl (Zofran Inj) 4 mg Q6H PRN IV NAUSEA AND/OR VOMITING Last administered on 07/23/16 09:21; Admin Dose 4 MG; Start 07/21/16 at 01:00 Pantoprazole (Protonix Iv) 40 mg DAILY@06 IV Last administered on 07/27/16 04: 55; Admin Dose 40 MG; Start 07/21/16 at 06:00 Insulin Glargine (Lantus) 12 unit DAILY@09 SC Last administered on 07/23/16 09 :09; Admin Dose 12 UNIT; Start 07/21/16 at 09:00; Status Future Hold Miscellaneous Information 1 ea NOTE XX ; Start 07/21/16 at 09:00 Glucose (Glutose) 15 gm Q15M PRN PO DECREASED GLUCOSE; Start 07/21/16 at 09:00 Glucose (Glutose) 22.5 gm Q15M PRN PO DECREASED GLUCOSE; Start 07/21/16 at 09: 00 Dextrose (D50w Syringe) 25 ml Q15M PRN IV DECREASED GLUCOSE Last administered on 07/24/16 01:22; Admin Dose 25 ML; Start 07/21/16 at 09:00 Dextrose (D50w Syringe) 50 ml Q15M PRN IV DECREASED GLUCOSE; Start 07/21/16 at 09:00 Glucagon (Glucagen) 1 mg Q15M PRN IM DECREASED GLUCOSE; Start 07/21/16 at 09:00 Glucose (Glutose) 15 gm Q15M PRN BUCCAL DECREASED GLUCOSE; Start 07/21/16 at 09 :00 Heparin Sodium (Porcine) (Heparin (5000 Units/0.5 ml)) 5,000 unit Q12 SC Last administered on 07/27/16 09:10; Admin Dose 5,000 UNIT; Start 07/21/16 at 21:00 Hydromorphone HCl (Dilaudid) 0.5 mg Q2 PRN IV SEVERE PAIN LEVEL 7-10 Last administered on 07/23/16 09:22; Admin Dose 0.5 MG; Start 07/22/16 at 08:00 Hydromorphone HCl 0.25 mg 0.25 mg Q2 PRN IV PAIN LEVEL 1-6 Last administered on 07/22/16 12:12; Admin Dose 0.25 MG; Start 07/22/16 at 08:00 Cefepime HCl 50 ml @ 100 mls/hr Q24H IVPB Last administered on 07/26/16 14:11 ; Admin Dose 100 MLS/HR; Start 07/22/16 at 14:00 Dextrose/Sodium Chloride (D5-1/2ns) 1,000 ml @ 40 mls/hr Q24H IV Last administered on 07/27/16 04:55; Admin Dose 40 MLS/HR; Start 07/22/16 at 13:00 Lorazepam (Ativan) 1 mg Q6H PRN IV ANXIETY Last administered on 07/24/16 08:14 ; Admin Dose 1 MG; Start 07/23/16 at 13:00 Hydralazine HCl (Apresoline) 20 mg Q6H PRN IV ELEVATED BLOOD PRESSURE Last administered on 07/26/16 21:28; Admin Dose 20 MG; Start 07/24/16 at 14:30 Insulin Aspart (Novolog Insulin Pen) NOVOLOG *MILD* ALGORI... Q6 SC ; Start at 12:00 Guaifenesin/ Codeine Phosphate (Robitussin Ac Liquid Cup) 5 ml Q4H PRN PO cough ; Start 07/26/16 at 10:00 RAI VIDAL July 27, 2016 12:17
[2016-07-27] MEDS: CEFEPIME 1GM/50 ML (PMX) 50 ML IVPB SCH (13:41)
--- NOTE | 2016-07-27 13:57 | PN ---
DATE: 07/27/2016 SUBJECTIVE: Ms. Lou is postop day 6 from a small bowel resection. She is tolerating clears, passing flatus. OBJECTIVE: VITAL SIGNS: She is afebrile. Vital signs stable. ABDOMEN: Soft, nontender, nondistended. Her wound is clean, dry and intact. LABORATORY DATA: Today show glucose of 107. ASSESSMENT: Ms. Rudy Haney is a 56-year-old female status post a small bowel resection for i schemic bowel. PLAN: 1. Advance to soft diet. 2. If tolerates soft diet, it is okay to discharge tomorrow per surgery. Dictated By: ROBERTO ANTOINE/NTS Conf#: [id number] DID#: [id number]
[2016-07-27 14:54] LABS: ADD SCAN DIFF NO
[2016-07-27 14:58] LABS: ABNORMAL IP MESSAGE 1; BASOPHILS % 0.2 % (0.0-2.0); EOSINOPHILS # 0.1 10^3/ul (0.0-0.5); HEMOGLOBIN 11.7 g/dl (12.0-16.0); LYMPHOCYTES # 0.6 10^3/ul (0.8-2.9); LYMPHOCYTES % 12.5 % (15.0-51.0); MEAN CORPUSCULAR HEMOGLOBIN 31.5 pg (29.0-33.0); MEAN CORPUSCULAR HGB CONC 30.8 g/dl (32.0-37.0); MEAN CORPUSCULAR VOLUME 102.2 fl (82.0-101.0); MEAN PLATELET VOLUME 10.4 fl (7.4-10.4); MONOCYTE # 0.6 10^3/ul (0.3-0.9); MONOCYTES % 12.3 % (0.0-11.0); NEUTROPHIL # 3.3 10^3/ul (1.6-7.5); NEUTROPHILS % 70.1 % (39.0-77.0); PLATELET COUNT 192 10^3/UL (140-415); RED BLOOD COUNT 3.72 10^6/ul (4.20-5.40); RED CELL DISTRIBUTION WIDTH 20.2 % (11.5-14.5); WHITE BLOOD COUNT 4.7 10^3/ul (4.8-10.8)
[2016-07-27 15:15] LABS: POTASSIUM 3.9 mmol/L (3.5-5.1)
[2016-07-27 15:17] LABS: CREATININE 5.7 mg/dl (0.44-1.00)
[2016-07-27 15:18] LABS: CALCIUM 8.2 mg/dl (8.4-10.2)
[2016-07-27] MEDS: morphine 2 MG INJ IV PRN (15:23)
--- NOTE | 2016-07-27 15:56 | PN ---
Date/Time of Note Date/Time of Note DATE: 07/27/16 TIME: 15:52 Assessment/Plan VTE Prophylaxis VTE Prophylaxis Intervention: heparin, SCD's Lines/Catheters IV Catheter Type (from Nrs): permacath Urinary Cath still in place: Yes Reason Cath still needed: other (indicate) Assessment/Plan Chief Complaint/Hosp Course Assessment/Plan 56-year-old female with history of diabetes, end-stage renal disease on dialysis , hypertension, hypothyroidism, presents with abdominal pain secondary to mesenteric ischemia, status post exploratory laparotomy with extensive small bowel resection. 1. Abdominal pain secondary to mesenteric ischemia, status post resection - Follow up postoperative recommendations surgery team and control medications - continue IV fluids as well. 2. Hypoxemic respiratory failure, status post exploratory laparotomy - extubated now - follow pulmonary recommendations. - ST eval - Monitor, DuoNebs p.r.n. 3. End-stage renal disease on dialysis. - Follow up renal recommendations; dialysis per their rec's 4. Hypertension. Continue to monitor for now. Blood pressure stable, off pressor now. 5. Type 2 diabetes - continue sliding scale insulin. - Continue Lantus. 6. Severe anemia : improved post transfusion, continue to monitor 7. Dysfunctional left upper extremity arteriovenous fistula. Plan for revision of the left upper extremity AV fistula by vascular surgeon DISPO: * Ambulate with PT * cough meds PRN. Gastrointestinal prophylaxis, proton pump inhibitor. Deep venous thrombosis prophylaxis - Heparin Problems: Subjective 24 Hr Interval Summary Free Text/Dictation Patient denies of any chest pain or shortness of breath No nausea vomiting diarrhea Denies of any abdominal discomfort No flatus or bowel movement Exam/Review of Systems Vital Signs Vitals Vital Signs Date Time Temp Pulse Resp B/P Pulse Ox O2 Delivery O2 Flow Rate FiO2 07/27/16 12:31 75 07/27/16 11:36 97.8 18 152/67 100 07/27/16 08:50 Nasal Cannula 2.0 07/26/16 02:16 27 Intake and Output 07/26/16 07/26/16 07/27/16 15:00 23:00 07:00 Intake Total 620 ml 80 ml 520 ml Output Total 2815 ml 5 ml Balance -2195 ml 75 ml 520 ml Exam General: The patient is well-developed, Not in acute distress. HEENT: Atraumatic, normocephalic. The pupils are equal and round . Neck: Supple with full range of motion. Chest: Normal expansion of the thorax during inspiration Lungs: Clear to auscultation bilaterally Heart: Normal S1-S2, Regular rhythm and rate. Abdomen: Soft , nontender, nondistended , bowel sounds are present. Surgical site is dry and clean Extremities: Normal to inspection, no edema no cyanosis, nonfunctioning AV fistula and left upper extremity Neurologic: Normal mental status,The patient is awake, alert and oriented . Results Result Diagram: 07/27/16 1410 07/27/16 1410 Results 24 hrs Laboratory Tests Test 07/26/16 18:16 07/27/16 00:15 07/27/16 05:06 07/27/16 12:25 Bedside Glucose 101 87 72 107 Test 07/27/16 14:10 White Blood Count 4.7 L Red Blood Count 3.72 L Hemoglobin 11.7 L Hematocrit 38.0 Mean Corpuscular Volume 102.2 H Mean Corpuscular Hemoglobin 31.5 Mean Corpuscular Hemoglobin Concent 30.8 L Red Cell Distribution Width 20.2 H Platelet Count 192 Mean Platelet Volume 10.4 Neutrophils % 70.1 Lymphocytes % 12.5 L Monocytes % 12.3 H Eosinophils % 3.0 Basophils % 0.2 Nucleated Red Blood Cells % 0.0 Neutrophils # 3.3 Lymphocytes # 0.6 L Monocytes # 0.6 Eosinophils # 0.1 Basophils # 0.0 Nucleated Red Blood Cells # 0.0 Sodium Level 136 Potassium Level 3.9 Chloride Level 100 Carbon Dioxide Level 25 Anion Gap 15 Blood Urea Nitrogen 27 H Creatinine 5.70 H Glucose Level 107 Calcium Level 8.2 L Magnesium Level 1.9 Medications Medications Current Medications Morphine Sulfate (morphine) 2 mg Q2H PRN IV PAIN LEVEL 6-10 Last administered on 07/27/16 15:23; Admin Dose 2 MG; Start 07/21/16 at 01:00 Ondansetron HCl (Zofran Inj) 4 mg Q6H PRN IV NAUSEA AND/OR VOMITING Last administered on 07/23/16 09:21; Admin Dose 4 MG; Start 07/21/16 at 01:00 Pantoprazole (Protonix Iv) 40 mg DAILY@06 IV Last administered on 07/27/16 04: 55; Admin Dose 40 MG; Start 07/21/16 at 06:00 Insulin Glargine (Lantus) 12 unit DAILY@09 SC Last administered on 07/23/16 09 :09; Admin Dose 12 UNIT; Start 07/21/16 at 09:00; Status Future Hold Miscellaneous Information 1 ea NOTE XX ; Start 07/21/16 at 09:00 Glucose (Glutose) 15 gm Q15M PRN PO DECREASED GLUCOSE; Start 07/21/16 at 09:00 Glucose (Glutose) 22.5 gm Q15M PRN PO DECREASED GLUCOSE; Start 07/21/16 at 09: 00 Dextrose (D50w Syringe) 25 ml Q15M PRN IV DECREASED GLUCOSE Last administered on 07/24/16 01:22; Admin Dose 25 ML; Start 07/21/16 at 09:00 Dextrose (D50w Syringe) 50 ml Q15M PRN IV DECREASED GLUCOSE; Start 07/21/16 at 09:00 Glucagon (Glucagen) 1 mg Q15M PRN IM DECREASED GLUCOSE; Start 07/21/16 at 09:00 Glucose (Glutose) 15 gm Q15M PRN BUCCAL DECREASED GLUCOSE; Start 07/21/16 at 09 :00 Heparin Sodium (Porcine) (Heparin (5000 Units/0.5 ml)) 5,000 unit Q12 SC Last administered on 07/27/16 09:10; Admin Dose 5,000 UNIT; Start 07/21/16 at 21:00 Hydromorphone HCl (Dilaudid) 0.5 mg Q2 PRN IV SEVERE PAIN LEVEL 7-10 Last administered on 07/23/16 09:22; Admin Dose 0.5 MG; Start 07/22/16 at 08:00 Hydromorphone HCl 0.25 mg 0.25 mg Q2 PRN IV PAIN LEVEL 1-6 Last administered on 07/22/16 12:12; Admin Dose 0.25 MG; Start 07/22/16 at 08:00 Cefepime HCl 50 ml @ 100 mls/hr Q24H IVPB Last administered on 07/27/16 13:41 ; Admin Dose 100 MLS/HR; Start 07/22/16 at 14:00 Dextrose/Sodium Chloride (D5-1/2ns) 1,000 ml @ 40 mls/hr Q24H IV Last administered on 07/27/16 04:55; Admin Dose 40 MLS/HR; Start 07/22/16 at 13:00 Lorazepam (Ativan) 1 mg Q6H PRN IV ANXIETY Last administered on 07/24/16 08:14 ; Admin Dose 1 MG; Start 07/23/16 at 13:00 Hydralazine HCl (Apresoline) 20 mg Q6H PRN IV ELEVATED BLOOD PRESSURE Last administered on 07/26/16 21:28; Admin Dose 20 MG; Start 07/24/16 at 14:30 Insulin Aspart (Novolog Insulin Pen) NOVOLOG *MILD* ALGORI... Q6 SC ; Start at 12:00 Guaifenesin/ Codeine Phosphate (Robitussin Ac Liquid Cup) 5 ml Q4H PRN PO cough ; Start 07/26/16 at 10:00 RADHA CORDERO MD July 27, 2016 15:56
--- NOTE | 2016-07-27 19:46 | CONS ---
Date/Time of Note Date/Time of Note DATE: 07/27/16 TIME: 19:45 Assessment/Plan Assessment/Plan Chief Complaint/Hosp Course A/P S/P EX LAP AND BOWEL RESECTION ESRD HTN DM ASHD S/P CABG PLAN HD AM PER SURGERY renal stable Problems: Consultation Date/Type/Reason Admit Date/Time July 21, 2016 at 02:30 Initial Consult Date 07/21/16 Type of Consultation: renal Referring Provider: LESLIE DEMPSEY 24 HR Interval Summary Constitutional: no complaints Exam/Review of Systems Vital Signs Vitals Vital Signs Date Time Temp Pulse Resp B/P Pulse Ox O2 Delivery O2 Flow Rate FiO2 07/27/16 17:27 3.0 07/27/16 16:36 80 07/27/16 15:59 98.2 18 136/63 100 07/27/16 08:50 Nasal Cannula 07/26/16 02:16 27 Intake and Output 07/26/16 07/26/16 07/27/16 15:00 23:00 07:00 Intake Total 620 ml 80 ml 520 ml Output Total 2815 ml 5 ml Balance -2195 ml 75 ml 520 ml Exam Neck: supple Respiratory: clear to auscultation Cardiovascular: regular rate and rhythm Gastrointestinal: bowel sounds (+), soft Extremities: No edema Results Result Diagram: 07/27/16 1410 07/27/16 1410 Results 24 hrs Laboratory Tests Test 07/27/16 00:15 07/27/16 05:06 07/27/16 12:25 07/27/16 14:10 Bedside Glucose 87 72 107 White Blood Count 4.7 L Red Blood Count 3.72 L Hemoglobin 11.7 L Hematocrit 38.0 Mean Corpuscular Volume 102.2 H Mean Corpuscular Hemoglobin 31.5 Mean Corpuscular Hemoglobin Concent 30.8 L Red Cell Distribution Width 20.2 H Platelet Count 192 Mean Platelet Volume 10.4 Neutrophils % 70.1 Lymphocytes % 12.5 L Monocytes % 12.3 H Eosinophils % 3.0 Basophils % 0.2 Nucleated Red Blood Cells % 0.0 Neutrophils # 3.3 Lymphocytes # 0.6 L Monocytes # 0.6 Eosinophils # 0.1 Basophils # 0.0 Nucleated Red Blood Cells # 0.0 Sodium Level 136 Potassium Level 3.9 Chloride Level 100 Carbon Dioxide Level 25 Anion Gap 15 Blood Urea Nitrogen 27 H Creatinine 5.70 H Glucose Level 107 Calcium Level 8.2 L Magnesium Level 1.9 Test 07/27/16 17:34 Bedside Glucose 113 Medications Medications Current Medications Morphine Sulfate (morphine) 2 mg Q2H PRN IV PAIN LEVEL 6-10 Last administered on 07/27/16 15:23; Admin Dose 2 MG; Start 07/21/16 at 01:00 Ondansetron HCl (Zofran Inj) 4 mg Q6H PRN IV NAUSEA AND/OR VOMITING Last administered on 07/23/16 09:21; Admin Dose 4 MG; Start 07/21/16 at 01:00 Pantoprazole (Protonix Iv) 40 mg DAILY@06 IV Last administered on 07/27/16 04: 55; Admin Dose 40 MG; Start 07/21/16 at 06:00 Insulin Glargine (Lantus) 12 unit DAILY@09 SC Last administered on 07/23/16 09 :09; Admin Dose 12 UNIT; Start 07/21/16 at 09:00; Status Future Hold Miscellaneous Information 1 ea NOTE XX ; Start 07/21/16 at 09:00 Glucose (Glutose) 15 gm Q15M PRN PO DECREASED GLUCOSE; Start 07/21/16 at 09:00 Glucose (Glutose) 22.5 gm Q15M PRN PO DECREASED GLUCOSE; Start 07/21/16 at 09: 00 Dextrose (D50w Syringe) 25 ml Q15M PRN IV DECREASED GLUCOSE Last administered on 07/24/16 01:22; Admin Dose 25 ML; Start 07/21/16 at 09:00 Dextrose (D50w Syringe) 50 ml Q15M PRN IV DECREASED GLUCOSE; Start 07/21/16 at 09:00 Glucagon (Glucagen) 1 mg Q15M PRN IM DECREASED GLUCOSE; Start 07/21/16 at 09:00 Glucose (Glutose) 15 gm Q15M PRN BUCCAL DECREASED GLUCOSE; Start 07/21/16 at 09 :00 Heparin Sodium (Porcine) (Heparin (5000 Units/0.5 ml)) 5,000 unit Q12 SC Last administered on 07/27/16 09:10; Admin Dose 5,000 UNIT; Start 07/21/16 at 21:00 Hydromorphone HCl (Dilaudid) 0.5 mg Q2 PRN IV SEVERE PAIN LEVEL 7-10 Last administered on 07/23/16 09:22; Admin Dose 0.5 MG; Start 07/22/16 at 08:00 Hydromorphone HCl 0.25 mg 0.25 mg Q2 PRN IV PAIN LEVEL 1-6 Last administered on 07/22/16 12:12; Admin Dose 0.25 MG; Start 07/22/16 at 08:00 Cefepime HCl 50 ml @ 100 mls/hr Q24H IVPB Last administered on 07/27/16 13:41 ; Admin Dose 100 MLS/HR; Start 07/22/16 at 14:00 Dextrose/Sodium Chloride (D5-1/2ns) 1,000 ml @ 40 mls/hr Q24H IV Last administered on 07/27/16 04:55; Admin Dose 40 MLS/HR; Start 07/22/16 at 13:00 Lorazepam (Ativan) 1 mg Q6H PRN IV ANXIETY Last administered on 07/24/16 08:14 ; Admin Dose 1 MG; Start 07/23/16 at 13:00 Hydralazine HCl (Apresoline) 20 mg Q6H PRN IV ELEVATED BLOOD PRESSURE Last administered on 07/26/16 21:28; Admin Dose 20 MG; Start 07/24/16 at 14:30 Guaifenesin/ Codeine Phosphate (Robitussin Ac Liquid Cup) 5 ml Q4H PRN PO cough ; Start 07/26/16 at 10:00 Diagnostic Test (Pha) (Accu-Chek) 1 ea 02 XX ; Start 07/28/16 at 02:00 HORACIO PERERA MD July 27, 2016 19:46
[2016-07-27] MEDS: ACCU-CHEK XX SCH (21:44)
[2016-07-28] VITALS (21 sets, daily range): BP systolic 124–182; BP diastolic 55–79; PULSE 68–86; RESP 18–20
[2016-07-28] MEDS: DEXTROSE 5%-0.45% NACL 1,000 ML IV SCH (05:52)
[2016-07-28] MEDS: PANTOPRAZOLE 40 MG INJ IV SCH (05:52)
[2016-07-28] MEDS: INSULIN ASPART [NOVOLOG] 3 ML PEN SC SCH ×4 (07:55→20:47)
[2016-07-28] MEDS: hydrALAzine 20 MG INJ IV PRN (08:29)
[2016-07-28] MEDS: HEPARIN 5,000 UNIT/0.5 ML VIAL SC SCH ×2 (08:49→21:33)
[2016-07-28 09:21] LABS: ADD SCAN DIFF NO
[2016-07-28 09:23] LABS: BASOPHILS % 0.5 % (0.0-2.0); EOSINOPHILS # 0.2 10^3/ul (0.0-0.5); EOSINOPHILS % 3.7 % (0.0-7.0); HEMATOCRIT 36.1 % (37.0-47.0); HEMOGLOBIN 11.2 g/dl (12.0-16.0); LYMPHOCYTES # 0.7 10^3/ul (0.8-2.9); LYMPHOCYTES % 11.9 % (15.0-51.0); MEAN CORPUSCULAR HEMOGLOBIN 31.5 pg (29.0-33.0); MEAN CORPUSCULAR VOLUME 101.7 fl (82.0-101.0); MEAN PLATELET VOLUME 10.2 fl (7.4-10.4); MONOCYTE # 0.7 10^3/ul (0.3-0.9); MONOCYTES % 13.2 % (0.0-11.0); NEUTROPHIL # 3.8 10^3/ul (1.6-7.5); NEUTROPHILS % 69.4 % (39.0-77.0); PLATELET COUNT 197 10^3/UL (140-415); RED BLOOD COUNT 3.55 10^6/ul (4.20-5.40); RED CELL DISTRIBUTION WIDTH 19.4 % (11.5-14.5); WHITE BLOOD COUNT 5.5 10^3/ul (4.8-10.8)
[2016-07-28 09:45] LABS: CALCIUM 8.2 mg/dl (8.4-10.2); CREATININE 6.51 mg/dl (0.44-1.00)
--- NOTE | 2016-07-28 12:27 | PN ---
Date/Time of Note Date/Time of Note DATE: 07/28/16 TIME: 12:24 Assessment/Plan VTE Prophylaxis VTE Prophylaxis Intervention: heparin Lines/Catheters IV Catheter Type (from Nrs): PERMACATH Urinary Cath still in place: Yes Reason Cath still needed: other (indicate) Assessment/Plan Assessment/Plan 56-year-old female with history of diabetes, end-stage renal disease on dialysis , hypertension, hypothyroidism, presents with abdominal pain secondary to mesenteric ischemia, status post exploratory laparotomy with extensive small bowel resection. 1. Abdominal pain secondary to mesenteric ischemia, status post resection - Follow up postoperative recommendations surgery team and pain control medications 2. Hypoxemic respiratory failure, status post exploratory laparotomy - extubated now / stable on nasal cannula - Monitor, DuKatia p.r.n. 3. End-stage renal disease on dialysis. - Follow up renal recommendations; dialysis per their rec's 4. Hypertension. Continue to monitor for now. Blood pressure stable, off pressor now. 5. Type 2 diabetes - continue sliding scale insulin. - Continue Lantus. 6. Severe anemia : improved post transfusion DISPO: * Ambulate and mobilize patient. Patient still quite lethargic, continue in- house monitoring versus fdc facility. Gastrointestinal prophylaxis, proton pump inhibitor. Deep venous thrombosis prophylaxis - Heparin . Exam/Review of Systems Vital Signs Vitals Vital Signs Date Time Temp Pulse Resp B/P Pulse Ox O2 Delivery O2 Flow Rate FiO2 07/28/16 11:22 98.4 71 18 125/61 96 07/28/16 10:57 Nasal Cannula 2.0 07/26/16 02:16 27 Intake and Output 07/27/16 07/27/16 07/28/16 15:00 23:00 07:00 Intake Total 50 ml 1080 ml 460 ml Output Total 0 ml 25 ml 35 ml Balance 50 ml 1055 ml 425 ml Exam General: The patient is well-developed, Not in acute distress. HEENT: Atraumatic, normocephalic. The pupils are equal and round . Neck: Supple with full range of motion. Chest: Normal expansion of the thorax during inspiration Lungs: Breath sounds suggestive of lots of secretion Heart: Normal S1-S2, Regular rhythm and rate, systolic murmur Abdomen: Soft , nontender, nondistended , bowel sounds are present. Surgical site is dry and clean Extremities: Normal to inspection, no edema no cyanosis, nonfunctioning AV fistula and left upper extremity Neurologic: Normal mental status,The patient is awake, alert and oriented. Lethargic. Results Result Diagram: 07/28/16 0900 07/28/16 0900 Results 24 hrs Laboratory Tests Test 07/27/16 12:25 07/27/16 14:10 07/27/16 17:34 07/27/16 21:41 Bedside Glucose 107 113 140 White Blood Count 4.7 L Red Blood Count 3.72 L Hemoglobin 11.7 L Hematocrit 38.0 Mean Corpuscular Volume 102.2 H Mean Corpuscular Hemoglobin 31.5 Mean Corpuscular Hemoglobin Concent 30.8 L Red Cell Distribution Width 20.2 H Platelet Count 192 Mean Platelet Volume 10.4 Neutrophils % 70.1 Lymphocytes % 12.5 L Monocytes % 12.3 H Eosinophils % 3.0 Basophils % 0.2 Nucleated Red Blood Cells % 0.0 Neutrophils # 3.3 Lymphocytes # 0.6 L Monocytes # 0.6 Eosinophils # 0.1 Basophils # 0.0 Nucleated Red Blood Cells # 0.0 Sodium Level 136 Potassium Level 3.9 Chloride Level 100 Carbon Dioxide Level 25 Anion Gap 15 Blood Urea Nitrogen 27 H Creatinine 5.70 H Glucose Level 107 Calcium Level 8.2 L Magnesium Level 1.9 Test 07/28/16 07:55 07/28/16 09:00 07/28/16 11:36 Bedside Glucose 98 107 White Blood Count 5.5 Red Blood Count 3.55 L Hemoglobin 11.2 L Hematocrit 36.1 L Mean Corpuscular Volume 101.7 H Mean Corpuscular Hemoglobin 31.5 Mean Corpuscular Hemoglobin Concent 31.0 L Red Cell Distribution Width 19.4 H Platelet Count 197 Mean Platelet Volume 10.2 Neutrophils % 69.4 Lymphocytes % 11.9 L Monocytes % 13.2 H Eosinophils % 3.7 Basophils % 0.5 Nucleated Red Blood Cells % 0.0 Neutrophils # 3.8 Lymphocytes # 0.7 L Monocytes # 0.7 Eosinophils # 0.2 Basophils # 0.0 Nucleated Red Blood Cells # 0.0 Sodium Level 134 L Potassium Level 4.0 Chloride Level 101 Carbon Dioxide Level 23 Anion Gap 14 Blood Urea Nitrogen 32 H Creatinine 6.51 H Glucose Level 100 Calcium Level 8.2 L Medications Medications Current Medications Morphine Sulfate (morphine) 2 mg Q2H PRN IV PAIN LEVEL 6-10 Last administered on 07/27/16 15:23; Admin Dose 2 MG; Start 07/21/16 at 01:00 Ondansetron HCl (Zofran Inj) 4 mg Q6H PRN IV NAUSEA AND/OR VOMITING Last administered on 07/23/16 09:21; Admin Dose 4 MG; Start 07/21/16 at 01:00 Pantoprazole (Protonix Iv) 40 mg DAILY@06 IV Last administered on 07/28/16 05: 52; Admin Dose 40 MG; Start 07/21/16 at 06:00 Insulin Glargine (Lantus) 12 unit DAILY@09 SC Last administered on 07/23/16 09 :09; Admin Dose 12 UNIT; Start 07/21/16 at 09:00; Status Future Hold Miscellaneous Information 1 ea NOTE XX ; Start 07/21/16 at 09:00 Glucose (Glutose) 15 gm Q15M PRN PO DECREASED GLUCOSE; Start 07/21/16 at 09:00 Glucose (Glutose) 22.5 gm Q15M PRN PO DECREASED GLUCOSE; Start 07/21/16 at 09: 00 Dextrose (D50w Syringe) 25 ml Q15M PRN IV DECREASED GLUCOSE Last administered on 07/24/16 01:22; Admin Dose 25 ML; Start 07/21/16 at 09:00 Dextrose (D50w Syringe) 50 ml Q15M PRN IV DECREASED GLUCOSE; Start 07/21/16 at 09:00 Glucagon (Glucagen) 1 mg Q15M PRN IM DECREASED GLUCOSE; Start 07/21/16 at 09:00 Glucose (Glutose) 15 gm Q15M PRN BUCCAL DECREASED GLUCOSE; Start 07/21/16 at 09 :00 Heparin Sodium (Porcine) (Heparin (5000 Units/0.5 ml)) 5,000 unit Q12 SC Last administered on 07/28/16 08:49; Admin Dose 5,000 UNIT; Start 07/21/16 at 21:00 Hydromorphone HCl (Dilaudid) 0.5 mg Q2 PRN IV SEVERE PAIN LEVEL 7-10 Last administered on 07/23/16 09:22; Admin Dose 0.5 MG; Start 07/22/16 at 08:00 Hydromorphone HCl 0.25 mg 0.25 mg Q2 PRN IV PAIN LEVEL 1-6 Last administered on 07/22/16 12:12; Admin Dose 0.25 MG; Start 07/22/16 at 08:00 Cefepime HCl 50 ml @ 100 mls/hr Q24H IVPB Last administered on 07/27/16 13:41 ; Admin Dose 100 MLS/HR; Start 07/22/16 at 14:00 Dextrose/Sodium Chloride (D5-1/2ns) 1,000 ml @ 40 mls/hr Q24H IV Last administered on 07/28/16 05:52; Admin Dose 40 MLS/HR; Start 07/22/16 at 13:00 Lorazepam (Ativan) 1 mg Q6H PRN IV ANXIETY Last administered on 07/24/16 08:14 ; Admin Dose 1 MG; Start 07/23/16 at 13:00 Hydralazine HCl (Apresoline) 20 mg Q6H PRN IV ELEVATED BLOOD PRESSURE Last administered on 07/28/16 08:29; Admin Dose 20 MG; Start 07/24/16 at 14:30 Guaifenesin/ Codeine Phosphate (Robitussin Ac Liquid Cup) 5 ml Q4H PRN PO cough ; Start 07/26/16 at 10:00 Diagnostic Test (Pha) (Accu-Chek) 1 ea 02 XX ; Start 07/28/16 at 02:00 Procedures Procedures PROCEDURE: XR Chest 1 view. CLINICAL INDICATION: Shortness of breath, respiratory failure TECHNIQUE: AP views of the chest were obtained. COMPARISON: July 24, 2016 FINDINGS: The heart is large. Calcified atherosclerosis is noted in the aorta. Left- sided dialysis catheter has its tip in the expected location of the mid superior vena cava. Median sternotomy wires and surgical clips overlie the heart. Retrocardiac opacity is unchanged. Small right pleural effusion with associated basilar atelectasis/infiltrate is observed. Mild central pulmonary vascular congestion and interstitial prominence is seen in both lungs. The osseous structures are osteopenic, but appear grossly intact. IMPRESSION: Cardiomegaly with calcified atherosclerosis in the aorta. Interval extubation and nasogastric tube removal. Stable mild central pulmonary vascular congestion and interstitial prominence in both lungs. Stable retrocardiac opacity that may reflect left lower lobe atelectasis or infiltrate combined with small pleural effusion. Interval development of small right pleural effusion with associated basilar atelectasis/infiltrate. RPTAT: AA .Roque Slade MD, MD Date Time Electronically viewed and signed by .Roque Slade MD, MD on 07/27/2016 10:37 .P/ CC: FLY ALVARADO BOLATITO M. July 28, 2016 12:27
[2016-07-28] MEDS: DOCUSATE SODIUM 100 MG CAP PO SCH ×2 (12:30→21:28)
[2016-07-28] MEDS ORDERED: POLYETHYLENE GLYCOL 17 GM PACKET PO PRN (12:30)
[2016-07-28] MEDS ORDERED: ZOLPIDEM 5 MG TAB PO PRN (12:30)
[2016-07-28] MEDS ORDERED: ALBUTEROL 0.083% (NEB) 2.5 MG/3 ML AMP HHN PRN (13:00)
--- NOTE | 2016-07-28 13:18 | CONS ---
Date/Time of Note Date/Time of Note DATE: 07/28/16 TIME: 13:17 Assessment/Plan Assessment/Plan Additional Assessment/Plan Assessment recommendations; 1. Patient admitted for bowel obstruction status post surgery with excellent overall clinical status. 2. End-stage renal disease, on hemodialysis. Continue current treatment. Consultation Date/Type/Reason Admit Date/Time July 21, 2016 at 02:30 Initial Consult Date 07/21/16 Type of Consultation: Pulmonary Referring Provider: LESLIE DEMPSEY 24 HR Interval Summary Free Text/Dictation Patient is doing very well. Denies any shortness of breath, chest pain, abdominal pain, nausea vomiting. Able to eat. General exam; elderly woman, awake alert currently in no distress. Exam/Review of Systems Vital Signs Vitals Vital Signs Date Time Temp Pulse Resp B/P Pulse Ox O2 Delivery O2 Flow Rate FiO2 07/28/16 12:55 77 07/28/16 12:00 18 07/28/16 11:22 98.4 125/61 96 07/28/16 10:57 Nasal Cannula 2.0 07/26/16 02:16 27 Intake and Output 07/27/16 07/27/16 07/28/16 15:00 23:00 07:00 Intake Total 50 ml 1080 ml 460 ml Output Total 0 ml 25 ml 35 ml Balance 50 ml 1055 ml 425 ml Exam HEENT examination; supple neck, no JVD. No lymphadenopathy. Midline trachea. No thyromegaly. Pharynx is clear. Patient has fair dentition. Pupils are midsize reactive to light. Chest examination; clear to auscultation. S1-S2 audible, no murmurs. Regular rhythm. Abdomen examination; soft, there is a well-healing midline incision. Bowel sounds audible. Extremity examination; no peripheral edema. Pulses 1+ bilaterally. HEAD FILTER T[employer] examination; no focal deficit. Results Result Diagram: 07/28/16 0900 07/28/16 0900 Results 24 hrs Laboratory Tests Test 07/27/16 14:10 07/27/16 17:34 07/27/16 21:41 07/28/16 07:55 White Blood Count 4.7 L Red Blood Count 3.72 L Hemoglobin 11.7 L Hematocrit 38.0 Mean Corpuscular Volume 102.2 H Mean Corpuscular Hemoglobin 31.5 Mean Corpuscular Hemoglobin Concent 30.8 L Red Cell Distribution Width 20.2 H Platelet Count 192 Mean Platelet Volume 10.4 Neutrophils % 70.1 Lymphocytes % 12.5 L Monocytes % 12.3 H Eosinophils % 3.0 Basophils % 0.2 Nucleated Red Blood Cells % 0.0 Neutrophils # 3.3 Lymphocytes # 0.6 L Monocytes # 0.6 Eosinophils # 0.1 Basophils # 0.0 Nucleated Red Blood Cells # 0.0 Sodium Level 136 Potassium Level 3.9 Chloride Level 100 Carbon Dioxide Level 25 Anion Gap 15 Blood Urea Nitrogen 27 H Creatinine 5.70 H Glucose Level 107 Calcium Level 8.2 L Magnesium Level 1.9 Bedside Glucose 113 140 98 Test 07/28/16 09:00 07/28/16 11:36 White Blood Count 5.5 Red Blood Count 3.55 L Hemoglobin 11.2 L Hematocrit 36.1 L Mean Corpuscular Volume 101.7 H Mean Corpuscular Hemoglobin 31.5 Mean Corpuscular Hemoglobin Concent 31.0 L Red Cell Distribution Width 19.4 H Platelet Count 197 Mean Platelet Volume 10.2 Neutrophils % 69.4 Lymphocytes % 11.9 L Monocytes % 13.2 H Eosinophils % 3.7 Basophils % 0.5 Nucleated Red Blood Cells % 0.0 Neutrophils # 3.8 Lymphocytes # 0.7 L Monocytes # 0.7 Eosinophils # 0.2 Basophils # 0.0 Nucleated Red Blood Cells # 0.0 Sodium Level 134 L Potassium Level 4.0 Chloride Level 101 Carbon Dioxide Level 23 Anion Gap 14 Blood Urea Nitrogen 32 H Creatinine 6.51 H Glucose Level 100 Calcium Level 8.2 L Bedside Glucose 107 Medications Medications Current Medications Ondansetron HCl (Zofran Inj) 4 mg Q6H PRN IV NAUSEA AND/OR VOMITING Last administered on 07/23/16 09:21; Admin Dose 4 MG; Start 07/21/16 at 01:00 Insulin Glargine (Lantus) 12 unit DAILY@09 SC Last administered on 07/23/16 09 :09; Admin Dose 12 UNIT; Start 07/21/16 at 09:00; Status Future Hold Miscellaneous Information 1 ea NOTE XX ; Start 07/21/16 at 09:00 Glucose (Glutose) 15 gm Q15M PRN PO DECREASED GLUCOSE; Start 07/21/16 at 09:00 Glucose (Glutose) 22.5 gm Q15M PRN PO DECREASED GLUCOSE; Start 07/21/16 at 09: 00 Dextrose (D50w Syringe) 25 ml Q15M PRN IV DECREASED GLUCOSE Last administered on 07/24/16 01:22; Admin Dose 25 ML; Start 07/21/16 at 09:00 Dextrose (D50w Syringe) 50 ml Q15M PRN IV DECREASED GLUCOSE; Start 07/21/16 at 09:00 Glucagon (Glucagen) 1 mg Q15M PRN IM DECREASED GLUCOSE; Start 07/21/16 at 09:00 Glucose (Glutose) 15 gm Q15M PRN BUCCAL DECREASED GLUCOSE; Start 07/21/16 at 09 :00 Heparin Sodium (Porcine) 5000 unit 5,000 unit Q12 SC Last administered on 08:49; Admin Dose 5,000 UNIT; Start 07/21/16 at 21:00 Cefepime HCl (Maxipime 1gm/50 ml (Pmx)) 50 ml @ 100 mls/hr Q24H IVPB Last administered on 07/27/16 13:41; Admin Dose 100 MLS/HR; Start 07/22/16 at 14:00 Lorazepam (Ativan) 1 mg Q6H PRN IV ANXIETY Last administered on 07/24/16 08:14 ; Admin Dose 1 MG; Start 07/23/16 at 13:00 Hydralazine HCl (Apresoline) 20 mg Q6H PRN IV ELEVATED BLOOD PRESSURE Last administered on 07/28/16 08:29; Admin Dose 20 MG; Start 07/24/16 at 14:30 Guaifenesin/ Codeine Phosphate (Robitussin Ac Liquid Cup) 5 ml Q4H PRN PO cough ; Start 07/26/16 at 10:00 Diagnostic Test (Pha) (Accu-Chek) 1 ea 02 XX ; Start 07/28/16 at 02:00 Morphine Sulfate (morphine) 2 mg Q4H PRN IV PAIN LEVEL 6-10; Start 07/28/16 at 15:00 Polyethylene Glycol (Miralax) 8.5 gm DAILY PRN PO CONSTIPATION; Start 07/28/16 at 12:30 Docusate Sodium (Colace) 100 mg BID PO ; Start 07/28/16 at 12:30 RAI VIDAL July 28, 2016 13:18
[2016-07-28] MEDS: ALBUTEROL 0.083% (NEB) 2.5 MG/3 ML AMP HHN SCH ×3 (13:36→20:25)
[2016-07-28] MEDS: CEFEPIME 1GM/50 ML (PMX) 50 ML IVPB SCH (14:00)
[2016-07-28] MEDS ORDERED: morphine 2 MG INJ IV PRN (15:00)
--- NOTE | 2016-07-28 16:42 | PN ---
DATE: 07/28/2016 SUBJECTIVE: Ms. Christopher is postoperative day 7 from a small bowel resection. She is wiliam ating a soft diet, passing flatus, but has not had a bowel movement. OBJECTIVE: VITAL SIGNS: She is afebrile. Vital signs stable. ABDOMEN: Soft, nondistended. SKIN: Her wound is clean, dry, and intact. LABORATORY DATA: Revealed a white count of 6, hematocrit of 36, and platelets of 197. ASSESSMENT AND PLAN: 1. Ms. Christopher is a 56-year-old female status post a small bowel resection for ischemic sm all bowel. Ileus has resolved. 2. Agree with MiraLax and Dulcolax for bowel movement. 3. Okay for discharge after bowel movement. Dictated By: ROBERTO ANTOINE/LEXI Conf#: [id number] DID#: [id number]
--- NOTE | 2016-07-28 20:17 | CONS ---
Date/Time of Note Date/Time of Note DATE: 07/28/16 TIME: 20:16 Assessment/Plan Assessment/Plan Chief Complaint/Hosp Course A/P S/P EX LAP AND BOWEL RESECTION BETTER ESRD HTN DM ASHD S/P CABG CLOTTED AVF PLAN HD PER SURGERY renal stable Problems: Consultation Date/Type/Reason Admit Date/Time July 21, 2016 at 02:30 Initial Consult Date 07/21/16 Type of Consultation: RENAL Referring Provider: LESLIE DEMPSEY 24 HR Interval Summary Constitutional: no complaints Exam/Review of Systems Vital Signs Vitals Vital Signs Date Time Temp Pulse Resp B/P Pulse Ox O2 Delivery O2 Flow Rate FiO2 07/28/16 17:15 84 20 97 Nasal Cannula 2.0 07/28/16 15:41 98.6 125/55 07/26/16 02:16 27 Intake and Output 07/27/16 07/27/16 07/28/16 15:00 23:00 07:00 Intake Total 50 ml 1080 ml 460 ml Output Total 0 ml 25 ml 35 ml Balance 50 ml 1055 ml 425 ml Exam Neck: supple Respiratory: clear to auscultation Cardiovascular: regular rate and rhythm Gastrointestinal: bowel sounds (+), soft Results Result Diagram: 07/28/16 0900 07/28/16 0900 Results 24 hrs Laboratory Tests Test 07/27/16 21:41 07/28/16 07:55 07/28/16 09:00 07/28/16 11:36 Bedside Glucose 140 98 107 White Blood Count 5.5 Red Blood Count 3.55 L Hemoglobin 11.2 L Hematocrit 36.1 L Mean Corpuscular Volume 101.7 H Mean Corpuscular Hemoglobin 31.5 Mean Corpuscular Hemoglobin Concent 31.0 L Red Cell Distribution Width 19.4 H Platelet Count 197 Mean Platelet Volume 10.2 Neutrophils % 69.4 Lymphocytes % 11.9 L Monocytes % 13.2 H Eosinophils % 3.7 Basophils % 0.5 Nucleated Red Blood Cells % 0.0 Neutrophils # 3.8 Lymphocytes # 0.7 L Monocytes # 0.7 Eosinophils # 0.2 Basophils # 0.0 Nucleated Red Blood Cells # 0.0 Sodium Level 134 L Potassium Level 4.0 Chloride Level 101 Carbon Dioxide Level 23 Anion Gap 14 Blood Urea Nitrogen 32 H Creatinine 6.51 H Glucose Level 100 Calcium Level 8.2 L Test 07/28/16 17:22 Bedside Glucose 124 Medications Medications Current Medications Ondansetron HCl (Zofran Inj) 4 mg Q6H PRN IV NAUSEA AND/OR VOMITING Last administered on 07/23/16 09:21; Admin Dose 4 MG; Start 07/21/16 at 01:00 Insulin Glargine (Lantus) 12 unit DAILY@09 SC Last administered on 07/23/16 09 :09; Admin Dose 12 UNIT; Start 07/21/16 at 09:00; Status Future Hold Miscellaneous Information 1 ea NOTE XX ; Start 07/21/16 at 09:00 Glucose (Glutose) 15 gm Q15M PRN PO DECREASED GLUCOSE; Start 07/21/16 at 09:00 Glucose (Glutose) 22.5 gm Q15M PRN PO DECREASED GLUCOSE; Start 07/21/16 at 09: 00 Dextrose (D50w Syringe) 25 ml Q15M PRN IV DECREASED GLUCOSE Last administered on 07/24/16 01:22; Admin Dose 25 ML; Start 07/21/16 at 09:00 Dextrose (D50w Syringe) 50 ml Q15M PRN IV DECREASED GLUCOSE; Start 07/21/16 at 09:00 Glucagon (Glucagen) 1 mg Q15M PRN IM DECREASED GLUCOSE; Start 07/21/16 at 09:00 Glucose (Glutose) 15 gm Q15M PRN BUCCAL DECREASED GLUCOSE; Start 07/21/16 at 09 :00 Heparin Sodium (Porcine) 5000 unit 5,000 unit Q12 SC Last administered on 08:49; Admin Dose 5,000 UNIT; Start 07/21/16 at 21:00 Cefepime HCl (Maxipime 1gm/50 ml (Pmx)) 50 ml @ 100 mls/hr Q24H IVPB Last administered on 07/27/16 13:41; Admin Dose 100 MLS/HR; Start 07/22/16 at 14:00 Lorazepam (Ativan) 1 mg Q6H PRN IV ANXIETY Last administered on 07/24/16 08:14 ; Admin Dose 1 MG; Start 07/23/16 at 13:00 Hydralazine HCl (Apresoline) 20 mg Q6H PRN IV ELEVATED BLOOD PRESSURE Last administered on 07/28/16 08:29; Admin Dose 20 MG; Start 07/24/16 at 14:30 Guaifenesin/ Codeine Phosphate (Robitussin Ac Liquid Cup) 5 ml Q4H PRN PO cough ; Start 07/26/16 at 10:00 Diagnostic Test (Pha) (Accu-Chek) 1 ea 02 XX ; Start 07/28/16 at 02:00 Morphine Sulfate (morphine) 2 mg Q4H PRN IV PAIN LEVEL 6-10; Start 07/28/16 at 15:00 Polyethylene Glycol (Miralax) 8.5 gm DAILY PRN PO CONSTIPATION Last administered on 07/28/16t 16:43; Admin Dose 8.5 GM; Start 07/28/16 at 12:30 Docusate Sodium (Colace) 100 mg BID PO ; Start 07/28/16 at 12:30 HORACIO PERERA MD July 28, 2016 20:17
[2016-07-28] MEDS: ACCU-CHEK XX SCH (21:34)
[2016-07-29] VITALS (12 sets, daily range): BP systolic 137–186; BP diastolic 58–68; PULSE 73–82; RESP 16–20
[2016-07-29] MEDS: ALBUTEROL 0.083% (NEB) 2.5 MG/3 ML AMP HHN SCH ×7 (01:00→20:51)
[2016-07-29] MEDS: INSULIN ASPART [NOVOLOG] 3 ML PEN SC SCH ×4 (07:55→21:00)
[2016-07-29] MEDS: DOCUSATE SODIUM 100 MG CAP PO SCH ×2 (08:03→21:02)
[2016-07-29] MEDS: HEPARIN 5,000 UNIT/0.5 ML VIAL SC SCH ×2 (08:13→21:13)
--- NOTE | 2016-07-29 08:30 | RADRPT ---
PROCEDURE: Chest Radiograph. CLINICAL INDICATION: Cough TECHNIQUE: Single frontal chest radiograph. COMPARISON: Chest radiograph 07/27/2016 FINDINGS: A left chest wall tunneled hemodialysis catheter remains in unchanged position. The patient is stat us post sternotomy. The heart is enlarged. Atherosclerotic calcifications are present. There is i mproved central vascular congestion. There is a stable interstitial prominence. There is unchanged retrocardiac opacity which may represent atelectasis, infiltrate, and/or effusion. There is a small right pleural effusion with adjacent atelectasis which is unchanged. The bones are intact. IMPRESSION: 1. Mild improved central vascular congestion. 2. Otherwise stable radiographic appearance of the chest compared to 07/27/2016. RPTAT: AA .Deepak Rivas MD, Date Time Electronically viewed and signed by .Deepak Rivas MD, MD on 07/29/2016 08:29 .B/
[2016-07-29 09:58] LABS: ADD SCAN DIFF NO
[2016-07-29 10:15] LABS: BASOPHILS % 0.6 % (0.0-2.0); EOSINOPHILS # 0.2 10^3/ul (0.0-0.5); EOSINOPHILS % 3.3 % (0.0-7.0); HEMATOCRIT 39.9 % (37.0-47.0); HEMOGLOBIN 11.9 g/dl (12.0-16.0); LYMPHOCYTES # 0.8 10^3/ul (0.8-2.9); LYMPHOCYTES % 15.4 % (15.0-51.0); MEAN CORPUSCULAR HEMOGLOBIN 30.6 pg (29.0-33.0); MEAN CORPUSCULAR HGB CONC 29.8 g/dl (32.0-37.0); MEAN CORPUSCULAR VOLUME 102.6 fl (82.0-101.0); MEAN PLATELET VOLUME 10.3 fl (7.4-10.4); MONOCYTE # 0.6 10^3/ul (0.3-0.9); MONOCYTES % 13.1 % (0.0-11.0); NEUTROPHIL # 3.3 10^3/ul (1.6-7.5); NEUTROPHILS % 66.6 % (39.0-77.0); PLATELET COUNT 206 10^3/UL (140-415); RED BLOOD COUNT 3.89 10^6/ul (4.20-5.40); RED CELL DISTRIBUTION WIDTH 19.9 % (11.5-14.5); WHITE BLOOD COUNT 4.9 10^3/ul (4.8-10.8)
[2016-07-29 10:27] LABS: POTASSIUM 4.6 mmol/L (3.5-5.1)
[2016-07-29 10:30] LABS: CREATININE 5.6 mg/dl (0.44-1.00)
[2016-07-29 10:31] LABS: CALCIUM 8.5 mg/dl (8.4-10.2)
[2016-07-29] MEDS ORDERED: LANT3I SC (12:23)
[2016-07-29] MEDS ORDERED: POLY17PO6 PO (12:23)
--- NOTE | 2016-07-29 12:23 | CONS ---
Date/Time of Note Date/Time of Note DATE: 07/29/16 TIME: 12:21 Assessment/Plan Assessment/Plan Additional Assessment/Plan Chest x-ray was reviewed from today which is showing very minimal left lower lobe atelectasis. Next Assessment recommendations; 1. Patient admitted for bowel obstruction status post surgery, with excellent overall clinical status. Successfully extubated several days ago. 2. History of coronary artery disease, status post bypass surgery in the past. 3. Diabetes. 4. End-stage renal disease, on hemodialysis. Continue current supportive care. Consultation Date/Type/Reason Admit Date/Time July 21, 2016 at 02:30 Initial Consult Date 07/21/16 Type of Consultation: Pulmonary Referring Provider: LESLIE DEMPSEY 24 HR Interval Summary Free Text/Dictation Patient condition stable. Remains awake alert. Has remained hemodynamically stable. General exam; middle aged woman, awake alert currently in no distress. Exam/Review of Systems Vital Signs Vitals Vital Signs Date Time Temp Pulse Resp B/P Pulse Ox O2 Delivery O2 Flow Rate FiO2 07/29/16 12:11 79 07/29/16 11:33 98.0 16 151/67 92 07/29/16 09:47 21 07/29/16 07:28 Nasal Cannula 2.0 Intake and Output 07/28/16 07/28/16 07/29/16 15:00 23:00 07:00 Intake Total 200 ml 750 ml Output Total 3530 ml Balance 200 ml -2780 ml Exam HEENT examination; supple neck, no JVD. No lymphadenopathy. Midline trachea. No thyromegaly. Patient has fair dentition. Chest examination; clear to ulceration. S1-S2 audible, no murmurs. Regular rhythm. There is a well-healed sternal scar. Abdomen examination; soft, well-healing midline scar present. Bowel sounds audible. No organomegaly. Extremity examination; no peripheral edema. RECEIVER/LABORER examination; no focal deficit. Results Result Diagram: 07/29/16 0947 07/29/16 0947 Results 24 hrs Laboratory Tests Test 07/28/16 17:22 07/28/16 20:36 07/29/16 08:01 07/29/16 09:47 Bedside Glucose 124 134 91 White Blood Count 4.9 Red Blood Count 3.89 L Hemoglobin 11.9 L Hematocrit 39.9 Mean Corpuscular Volume 102.6 H Mean Corpuscular Hemoglobin 30.6 Mean Corpuscular Hemoglobin Concent 29.8 L Red Cell Distribution Width 19.9 H Platelet Count 206 Mean Platelet Volume 10.3 Neutrophils % 66.6 Lymphocytes % 15.4 Monocytes % 13.1 H Eosinophils % 3.3 Basophils % 0.6 Nucleated Red Blood Cells % 0.0 Neutrophils # 3.3 Lymphocytes # 0.8 Monocytes # 0.6 Eosinophils # 0.2 Basophils # 0.0 Nucleated Red Blood Cells # 0.0 Sodium Level 139 Potassium Level 4.6 Chloride Level 102 Carbon Dioxide Level 24 Anion Gap 18 H Blood Urea Nitrogen 25 H Creatinine 5.60 H Glucose Level 96 Calcium Level 8.5 Test 07/29/16 11:40 Bedside Glucose 111 Medications Medications Current Medications Ondansetron HCl (Zofran Inj) 4 mg Q6H PRN IV NAUSEA AND/OR VOMITING Last administered on 07/23/16 09:21; Admin Dose 4 MG; Start 07/21/16 at 01:00 Insulin Glargine (Lantus) 12 unit DAILY@09 SC Last administered on 07/23/16 09 :09; Admin Dose 12 UNIT; Start 07/21/16 at 09:00; Status Future Hold Miscellaneous Information 1 ea NOTE XX ; Start 07/21/16 at 09:00 Glucose (Glutose) 15 gm Q15M PRN PO DECREASED GLUCOSE; Start 07/21/16 at 09:00 Glucose (Glutose) 22.5 gm Q15M PRN PO DECREASED GLUCOSE; Start 07/21/16 at 09: 00 Dextrose (D50w Syringe) 25 ml Q15M PRN IV DECREASED GLUCOSE Last administered on 07/24/16 01:22; Admin Dose 25 ML; Start 07/21/16 at 09:00 Dextrose (D50w Syringe) 50 ml Q15M PRN IV DECREASED GLUCOSE; Start 07/21/16 at 09:00 Glucagon (Glucagen) 1 mg Q15M PRN IM DECREASED GLUCOSE; Start 07/21/16 at 09:00 Glucose (Glutose) 15 gm Q15M PRN BUCCAL DECREASED GLUCOSE; Start 07/21/16 at 09 :00 Heparin Sodium (Porcine) 5000 unit 5,000 unit Q12 SC Last administered on 08:13; Admin Dose 5,000 UNIT; Start 07/21/16 at 21:00 Cefepime HCl (Maxipime 1gm/50 ml (Pmx)) 50 ml @ 100 mls/hr Q24H IVPB Last administered on 07/27/16 13:41; Admin Dose 100 MLS/HR; Start 07/22/16 at 14:00 Lorazepam (Ativan) 1 mg Q6H PRN IV ANXIETY Last administered on 07/24/16 08:14 ; Admin Dose 1 MG; Start 07/23/16 at 13:00 Hydralazine HCl (Apresoline) 20 mg Q6H PRN IV ELEVATED BLOOD PRESSURE Last administered on 07/28/16 08:29; Admin Dose 20 MG; Start 07/24/16 at 14:30 Guaifenesin/ Codeine Phosphate (Robitussin Ac Liquid Cup) 5 ml Q4H PRN PO cough Last administered on 07/28/16 21:28; Admin Dose 5 ML; Start 07/26/16 at 10:00 Diagnostic Test (Pha) (Accu-Chek) 1 ea 02 XX ; Start 07/28/16 at 02:00 Morphine Sulfate (morphine) 2 mg Q4H PRN IV PAIN LEVEL 6-10; Start 07/28/16 at 15:00 Polyethylene Glycol (Miralax) 8.5 gm DAILY PRN PO CONSTIPATION Last administered on 07/28/16 16:43; Admin Dose 8.5 GM; Start 07/28/16 at 12:30 Docusate Sodium (Colace) 100 mg BID PO Last administered on 07/29/16 08:03; Admin Dose 100 MG; Start 07/28/16 at 12:30 RAI VIDAL July 29, 2016 12:23
--- NOTE | 2016-07-29 12:28 | PDOCDIS ---
Discharge Instructions DIAGNOSIS Discharge Diagnosis: Mesenteric Ischemia CONDITION Patient Condition: Stable HOME CARE INSTRUCTIONS: Special Diet: soft diet / high fibre ACTIVITY: Activity Restrictions: Slowly Increase Activity Rest between Activity Avoid heavy lifting Avoid Heavy Housework FOLLOW UP/APPOINTMENTS Appointments Followup with your primary doctor within the next 1-2 weeks. If you don't have one please let someone know, we can give you resources that may help you pick one. You may call Dr Heath Peng's office. he's accepting new patients Name, Degree: Heath Peng MD Specialty: Internal Medicine Comments: Office Address: [address] [place] [address] [address] [place] [address] Office Office You may also call your insurance company to assign one to you. Review your medication list with your nurse before leaving and if you need new prescriptions please let your nurse know. I may have made changes to your home medications or given you new prescriptions , please let your primary doctor know as well. Stay compliant with your medications and report any side effects to your PCP or pharmacist. Return to the ER if you have any concerns and cannot reach your doctors or call your insurance company, they usually have a nurse that can help you. OTHER ORDERS: Other Orders: Follow up with Dr Boateng for your surgical issues Name, Degree: Odin Boateng MD Specialty: General Surgery Comments: Office Address: [address] [place] [address] Office Office Fax: FLY ALVARADO July 29, 2016 12:28
[2016-07-29] MEDS: CEFEPIME 1GM/50 ML (PMX) 50 ML IVPB SCH (13:35)
[2016-07-29] MEDS: POLYETHYLENE GLYCOL 17 GM PACKET PO SCH (13:38)
[2016-07-29] MEDS ORDERED: MAGNESIUM CITRATE 300 ML BTL PO ONE (17:30)
--- NOTE | 2016-07-29 20:06 | CONS ---
Date/Time of Note Date/Time of Note DATE: 07/29/16 TIME: 20:05 Assessment/Plan Assessment/Plan Chief Complaint/Hosp Course A/P S/P EX LAP AND BOWEL RESECTION BETTER ESRD HTN DM ASHD S/P CABG CLOTTED AVF PLAN HD am PER SURGERY renal stable Problems: Consultation Date/Type/Reason Admit Date/Time July 21, 2016 at 02:30 Initial Consult Date 07/21/16 Type of Consultation: renal Referring Provider: LESLIE DEMPSEY 24 HR Interval Summary Constitutional: improved Exam/Review of Systems Vital Signs Vitals Vital Signs Date Time Temp Pulse Resp B/P Pulse Ox O2 Delivery O2 Flow Rate FiO2 07/29/16 16:57 85 18 95 21 07/29/16 15:39 98.1 150/68 07/29/16 07:28 Nasal Cannula 2.0 Intake and Output 07/28/16 07/28/16 07/29/16 15:00 23:00 07:00 Intake Total 200 ml 750 ml Output Total 3530 ml Balance 200 ml -2780 ml Exam Neck: supple Respiratory: clear to auscultation Cardiovascular: regular rate and rhythm Gastrointestinal: bowel sounds (+), soft Results Result Diagram: 07/29/16 0947 07/29/16 0947 Results 24 hrs Laboratory Tests Test 07/28/16 20:36 07/29/16 08:01 07/29/16 09:47 07/29/16 11:40 Bedside Glucose 134 91 111 White Blood Count 4.9 Red Blood Count 3.89 L Hemoglobin 11.9 L Hematocrit 39.9 Mean Corpuscular Volume 102.6 H Mean Corpuscular Hemoglobin 30.6 Mean Corpuscular Hemoglobin Concent 29.8 L Red Cell Distribution Width 19.9 H Platelet Count 206 Mean Platelet Volume 10.3 Neutrophils % 66.6 Lymphocytes % 15.4 Monocytes % 13.1 H Eosinophils % 3.3 Basophils % 0.6 Nucleated Red Blood Cells % 0.0 Neutrophils # 3.3 Lymphocytes # 0.8 Monocytes # 0.6 Eosinophils # 0.2 Basophils # 0.0 Nucleated Red Blood Cells # 0.0 Sodium Level 139 Potassium Level 4.6 Chloride Level 102 Carbon Dioxide Level 24 Anion Gap 18 H Blood Urea Nitrogen 25 H Creatinine 5.60 H Glucose Level 96 Calcium Level 8.5 Test 07/29/16 17:07 Bedside Glucose 137 Medications Medications Current Medications Ondansetron HCl (Zofran Inj) 4 mg Q6H PRN IV NAUSEA AND/OR VOMITING Last administered on 07/23/16 09:21; Admin Dose 4 MG; Start 07/21/16 at 01:00 Insulin Glargine (Lantus) 12 unit DAILY@09 SC Last administered on 07/23/16 09 :09; Admin Dose 12 UNIT; Start 07/21/16 at 09:00; Status Future Hold Miscellaneous Information 1 ea NOTE XX ; Start 07/21/16 at 09:00 Glucose (Glutose) 15 gm Q15M PRN PO DECREASED GLUCOSE; Start 07/21/16 at 09:00 Glucose (Glutose) 22.5 gm Q15M PRN PO DECREASED GLUCOSE; Start 07/21/16 at 09: 00 Dextrose (D50w Syringe) 25 ml Q15M PRN IV DECREASED GLUCOSE Last administered on 07/24/16 01:22; Admin Dose 25 ML; Start 07/21/16 at 09:00 Dextrose (D50w Syringe) 50 ml Q15M PRN IV DECREASED GLUCOSE; Start 07/21/16 at 09:00 Glucagon (Glucagen) 1 mg Q15M PRN IM DECREASED GLUCOSE; Start 07/21/16 at 09:00 Glucose (Glutose) 15 gm Q15M PRN BUCCAL DECREASED GLUCOSE; Start 07/21/16 at 09 :00 Heparin Sodium (Porcine) 5000 unit 5,000 unit Q12 SC Last administered on 08:13; Admin Dose 5,000 UNIT; Start 07/21/16 at 21:00 Cefepime HCl (Maxipime 1gm/50 ml (Pmx)) 50 ml @ 100 mls/hr Q24H IVPB Last administered on 07/29/16 13:35; Admin Dose 100 MLS/HR; Start 07/22/16 at 14:00 Lorazepam (Ativan) 1 mg Q6H PRN IV ANXIETY Last administered on 07/24/16 08:14 ; Admin Dose 1 MG; Start 07/23/16 at 13:00 Hydralazine HCl (Apresoline) 20 mg Q6H PRN IV ELEVATED BLOOD PRESSURE Last administered on 07/28/16 08:29; Admin Dose 20 MG; Start 5/13/17 at 14:30 Guaifenesin/ Codeine Phosphate (Robitussin Ac Liquid Cup) 5 ml Q4H PRN PO cough Last administered on 07/28/16 21:28; Admin Dose 5 ML; Start 07/26/16 at 10:00 Diagnostic Test (Pha) (Accu-Chek) 1 ea 02 XX ; Start 07/28/16 at 02:00 Morphine Sulfate (morphine) 2 mg Q4H PRN IV PAIN LEVEL 6-10; Start 07/28/16 at 15:00 Docusate Sodium (Colace) 100 mg BID PO Last administered on 07/29/16 08:03; Admin Dose 100 MG; Start 07/28/16 at 12:30 Polyethylene Glycol (Miralax) 8.5 gm DAILY PO Last administered on 07/29/16 13 :38; Admin Dose 8.5 GM; Start 07/29/16 at 12:25 HORACIO PERERA MD July 29, 2016 20:06
[2016-07-29] MEDS: hydrALAzine 20 MG INJ IV PRN (21:02)
[2016-07-30] VITALS (18 sets, daily range): BP systolic 115–158; BP diastolic 56–81; PULSE 77–88; RESP 16–18
[2016-07-30] MEDS: ALBUTEROL 0.083% (NEB) 2.5 MG/3 ML AMP HHN SCH ×3 (00:12→09:20)
[2016-07-30] MEDS: ACCU-CHEK XX SCH (00:57)
[2016-07-30 07:12] LABS: ADD SCAN DIFF NO
[2016-07-30 07:21] LABS: ABNORMAL IP MESSAGE 1; BASOPHILS % 0.2 % (0.0-2.0); EOSINOPHILS # 0.1 10^3/ul (0.0-0.5); EOSINOPHILS % 1.2 % (0.0-7.0); HEMATOCRIT 35.8 % (37.0-47.0); HEMOGLOBIN 10.8 g/dl (12.0-16.0); LYMPHOCYTES # 0.5 10^3/ul (0.8-2.9); LYMPHOCYTES % 5.5 % (15.0-51.0); MEAN CORPUSCULAR HEMOGLOBIN 30.8 pg (29.0-33.0); MEAN CORPUSCULAR HGB CONC 30.2 g/dl (32.0-37.0); MEAN PLATELET VOLUME 10.7 fl (7.4-10.4); MONOCYTE # 1.1 10^3/ul (0.3-0.9); MONOCYTES % 10.9 % (0.0-11.0); NEUTROPHIL # 8.1 10^3/ul (1.6-7.5); NEUTROPHILS % 81.6 % (39.0-77.0); PLATELET COUNT 207 10^3/UL (140-415); RED BLOOD COUNT 3.51 10^6/ul (4.20-5.40); RED CELL DISTRIBUTION WIDTH 19.6 % (11.5-14.5); WHITE BLOOD COUNT 9.9 10^3/ul (4.8-10.8)
[2016-07-30 07:40] LABS: POTASSIUM 4.1 mmol/L (3.5-5.1)
[2016-07-30 07:42] LABS: CREATININE 6.98 mg/dl (0.44-1.00)
[2016-07-30 07:43] LABS: CALCIUM 8.3 mg/dl (8.4-10.2)
[2016-07-30] MEDS: INSULIN ASPART [NOVOLOG] 3 ML PEN SC SCH ×3 (07:55→17:55)
[2016-07-30] MEDS: POLYETHYLENE GLYCOL 17 GM PACKET PO SCH (08:11)
[2016-07-30] MEDS: DOCUSATE SODIUM 100 MG CAP PO SCH (08:11)
[2016-07-30] MEDS: HEPARIN 5,000 UNIT/0.5 ML VIAL SC SCH (08:31)
--- NOTE | 2016-07-30 09:14 | RADRPT ---
PROCEDURE: US bilateral upper extremity Venous. CLINICAL INDICATION: End-stage renal disease, vein mapping TECHNIQUE: Multiple sonographic images of the bilateral upper lower extremity deep an superficial venous system was obtained utilizing grayscale, color-flow, compressive sonography and doppler imagi ng with augmentation. Measurements were performed. The images were reviewed on a PACS workstation. COMPARISON: None. FINDINGS: The bilateral subclavian, axillary and brachial veins are patent. RIGHT Right basilic vein size: Proximal: 4.1 mm Mid aspect: 2.0 mm Distal: 1.6 mm Right basilic vein size in the forearm: Proximal: 1.6 mm Mid aspect: 1.5 mm Distal: 1.6 mm Right cephalic vein size: Proximal: 2.8 mm Mid aspect: 3.0 mm Distal: Occluded Right cephalic vein size in the forearm: Proximal: 1.0 mm Mid aspect: 0.9 mm Distal: 0.8 mm Right brachial artery: 4.1 mm LEFT Left basilic vein size: Proximal: 3.4 mm Mid aspect: Occluded Distal: Occluded Left basilic vein size in the forearm: Proximal: 1.6 mm Mid aspect: 1.1 mm Distal: 1.0 mm Left cephalic vein size: Proximal: 3.1 mm Mid aspect: 2.7 mm Distal: 2.0 mm Left cephalic vein size in the forearm: Proximal: 2.3 mm Mid aspect: 2.1 mm Distal: 1.6 mm Left brachial artery: 3.5 mm. IMPRESSION: Vein mapping as described. Occluded left basilic vein and right cephalic vein in the antecubital region. RPTAT: AA .Michael Freeman MD, MD Date Time Electronically viewed and signed by .Michael Freeman MD, MD on 07/30/2016 09:13 .S/
--- NOTE | 2016-07-30 11:29 | CONS ---
Date/Time of Note Date/Time of Note DATE: 07/30/16 TIME: 11:26 Assessment/Plan Assessment/Plan Additional Assessment/Plan Assessment recommendations; 1. Patient admitted for bowel obstruction status post surgery doing very well. 2. History of hypertension and diabetes. 3. End-stage renal disease, on hemodialysis. 4. Patient successfully extubated several days ago. 5. Postop ileus with interval resolution. Discontinue cefepime. Continue other supportive measures. Consider discharge. Consultation Date/Type/Reason Admit Date/Time July 21, 2016 at 02:30 Initial Consult Date 07/21/16 Type of Consultation: Pulmonary Referring Provider: LESLIE DEMPSEY 24 HR Interval Summary Free Text/Dictation Patient is doing fairly well. Currently getting hemodialysis at bedside. Denies any shortness of breath, chest pain, abdominal pain, nausea vomiting. General exam; middle-aged woman, awake alert currently in no distress. Exam/Review of Systems Vital Signs Vitals Vital Signs Date Time Temp Pulse Resp B/P Pulse Ox O2 Delivery O2 Flow Rate FiO2 07/30/16 11:03 98.5 88 18 121/67 95 07/30/16 07:33 Nasal Cannula 2.0 07/29/16 20:52 21 Intake and Output 07/29/16 07/29/16 07/30/16 15:00 23:00 07:00 Intake Total 920 ml 120 ml Output Total 0 ml Balance 920 ml 120 ml Exam HEENT exam is; supple neck, no JVD. No lymphadenopathy. Midline trachea. No thyromegaly. Pharynx is clear. Chest examination; clear to auscultation. S1-S2 audible, no murmurs. Regular rhythm. There is a well-healed sternal scar. Abdomen examination; soft, nontender. There is a well-healing laparotomy scar. Bowel sounds audible. No organomegaly. Extremity exam; no peripheral edema. HIV CTS SPECIALIST examination; no focal deficit. Results Result Diagram: 07/30/16 0610 07/30/16 0610 Results 24 hrs Laboratory Tests Test 07/29/16 11:40 07/29/16 17:07 07/29/16 20:43 07/30/16 06:10 Bedside Glucose 111 137 111 White Blood Count 9.9 # Red Blood Count 3.51 L Hemoglobin 10.8 L Hematocrit 35.8 L Mean Corpuscular Volume 102.0 H Mean Corpuscular Hemoglobin 30.8 Mean Corpuscular Hemoglobin Concent 30.2 L Red Cell Distribution Width 19.6 H Platelet Count 207 Mean Platelet Volume 10.7 H Neutrophils % 81.6 H Lymphocytes % 5.5 L Monocytes % 10.9 Eosinophils % 1.2 Basophils % 0.2 Nucleated Red Blood Cells % 0.0 Neutrophils # 8.1 H Lymphocytes # 0.5 L Monocytes # 1.1 H Eosinophils # 0.1 Basophils # 0.0 Nucleated Red Blood Cells # 0.0 Sodium Level 139 Potassium Level 4.1 Chloride Level 99 Carbon Dioxide Level 25 Anion Gap 19 H Blood Urea Nitrogen 33 H Creatinine 6.98 H Glucose Level 113 Calcium Level 8.3 L Test 07/30/16 08:03 Bedside Glucose 104 Medications Medications Current Medications Ondansetron HCl (Zofran Inj) 4 mg Q6H PRN IV NAUSEA AND/OR VOMITING Last administered on 07/23/16 09:21; Admin Dose 4 MG; Start 07/21/16 at 01:00 Insulin Glargine (Lantus) 12 unit DAILY@09 SC Last administered on 07/23/16 09 :09; Admin Dose 12 UNIT; Start 07/21/16 at 09:00; Status Future Hold Miscellaneous Information 1 ea NOTE XX ; Start 07/21/16 at 09:00 Glucose (Glutose) 15 gm Q15M PRN PO DECREASED GLUCOSE; Start 07/21/16 at 09:00 Glucose (Glutose) 22.5 gm Q15M PRN PO DECREASED GLUCOSE; Start 07/21/16 at 09: 00 Dextrose (D50w Syringe) 25 ml Q15M PRN IV DECREASED GLUCOSE Last administered on 07/24/16 01:22; Admin Dose 25 ML; Start 07/21/16 at 09:00 Dextrose (D50w Syringe) 50 ml Q15M PRN IV DECREASED GLUCOSE; Start 07/21/16 at 09:00 Glucagon (Glucagen) 1 mg Q15M PRN IM DECREASED GLUCOSE; Start 07/21/16 at 09:00 Glucose (Glutose) 15 gm Q15M PRN BUCCAL DECREASED GLUCOSE; Start 07/21/16 at 09 :00 Heparin Sodium (Porcine) 5000 unit 5,000 unit Q12 SC Last administered on 08:31; Admin Dose 5,000 UNIT; Start 07/21/16 at 21:00 Cefepime HCl (Maxipime 1gm/50 ml (Pmx)) 50 ml @ 100 mls/hr Q24H IVPB Last administered on 07/29/16 13:35; Admin Dose 100 MLS/HR; Start 07/22/16 at 14:00 Lorazepam (Ativan) 1 mg Q6H PRN IV ANXIETY Last administered on 07/24/16 08:14 ; Admin Dose 1 MG; Start 07/23/16 at 13:00 Hydralazine HCl (Apresoline) 20 mg Q6H PRN IV ELEVATED BLOOD PRESSURE Last administered on 07/29/16 21:02; Admin Dose 20 MG; Start 07/24/16 at 14:30 Guaifenesin/ Codeine Phosphate (Robitussin Ac Liquid Cup) 5 ml Q4H PRN PO cough Last administered on 07/28/16 21:28; Admin Dose 5 ML; Start 07/26/16 at 10:00 Diagnostic Test (Pha) (Accu-Chek) 1 ea 02 XX ; Start 07/28/16 at 02:00 Morphine Sulfate (morphine) 2 mg Q4H PRN IV PAIN LEVEL 6-10; Start 07/28/16 at 15:00 Docusate Sodium (Colace) 100 mg BID PO Last administered on 07/30/16 08:11; Admin Dose 100 MG; Start 07/28/16 at 12:30 Polyethylene Glycol (Miralax) 8.5 gm DAILY PO Last administered on 07/30/16 08 :11; Admin Dose 8.5 GM; Start 07/29/16 at 12:25 RAI VIDAL July 30, 2016 11:29
--- NOTE | 2016-07-30 12:03 | CONS ---
Date/Time of Note Date/Time of Note DATE: 07/30/16 TIME: 12:03 Assessment/Plan Assessment/Plan Chief Complaint/Hosp Course 1. S/P EX LAP AND BOWEL RESECTION 2. ESRD, HD dependent 3. HTN 4. DM 5. ASHD 6. S/P CABG Problems: Additional Assessment/Plan 1. HD tomorrow Consultation Date/Type/Reason Admit Date/Time July 21, 2016 at 02:30 Initial Consult Date 07/21/16 Type of Consultation: renal Reason for Consultation Dr Weaver Referring Provider: LESLIE DEMPSEY 24 HR Interval Summary Constitutional: no complaints Exam/Review of Systems Vital Signs Vitals Vital Signs Date Time Temp Pulse Resp B/P Pulse Ox O2 Delivery O2 Flow Rate FiO2 07/30/16 11:41 122/67 07/30/16 11:03 98.5 88 18 95 07/30/16 07:33 Nasal Cannula 2.0 07/29/16 20:52 21 Intake and Output 07/29/16 07/29/16 07/30/16 15:00 23:00 07:00 Intake Total 920 ml 120 ml Output Total 0 ml Balance 920 ml 120 ml Results Result Diagram: 07/30/16 0610 07/30/16 0610 Results 24 hrs Laboratory Tests Test 07/29/16 17:07 07/29/16 20:43 07/30/16 06:10 07/30/16 08:03 Bedside Glucose 137 111 104 White Blood Count 9.9 # Red Blood Count 3.51 L Hemoglobin 10.8 L Hematocrit 35.8 L Mean Corpuscular Volume 102.0 H Mean Corpuscular Hemoglobin 30.8 Mean Corpuscular Hemoglobin Concent 30.2 L Red Cell Distribution Width 19.6 H Platelet Count 207 Mean Platelet Volume 10.7 H Neutrophils % 81.6 H Lymphocytes % 5.5 L Monocytes % 10.9 Eosinophils % 1.2 Basophils % 0.2 Nucleated Red Blood Cells % 0.0 Neutrophils # 8.1 H Lymphocytes # 0.5 L Monocytes # 1.1 H Eosinophils # 0.1 Basophils # 0.0 Nucleated Red Blood Cells # 0.0 Sodium Level 139 Potassium Level 4.1 Chloride Level 99 Carbon Dioxide Level 25 Anion Gap 19 H Blood Urea Nitrogen 33 H Creatinine 6.98 H Glucose Level 113 Calcium Level 8.3 L Test 07/30/16 11:39 Bedside Glucose 142 Medications Medications Current Medications Ondansetron HCl (Zofran Inj) 4 mg Q6H PRN IV NAUSEA AND/OR VOMITING Last administered on 07/23/16 09:21; Admin Dose 4 MG; Start 07/21/16 at 01:00 Insulin Glargine (Lantus) 12 unit DAILY@09 SC Last administered on 07/23/16 09 :09; Admin Dose 12 UNIT; Start 07/21/16 at 09:00; Status Future Hold Miscellaneous Information 1 ea NOTE XX ; Start 07/21/16 at 09:00 Glucose (Glutose) 15 gm Q15M PRN PO DECREASED GLUCOSE; Start 07/21/16 at 09:00 Glucose (Glutose) 22.5 gm Q15M PRN PO DECREASED GLUCOSE; Start 07/21/16 at 09: 00 Dextrose (D50w Syringe) 25 ml Q15M PRN IV DECREASED GLUCOSE Last administered on 07/24/16 01:22; Admin Dose 25 ML; Start 07/21/16 at 09:00 Dextrose (D50w Syringe) 50 ml Q15M PRN IV DECREASED GLUCOSE; Start 07/21/16 at 09:00 Glucagon (Glucagen) 1 mg Q15M PRN IM DECREASED GLUCOSE; Start 07/21/16 at 09:00 Glucose (Glutose) 15 gm Q15M PRN BUCCAL DECREASED GLUCOSE; Start 07/21/16 at 09 :00 Heparin Sodium (Porcine) (Heparin (5000 Units/0.5 ml)) 5,000 unit Q12 SC Last administered on 07/30/16 08:31; Admin Dose 5,000 UNIT; Start 07/21/16 at 21:00 Lorazepam (Ativan) 1 mg Q6H PRN IV ANXIETY Last administered on 07/24/16 08:14 ; Admin Dose 1 MG; Start 07/23/16 at 13:00 Hydralazine HCl (Apresoline) 20 mg Q6H PRN IV ELEVATED BLOOD PRESSURE Last administered on 07/29/16 21:02; Admin Dose 20 MG; Start 07/24/16 at 14:30 Guaifenesin/ Codeine Phosphate (Robitussin Ac Liquid Cup) 5 ml Q4H PRN PO cough Last administered on 07/28/16 21:28; Admin Dose 5 ML; Start 07/26/16 at 10:00 Diagnostic Test (Pha) (Accu-Chek) 1 ea 02 XX ; Start 07/28/16 at 02:00 Morphine Sulfate (morphine) 2 mg Q4H PRN IV PAIN LEVEL 6-10; Start 07/28/16 at 15:00 Docusate Sodium (Colace) 100 mg BID PO Last administered on 07/30/16 08:11; Admin Dose 100 MG; Start 07/28/16 at 12:30 Polyethylene Glycol (Miralax) 8.5 gm DAILY PO Last administered on 07/30/16 08 :11; Admin Dose 8.5 GM; Start 07/29/16 at 12:25 CARMEN HERRERA July 30, 2016 12:03
--- NOTE | 2016-07-30 17:07 | DS ---
Date/Time of Note Date/Time of Note DATE: 07/30/16 TIME: 17:07 Discharge Summary Admission/Discharge Info Admit Date/Time July 21, 2016 at 02:30 Discharge Date/Time 07/30/16 . Final Diagnosis 56-year-old female with history of diabetes, end-stage renal disease on dialysis , hypertension, hypothyroidism, presents with abdominal pain secondary to mesenteric ischemia, status post exploratory laparotomy with extensive small bowel resection. 1. Mesenteric ischemia, status post resection / exploratory laparotomy 07/21/16 2. Post op Hypoxemic respiratory failure, - extubated now 3. End-stage renal disease on hemo dialysis. 4. Mild Systemic Septic Shock post op: resolved 04/15 #1 5. Hypertension 6. Type 2 diabetes 7. Severe anemia : improved post transfusion Patient Condition: Stable Consults Odin Boateng: Surgery Christian Weaver: [facility] Hospital Course Full details are available in the chart for review, in summary this 56-year-old female presented to the emergency room July 21, 2016 with a 4 day history of abdominal pain. Initially when she presented to the ER her vital signs were stable and a CT of the abdomen and pelvis had shown pneumatosis intestinalis highly suggestive of ischemic bowel. The patient was immediately taken into the operating room where she underwent exploratory laparotomy and extensive small bowel resection by Dr. Boateng July 21, 2016. Postoperatively she was ventilator dependent, and was in systemic shock. She was therefore transferred to the intensive care unit where she spent the next few days. She was eventually extubated and we have weaned off of pressors. She has however become very debilitated, but has eventually improved to the point of being able to sit and walk short distances on her own. She is also tolerating a diet and having bowel movements. She received hemodialysis throughout her hospitalization as indicated. At this time she has been cleared by all consultants for discharge. Comorbidities were also aggressively managed as per Med records. Patient at this time has been evaluated and examined in detail and is assessed to be in stable condition and ready for discharge. . Home Meds Active Scripts Polyethylene Glycol* (Miralax*) 17 Gm Powd.pack, 8.5 GM PO DAILY Y for CONSTIPATION for 14 Days Prov:FLY ALVARADO 07/29/16 Insulin Glargine* (Lantus*) 100 Unit/Ml Soln, 12 UNIT SC DAILY@09 for 30 Days, 2 Refills Prov:FLY ALVARADO. 07/29/16 Reported Medications Cholecalciferol (Vitamin D3) 400 Unit Capsule, 400 UNIT PO DAILY, CAP 07/20/16 Omeprazole* (Omeprazole*) 20 Mg Capsule.dr, 20 MG PO DAILY, #30 CAP 07/20/16 Docusate Sodium* (Docusate Sodium*) 100 Mg Capsule, 100 MG PO BID, #60 CAP 07/20/16 Folic Acid* (Folic Acid*) 1 Mg Tablet, 1 MG PO DAILY, TAB 07/20/16 Atorvastatin Calcium (Atorvastatin Calcium) 10 Mg Tablet, 10 MG PO QHS, #30 TAB 07/20/16 Gabapentin* (Gabapentin*) 100 Mg Capsule, 100 MG PO TID, #90 CAP 07/20/16 Acetaminophen* (Acetaminophen*) 500 MG Extra Strength Tablet, 1000 MG PO Q6H Y for PAIN AND OR ELEVATED TEMP, TAB 07/20/16 Glimepiride* (Glimepiride*) 1 Mg Tablet, 1 MG PO WITH BREAKFAST, TAB 07/20/16 Losartan Potassium* (Losartan Potassium*) 50 Mg Tablet, 50 MG PO BID, TAB 07/20/16 Carvedilol* (Carvedilol*) 6.25 Mg Tablet, 6.25 MG PO BID, #60 TAB 07/20/16 Levothyroxine Sodium* (Levothyroxine Sodium*) 150 Mcg Tablet, 150 MCG PO BEFORE BREAKFAST, #30 TAB 07/20/16 Fluticasone Propionate* (Fluticasone Propionate* Nasal) 50 Mcg/[place] - 16 Gm [place].susp, 2 SPRAYS NASAL DAILY, #1 BOTTLE TO EACH NOSTRIL 07/20/16 Calcium Acetate* (Calcium Acetate*) 667 Mg Capsule, 3335 MG PO WITH MEALS, #90 CAP 07/20/16 Cetirizine Hcl* (Cetirizine Hcl*) 10 Mg Tablet, 10 MG PO DAILY, #30 TAB 07/20/16 Aspirin* (Aspirin* EC) 81 Mg Tablet.dr, 81 MG PO DAILY, TAB 07/20/16 Multivit/Ca Carb/B Cmplx/Fa* (Cindy-Matias*) 1 Tab Tab, 1 TAB PO DAILY, TAB 07/20/16 Discontinued Reported Medications Clotrimazole* (Lotrimin*) 1%-30 Gm Cream..g., 1 APPLIC TOP BID, TUB 07/20/16 Follow-up Plan Patient is encouraged to follow-up with primary care physician within 1-2 weeks to update him / her on recent events. She will also follow-up with surgery per their instructions. . Primary Care Provider [facility] Time spent on discharge: > 30 minutes Pending Labs Laboratory Tests Test 07/29/16 17:07 07/29/16 20:43 07/30/16 06:10 07/30/16 08:03 Bedside Glucose 137mg/dL (70-220) 111mg/dL (70-220) 104mg/dL (70-220) White Blood Count 9.910^3/ul (4.8-10.8) Red Blood Count 3.5110^6/ul (4.20-5.40) Hemoglobin 10.8g/dl (12.0-16.0) Hematocrit 35.8% (37.0-47.0) Mean Corpuscular Volume 102.0fl (82.0-101.0) Mean Corpuscular Hemoglobin 30.8pg (29.0-33.0) Mean Corpuscular Hemoglobin Concent 30.2g/dl (32.0-37.0) Red Cell Distribution Width 19.6% (11.5-14.5) Platelet Count 70381^3/UL (140-415) Mean Platelet Volume 10.7fl (7.4-10.4) Neutrophils % 81.6% (39.0-77.0) Lymphocytes % 5.5% (15.0-51.0) Monocytes % 10.9% (0.0-11.0) Eosinophils % 1.2% (0.0-7.0) Basophils % 0.2% (0.0-2.0) Nucleated Red Blood Cells % 0.0/100WBC (0.0-0.0) Neutrophils # 8.110^3/ul (1.6-7.5) Lymphocytes # 0.510^3/ul (0.8-2.9) Monocytes # 1.110^3/ul (0.3-0.9) Eosinophils # 0.110^3/ul (0.0-0.5) Basophils # 0.010^3/ul (0.0-0.1) Nucleated Red Blood Cells # 0.010^3/ul (0.0-0.0) Sodium Level 139mmol/L (135-144) Potassium Level 4.1mmol/L (3.5-5.1) Chloride Level 99mmol/L (97-110) Carbon Dioxide Level 25mmol/L (21-31) Anion Gap 19 (8-16) Blood Urea Nitrogen 33mg/dl (7-20) Creatinine 6.98mg/dl (0.44-1.00) Glucose Level 113mg/dl (70-220) Calcium Level 8.3mg/dl (8.4-10.2) Test 07/30/16 11:39 Bedside Glucose 142mg/dL (70-220) FLY ALVARADO July 30, 2016 17:07
--- NOTE | 2016-07-30 17:09 | PN ---
Date/Time of Note Date/Time of Note DATE: 07/29/16 TIME: 17:07 Assessment/Plan VTE Prophylaxis VTE Prophylaxis Intervention: heparin Lines/Catheters IV [facility] Saline Lock Urinary Cath still in place: No Assessment/Plan Assessment/Plan 56-year-old female with history of diabetes, end-stage renal disease on dialysis , hypertension, hypothyroidism, presents with abdominal pain secondary to mesenteric ischemia, status post exploratory laparotomy with extensive small bowel resection. 1. Abdominal pain secondary to mesenteric ischemia, status post resection - Follow up postoperative recommendations surgery team and pain control medications 2. Hypoxemic respiratory failure, status post exploratory laparotomy - extubated now / stable on nasal cannula - Monitor, DuoNebs p.r.n. 3. End-stage renal disease on dialysis. - Follow up renal recommendations; dialysis per their rec's 4. Hypertension. Continue to monitor for now. Blood pressure stable, off pressor now. 5. Type 2 diabetes - continue sliding scale insulin. - Continue Lantus. 6. Severe anemia : improved post transfusion DISPO: * Continue to Ambulate and mobilize patient / d/c after BM per surgery Gastrointestinal prophylaxis, proton pump inhibitor. Deep venous thrombosis prophylaxis - Heparin . Subjective 24 Hr Interval Summary Constitutional: improved Gastrointestinal: flatus, No passing stool Exam/Review of Systems Vital Signs Vitals VS Date Time Temp Pulse Resp B/P Pulse Ox O2 Delivery O2 Flow Rate FiO2 07/29/16 20:00 Nasal Cannula 2.0 07/29/16 16:57 85 18 95 21 07/29/16 16:10 82 07/29/16 15:39 98.1 80 16 150/68 94 07/29/16 13:53 75 20 97 21 07/29/16 12:11 79 07/29/16 11:33 98.0 79 16 151/67 92 07/29/16 09:47 81 18 96 21 07/29/16 08:16 73 07/29/16 07:56 98.4 75 18 157/68 100 07/29/16 07:28 Nasal Cannula 2.0 07/29/16 04:08 74 07/29/16 03:53 98.0 83 20 152/58 99 07/29/16 01:24 2.0 07/29/16 00:31 81 07/29/16 00:12 98.2 80 20 137/62 100 07/28/16 20:35 98.8 77 20 163/66 100 07/28/16 20:27 77 18 98 Nasal Cannula 2.0 07/28/16 20:27 2.0 07/28/16 20:23 77 07/28/16 20:00 Nasal Cannula 2.0 07/28/16 17:15 84 20 97 Nasal Cannula 2.0 07/28/16 16:30 80 07/28/16 15:41 98.6 79 18 125/55 97 07/28/16 15:02 86 16 07/28/16 15:02 86 07/28/16 14:43 79 07/28/16 14:30 78 07/28/16 14:00 79 07/28/16 13:36 96 22 98 Nasal Cannula 2.0 07/28/16 13:21 78 07/28/16 12:55 77 07/28/16 12:37 2.0 07/28/16 12:30 75 07/28/16 12:25 84 07/28/16 12:00 76 18 07/28/16 12:00 76 07/28/16 11:22 98.4 71 18 125/61 96 07/28/16 10:57 Nasal Cannula 2.0 07/28/16 08:09 72 07/28/16 07:21 98.8 68 18 182/71 100 07/28/16 04:18 71 07/28/16 04:10 98.8 69 18 155/70 98 07/28/16 02:30 3.0 07/28/16 00:31 68 07/28/16 00:08 98.0 75 18 148/70 98 07/28/16 00:00 98.0 75 18 148/70 100 07/27/16 23:53 3.0 07/27/16 20:50 70 16 166/64 100 Nasal Cannula 2.0 07/27/16 20:16 98.1 76 18 186/81 100 07/27/16 20:09 71 07/27/16 20:00 Nasal Cannula 2.0 07/27/16 17:27 3.0 Intake and Output 07/29/16 07/29/16 15:00 23:00 Intake Total 920 ml Output Total 0 ml Balance 920 ml Exam Constitutional: alert, oriented Psych: nl mood/affect Head: normocephalic Eyes: PERRL Respiratory: clear to auscultation Cardiovascular: regular rate and rhythm Gastrointestinal: bowel sounds, non-tender, soft, surgical scars ( clean and dry, ) Extremities: No edema Neurological: nl mental status Results Result Diagram: 07/30/16 0610 07/30/16 0610 Results 24 hrs Laboratory Tests Test 07/29/16 20:43 07/30/16 06:10 07/30/16 08:03 07/30/16 11:39 Bedside Glucose 111 104 142 White Blood Count 9.9 # Red Blood Count 3.51 L Hemoglobin 10.8 L Hematocrit 35.8 L Mean Corpuscular Volume 102.0 H Mean Corpuscular Hemoglobin 30.8 Mean Corpuscular Hemoglobin Concent 30.2 L Red Cell Distribution Width 19.6 H Platelet Count 207 Mean Platelet Volume 10.7 H Neutrophils % 81.6 H Lymphocytes % 5.5 L Monocytes % 10.9 Eosinophils % 1.2 Basophils % 0.2 Nucleated Red Blood Cells % 0.0 Neutrophils # 8.1 H Lymphocytes # 0.5 L Monocytes # 1.1 H Eosinophils # 0.1 Basophils # 0.0 Nucleated Red Blood Cells # 0.0 Sodium Level 139 Potassium Level 4.1 Chloride Level 99 Carbon Dioxide Level 25 Anion Gap 19 H Blood Urea Nitrogen 33 H Creatinine 6.98 H Glucose Level 113 Calcium Level 8.3 L Medications Medications Current Medications Ondansetron HCl (Zofran Inj) 4 mg Q6H PRN IV NAUSEA AND/OR VOMITING Last administered on 07/23/16 09:21; Admin Dose 4 MG; Start 07/21/16 at 01:00 Insulin Glargine (Lantus) 12 unit DAILY@09 SC Last administered on 07/23/16 09 :09; Admin Dose 12 UNIT; Start 07/21/16 at 09:00; Status Future Hold Miscellaneous Information 1 ea NOTE XX ; Start 07/21/16 at 09:00 Glucose (Glutose) 15 gm Q15M PRN PO DECREASED GLUCOSE; Start 07/21/16 at 09:00 Glucose (Glutose) 22.5 gm Q15M PRN PO DECREASED GLUCOSE; Start 07/21/16 at 09: 00 Dextrose (D50w Syringe) 25 ml Q15M PRN IV DECREASED GLUCOSE Last administered on 07/24/16 01:22; Admin Dose 25 ML; Start 07/21/16 at 09:00 Dextrose (D50w Syringe) 50 ml Q15M PRN IV DECREASED GLUCOSE; Start 07/21/16 at 09:00 Glucagon (Glucagen) 1 mg Q15M PRN IM DECREASED GLUCOSE; Start 07/21/16 at 09:00 Glucose (Glutose) 15 gm Q15M PRN BUCCAL DECREASED GLUCOSE; Start 07/21/16 at 09 :00 Heparin Sodium (Porcine) (Heparin (5000 Units/0.5 ml)) 5,000 unit Q12 SC Last administered on 07/30/16 08:31; Admin Dose 5,000 UNIT; Start 07/21/16 at 21:00 Lorazepam (Ativan) 1 mg Q6H PRN IV ANXIETY Last administered on 07/24/16 08:14 ; Admin Dose 1 MG; Start 07/23/16 at 13:00 Hydralazine HCl (Apresoline) 20 mg Q6H PRN IV ELEVATED BLOOD PRESSURE Last administered on 07/29/16 21:02; Admin Dose 20 MG; Start 07/24/16 at 14:30 Guaifenesin/ Codeine Phosphate (Robitussin Ac Liquid Cup) 5 ml Q4H PRN PO cough Last administered on 07/28/16 21:28; Admin Dose 5 ML; Start 07/26/16 at 10:00 Diagnostic Test (Pha) (Accu-Chek) 1 ea 02 XX ; Start 07/28/16 at 02:00 Morphine Sulfate (morphine) 2 mg Q4H PRN IV PAIN LEVEL 6-10; Start 07/28/16 at 15:00 Docusate Sodium (Colace) 100 mg BID PO Last administered on 07/30/16 08:11; Admin Dose 100 MG; Start 07/28/16 at 12:30 Polyethylene Glycol (Miralax) 8.5 gm DAILY PO Last administered on 07/30/16 08 :11; Admin Dose 8.5 GM; Start 07/29/16 at 12:25 FLY ALVARADO July 30, 2016 17:09
== END 2016-07-30 18:40 | disposition home health service (06) | DRG 329 ==
LOC: E/R 19:20 → ICU 07-21 00:33 → SDS 07-21 00:36 → ICU 07-21 02:30 → SDS 07-21 02:30 → TEL 07-26 19:58
PROVIDERS: ADMIT Internal Medicine; ATTEND Hospitalist
PROC: 5A1945Z Respiratory Ventilation, 24-96 Consecutive Hours (ICD-10-PCS; 2016-07-21)
PROC: 0DBA0ZZ Excision of Jejunum, Open Approach (ICD-10-PCS; principal; 2016-07-21 00:45)
PROC: 5A1D60Z (ICD-10-PCS; 2016-07-22)
PROC: 30233N1 Transfusion of Nonautologous Red Blood Cells into Peripheral Vein, Percutaneous Approach (ICD-10-PCS; 2016-07-24)
DX: K55.019 Acute (reversible) ischemia of small intestine, extent unspecified (principal); N18.6 End stage renal disease; J95.821 Acute postprocedural respiratory failure; G93.49 Other encephalopathy; I12.0 Hypertensive chronic kidney disease with stage 5 chronic kidney disease or end stage renal disease; E87.2 Acidosis; T82.49XA Other complication of vascular dialysis catheter, initial encounter; K91.3 Postprocedural intestinal obstruction; T81.10XA Postprocedural shock unspecified, initial encounter; Z99.2 Dependence on renal dialysis; I25.10 Atherosclerotic heart disease of native coronary artery without angina pectoris; Z95.1 Presence of aortocoronary bypass graft; E78.5 Hyperlipidemia, unspecified; E03.9 Hypothyroidism, unspecified; E11.22 Type 2 diabetes mellitus with diabetic chronic kidney disease; Z79.4 Long term (current) use of insulin; Z79.82 Long term (current) use of aspirin; Y84.8 Other medical procedures as the cause of abnormal reaction of the patient, or of later complication, without mention of misadventure at the time of the procedure; Y92.230 Patient room in hospital as the place of occurrence of the external cause; E87.6 Hypokalemia; Y83.2 Surgical operation with anastomosis, bypass or graft as the cause of abnormal reaction of the patient, or of later complication, without mention of misadventure at the time of the procedure; K63.89 Other specified diseases of intestine
CPT/HCPCS: 36430; 36600; 71010; 74176; 80048; 80053; 82150; 82803; 82962; 83036; 83605; 83690; 83735; 84100; 84484; 85014; 85018; 85025; 85610; 85730; 86850; 86900; 86901; 86920; 87040; 87081; 88307; 90935; 93306; 93970; 94002; 94003; 94640; 94664; 94770; 96374; 96375; 96376; 97116; 97163; 97530; C9113; J0131; J0171; J0295; J0360; J0692; J1170; J1644; J1650; J1815; J2060; J2250; J2270; J2370; J2405; J2543; J2765; J2795; J3010; J3370; J3480; J7030; J7040; J7042; J7050; J7060; P9016

== ENCOUNTER 2016-08-05 10:02 | Inpatient (IN) | payer OTHER ==
[~2016-08-05] VITALS: Ht 152.4 cm; Wt 59.4 kg
[2016-08-05] VITALS (20 sets, daily range): BP systolic 110–152; BP diastolic 40–61; PULSE 62–86; RESP 11–22; TEMP 98.8; Ht 152.4 cm; Wt 59.4 kg
[~2016-08-05 10:02] MED LIST: ACET-141 PO; ASPI-664 PO; ATOR10TA65 PO; CALC667C PO; CARV6.2579 PO; CEFAZOLIN 1 GM INJ ONE; CETI-240 PO; CHOL400C11 PO; DOCU-159 PO; FLUT16SP17 NASAL; FOLI-49 PO; GABA100C14 PO; GLIM1TAB2 PO; LANT3I SC; LEVO150T67 PO; LOSA50TA6 PO; NEPH PO; OMEP20CA16 PO; POLY17PO6 PO
[2016-08-05] MEDS ORDERED: SOD CHLORIDE 0.9% 250 ML IV STA (10:37)
[2016-08-05] MEDS ORDERED: PIPER-TAZO 3.375 GM IV (PMX) 100 ML IVPB ONE (11:00)
[2016-08-05 11:16] LABS: ADD SCAN DIFF NO
[2016-08-05 11:18] LABS: BASOPHILS % 0.3 % (0.0-2.0); EOSINOPHILS # 0.1 10^3/ul (0.0-0.5); EOSINOPHILS % 1.6 % (0.0-7.0); HEMATOCRIT 38.4 % (37.0-47.0); HEMOGLOBIN 11.5 g/dl (12.0-16.0); LYMPHOCYTES # 0.7 10^3/ul (0.8-2.9); LYMPHOCYTES % 7.5 % (15.0-51.0); MEAN CORPUSCULAR HEMOGLOBIN 30.8 pg (29.0-33.0); MEAN CORPUSCULAR HGB CONC 29.9 g/dl (32.0-37.0); MEAN CORPUSCULAR VOLUME 102.9 fl (82.0-101.0); MEAN PLATELET VOLUME 10.5 fl (7.4-10.4); MONOCYTE # 0.9 10^3/ul (0.3-0.9); NEUTROPHIL # 7.1 10^3/ul (1.6-7.5); NEUTROPHILS % 79.5 % (39.0-77.0); PLATELET COUNT 220 10^3/UL (140-415); RED BLOOD COUNT 3.73 10^6/ul (4.20-5.40); RED CELL DISTRIBUTION WIDTH 19.4 % (11.5-14.5); WHITE BLOOD COUNT 8.9 10^3/ul (4.8-10.8)
--- NOTE | 2016-08-05 11:31 | RADRPT ---
PROCEDURE: Chest Radiograph. CLINICAL INDICATION: Chest pain. Abdominal pain. TECHNIQUE: Single frontal chest radiograph. COMPARISON: Chest radiograph 07/29/2016 FINDINGS: A left chest wall tunneled hemodialysis catheter is in unchanged position. The patient is rotated. Heart size is poorly evaluated. Atherosclerotic calcifications are present. The patient is status post sternotomy. There is mild bibasilar atelectasis. No infiltrate or effusion is seen. The liseth july are intact. IMPRESSION: 1. Low lung volumes with basilar atelectasis. 2. Atherosclerotic vascular disease. 3. Stable left chest wall tunneled hemodialysis catheter. RPTAT: KK .Deepak Rivas MD, MD Date Time Electronically viewed and signed by .Deepak Rivas MD, MD on 08/05/2016 11:31 .B/
[2016-08-05 11:38] LABS: CREATININE 3.56 mg/dl (0.44-1.00)
[2016-08-05 11:39] LABS: CALCIUM 8.3 mg/dl (8.4-10.2)
[2016-08-05 11:47] LABS: PROTIME 13.2 Sec (12.2-14.2)
[2016-08-05 11:49] LABS: PARTIAL THROMBOPLASTIN TIME 46.8 Sec (25.0-35.0)
--- NOTE | 2016-08-05 11:58 | ERA ---
ER Documentation Chief Complaint Date/Time DATE: 08/05/16 TIME: 11:55 Chief Complaint BLEEDING FROM INCISION SITE ABD SURGERY LAST WEEK HPI 56-year-old female history of end-stage renal disease on dialysis who presents to the emergency room with wound dehiscence from ex lap surgical wound. The patient had ex lap secondary to bowel ischemia status post colonic resection on the 10th of this month. The patient states that she had a checkup yesterday and everything was fine and normal but during dialysis she had some bleeding. When they looked at the wound it appears that the patient had an open abdomen with slight evisceration. Patient sent to the emergency room. No pain reported. ROS All systems reviewed and are negative except as per history of present illness. Medications Home Meds Active Scripts Polyethylene Glycol* (Miralax*) 17 Gm Powd.pack, 8.5 GM PO DAILY Y for CONSTIPATION for 14 Days Prov:CHRISTIANOFLY 07/29/16 Insulin Glargine* (Lantus*) 100 Unit/Ml Soln, 12 UNIT SC DAILY@09 for 30 Days, 2 Refills Prov:FLY ALVARADO 07/29/16 Reported Medications Cholecalciferol (Vitamin D3) 400 Unit Capsule, 400 UNIT PO DAILY, CAP 07/20/16 Omeprazole* (Omeprazole*) 20 Mg Capsule.dr, 20 MG PO DAILY, #30 CAP 07/20/16 Docusate Sodium* (Docusate Sodium*) 100 Mg Capsule, 100 MG PO BID, #60 CAP 07/20/16 Folic Acid* (Folic Acid*) 1 Mg Tablet, 1 MG PO DAILY, TAB 07/20/16 Atorvastatin Calcium (Atorvastatin Calcium) 10 Mg Tablet, 10 MG PO QHS, #30 TAB 07/20/16 Gabapentin* (Gabapentin*) 100 Mg Capsule, 100 MG PO TID, #90 CAP 07/20/16 Acetaminophen* (Acetaminophen*) 500 MG Extra Strength Tablet, 1000 MG PO Q6H Y for PAIN AND OR ELEVATED TEMP, TAB 07/20/16 Glimepiride* (Glimepiride*) 1 Mg Tablet, 1 MG PO WITH BREAKFAST, TAB 07/20/16 Losartan Potassium* (Losartan Potassium*) 50 Mg Tablet, 50 MG PO BID, TAB 07/20/16 Carvedilol* (Carvedilol*) 6.25 Mg Tablet, 6.25 MG PO BID, #60 TAB 07/20/16 Levothyroxine Sodium* (Levothyroxine Sodium*) 150 Mcg Tablet, 150 MCG PO BEFORE BREAKFAST, #30 TAB 07/20/16 Fluticasone Propionate* (Fluticasone Propionate* Nasal) 50 Mcg/[place] - 16 Gm [place].susp, 2 SPRAYS NASAL DAILY, #1 BOTTLE TO EACH NOSTRIL 07/20/16 Calcium Acetate* (Calcium Acetate*) 667 Mg Capsule, 3335 MG PO WITH MEALS, #90 CAP 07/20/16 Cetirizine Hcl* (Cetirizine Hcl*) 10 Mg Tablet, 10 MG PO DAILY, #30 TAB 07/20/16 Aspirin* (Aspirin* EC) 81 Mg Tablet.dr, 81 MG PO DAILY, TAB 07/20/16 Multivit/Ca Carb/B Cmplx/Fa* (Cindy-Matias*) 1 Tab Tab, 1 TAB PO DAILY, TAB 07/20/16 Discontinued Reported Medications Clotrimazole* (Lotrimin*) 1%-30 Gm Cream..g., 1 APPLIC TOP BID, TUB 07/20/16 Allergies Allergies: Coded Allergies: vancomycin (Verified Allergy, Intermediate, 08/05/16) RED RASH WITH ITCHING. PMhx/Soc History of Surgery: Yes Anesthesia Reaction: No Hx Neurological Disorder: No Hx Respiratory Disorders: No Hx Cardiac Disorders: Yes Hx Psychiatric Problems: No Hx Miscellaneous Medical Probl: Yes (CABG,CARDIOMEGALY,L NEPRECTOMY,ESRD, DIALYSIS) Hx Alcohol Use: No Hx Substance Use: No Hx Tobacco Use: No FmHx Family History: No diabetes Physical Exam Vitals Vital Signs Date Time Temp Pulse Resp B/P Pulse Ox O2 Delivery O2 Flow Rate FiO2 08/05/16 10:05 98.6 84 18 198/92 100 Physical Exam General: Well developed, well nourished, no acute distress Head: Normocephalic, atraumatic. Eyes: Pupils equally reactive, EOM intact ENT: Moist mucous membranes Neck: Supple, no lymphadenopathy Respiratory: Lungs clear bilaterally, no distress Cardiovascular: RRR, no murmurs, rubs, or gallops Abdominal: Soft and nontender, ex lap surgical wound on the inferior aspect has evidence of dehiscence with a loop of bowel protruding from the abdomen. : Deferred MSK: No edema, no unilateral swelling, 5/5 strength Neurologic: Alert and oriented, moving all extremities, normal speech, no focal weakness, no cerebellar signs Skin: No rash Psych: Normal mood Result Diagram: 08/05/16 1105 08/05/16 1105 Results 24 hrs Laboratory Tests Test 08/05/16 11:05 White Blood Count 8.910^3/ul Red Blood Count 3.7310^6/ul Hemoglobin 11.5g/dl Hematocrit 38.4% Mean Corpuscular Volume 102.9fl Mean Corpuscular Hemoglobin 30.8pg Mean Corpuscular Hemoglobin Concent 29.9g/dl Red Cell Distribution Width 19.4% Platelet Count 75662^3/UL Mean Platelet Volume 10.5fl Neutrophils % 79.5% Lymphocytes % 7.5% Monocytes % 10.0% Eosinophils % 1.6% Basophils % 0.3% Nucleated Red Blood Cells % 0.0/100WBC Neutrophils # 7.110^3/ul Lymphocytes # 0.710^3/ul Monocytes # 0.910^3/ul Eosinophils # 0.110^3/ul Basophils # 0.010^3/ul Nucleated Red Blood Cells # 0.010^3/ul Prothrombin Time 13.2Sec Prothrombin Time Ratio 1.0 INR International Normalized Ratio 1.00 Activated Partial Thromboplast Time 46.8Sec Sodium Level 135mmol/L Potassium Level 4.0mmol/L Chloride Level 97mmol/L Carbon Dioxide Level 27mmol/L Anion Gap 15 Blood Urea Nitrogen 20mg/dl Creatinine 3.56mg/dl Glucose Level 94mg/dl Calcium Level 8.3mg/dl Current Medications Medications (Trade) Dose Ordered Sig/Arlene Route PRN Reason Start Time Stop Time Status Last Admin Dose Admin Sodium Chloride 250 ml @ 250 mls/hr Q1H STAT IV 08/05/16 10:37 08/05/16 11:36 DC 08/05/16 10:53 Piperacillin Sod/ Tazobactam Sod (Zosyn 3.375gm/ 100 ml (Pmx)) 100 ml @ 200 mls/hr ONCE ONCE IVPB 08/05/16 11:00 08/05/16 11:29 DC 08/05/16 10:53 Procedures/MDM EKG, MONITORS, & DIAGNOSTIC IMAGING: EKG: I reviewed and interpreted a 12-lead EKG. Rhythm: Normal sinus rhythm Ectopy: None Intervals: No abnormalities ST segments: No elevations or depressions T waves: No contiguous inversions Chest x-ray: I reviewed and interpreted a 1 view of the chest Mediastinum: No enlargement Cardiac silhouette: No cardiomegaly Airspace: Clear lung perez bilaterally without evidence of pneumothorax Bones: No evidence of fracture LAB INTERPRETATION: No leukocytosis MEDICAL DECISION MAKING: The patient has signs and symptoms consistent with surgical wound dehiscence with evisceration. The patient will require surgical consultation and likely surgery ER COURSE: Preoperative laboratory testing and diagnostic imaging was initiated. The patient was given Zosyn prophylactically. A clean sterile, wet-to-dry dressing was applied to the abdomen. The surgeon was notified. I kept the patient and/or family informed of laboratory and diagnostic imaging results throughout the emergency room course. DISPOSITION PLAN: Medical surgical admission for management of wound dehiscence and evisceration CONSULTATION: Accepting care team and consultations: I discussed the current laboratory data, diagnostic imaging and emergency care provided. Admitting team: Dr. Christian Admitting team indication: Insurance directed Consulting services: Dr. Boateng was notified and will evaluate the patient Departure Diagnosis: Primary Impression: Postoperative wound dehiscence Qualified Code: T81.31XA - Postoperative wound dehiscence, initial encounter Additional Impressions: Evisceration of bowel End stage renal disease on dialysis Condition: Stable CAM HUNTER MD August 05, 2016 11:58
[2016-08-05] MEDS ORDERED: ACETAMINOPHEN 325 MG TAB PO PRN ×2 (12:30→14:00)
[2016-08-05] MEDS ORDERED: ONDANSETRON 4 MG INJ IV PRN ×4 (12:30→20:00)
[2016-08-05] MEDS ORDERED: SOD CHLORIDE 0.45% 1,000 ML IV SCH (13:57)
[2016-08-05] MEDS ORDERED: NITROGLYCERIN (SL) 0.4 MG TAB SL PRN (14:00)
[2016-08-05] MEDS ORDERED: POLYETHYLENE GLYCOL 17 GM PACKET PO PRN (14:00)
[2016-08-05] MEDS ORDERED: MAGNESIUM HYDROXIDE 30ML CUP PO PRN (14:00)
[2016-08-05] MEDS ORDERED: NA PHOSPHATE/BIPHOS 133 ML ENEMA PR PRN (14:00)
[2016-08-05] MEDS ORDERED: DOCUSATE SODIUM 100 MG CAP PO PRN (14:00)
[2016-08-05] MEDS ORDERED: ALBUTEROL/IPRATROPIUM (NEB) 3 ML AMP HHN PRN (14:00)
[2016-08-05] MEDS ORDERED: hydrALAzine 20 MG INJ IV PRN ×2 (14:00→20:00)
[2016-08-05] MEDS ORDERED: NACL 0.9% 3 ML SYG IV SCH (14:00)
[2016-08-05] MEDS ORDERED: LORAZEPAM 2 MG INJ IV PRN (14:00)
[2016-08-05] MEDS ORDERED: HYDROCODONE/APAP (5/325) TAB PO PRN (14:00)
[2016-08-05] MEDS ORDERED: GLUCAGON 1 MG INJ IM PRN (15:00)
[2016-08-05] MEDS ORDERED: GLUCOSE GEL 15 GRAM TUBE BUCCAL PRN (15:00)
[2016-08-05] MEDS ORDERED: GLUCOSE GEL 15 GRAM TUBE PO PRN ×2 (15:00)
[2016-08-05] MEDS ORDERED: DEXTROSE 50% 50 ML SYRINGE IV PRN ×2 (15:00)
--- NOTE | 2016-08-05 15:03 | HP ---
DATE OF ADMISSION: 08/05/2016 This is a 56-year-old female who comes in with a chief complaint of bleeding from abdominal incision site. HISTORY OF PRESENT ILLNESS: A 56-year-old female with a past medical history of end-stage renal dis ease, on dialysis, mesenteric ischemia, status post resection, exploratory laparotomy on 07/21/2016, prior hypoxemic respiratory failure, prior septic shock, resolved, essential hypertension and type 2 diabetes, who comes in today because of wound dehiscence from her surgical wound site. She has be en having some bleeding at home, going on for the last 1 to 2 days, and apparently, she had a checku p yesterday and everything was fine, but during dialysis she noted some bleeding symptoms in the las t 24 hours and went it was observed it appears that the patient has an open abdomen with a slight ev isceration. The patient was sent into the emergency room, where the surgeon who performed the surger y 2 weeks ago, was contacted to come and evaluate the patient. The patient denies any fevers or chi lls. No nausea, vomiting. No abdominal pain, no upper or lower GI bleeding. No headaches, dizzine ss or loss of consciousness. No chest pain. No shortness of breath. PAST MEDICAL HISTORY: As stated above. ALLERGIES: VANCOMYCIN. HOME MEDICATIONS: 1. Cetirizine 10 mg daily. 2. Atorvastatin 20 mg at bedtime. 3. Coreg 6.25 mg b.i.d. 4. Losartan 50 mg b.i.d. 5. Tylenol 1000 mg q.6 p.r.n. 6. Aspirin 81 mg daily. 7. Gabapentin 100 mg t.i.d. 8. Calcium acetate 3,335 mg with meals. 9. Flonase 2 sprays daily. 10. Colace 100 mg b.i.d. 11. Omeprazole 20 mg daily. 12. MiraLax 8.5 grams daily p.r.n. 13. Glimepiride 1 mg with meals. 14. Lantus 12 units subcutaneous daily. 15. Levothyroxine 150 mcg before breakfast. 16. Vitamin D3 400 units daily. 17. Folic acid 1 mg daily. 18. Sheeba-Matias 1 tab daily. PAST SURGICAL HISTORY: She had the mesenteric ischemia, status post resection done on 07/21/2016. Apparently, she has had also multiple fistula placements in the past and possible CABG in the past. SOCIAL HISTORY: Negative for smoking, drinking, or IV drug abuse. FAMILY HISTORY: Negative for diabetes. PHYSICAL EXAMINATION: VITAL SIGNS: Today T-max 98.6, pulse 84, respirations 18, blood pressure is 198/92, saturating at 100% on room air. GENERAL: The patient is lying in bed. Daughter is at the bedside. In no acute distress. HEENT: Pupils are equal, round and react to light. Extraocular muscles are intact. NECK: Supple. No thyromegaly. LUNGS: Clear to auscultation bilaterally. CARDIOVASCULAR: S1, S2 heard. No rubs or gallops. ABDOMEN: Soft, nontender. There is some level of dehiscence in the inferior aspect of the surgical wound site. There appears to be a loop of bowel protruding from the abdomen. Otherwise, no reboun d or guarding. MUSCULOSKELETAL: No lower extremity edema bilaterally. NEUROLOGIC: No focal deficits. LABORATORY: CBC is normal. Sodium 135, potassium 4.0, chloride 97, CO2 27, BUN of 20, creatinine 3 .56, glucose of 94. Coags are essentially normal, except PTT is a little high at 46.8. Chest x-ray shows low lung volumes with mild basilar atelectasis. Stable left wall tunneled hemodia lysis catheter. ASSESSMENT AND PLAN: A 56-year-old female with recent mesenteric ischemia, status post exploratory lap with bowel resection, who presents with bleeding from the surgical abdominal wound site and woun d dehiscence. 1. Surgical wound bleeding. Admit the patient to the hospital. Will get a surgery consult. Pain c ontrol medications. Check a TSH, A1c, lipid panel. Tylenol and [place] p.r.n. pain and fevers. Also morphine p.r.n. for pain. Followup plan from the surgery team about possible surgical options vers us medical management at this time. 2. End-stage renal disease on dialysis. Continue dialysis as regularly scheduled. Will get a sheeba l consult as well. Continue Sheeba-Matias. 3. High blood pressure. Continue the current medications including Coreg and Losartan. 4. History of type 2 diabetes. On sliding scale insulin. 5. Gastrointestinal prophylaxis. Omeprazole. 6. Deep venous thrombosis prophylaxis. Will put her on some SCDs and will also get PT and OT consu lts. Dictated By: LESLIE CAMERON Conf#: [id number] [facility]#: [id number]
--- NOTE | 2016-08-05 19:01 | CONS ---
Date/Time of Note Date/Time of Note DATE: 08/05/16 TIME: 18:59 Assessment/Plan Assessment/Plan Chief Complaint/Hosp Course [id number] RENAL A/P ABD WOUND DEHISCENCE' ESRD DM HTN ASHD PLAN HD Problems: Consultation Date/Type/Reason Admit Date/Time Initial Consult Date Type of Consultation: RENAL 24 HR Interval Summary Constitutional: poor po Exam/Review of Systems Vital Signs Vitals Vital Signs Date Time Temp Pulse Resp B/P Pulse Ox O2 Delivery O2 Flow Rate FiO2 08/05/16 12:50 98.8 81 20 159/58 100 Room Air Exam Neck: supple Cardiovascular: regular rate and rhythm Gastrointestinal: bowel sounds Results Result Diagram: 08/05/16 1105 08/05/16 1105 Results 24 hrs Laboratory Tests Test 08/05/16 11:05 White Blood Count 8.9 Red Blood Count 3.73 L Hemoglobin 11.5 L Hematocrit 38.4 Mean Corpuscular Volume 102.9 H Mean Corpuscular Hemoglobin 30.8 Mean Corpuscular Hemoglobin Concent 29.9 L Red Cell Distribution Width 19.4 H Platelet Count 220 Mean Platelet Volume 10.5 H Neutrophils % 79.5 H Lymphocytes % 7.5 L Monocytes % 10.0 Eosinophils % 1.6 Basophils % 0.3 Nucleated Red Blood Cells % 0.0 Neutrophils # 7.1 Lymphocytes # 0.7 L Monocytes # 0.9 Eosinophils # 0.1 Basophils # 0.0 Nucleated Red Blood Cells # 0.0 Prothrombin Time 13.2 Prothrombin Time Ratio 1.0 INR International Normalized Ratio 1.00 Activated Partial Thromboplast Time 46.8 H Sodium Level 135 Potassium Level 4.0 Chloride Level 97 Carbon Dioxide Level 27 Anion Gap 15 Blood Urea Nitrogen 20 Creatinine 3.56 H Glucose Level 94 Calcium Level 8.3 L Medications Medications Current Medications Ondansetron HCl (Zofran Inj) 4 mg Q6H PRN IV NAUSEA AND/OR VOMITING; Start at 14:00 Acetaminophen (Tylenol Tab) 650 mg Q6H PRN PO PAIN LEVEL 1-3 OR FEVER; Start at 14:00 Acetaminophen/ Hydrocodone Bitart ([place] (5/325)) 1 tab Q6H PRN PO MODERATE PAIN LEVEL 4-6; Start 08/05/16 at 14:00 Morphine Sulfate (morphine) 2 mg Q4H PRN IV SEVERE PAIN LEVEL 7-10; Start 08/05 at 14:00 Docusate Sodium (Colace) 100 mg Q12H PRN PO CONSTIPATION; Start 08/05/16 at 14: 00 Magnesium Hydroxide (Milk Of Mag) 30 ml DAILY PRN PO CONSTIPATION; Start at 14:00 Sodium Biphosphate/ Sodium Phosphate 133 ml 133 ml DAILY PRN [place] CONSTIPATION; Start 08/05/16 at 14:00 Sodium Chloride (1/2 NS) 1,000 ml @ 75 mls/hr [id number] IV ; Start 08/05/16 at 13 :57 Lorazepam (Ativan) 0.5 mg Q6H PRN IV ANXIETY; Start 08/05/16 at 14:00 Hydralazine HCl (Apresoline) 10 mg Q6H PRN IV ELEVATED BLOOD PRESSURE; Start at 14:00 Nitroglycerin (Nitroglycerin (Sl Tab) 0.4 Mg) 1 tab Q5M PRN SL ANGINA; Start at 14:00 Atorvastatin Calcium (Lipitor) 10 mg QHS PO ; Start 08/05/16 at 21:00 Carvedilol (Coreg) 6.25 mg BID PO ; Start 08/05/16 at 21:00 Cholecalciferol (Vitamin D) 400 units DAILY PO ; Start 08/06/16 at 09:00 Docusate Sodium (Colace) 100 mg BID PO ; Start 08/05/16 at 21:00 Folic Acid (Folic Acid) 1 mg DAILY PO ; Start 08/06/16 at 09:00 Gabapentin (Neurontin) 100 mg TID PO ; Start 08/05/16 at 21:00 Insulin Glargine (Lantus) 12 unit DAILY@09 SC ; Start 08/06/16 at 09:00 Losartan Potassium (Cozaar) 50 mg BID PO ; Start 08/05/16 at 21:00 Multivit/Ca Carb/ B Cmplx/FA/Prenat (Cindy-Matias) 1 tab DAILY PO ; Start 08/06/16 at 09:00 Polyethylene Glycol (Miralax) 8.5 gm DAILY PRN PO CONSTIPATION; Start 08/05/16 at 14:00 Loratadine (Claritin) 10 mg DAILY PO ; Start 08/06/16 at 09:00 Pantoprazole (Protonix Tab) 40 mg DAILY@06 PO ; Start 08/06/16 at 06:00 Insulin Aspart (Novolog Insulin Pen) NOVOLOG *MILD* ALGORI... Q4 SC ; Start at 17:00 Miscellaneous Information 1 ea NOTE XX ; Start 08/05/16 at 15:00 Glucose (Glutose) 15 gm Q15M PRN PO DECREASED GLUCOSE; Start 08/05/16 at 15:00 Glucose (Glutose) 22.5 gm Q15M PRN PO DECREASED GLUCOSE; Start 08/05/16 at 15: 00 Dextrose (D50w Syringe) 25 ml Q15M PRN IV DECREASED GLUCOSE; Start 08/05/16 at 15:00 Dextrose (D50w Syringe) 50 ml Q15M PRN IV DECREASED GLUCOSE; Start 08/05/16 at 15:00 Glucagon (Glucagen) 1 mg Q15M PRN IM DECREASED GLUCOSE; Start 08/05/16 at 15:00 Glucose (Glutose) 15 gm Q15M PRN BUCCAL DECREASED GLUCOSE; Start 08/05/16 at 15 :00 HORACIO PERERA MD August 05, 2016 19:01
[2016-08-05] MEDS ORDERED: BUPIVACAINE 0.25% (MPF) 30 ML INJ ONE (19:17)
[2016-08-05] MEDS ORDERED: PROPOFOL 20 ML ONE (19:38)
[2016-08-05] MEDS ORDERED: LIDOCAINE 2% (SDV) 5 ML INJ ONE (19:38)
[2016-08-05] MEDS ORDERED: GLYCOPYRROLATE 0.4 MG INJ ONE (19:38)
[2016-08-05] MEDS ORDERED: ROCURONIUM 50 MG INJ ONE (19:38)
[2016-08-05] MEDS ORDERED: SUCCINYLCHOLINE CHLORIDE 100 MG/5 ML SYG IV ONE (19:38)
[2016-08-05] MEDS ORDERED: NEOSTIGMINE 3 MG/3 ML SYRINGE ONE (19:38)
[2016-08-05] MEDS ORDERED: METOCLOPRAMIDE 10 MG INJ IV PRN (20:00)
[2016-08-05] MEDS ORDERED: FENTAnyl 50 MCG/ML VIAL IV PRN ×2 (20:00)
[2016-08-05] MEDS ORDERED: EPHEDrine SULFATE 50 MG/5 ML SYG IV PRN (20:00)
[2016-08-05] MEDS ORDERED: HYDROmorphONE (0.2 MG/ML) 10ML SYG IV PRN ×2 (20:00)
[2016-08-05] MEDS ORDERED: MIDAZOLAM 1 MG/ML 2 ML INJ IV PRN (20:00)
[2016-08-05] MEDS ORDERED: morphine (1 MG/ML) 10ML SYRINGE IV PRN ×2 (20:00)
[2016-08-05] MEDS ORDERED: DIPHENHYDRAMINE 50 MG INJ IV PRN (20:00)
[2016-08-05] MEDS ORDERED: HYDROmorphONE 1 MG/ML SYG IV PRN (20:00)
[2016-08-05] MEDS ORDERED: LABETALOL HCL 20MG INJ IV PRN (20:00)
[2016-08-05] MEDS ORDERED: MEPERIDINE 25 MG INJ IV PRN (20:00)
[2016-08-05] MEDS ORDERED: CEFAZOLIN 2 GM/50 ML (PMX) 50 ML IVPB SCH (20:00)
[2016-08-05] MEDS ORDERED: METOCLOPRAMIDE 10 MG INJ ONE (20:16)
[2016-08-05] MEDS ORDERED: ONDANSETRON 4 MG INJ ONE (20:16)
--- NOTE | 2016-08-05 20:38 | CONS ---
DATE OF ADMISSION: 08/05/2016 DATE OF CONSULTATION: TYPE OF CONSULTATION: Nephrology. HISTORY OF PRESENT ILLNESS: The patient with a history of ESRD, hypertension, diabetes mellitus, CABG, history of clotted AV graft in the upper extremity, history of multiple AV valve revisions, thrombectomy and has infection in the past, presented with a history of exploratory laparotomy due to mesenteric ischemia, status post resection. The patient was at the dialysis center, noted to have wound dehiscence and was sent here for further management. PAST MEDICAL HISTORY: Positive for ESRD; hypertension; diabetes mellitus; diabetic nephropathy, retinopathy, neuropathy; history of CABG; history of multiple AV thrombectomy; history of anemia; history of blood transfusion; history of mesenteric ischemia, status post exploratory laparotomy. ALLERGY HISTORY: VANCOMYCIN. SOCIAL HISTORY: Negative. FAMILY HISTORY: Negative. MEDICATION HISTORY: The patient is on at home: 1. Tylenol. 2. Aspirin. 3. Lipitor. 4. PhosLo. 5. Coreg. 6. Zyrtec. 7. Vitamin D3. 8. Docusate sodium. 9. Fluticasone. 10. Folic acid. 11. Gabapentin. 12. Amaryl. 13. Insulin. 14. Levothyroxine. 15. Losartan. 16. Multivitamin. 17. Omeprazole. 18. MiraLax. REVIEW OF SYSTEMS: HEENT: Unremarkable. RESPIRATORY: Unremarkable. CARDIOVASCULAR: Unremarkable. ABDOMEN: ____ abdominal pain. EXTREMITIES: Unremarkable. PHYSICAL EXAMINATION: GENERAL: The patient is awake, alert. VITAL SIGNS: Pulse 81, blood pressure 159/58. HEENT: Head is atraumatic, normocephalic. Pale conjunctivae. No icterus. NECK: Supple. LUNGS: Clear. CARDIOVASCULAR: S1, S2 are normal. ABDOMEN: Dressing noted. Bowel sounds are positive. The patient has wound dehiscence. EXTREMITIES: There is no cyanosis, clubbing, edema. CENTRAL NERVOUS SYSTEM: The patient is awake, alert. No deficit. LABORATORY DATA: Hematocrit 38.4. The patient's sodium 135, potassium 4. IMPRESSION: 1. The patient has abdominal wound dehiscence. 2. End-stage renal disease. 3. Hypertension. 4. Diabetes mellitus. 5. Coronary artery disease. 6. Atherosclerotic heart disease. 7. Dyslipidemia. 8. History of coronary artery bypass graft. 9. History of mesenteric ischemia and exploratory laparotomy and resection. PLAN: Continue to monitor. The patient will have gentle IV fluid, possible surgical consultation. Hemodialysis will be ordered. Dictated By: HORACIO MADISON/LEXI Conf#: [id number] DID#: [id number] MTDD
[2016-08-05] MEDS ORDERED: HYDROmorphONE (0.2 MG/ML) 10ML SYG IV ONE (20:52)
--- NOTE | 2016-08-05 20:54 | CONS ---
DATE OF ADMISSION: 08/05/2016 DATE OF CONSULTATION: 08/05/2016 HISTORY OF PRESENT ILLNESS: Ms. Ariana Haney is a 56-year-old female who is status post an exp loratory laparotomy and small-bowel resection for mesenteric ischemia 07/21/2016. She was seen in m y office Tuesday. She did well after surgery but had a wound infection with some packing. She was seen in my office Tuesday after being discharged after a week in the hospital. The wound had not be en changed. I removed the packing and told her that it needed ____ packing. The patient went to he r dialysis today and was noted to have some oozing from the wound. When the wound was opened, there was a small evisceration. I was then called. PAST MEDICAL HISTORY: Significant for end-stage renal disease on dialysis, CAD, high cholesterol, G ERD, diabetes, hypothyroidism. MEDICATIONS: 1. Cetirizine. 2. Atorvastatin. 3. Coreg. 4. Losartan. 5. Tylenol. 6. Aspirin. 7. Gabapentin. 8. Calcium. 9. Flonase. 10. Colace. 11. Omeprazole. 12. MiraLax. 13. Glimepiride. 14. Lantus. 15. Levothyroxine. 16. Vitamin D3. 17. Folic acid. 18. Cindy-Matias. PAST SURGICAL HISTORY: Exploratory laparotomy and small-bowel resection on 07/21/2016, multiple fis tulas placed in the past. SOCIAL HISTORY: She denies drinking, drug use or smoking. ALLERGIES: VANCOMYCIN. PHYSICAL EXAMINATION: GENERAL: She is a well-nourished, well-developed female in no apparent distress. CHEST: Clear to auscultation bilaterally. HEART: Regular rate and rhythm. ABDOMEN: Soft, nontender. Midline wound has bowel protruding through the lower midline wound. LABORATORY DATA: White count of 9, hematocrit of 38 and platelets of 220. Sodium 135, potassium 4, chloride 97, CO2 27, BUN and creatinine 20 and 3.56, glucose 94. ASSESSMENT AND PLAN: Ms. Lou is a 56-year-old female with an evisceration from a woun d dehiscence. She will be taken to the OR now for exploration and closure of the wound. This was d iscussed in detail with the patient through an service inspector. All benefits, risks, alternatives were discussed in detail, questions answered, and patient elects to proceed. Dictated By: ROBERTO ANTOINE/LEXI Conf#: [id number] DID#: [id number]
--- NOTE | 2016-08-05 22:26 | OPR ---
DATE OF OPERATION: 08/05/2016 PREOPERATIVE DIAGNOSIS: Wound dehiscence. POSTOPERATIVE DIAGNOSIS: Wound dehiscence ____ with slight evisceration. PROCEDURE: Closure of recent laparotomy. SURGEON: Roberto Boateng MD INDIGO MIXER: None. ANESTHESIA: General endotracheal. ANESTHESIOLOGIST: Dr. Adam ESTIMATED BLOOD LOSS: Minimal. COMPLICATIONS: None. FINDINGS: The inferior aspect of the wound had , and there was a loop of small bowel prese nt in the wound. INDICATIONS: Ms. Lou is a 56-year-old female status post a small-bowel resection and exploratory laparotomy for mesenteric ischemia approximately 2 weeks ago. She had a slight wound in fection of her inferior aspect of the wound. The wound was opened and packed by me. She was sent h ome but did not receive home health. She came to my office 2 days ago, where the packing was remove d, and today in dialysis, she had some bleeding from the wound and the wound was visualized, and the re was a loop of small bowel in the wound. She was sent into the ER, where I consulted. I discusse d that the patient would need closure of the recent laparotomy. All benefits, risks, alternatives d iscussed in detail, questions answered, and patient elected to proceed. DESCRIPTION OF PROCEDURE: The patient was brought to the operating room, placed supine on the table . After preoperative antibiotics and SCDs were placed, the patient was intubated, a Kowalski catheter was inserted, and the abdomen was cleaned, prepped, draped in sterile fashion. There was a knot pre sent in the middle of the wound which was intact in the upper aspect of the wound. The upper aspect of the fascia of the wound was intact. The inferior aspect of the wound had come undone. I was ab le to easily reduce the small bowel back into the wound and make sure there were no adhesions to the underside of the fascia. I did place a simple 0 loop PDS suture just inferior to the prior knot, a nd I tied this to the knot itself. I then closed the inferior aspect of the wound with 0 nylon sutu res, which were retention sutures. These were full thickness through the abdominal wall ____ the ab dominal wall and placed through the rubber bolster. There were 3 of these sutures placed. This bro ught together the wound well. The inferior and superior aspects of the wound were closed with stapl es, but the middle aspect of the wound where retention sutures were left, the skin was left open. A 4x4 dressing and sterile tape was applied. The patient tolerated procedure well, was extubated in the OR and transferred to the recovery room in stable condition. Dictated By: ROBERTO ANTOINE/LEXI Conf#: [id number] DID#: [id number]
[2016-08-05] MEDS: morphine 2 MG INJ IV PRN (23:06)
[2016-08-05] MEDS: ATORVASTATIN 10 MG TAB PO SCH (23:42)
[2016-08-05] MEDS: GABAPENTIN 100 MG CAP PO SCH (23:43)
[2016-08-05] MEDS: DOCUSATE SODIUM 100 MG CAP PO SCH (23:43)
[2016-08-05] MEDS: LOSARTAN 50 MG TAB PO SCH (23:44)
[2016-08-05] MEDS: CEFAZOLIN 2 GM/50 ML (PMX) 50 ML IVPB SCH (23:45)
[2016-08-06] VITALS (9 sets, daily range): BP systolic 111–148; BP diastolic 54–69; PULSE 79–83; RESP 18–20
[2016-08-06] MEDS: INSULIN ASPART [NOVOLOG] 3 ML PEN SC SCH ×3 (01:00→09:00)
[2016-08-06 05:20] LABS: CHOL/HDL RATIO 4.6 RATIO
[2016-08-06] MEDS: morphine 2 MG INJ IV PRN (05:21)
[2016-08-06 05:40] LABS: ADD SCAN DIFF NO
[2016-08-06 05:46] LABS: ABNORMAL IP MESSAGE 1; BASOPHILS % 0.4 % (0.0-2.0); EOSINOPHILS # 0.1 10^3/ul (0.0-0.5); EOSINOPHILS % 1.8 % (0.0-7.0); HEMATOCRIT 35.5 % (37.0-47.0); HEMOGLOBIN 10.8 g/dl (12.0-16.0); LYMPHOCYTES # 1.1 10^3/ul (0.8-2.9); LYMPHOCYTES % 14.8 % (15.0-51.0); MEAN CORPUSCULAR HEMOGLOBIN 32.2 pg (29.0-33.0); MEAN CORPUSCULAR HGB CONC 30.4 g/dl (32.0-37.0); MEAN PLATELET VOLUME 10.7 fl (7.4-10.4); MONOCYTE # 1.3 10^3/ul (0.3-0.9); NEUTROPHIL # 4.8 10^3/ul (1.6-7.5); NEUTROPHILS % 64.7 % (39.0-77.0); NUCLEATED RED BLOOD CELLS% 0.4 /100WBC (0.0-0.0); PLATELET COUNT 200 10^3/UL (140-415); RED BLOOD COUNT 3.35 10^6/ul (4.20-5.40); RED CELL DISTRIBUTION WIDTH 19.2 % (11.5-14.5); WHITE BLOOD COUNT 7.4 10^3/ul (4.8-10.8)
[2016-08-06] MEDS: SOD CHLORIDE 0.9% 1,000 ML IV SCH ×2 (06:25→15:53)
[2016-08-06] MEDS: PANTOPRAZOLE (EC) 40 MG TAB PO SCH (06:25)
[2016-08-06] MEDS: LEVOTHYROXINE 150 MCG TAB PO SCH (06:25)
[2016-08-06] MEDS: HEPARIN 5,000 UNIT/0.5 ML VIAL SC SCH ×2 (06:33→18:45)
[2016-08-06 06:48] LABS: CREATININE 4.67 mg/dl (0.44-1.00); MAGNESIUM 2.1 mg/dl (1.7-2.5); PHOSPHORUS 4.7 mg/dl (2.5-4.9); POTASSIUM 4.9 mmol/L (3.5-5.1)
[2016-08-06] MEDS: CALCIUM ACETATE 667 MG CAP PO SCH ×4 (07:50→18:03)
[2016-08-06] MEDS ORDERED: GLIMEPIRIDE 2 MG TAB PO SCH (08:00)
[2016-08-06] MEDS: INSULIN GLARGINE [LANtus] 3 ML PEN SC SCH (09:00)
[2016-08-06] MEDS: FOLIC ACID 1 MG TAB PO SCH (09:10)
[2016-08-06] MEDS: DOCUSATE SODIUM 100 MG CAP PO SCH ×2 (09:10→22:21)
[2016-08-06] MEDS: LOSARTAN 50 MG TAB PO SCH ×2 (09:11→22:21)
[2016-08-06] MEDS: MULTIVIT/CA CARB/B CMPLX/FA TAB PO SCH (09:11)
[2016-08-06] MEDS: GABAPENTIN 100 MG CAP PO SCH ×3 (09:11→22:20)
[2016-08-06] MEDS: CHOLECALCIFEROL 400 UNITS TAB PO SCH (09:11)
[2016-08-06] MEDS: LORATADINE 10 MG TAB PO SCH (09:11)
[2016-08-06] MEDS: CEFAZOLIN 2 GM/50 ML (PMX) 50 ML IVPB SCH (09:24)
[2016-08-06] MEDS: HYDROCODONE/APAP (5/325) TAB PO PRN ×2 (10:15→22:30)
--- NOTE | 2016-08-06 12:33 | PN ---
Date/Time of Note Date/Time of Note DATE: 08/06/16 TIME: 12:29 Assessment/Plan VTE Prophylaxis VTE Prophylaxis Intervention: SCD's Lines/Catheters IV Catheter Type (from Nrs): port- a-cath Urinary Cath still in place: Yes Reason Cath still needed: urinary retention Assessment/Plan Chief Complaint/Hosp Course ASSESSMENT AND PLAN: 56-year-old female with recent mesenteric ischemia, status post exploratory lap with bowel resection, who presents with bleeding from the surgical abdominal wound site and wound dehiscence. 1. Surgical wound bleeding - .inferior aspect of the wound had , and there was a loop of small bowel present in the wound. Pt POD # 1 closure procedure by surgery team. - CLD, f/u surgery rec's. Pain control medications. - Tylenol and Plaquemine p.r.n. pain and fevers. Also morphine p.r.n. for pain. - wound care consult 2. End-stage renal disease on dialysis. - Continue dialysis as regularly scheduled. - f/u renal consult rec's as well. - Continue Cindy-Matias. 3. High blood pressure. Continue the current medications including Coreg and Losartan. 4. History of type 2 diabetes. On sliding scale insulin. 5. Gastrointestinal prophylaxis. Omeprazole. 6. Deep venous thrombosis prophylaxis - SCDs, f/u PT and OT consults. Problems: Subjective 24 Hr Interval Summary Free Text/Dictation Pt had surgery repair yesterday. Seen by renal team. Presently tolerating liquid diet, no pain. Exam/Review of Systems Vital Signs Vitals Vital Signs Date Time Temp Pulse Resp B/P Pulse Ox O2 Delivery O2 Flow Rate FiO2 08/06/16 07:00 98.7 62 20 111/56 100 08/06/16 00:29 Nasal Cannula 2.0 Intake and Output 08/05/16 08/05/16 08/06/16 15:00 23:00 07:00 Intake Total 400 ml 530 ml Output Total 25 ml 0 ml Balance 375 ml 530 ml Exam GENERAL: The patient is sitting in chair. Daughter is at the bedside. In no acute distress. HEENT: Pupils are equal, round and react to light. Extraocular muscles are intact. NECK: Supple. No thyromegaly. LUNGS: Clear to auscultation bilaterally. CARDIOVASCULAR: S1, S2 heard. No rubs or gallops. ABDOMEN: Soft, nontender, wound dressing in place. Otherwise, no rebound or guarding. MUSCULOSKELETAL: No lower extremity edema bilaterally. NEUROLOGIC: No focal deficits. Results Result Diagram: 08/06/16 0425 08/06/165 Results 24 hrs Laboratory Tests Test 08/05/16 20:58 08/05/16 21:37 08/06/16 01:04 08/06/16 04:25 Bedside Glucose 62 L 78 92 White Blood Count 7.4 Red Blood Count 3.35 L Hemoglobin 10.8 L Hematocrit 35.5 L Mean Corpuscular Volume 106.0 H Mean Corpuscular Hemoglobin 32.2 Mean Corpuscular Hemoglobin Concent 30.4 L Red Cell Distribution Width 19.2 H Platelet Count 200 Mean Platelet Volume 10.7 H Neutrophils % 64.7 Lymphocytes % 14.8 L Monocytes % 17.0 H Eosinophils % 1.8 Basophils % 0.4 Nucleated Red Blood Cells % 0.4 H Neutrophils # 4.8 Lymphocytes # 1.1 Monocytes # 1.3 H Eosinophils # 0.1 Basophils # 0.0 Nucleated Red Blood Cells # 0.0 Sodium Level 133 L Potassium Level 4.9 Chloride Level 104 Carbon Dioxide Level 22 Anion Gap 12 Blood Urea Nitrogen 35 #H Creatinine 4.67 #H Glucose Level 75 Hemoglobin A1c 4.9 Calcium Level 8.0 L Phosphorus Level 4.7 Magnesium Level 2.1 Triglycerides Level 150 H Cholesterol Level 116 LDL Cholesterol, Calculated 61 HDL Cholesterol 25 L Cholesterol/HDL Ratio 4.6 Thyroid Stimulating Hormone (TSH) 30.000 H Test 08/06/16 05:16 08/06/16 06:07 08/06/16 09:23 Bedside Glucose 67 L 77 74 Medications Medications Current Medications Acetaminophen (Tylenol Tab) 650 mg Q6H PRN PO PAIN LEVEL 1-3 OR FEVER; Start at 14:00 Morphine Sulfate (morphine) 2 mg Q4H PRN IV SEVERE PAIN LEVEL 7-10 Last administered on 08/06/16t 05:21; Admin Dose 2 MG; Start 08/05/16 at 14:00 Docusate Sodium (Colace) 100 mg Q12H PRN PO CONSTIPATION; Start 08/05/16 at 14: 00 Magnesium Hydroxide (Milk Of Mag) 30 ml DAILY PRN PO CONSTIPATION; Start at 14:00 Sodium Biphosphate/ Sodium Phosphate (Fleet Enema) 133 ml DAILY PRN [place] CONSTIPATION; Start 08/05/16 at 14:00 Lorazepam (Ativan) 0.5 mg Q6H PRN IV ANXIETY; Start 08/05/16 at 14:00 Hydralazine HCl (Apresoline) 10 mg Q6H PRN IV ELEVATED BLOOD PRESSURE; Start at 14:00 Nitroglycerin (Nitroglycerin (Sl Tab) 0.4 Mg) 1 tab Q5M PRN SL ANGINA; Start at 14:00 Atorvastatin Calcium (Lipitor) 10 mg QHS PO Last administered on 08/05/16 23: 42; Admin Dose 10 MG; Start 08/05/16 at 21:00 Carvedilol (Coreg) 6.25 mg BID PO Last administered on 08/06/16 09:25; Admin Dose 6.25 MG; Start 08/05/16 at 21:00 Cholecalciferol (Vitamin D) 400 units DAILY PO Last administered on 08/06/16 09:11; Admin Dose 400 UNITS; Start 08/06/16 at 09:00 Docusate Sodium (Colace) 100 mg BID PO Last administered on 08/06/16 09:10; Admin Dose 100 MG; Start 08/05/16 at 21:00 Folic Acid (Folic Acid) 1 mg DAILY PO Last administered on 08/06/16 09:10; Admin Dose 1 MG; Start 08/06/16 at 09:00 Gabapentin (Neurontin) 100 mg TID PO Last administered on 08/06/16 09:11; Admin Dose 100 MG; Start 08/05/16 at 21:00 Insulin Glargine (Lantus) 12 unit DAILY@09 SC ; Start 08/06/16 at 09:00 Losartan Potassium (Cozaar) 50 mg BID PO Last administered on 08/06/16 09:11; Admin Dose 50 MG; Start 08/05/16 at 21:00 Multivit/Ca Carb/ B Cmplx/FA/Prenat (Cindy-Matias) 1 tab DAILY PO Last administered on 08/06/16 09:11; Admin Dose 1 TAB; Start 08/06/16 at 09:00 Polyethylene Glycol (Miralax) 8.5 gm DAILY PRN PO CONSTIPATION; Start 08/05/16 at 14:00 Loratadine (Claritin) 10 mg DAILY PO Last administered on 08/06/16 09:11; Admin Dose 10 MG; Start 08/06/16 at 09:00 Pantoprazole (Protonix Tab) 40 mg DAILY@06 PO Last administered on 08/06/16 06 :25; Admin Dose 40 MG; Start 08/06/16 at 06:00 Insulin Aspart (Novolog Insulin Pen) NOVOLOG *MILD* ALGORI... Q4 SC ; Start at 17:00 Miscellaneous Information 1 ea NOTE XX ; Start 08/05/16 at 15:00 Glucose (Glutose) 15 gm Q15M PRN PO DECREASED GLUCOSE; Start 08/05/16 at 15:00 Glucose (Glutose) 22.5 gm Q15M PRN PO DECREASED GLUCOSE; Start 08/05/16 at 15: 00 Dextrose (D50w Syringe) 25 ml Q15M PRN IV DECREASED GLUCOSE; Start 08/05/16 at 15:00 Dextrose (D50w Syringe) 50 ml Q15M PRN IV DECREASED GLUCOSE; Start 08/05/16 at 15:00 Glucagon (Glucagen) 1 mg Q15M PRN IM DECREASED GLUCOSE; Start 08/05/16 at 15:00 Glucose (Glutose) 15 gm Q15M PRN BUCCAL DECREASED GLUCOSE; Start 08/05/16 at 15 :00 Hydromorphone HCl (Dilaudid) 0.5 mg Q6H PRN IV PAIN LEVEL 6-10; Start 08/05/16 at 20:00 Acetaminophen/ Hydrocodone Bitart ([place] (5/325)) 1 tab Q6H PRN PO PAIN LEVEL 6 -10 Last administered on 08/06/16 10:15; Admin Dose 1 TAB; Start 08/05/16 at 20 :00 Ondansetron HCl 4 mg 4 mg Q6H PRN IV NAUSEA AND/OR VOMITING; Start 08/05/16 at 20:00 Sodium Chloride (NS) 1,000 ml @ 50 mls/hr Q20H IV Last administered on 06:25; Admin Dose 50 MLS/HR; Start 08/05/16 at 19:53 Heparin Sodium (Porcine) (Heparin (5000 Units/0.5 ml)) 5,000 unit BID@07,19 SC Last administered on 08/06/16 06:33; Admin Dose 5,000 UNIT; Start 08/06/16 at 07:00 LESLIE DEMPSEY August 06, 2016 12:33
[2016-08-06] MEDS: Insulin NOVOLOG SS MILD Algorithm (SS with meals and bedtime) SC SCH ×3 (12:38→21:00)
[2016-08-06] MEDS ORDERED: ACCUCHECK 2 AM XX SCH (13:00)
--- NOTE | 2016-08-06 14:52 | CONS ---
Date/Time of Note Date/Time of Note DATE: 08/06/16 TIME: 14:50 Assessment/Plan Assessment/Plan Chief Complaint/Hosp Course 1. End-stage renal disease, HD dependent 2. The patient has abdominal wound dehiscence. 3. Hypertension. 4. Diabetes mellitus. 5. Coronary artery disease. 6. Atherosclerotic heart disease. 7. Dyslipidemia. 8. History of coronary artery bypass graft. 9. History of mesenteric ischemia and exploratory laparotomy and resection. Problems: Additional Assessment/Plan 1. HD continue Consultation Date/Type/Reason Admit Date/Time August 05, 2016 at 22:43 Initial Consult Date 08/05/2016 Type of Consultation: RENAL Reason for Consultation Dr Weaver 24 HR Interval Summary Constitutional: no complaints Exam/Review of Systems Vital Signs Vitals Vital Signs Date Time Temp Pulse Resp B/P Pulse Ox O2 Delivery O2 Flow Rate FiO2 08/06/16 07:00 98.7 62 20 111/56 100 08/06/16 00:29 Nasal Cannula 2.0 Intake and Output 08/05/16 08/05/16 08/06/16 15:00 23:00 07:00 Intake Total 400 ml 530 ml Output Total 25 ml 0 ml Balance 375 ml 530 ml Results Result Diagram: 08/06/16 0425 08/06/16 0425 Results 24 hrs Laboratory Tests Test 08/05/16 20:58 08/05/16 21:37 08/06/16 01:04 08/06/16 04:25 Bedside Glucose 62 L 78 92 White Blood Count 7.4 Red Blood Count 3.35 L Hemoglobin 10.8 L Hematocrit 35.5 L Mean Corpuscular Volume 106.0 H Mean Corpuscular Hemoglobin 32.2 Mean Corpuscular Hemoglobin Concent 30.4 L Red Cell Distribution Width 19.2 H Platelet Count 200 Mean Platelet Volume 10.7 H Neutrophils % 64.7 Lymphocytes % 14.8 L Monocytes % 17.0 H Eosinophils % 1.8 Basophils % 0.4 Nucleated Red Blood Cells % 0.4 H Neutrophils # 4.8 Lymphocytes # 1.1 Monocytes # 1.3 H Eosinophils # 0.1 Basophils # 0.0 Nucleated Red Blood Cells # 0.0 Sodium Level 133 L Potassium Level 4.9 Chloride Level 104 Carbon Dioxide Level 22 Anion Gap 12 Blood Urea Nitrogen 35 #H Creatinine 4.67 #H Glucose Level 75 Hemoglobin A1c 4.9 Calcium Level 8.0 L Phosphorus Level 4.7 Magnesium Level 2.1 Triglycerides Level 150 H Cholesterol Level 116 LDL Cholesterol, Calculated 61 HDL Cholesterol 25 L Cholesterol/HDL Ratio 4.6 Thyroid Stimulating Hormone (TSH) 30.000 H Test 08/06/16 05:16 08/06/16 06:07 08/06/16 09:23 08/06/16 12:40 Bedside Glucose 67 L 77 74 112 Medications Medications Current Medications Acetaminophen (Tylenol Tab) 650 mg Q6H PRN PO PAIN LEVEL 1-3 OR FEVER; Start at 14:00 Morphine Sulfate (morphine) 2 mg Q4H PRN IV SEVERE PAIN LEVEL 7-10 Last administered on 08/06/16 05:21; Admin Dose 2 MG; Start 08/05/16 at 14:00 Docusate Sodium (Colace) 100 mg Q12H PRN PO CONSTIPATION; Start 08/05/16 at 14: 00 Magnesium Hydroxide (Milk Of Mag) 30 ml DAILY PRN PO CONSTIPATION; Start at 14:00 Sodium Biphosphate/ Sodium Phosphate (Fleet Enema) 133 ml DAILY PRN [place] CONSTIPATION; Start 08/05/16 at 14:00 Lorazepam (Ativan) 0.5 mg Q6H PRN IV ANXIETY; Start 08/05/16 at 14:00 Hydralazine HCl (Apresoline) 10 mg Q6H PRN IV ELEVATED BLOOD PRESSURE; Start at 14:00 Nitroglycerin (Nitroglycerin (Sl Tab) 0.4 Mg) 1 tab Q5M PRN SL ANGINA; Start at 14:00 Atorvastatin Calcium (Lipitor) 10 mg QHS PO Last administered on 08/05/16 23: 42; Admin Dose 10 MG; Start 08/05/16 at 21:00 Carvedilol (Coreg) 6.25 mg BID PO Last administered on 08/06/16 09:25; Admin Dose 6.25 MG; Start 08/05/16 at 21:00 Cholecalciferol (Vitamin D) 400 units DAILY PO Last administered on 08/06/16 09:11; Admin Dose 400 UNITS; Start 08/06/16 at 09:00 Docusate Sodium (Colace) 100 mg BID PO Last administered on 08/06/16 09:10; Admin Dose 100 MG; Start 08/05/16 at 21:00 Folic Acid (Folic Acid) 1 mg DAILY PO Last administered on 08/06/16 09:10; Admin Dose 1 MG; Start 08/06/16 at 09:00 Gabapentin (Neurontin) 100 mg TID PO Last administered on 08/06/16 12:59; Admin Dose 100 MG; Start 08/05/16 at 21:00 Insulin Glargine (Lantus) 12 unit DAILY@09 SC ; Start 08/06/16 at 09:00 Losartan Potassium (Cozaar) 50 mg BID PO Last administered on 08/06/16 09:11; Admin Dose 50 MG; Start 08/05/16 at 21:00 Multivit/Ca Carb/ B Cmplx/FA/Prenat (Cindy-Matias) 1 tab DAILY PO Last administered on 08/06/16 09:11; Admin Dose 1 TAB; Start 08/06/16 at 09:00 Polyethylene Glycol (Miralax) 8.5 gm DAILY PRN PO CONSTIPATION; Start 08/05/16 at 14:00 Loratadine (Claritin) 10 mg DAILY PO Last administered on 08/06/16 09:11; Admin Dose 10 MG; Start 08/06/16 at 09:00 Pantoprazole (Protonix Tab) 40 mg DAILY@06 PO Last administered on 08/06/16 06 :25; Admin Dose 40 MG; Start 08/06/16 at 06:00 Miscellaneous Information 1 ea NOTE XX ; Start 08/05/16 at 15:00 Glucose (Glutose) 15 gm Q15M PRN PO DECREASED GLUCOSE; Start 08/05/16 at 15:00 Glucose (Glutose) 22.5 gm Q15M PRN PO DECREASED GLUCOSE; Start 08/05/16 at 15: 00 Dextrose (D50w Syringe) 25 ml Q15M PRN IV DECREASED GLUCOSE; Start 08/05/16 at 15:00 Dextrose (D50w Syringe) 50 ml Q15M PRN IV DECREASED GLUCOSE; Start 08/05/16 at 15:00 Glucagon (Glucagen) 1 mg Q15M PRN IM DECREASED GLUCOSE; Start 08/05/16 at 15:00 Glucose (Glutose) 15 gm Q15M PRN BUCCAL DECREASED GLUCOSE; Start 08/05/16 at 15 :00 Hydromorphone HCl (Dilaudid) 0.5 mg Q6H PRN IV PAIN LEVEL 6-10; Start 08/05/16 at 20:00 Acetaminophen/ Hydrocodone Bitart ([place] (5/325)) 1 tab Q6H PRN PO PAIN LEVEL 6 -10 Last administered on 08/06/16 10:15; Admin Dose 1 TAB; Start 08/05/16 at 20 :00 Ondansetron HCl 4 mg 4 mg Q6H PRN IV NAUSEA AND/OR VOMITING; Start 08/05/16 at 20:00 Sodium Chloride (NS) 1,000 ml @ 50 mls/hr Q20H IV Last administered on 06:25; Admin Dose 50 MLS/HR; Start 08/05/16 at 19:53 Heparin Sodium (Porcine) (Heparin (5000 Units/0.5 ml)) 5,000 unit BID@07,19 SC Last administered on 08/06/16 06:33; Admin Dose 5,000 UNIT; Start 08/06/16 at 07:00 Diagnostic Test (Pha) (Accu-Chek) 1 ea 02 XX ; Start 08/06/16 at 13:00 CARMEN HERRERA August 06, 2016 14:52
[2016-08-06] MEDS ORDERED: INSULIN ASPART [NOVOLOG] 3 ML PEN SC SCH (21:00)
[2016-08-06] MEDS: ATORVASTATIN 10 MG TAB PO SCH (22:20)
[2016-08-07] MEDS: PANTOPRAZOLE (EC) 40 MG TAB PO SCH (05:52)
[2016-08-07] MEDS: LEVOTHYROXINE 150 MCG TAB PO SCH (05:52)
[2016-08-07] MEDS: HEPARIN 5,000 UNIT/0.5 ML VIAL SC SCH (06:01)
[2016-08-07] MEDS: Insulin NOVOLOG SS MILD Algorithm (SS with meals and bedtime) SC SCH ×2 (07:20→11:10)
[2016-08-07 08:07] VITALS: BP 116/53; RESP 16
[2016-08-07 08:57] LABS: ADD SCAN DIFF NO
[2016-08-07] MEDS: DOCUSATE SODIUM 100 MG CAP PO SCH (09:00)
[2016-08-07] MEDS: MULTIVIT/CA CARB/B CMPLX/FA TAB PO SCH (09:00)
[2016-08-07] MEDS: GABAPENTIN 100 MG CAP PO SCH ×2 (09:00→14:01)
[2016-08-07] MEDS: CALCIUM ACETATE 667 MG CAP PO SCH ×2 (09:00→14:00)
[2016-08-07] MEDS: CHOLECALCIFEROL 400 UNITS TAB PO SCH (09:00)
[2016-08-07] MEDS: FOLIC ACID 1 MG TAB PO SCH (09:00)
[2016-08-07] MEDS: LORATADINE 10 MG TAB PO SCH (09:00)
[2016-08-07] MEDS: LOSARTAN 50 MG TAB PO SCH (09:02)
[2016-08-07 09:03] LABS: BASOPHILS % 0.4 % (0.0-2.0); EOSINOPHILS # 0.1 10^3/ul (0.0-0.5); EOSINOPHILS % 2.2 % (0.0-7.0); HEMATOCRIT 34.4 % (37.0-47.0); HEMOGLOBIN 10.1 g/dl (12.0-16.0); LYMPHOCYTES # 0.7 10^3/ul (0.8-2.9); LYMPHOCYTES % 13.7 % (15.0-51.0); MEAN CORPUSCULAR HEMOGLOBIN 31.5 pg (29.0-33.0); MEAN CORPUSCULAR HGB CONC 29.4 g/dl (32.0-37.0); MEAN CORPUSCULAR VOLUME 107.2 fl (82.0-101.0); MEAN PLATELET VOLUME 10.6 fl (7.4-10.4); MONOCYTES % 20.5 % (0.0-11.0); NEUTROPHIL # 3.1 10^3/ul (1.6-7.5); NEUTROPHILS % 61.8 % (39.0-77.0); NUCLEATED RED BLOOD CELLS% 0.4 /100WBC (0.0-0.0); PLATELET COUNT 177 10^3/UL (140-415); RED BLOOD COUNT 3.21 10^6/ul (4.20-5.40); RED CELL DISTRIBUTION WIDTH 19.7 % (11.5-14.5)
[2016-08-07 09:18] LABS: POTASSIUM 3.8 mmol/L (3.5-5.1)
[2016-08-07 09:20] LABS: CREATININE 4.24 mg/dl (0.44-1.00)
[2016-08-07 09:21] LABS: CALCIUM 8.5 mg/dl (8.4-10.2)
[2016-08-07] MEDS: INSULIN GLARGINE [LANtus] 3 ML PEN SC SCH (10:49)
--- NOTE | 2016-08-07 11:46 | PDOCDIS ---
Discharge Instructions CONDITION Patient Condition: Stable HOME CARE INSTRUCTIONS: Diet Instructions: Regular ACTIVITY: Activity Restrictions: Slowly Increase Activity FOLLOW UP/APPOINTMENTS Appointments Please take your medications as prescribed. See your doctor in the clinic in 1 week. LESLIE DEMPSEY August 07, 2016 11:46
[2016-08-07] MEDS: HYDROCODONE/APAP (5/325) TAB PO PRN (11:47)
[2016-08-07] MEDS ORDERED: HYDR-906 PO (11:50)
[2016-08-07] MEDS: SOD CHLORIDE 0.9% 1,000 ML IV SCH (11:53)
--- NOTE | 2016-08-07 12:26 | DS ---
DATE OF ADMISSION: 08/05/2016 DATE OF DISCHARGE: 08/07/2016 HOSPITAL COURSE: A 56-year-old female originally admitted on 08/05/2016, being discharged home on 0 08/07/2014. The patient came in with abdominal pain. She had a prior surgical history of bowel rese ction for mesenteric ischemia 2 weeks prior to this admission. So it was noted on admission, the in ferior aspect of her surgical wound site had and there was a loop of small bowel present i n the wound. She underwent a closure procedure by the surgery team. She also continued to have min lysis and was scheduled by the dialysis team. She had some pain symptoms afterwards, but was able to ambulate and tolerate a p.o. diet. Her pain symptoms were controlled with pain medicines. After getting clearance from the surgery team, she will be discharged home [facility]. DISCHARGE MEDICATIONS: She will be sent with the following medications: 1. [place] 5/325 one tab p.o. q.6h. p.r.n. 2. Tylenol 1000 mg p.o. q.6h. p.r.n. 3. Aspirin 81 mg daily. 4. Atorvastatin 10 mg at bedtime. 5. Calcium acetate with meals. 6. Coreg 6.25 mg b.i.d. 7. Cetirizine 10 mg daily. 8. Vitamin D3 400 units daily. 9. Colace 100 mg b.i.d. 10. Flonase inhaled 2 sprays daily. 11. Folic acid 1 mg daily. 12. Gabapentin 100 mg t.i.d. 13. Glimepiride 1 mg with breakfast. 14. Lantus 12 units daily. 15. Levothyroxine 150 mcg before breakfast. 16. Losartan 50 mg b.i.d. 17. Cindy-Matias 1 tab daily. 18. Omeprazole 20 mg daily. 19. MiraLax 8.5 grams daily p.r.n. FOLLOWUP: She is going to follow up with primary care doctor in clinic in the next 1 to 2 weeks. FINAL DIAGNOSES: 1. Abdominal pain secondary to inferior aspect of surgical wound being with loop of small bowel present in the wound, status post closure procedure by surgery team. 2. End-stage renal disease, on dialysis. 3. Essential hypertension. 4. Type 2 diabetes. 5. Mesenteric ischemia, status post resection, exploratory laparotomy on 07/21/2016. 6. Prior hypoxic respiratory failure, resolved. 7. Mild systemic septic shock, now resolved on last admission. 8. Anemia, improved. Time spent discharging the patient 45 minutes. Dictated By: LESLIE CAMERON Conf#: [id number] DID#: [id number]
--- NOTE | 2016-08-07 13:30 | CONS ---
Date/Time of Note Date/Time of Note DATE: 08/07/16 TIME: 13:29 Assessment/Plan Assessment/Plan Chief Complaint/Hosp Course 1. End-stage renal disease, HD dependent 2. The patient has abdominal wound dehiscence. 3. Hypertension. 4. Diabetes mellitus. 5. Coronary artery disease. 6. Atherosclerotic heart disease. 7. Dyslipidemia. 8. History of coronary artery bypass graft. 9. History of mesenteric ischemia and exploratory laparotomy and resection. Problems: Additional Assessment/Plan 1. Continue HD 2. Optimization kidney function Consultation Date/Type/Reason Admit Date/Time August 05, 2016 at 22:43 Initial Consult Date 08/05/2016 Type of Consultation: RENAL Reason for Consultation Dr Weaver Exam/Review of Systems Vital Signs Vitals Vital Signs Date Time Temp Pulse Resp B/P Pulse Ox O2 Delivery O2 Flow Rate FiO2 08/07/16 08:07 98.6 65 16 116/53 100 08/06/16 19:50 Nasal Cannula 2.0 Intake and Output 08/06/16 08/06/16 08/07/16 15:00 23:00 07:00 Intake Total 50 ml 2090 ml 930 ml Output Total 2550 ml 50 ml Balance 50 ml -460 ml 880 ml Exam Constitutional: alert, oriented Neck: supple Respiratory: clear to auscultation Cardiovascular: regular rate and rhythm Results Result Diagram: 08/07/16 0840 08/07/16 0832 Results 24 hrs Laboratory Tests Test 08/06/16 17:37 08/06/16 22:20 08/07/16 08:15 08/07/16 08:32 Bedside Glucose 116 151 99 Sodium Level 141 Potassium Level 3.8 Chloride Level 106 Carbon Dioxide Level 26 Anion Gap 13 Blood Urea Nitrogen 24 #H Creatinine 4.24 H Glucose Level 95 Calcium Level 8.5 Test 08/07/16 08:40 08/07/16 12:28 White Blood Count 5.0 # Red Blood Count 3.21 L Hemoglobin 10.1 L Hematocrit 34.4 L Mean Corpuscular Volume 107.2 H Mean Corpuscular Hemoglobin 31.5 Mean Corpuscular Hemoglobin Concent 29.4 L Red Cell Distribution Width 19.7 H Platelet Count 177 Mean Platelet Volume 10.6 H Neutrophils % 61.8 Lymphocytes % 13.7 L Monocytes % 20.5 H Eosinophils % 2.2 Basophils % 0.4 Nucleated Red Blood Cells % 0.4 H Neutrophils # 3.1 Lymphocytes # 0.7 L Monocytes # 1.0 H Eosinophils # 0.1 Basophils # 0.0 Nucleated Red Blood Cells # 0.0 Bedside Glucose 124 Medications Medications Current Medications Acetaminophen (Tylenol Tab) 650 mg Q6H PRN PO PAIN LEVEL 1-3 OR FEVER; Start at 14:00 Morphine Sulfate (morphine) 2 mg Q4H PRN IV SEVERE PAIN LEVEL 7-10 Last administered on 08/06/16 05:21; Admin Dose 2 MG; Start 08/05/16 at 14:00 Docusate Sodium (Colace) 100 mg Q12H PRN PO CONSTIPATION; Start 08/05/16 at 14: 00 Magnesium Hydroxide (Milk Of Mag) 30 ml DAILY PRN PO CONSTIPATION; Start at 14:00 Sodium Biphosphate/ Sodium Phosphate (Fleet Enema) 133 ml DAILY PRN [place] CONSTIPATION; Start 08/05/16 at 14:00 Lorazepam (Ativan) 0.5 mg Q6H PRN IV ANXIETY; Start 08/05/16 at 14:00 Hydralazine HCl (Apresoline) 10 mg Q6H PRN IV ELEVATED BLOOD PRESSURE; Start at 14:00 Nitroglycerin (Nitroglycerin (Sl Tab) 0.4 Mg) 1 tab Q5M PRN SL ANGINA; Start at 14:00 Atorvastatin Calcium (Lipitor) 10 mg QHS PO Last administered on 08/06/16 22: 20; Admin Dose 10 MG; Start 08/05/16 at 21:00 Carvedilol (Coreg) 6.25 mg BID PO Last administered on 08/07/16 09:01; Admin Dose 6.25 MG; Start 08/05/16 at 21:00 Cholecalciferol (Vitamin D) 400 units DAILY PO Last administered on 08/07/16 09:00; Admin Dose 400 UNITS; Start 08/06/16 at 09:00 Docusate Sodium (Colace) 100 mg BID PO Last administered on 08/07/16 09:00; Admin Dose 100 MG; Start 08/05/16 at 21:00 Folic Acid (Folic Acid) 1 mg DAILY PO Last administered on 08/07/16 09:00; Admin Dose 1 MG; Start 08/06/16 at 09:00 Gabapentin (Neurontin) 100 mg TID PO Last administered on 08/07/16 09:00; Admin Dose 100 MG; Start 08/05/16 at 21:00 Insulin Glargine (Lantus) 12 unit DAILY@09 SC Last administered on 08/07/16 10 :49; Admin Dose 12 UNIT; Start 08/06/16 at 09:00 Losartan Potassium (Cozaar) 50 mg BID PO Last administered on 08/07/16 09:02; Admin Dose 50 MG; Start 08/05/16 at 21:00 Multivit/Ca Carb/ B Cmplx/FA/Prenat (Cindy-Matias) 1 tab DAILY PO Last administered on 08/07/16 09:00; Admin Dose 1 TAB; Start 08/06/16 at 09:00 Polyethylene Glycol (Miralax) 8.5 gm DAILY PRN PO CONSTIPATION; Start 08/05/16 at 14:00 Loratadine (Claritin) 10 mg DAILY PO Last administered on 08/07/16 09:00; Admin Dose 10 MG; Start 08/06/16 at 09:00 Pantoprazole (Protonix Tab) 40 mg DAILY@06 PO Last administered on 08/07/16 05 :52; Admin Dose 40 MG; Start 08/06/16 at 06:00 Miscellaneous Information 1 ea NOTE XX ; Start 08/05/16 at 15:00 Glucose (Glutose) 15 gm Q15M PRN PO DECREASED GLUCOSE; Start 08/05/16 at 15:00 Glucose (Glutose) 22.5 gm Q15M PRN PO DECREASED GLUCOSE; Start 08/05/16 at 15: 00 Dextrose (D50w Syringe) 25 ml Q15M PRN IV DECREASED GLUCOSE; Start 08/05/16 at 15:00 Dextrose (D50w Syringe) 50 ml Q15M PRN IV DECREASED GLUCOSE; Start 08/05/16 at 15:00 Glucagon (Glucagen) 1 mg Q15M PRN IM DECREASED GLUCOSE; Start 08/05/16 at 15:00 Glucose (Glutose) 15 gm Q15M PRN BUCCAL DECREASED GLUCOSE; Start 08/05/16 at 15 :00 Hydromorphone HCl (Dilaudid) 0.5 mg Q6H PRN IV PAIN LEVEL 6-10; Start 08/05/16 at 20:00 Acetaminophen/ Hydrocodone Bitart ([place] (5/325)) 1 tab Q6H PRN PO PAIN LEVEL 6 -10 Last administered on 08/07/16 11:47; Admin Dose 1 TAB; Start 08/05/16 at 20 :00 Ondansetron HCl 4 mg 4 mg Q6H PRN IV NAUSEA AND/OR VOMITING; Start 08/05/16 at 20:00 Sodium Chloride (NS) 1,000 ml @ 50 mls/hr Q20H IV Last administered on 06:25; Admin Dose 50 MLS/HR; Start 08/05/16 at 19:53 Heparin Sodium (Porcine) (Heparin (5000 Units/0.5 ml)) 5,000 unit BID@07,19 SC Last administered on 08/07/16 06:01; Admin Dose 5,000 UNIT; Start 08/06/16 at 07:00 Diagnostic Test (Pha) (Accu-Chek) 1 ea 02 XX ; Start 08/06/16 at 13:00 CARMEN HERRERA August 07, 2016 13:30
== END 2016-08-07 15:40 | disposition home or self-care (01) | DRG 907 ==
LOC: E/R 10:02 → SDS 19:16 → MS1 22:43
PROVIDERS: ADMIT Hospitalist; ATTEND Hospitalist
PROC: 0WQFXZZ Repair Abdominal Wall, External Approach (ICD-10-PCS; principal; 2016-08-05 19:00)
DX: T81.31XA Disruption of external operation (surgical) wound, not elsewhere classified, initial encounter (principal); N18.6 End stage renal disease; I12.0 Hypertensive chronic kidney disease with stage 5 chronic kidney disease or end stage renal disease; E11.22 Type 2 diabetes mellitus with diabetic chronic kidney disease; K91.840 Postprocedural hemorrhage of a digestive system organ or structure following a digestive system procedure; I25.10 Atherosclerotic heart disease of native coronary artery without angina pectoris; E78.5 Hyperlipidemia, unspecified; D64.9 Anemia, unspecified; Z99.2 Dependence on renal dialysis; Z95.1 Presence of aortocoronary bypass graft; Z98.890 Other specified postprocedural states; Z88.3 Allergy status to other anti-infective agents; Z90.49 Acquired absence of other specified parts of digestive tract
CPT/HCPCS: 71010; 80048; 80061; 82962; 83036; 83735; 84100; 84443; 85025; 85610; 85730; 86850; 86900; 86901; 87086; 90935; 93005; 96374; 97162; J0690; J1170; J1644; J1815; J2270; J2405; J2543; J2710; J2765; J7030; J7040; J7999

== ENCOUNTER 2016-08-10 04:31 | Observation (INO) | payer OTHER ==
[~2016-08-10] VITALS: Ht 162.6 cm; Wt 66.5 kg
[2016-08-10] VITALS (17 sets, daily range): BP systolic 95–172; BP diastolic 44–71; PULSE 59–70; RESP 18–22; TEMP 98.2
[~2016-08-10 04:31] MED LIST changes: -CEFAZOLIN 1 GM INJ ONE; +HYDR-906 PO
--- NOTE | 2016-08-10 04:56 | ERA ---
ER Documentation Chief Complaint Date/Time DATE: 08/10/16 TIME: 04:54 Chief Complaint gen. body weakness, low blood sugar. due for dialysis today ROS All systems reviewed and are negative except as per history of present illness. Medications Home Meds Active Scripts Hydrocodone/Acetaminophen ([place] 5-325 Tablet) 1 Each Tablet, 1 EACH PO Q6, #20 TAB Prov:LESLIE DEMPSEY S. 08/07/16 Polyethylene Glycol* (Miralax*) 17 Gm Powd.pack, 8.5 GM PO DAILY Y for CONSTIPATION for 14 Days Prov:FLY ALVARADOManuel 07/29/16 Insulin Glargine* (Lantus*) 100 Unit/Ml Soln, 12 UNIT SC DAILY@09 for 30 Days, 2 Refills Prov:FLY ALVARADO. 07/29/16 Reported Medications Cholecalciferol (Vitamin D3) 400 Unit Capsule, 400 UNIT PO DAILY, CAP 07/20/16 Omeprazole* (Omeprazole*) 20 Mg Capsule.dr, 20 MG PO DAILY, #30 CAP 07/20/16 Docusate Sodium* (Docusate Sodium*) 100 Mg Capsule, 100 MG PO BID, #60 CAP 07/20/16 Folic Acid* (Folic Acid*) 1 Mg Tablet, 1 MG PO DAILY, TAB 07/20/16 Atorvastatin Calcium (Atorvastatin Calcium) 10 Mg Tablet, 10 MG PO QHS, #30 TAB 07/20/16 Gabapentin* (Gabapentin*) 100 Mg Capsule, 100 MG PO TID, #90 CAP 07/20/16 Acetaminophen* (Acetaminophen*) 500 MG Extra Strength Tablet, 1000 MG PO Q6H Y for PAIN AND OR ELEVATED TEMP, TAB 07/20/16 Glimepiride* (Glimepiride*) 1 Mg Tablet, 1 MG PO WITH BREAKFAST, TAB 07/20/16 Losartan Potassium* (Losartan Potassium*) 50 Mg Tablet, 50 MG PO BID, TAB 07/20/16 Carvedilol* (Carvedilol*) 6.25 Mg Tablet, 6.25 MG PO BID, #60 TAB 07/20/16 Levothyroxine Sodium* (Levothyroxine Sodium*) 150 Mcg Tablet, 150 MCG PO BEFORE BREAKFAST, #30 TAB 07/20/16 Fluticasone Propionate* (Fluticasone Propionate* Nasal) 50 Mcg/Lamar - 16 Gm Lamar.susp, 2 SPRAYS NASAL DAILY, #1 BOTTLE TO EACH NOSTRIL 07/20/16 Calcium Acetate* (Calcium Acetate*) 667 Mg Capsule, 3335 MG PO WITH MEALS, #90 CAP 07/20/16 Cetirizine Hcl* (Cetirizine Hcl*) 10 Mg Tablet, 10 MG PO DAILY, #30 TAB 07/20/16 Aspirin* (Aspirin* EC) 81 Mg Tablet.dr, 81 MG PO DAILY, TAB 07/20/16 Multivit/Ca Carb/B Cmplx/Fa* (Cindy-Matias*) 1 Tab Tab, 1 TAB PO DAILY, TAB 07/20/16 Allergies Allergies: Coded Allergies: vancomycin (Verified Allergy, Intermediate, 08/10/16) RED RASH WITH ITCHING. PMhx/Soc History of Surgery: Yes (explore lap due to mesenteric ischemia) Anesthesia Reaction: No Hx Neurological Disorder: Yes (nueropathy) Hx Respiratory Disorders: No Hx Cardiac Disorders: Yes (HTN. s/p CABG) Hx Psychiatric Problems: No Hx Miscellaneous Medical Probl: Yes (refer to note) Hx Alcohol Use: No Hx Substance Use: No Hx Tobacco Use: No Physical Exam Vitals Vital Signs Date Time Temp Pulse Resp B/P Pulse Ox O2 Delivery O2 Flow Rate FiO2 08/10/16 04:38 96.0 61 20 205/83 100 Physical Exam Const: [] Head: Atraumatic Eyes: Normal Conjunctiva ENT: Normal External Ears, Nose and Mouth. Neck: Full range of motion..~ No meningismus. Resp: Clear to auscultation bilaterally Cardio: Regular rate and rhythm, no murmurs Abd: Soft, non tender, non distended. Normal bowel sounds Skin: No petechiae or rashes Back: No midline or flank tenderness Ext: No cyanosis, or edema Neur: Awake and alert Psych: Normal Mood and Affect Results 24 hrs Laboratory Tests Test 08/10/16 04:45 Bedside Glucose 37mg/dL Current Medications Medications (Trade) Dose Ordered Sig/Arlene Route PRN Reason Start Time Stop Time Status Last Admin Dose Admin Dextrose (D50w Syringe) 50 ml ONCE ONCE IV 08/10/16 05:00 08/10/16 05:01 DC Glucagon (Glucagen) 1 mg ONCE STAT IM 08/10/16 05:01 08/10/16 05:03 TELAM 08/10/16 05:05 JAGDISH CRUZ MD August 10, 2016 04:56
[2016-08-10] MEDS ORDERED: DEXTROSE 50% 50 ML SYRINGE IV ONE (05:00)
[2016-08-10] MEDS ORDERED: GLUCAGON 1 MG INJ IM STA ×2 (05:01→05:52)
[2016-08-10] MEDS ORDERED: GLUCAGON 1 MG INJ IV STA (05:21)
--- NOTE | 2016-08-10 06:21 | RADRPT ---
PROCEDURE: XR, Chest. CLINICAL INDICATION: Cough. TECHNIQUE: AP chest COMPARISON: Chest, 07/29/2016. FINDINGS: There is no acute infiltrate in the lungs. No pleural effusion. The heart remains enlarged with mi ld pulmonary venous congestion. There is status post CABG. There is trace bilateral pleural effusi on. The left Perma-Cath remains in good position. IMPRESSION: 1. Mild cardiomegaly with mild pulmonary venous congestion. 2. Trace bilateral pleural effusion. RPTAT: GG .Martin Callahan MD, MD Date Time Electronically viewed and signed by .Martin Callahan MD, MD on 08/10/2016 06:20 .Y/
[2016-08-10 06:56] LABS: ADD SCAN DIFF NO
[2016-08-10 07:08] LABS: ABNORMAL IP MESSAGE 1; BASOPHILS % 0.2 % (0.0-2.0); EOSINOPHILS # 0.1 10^3/ul (0.0-0.5); HEMATOCRIT 36.3 % (37.0-47.0); HEMOGLOBIN 11.2 g/dl (12.0-16.0); LYMPHOCYTES # 0.6 10^3/ul (0.8-2.9); LYMPHOCYTES % 4.9 % (15.0-51.0); MEAN CORPUSCULAR HGB CONC 30.9 g/dl (32.0-37.0); MEAN CORPUSCULAR VOLUME 103.7 fl (82.0-101.0); MEAN PLATELET VOLUME 10.5 fl (7.4-10.4); MONOCYTE # 1.2 10^3/ul (0.3-0.9); MONOCYTES % 10.2 % (0.0-11.0); NEUTROPHIL # 9.7 10^3/ul (1.6-7.5); NEUTROPHILS % 82.9 % (39.0-77.0); PLATELET COUNT 197 10^3/UL (140-415); RED CELL DISTRIBUTION WIDTH 19.3 % (11.5-14.5); WHITE BLOOD COUNT 11.7 10^3/ul (4.8-10.8)
[2016-08-10 07:28] LABS: INR 1.9; PT RATIO 1.7
[2016-08-10 07:29] LABS: PARTIAL THROMBOPLASTIN TIME 51.5 Sec (25.0-35.0)
[2016-08-10 07:32] LABS: ALANINE AMINOTRANSFERASE 15 IU/L (13-69); ALBUMIN 2.5 g/dl (3.3-4.9); ALBUMIN/GLOBULIN RATIO 0.58; ALKALINE PHOSPHATASE 125 IU/L (42-121); ANION GAP 10 (8-16); ASPARTATE AMINO TRANSFERASE 24 IU/L (15-46); BLOOD UREA NITROGEN 59 mg/dl (7-20); CALCIUM 8.4 mg/dl (8.4-10.2); CARBON DIOXIDE 19 mmol/L (21-31); CHLORIDE 108 mmol/L (97-110); CREATININE 8.21 mg/dl (0.44-1.00); GLUCOSE 192 mg/dl (70-220); POTASSIUM 4.6 mmol/L (3.5-5.1); SODIUM 132 mmol/L (135-144); TOTAL PROTEIN 6.8 g/dl (6.1-8.1)
[2016-08-10 07:48] LABS: TROPONIN-I < 0.012 ng/ml (0.00-0.12)
[2016-08-10] MEDS ORDERED: LIDOCAINE 1% (MPF) 5 ML VIAL SC ONE (08:30)
--- NOTE | 2016-08-10 09:22 | ERA ---
ER Documentation Chief Complaint Date/Time DATE: 08/10/16 TIME: 09:19 Chief Complaint gen. body weakness, low blood sugar. due for dialysis today HPI This is a 56-year-old female comes in with a generalized body weakness was found to have low blood sugar by EMS. Patient is due for dialysis today. Patient has had a complicated course over the past 2-3 weeks. Diagnosed with mesenteric ischemia few weeks ago with open bowel resection. Had wound dehiscence last week. Was recently discharged. Comes back in today for recurrent hypoglycemia. MAR notes the patient is on both insulin and oral sulfonylurea for sugar control ROS All systems reviewed and are negative except as per history of present illness. Medications Home Meds Active Scripts Hydrocodone/Acetaminophen ([place] 5-325 Tablet) 1 Each Tablet, 1 EACH PO Q6, #20 TAB Prov:LESLIE DEMPSEY. 08/07/16 Polyethylene Glycol* (Miralax*) 17 Gm Powd.pack, 8.5 GM PO DAILY Y for CONSTIPATION for 14 Days Prov:FLY ALVARADO 07/29/16 Insulin Glargine* (Lantus*) 100 Unit/Ml Soln, 12 UNIT SC DAILY@09 for 30 Days, 2 Refills Prov:FLY ALVARADO 07/29/16 Reported Medications Cholecalciferol (Vitamin D3) 400 Unit Capsule, 400 UNIT PO DAILY, CAP 07/20/16 Omeprazole* (Omeprazole*) 20 Mg Capsule.dr, 20 MG PO DAILY, #30 CAP 07/20/16 Docusate Sodium* (Docusate Sodium*) 100 Mg Capsule, 100 MG PO BID, #60 CAP 07/20/16 Folic Acid* (Folic Acid*) 1 Mg Tablet, 1 MG PO DAILY, TAB 07/20/16 Atorvastatin Calcium (Atorvastatin Calcium) 10 Mg Tablet, 10 MG PO QHS, #30 TAB 07/20/16 Gabapentin* (Gabapentin*) 100 Mg Capsule, 100 MG PO TID, #90 CAP 07/20/16 Acetaminophen* (Acetaminophen*) 500 MG Extra Strength Tablet, 1000 MG PO Q6H Y for PAIN AND OR ELEVATED TEMP, TAB 07/20/16 Glimepiride* (Glimepiride*) 1 Mg Tablet, 1 MG PO WITH BREAKFAST, TAB 07/20/16 Losartan Potassium* (Losartan Potassium*) 50 Mg Tablet, 50 MG PO BID, TAB 07/20/16 Carvedilol* (Carvedilol*) 6.25 Mg Tablet, 6.25 MG PO BID, #60 TAB 07/20/16 Levothyroxine Sodium* (Levothyroxine Sodium*) 150 Mcg Tablet, 150 MCG PO BEFORE BREAKFAST, #30 TAB 07/20/16 Fluticasone Propionate* (Fluticasone Propionate* Nasal) 50 Mcg/[place] - 16 Gm [place].susp, 2 SPRAYS NASAL DAILY, #1 BOTTLE TO EACH NOSTRIL 07/20/16 Calcium Acetate* (Calcium Acetate*) 667 Mg Capsule, 3335 MG PO WITH MEALS, #90 CAP 07/20/16 Cetirizine Hcl* (Cetirizine Hcl*) 10 Mg Tablet, 10 MG PO DAILY, #30 TAB 07/20/16 Aspirin* (Aspirin* EC) 81 Mg Tablet.dr, 81 MG PO DAILY, TAB 07/20/16 Multivit/Ca Carb/B Cmplx/Fa* (Cindy-Matias*) 1 Tab Tab, 1 TAB PO DAILY, TAB 07/20/16 Allergies Allergies: Coded Allergies: vancomycin (Verified Allergy, Intermediate, 08/10/16) RED RASH WITH ITCHING. PMhx/Soc History of Surgery: Yes (bowel resection, CABG, back) Anesthesia Reaction: No Hx Neurological Disorder: Yes (neuropathy) Hx Respiratory Disorders: Yes (hypoxic resp failure) Hx Cardiac Disorders: Yes (HTN. s/p CABG) Hx Psychiatric Problems: No Hx Miscellaneous Medical Probl: Yes (DM, recent dehisence s/p bowel resections , ESRD-dialysis) Hx Alcohol Use: No Hx Substance Use: No Hx Tobacco Use: No Smoking Status: Unknown if ever smoked Physical Exam Vitals Vital Signs Date Time Temp Pulse Resp B/P Pulse Ox O2 Delivery O2 Flow Rate FiO2 08/10/16 09:14 98.2 60 15 170/60 100 Room Air 08/10/16 07:43 61 15 165/55 99 Room Air 08/10/16 06:13 60 17 177/117 100 Room Air 08/10/16 04:38 96.0 61 20 205/83 100 Physical Exam Const: [] Head: Atraumatic Eyes: Normal Conjunctiva ENT: Normal External Ears, Nose and Mouth. Neck: Full range of motion..~ No meningismus. Resp: Clear to auscultation bilaterally Cardio: Regular rate and rhythm, no murmurs Abd: Soft, non tender, non distended. Normal bowel sounds Skin: No petechiae or rashes Back: No midline or flank tenderness Ext: No cyanosis, or edema Neur: Awake and alert Psych: Normal Mood and Affect Result Diagram: 08/10/16 0640 08/10/16 0640 Results 24 hrs Laboratory Tests Test 08/10/16 04:45 08/10/16 05:21 08/10/16 05:43 08/10/16 06:40 Bedside Glucose 37mg/dL 56mg/dL 63mg/dL White Blood Count 11.710^3/ul Red Blood Count 3.5010^6/ul Hemoglobin 11.2g/dl Hematocrit 36.3% Mean Corpuscular Volume 103.7fl Mean Corpuscular Hemoglobin 32.0pg Mean Corpuscular Hemoglobin Concent 30.9g/dl Red Cell Distribution Width 19.3% Platelet Count 21526^3/UL Mean Platelet Volume 10.5fl Neutrophils % 82.9% Lymphocytes % 4.9% Monocytes % 10.2% Eosinophils % 1.0% Basophils % 0.2% Nucleated Red Blood Cells % 0.0/100WBC Neutrophils # 9.710^3/ul Lymphocytes # 0.610^3/ul Monocytes # 1.210^3/ul Eosinophils # 0.110^3/ul Basophils # 0.010^3/ul Nucleated Red Blood Cells # 0.010^3/ul Prothrombin Time 22.0Sec Prothrombin Time Ratio 1.7 INR International Normalized Ratio 1.90 Activated Partial Thromboplast Time 51.5Sec Sodium Level 132mmol/L Potassium Level 4.6mmol/L Chloride Level 108mmol/L Carbon Dioxide Level 19mmol/L Anion Gap 10 Blood Urea Nitrogen 59mg/dl Creatinine 8.21mg/dl Glucose Level 192mg/dl Calcium Level 8.4mg/dl Total Bilirubin 0.0mg/dl Direct Bilirubin 0.00mg/dl Indirect Bilirubin 0.0mg/dl Aspartate Amino Transf (AST/SGOT) 24IU/L Alanine Aminotransferase (ALT/SGPT) 15IU/L Alkaline Phosphatase 125IU/L Troponin I < 0.012ng/ml Total Protein 6.8g/dl Albumin 2.5g/dl Globulin 4.30g/dl Albumin/Globulin Ratio 0.58 Test 08/10/16 06:48 08/10/16 07:32 Lactic Acid Level 0.9mmol/L Bedside Glucose 171mg/dL Current Medications Medications (Trade) Dose Ordered Sig/Arlene Route PRN Reason Start Time Stop Time Status Last Admin Dose Admin Dextrose (D50w Syringe) 50 ml ONCE ONCE IV 08/10/16 05:00 08/10/16 05:01 DC 08/10/16 05:55 Glucagon (Glucagen) 1 mg ONCE STAT IM 08/10/16 05:01 08/10/16 05:03 DC 08/10/16 05:05 Glucagon (Glucagen) 1 mg ONCE STAT IV 08/10/16 05:21 08/10/16 05:22 DC 08/10/16 05:25 Glucagon (Glucagen) 1 mg ONCE STAT IM 08/10/16 05:52 08/10/16 05:53 DC 08/10/16 05:55 Lidocaine (Xylocaine 1% (Mpf)) 5 ml ONCE ONCE SC 08/10/16 08:30 08/10/16 08:31 DC Procedures/MDM EKG: Rate/Rhythm: [Normal Sinus Rhythm] QRS, ST, T-waves: [No changes consistent w/ acute ischemia] Impression: [No evidence of ischemia or arrhythmia] Medical decision-making: This is a 56-year-old female comes in with complaints of weakness and hypoglycemia. Given that she is on both oral and insulin, I feel patient to be admitted for evaluation and management for recurrent hypoglycemia. Patient will be admitted to hospitalist. Departure Diagnosis: Primary Impression: Acute weakness Additional Impression: Hypoglycemia Condition: Serious VERO CHENG August 10, 2016 09:22
[2016-08-10] MEDS ORDERED: HYDROCODONE/APAP (5/325) TAB PO PRN (11:00)
[2016-08-10] MEDS ORDERED: hydrALAzine 20 MG INJ IV PRN (11:00)
[2016-08-10] MEDS ORDERED: DEXTROSE 5% 1,000 ML IV SCH (11:00)
[2016-08-10] MEDS ORDERED: POLYETHYLENE GLYCOL 17 GM PACKET PO PRN (11:00)
[2016-08-10] MEDS ORDERED: LORAZEPAM 2 MG INJ IV PRN (11:00)
[2016-08-10] MEDS ORDERED: ACETAMINOPHEN 325 MG TAB PO PRN (11:00)
[2016-08-10] MEDS ORDERED: BISACODYL (EC) 5 MG TAB PO PRN (11:00)
[2016-08-10] MEDS ORDERED: NACL 0.9% 3 ML SYG IV SCH (11:00)
[2016-08-10] MEDS ORDERED: MAGNESIUM HYDROXIDE 30ML CUP PO PRN (11:00)
[2016-08-10] MEDS ORDERED: ONDANSETRON 4 MG INJ IV PRN (11:00)
[2016-08-10] MEDS ORDERED: morphine 2 MG INJ IV PRN (11:00)
[2016-08-10] MEDS ORDERED: LACTULOSE ENEMA 1,000 ML BTL PR ONE (13:00)
[2016-08-10] MEDS: CALCIUM ACETATE 667 MG CAP PO SCH ×2 (13:09→17:48)
[2016-08-10] MEDS: GABAPENTIN 100 MG CAP PO SCH ×2 (13:09→21:22)
[2016-08-10] MEDS: POLYETHYLENE GLYCOL 17 GM PACKET PO SCH ×2 (13:09→21:22)
[2016-08-10] MEDS: OCTREOTIDE 50 MCG INJ SC SCH ×2 (13:30→21:31)
--- NOTE | 2016-08-10 14:29 | HP ---
DATE OF ADMISSION: 08/10/2016 TIME OF EVALUATION: 11:00 a.m. REASON FOR ADMISSION: Generalized body weakness, diaphoresis, low blood sugars. CONSULTATIONS: Dr. Christian Weaver, Nephrology HISTORY OF PRESENT ILLNESS: This is a 56-year-old female with a past medical history of essential hypertension, type 2 diabetes mellitus,and end-stage renal disease on hemodialysis, who came to the emergency room because of multiple complaints including generalized body weakness and diaphoresis. The patient was scheduled for hemodialysis today. The patient was in the process of being picked up for hemodialysis. Meanwhile, the patient was noticed to have low blood sugars. As per the patient's family, the patient was having low blood sugars for the past 2 days. The patient takes glimepiride and insulin at home. In the emergency room, the patient was noticed to have a POC blood glucose of 37. The patient was treated with IM Glucagon x4 along with IV dextrose in the emergency room with improvement in the patient's blood sugars. The patient had a chest x-ray done that showed mild cardiomegaly with pulmonary vascular congestion and trace bilateral pleural effusions. The patient was recently admitted for mesenteric ischemia in the beginning of July, and the patient had exploratory laparotomy and bowel resection for the same. The patient was also readmitted on 08/05/2016 because of postoperative wound dehiscence, and the patient was discharged home on 08/07/2016. At that time, the patient had a closure procedure done by the surgery team on 2016. PAST MEDICAL HISTORY: Essential hypertension, type 2 diabetes mellitus, end- stage renal disease on hemodialysis, hypothyroidism. PAST SURGICAL HISTORY: Exploratory laparotomy with bowel resection for mesenteric ischemia, CABG. HOME MEDICATIONS: 1. Cetirizine 10 mg p.o. daily. 2. Atorvastatin 10 mg p.o. at bedtime. 3. Coreg 6.25 mg p.o. b.i.d. 4. Losartan 50 mg p.o. b.i.d. 5. Aspirin 81 mg p.o. daily. 6. Gabapentin 100 mg p.o. t.i.d. 7. Glimepiride 1 mg p.o. at breakfast. 8. Lantus 12 units subcutaneously daily. 9. Synthroid 150 mcg p.o. with breakfast. ALLERGIES: VANCOMYCIN. SOCIAL HISTORY: The patient lives at home. No recent history of tobacco, alcohol, or illicit drug use. REVIEW OF SYSTEMS: A 12-point review of systems was obtained and review of systems was negative other than what is mentioned in history of present illness. PHYSICAL EXAMINATION: VITAL SIGNS: Temperature 98.3, pulse rate 65, respiratory rate 22, blood pressure 161/71, oxygen saturation 100% on room air. GENERAL: This is a 56-year-old female patient lying in bed in no apparent distress. HEENT: Head normocephalic and atraumatic. Eyes: Anicteric sclerae. Conjunctivae clear. ENT: Nasal septum is midline. Oral mucosa is dry. NECK: Supple. No JVD noticed. RESPIRATORY: Bilaterally diminished breath sounds. A few fine rales heard at the bases. No use of accessory muscles of respiration. CARDIAC: Regular rate and rhythm. S1, S2 heard. ABDOMEN: Soft. The patient has a midline incision with greyson over it with some erythema and minimal fluids. Tenderness in the josue-incisional. Bowel sounds hypoactive in all 4 quadrants. GENITOURINARY: Deferred. EXTREMITIES: No cyanosis, no clubbing, no edema. Peripheral pulses palpable. NEUROLOGIC: The patient is awake, alert, and oriented. Cranial nerves are grossly intact. LABORATORY AND DIAGNOSTIC DATA: WBC 11.7, hemoglobin 11.2, hematocrit 36.3, platelet count 197. Sodium 132, potassium 4.6, chloride 108, carbon dioxide 19 , anion gap 10, BUN 15, creatinine 8.21, glucose 192, calcium 8.4. PT 22.0, INR 1.90, aPTT 51.5. Chest x-ray: Mild cardiomegaly with mild pulmonary venous congestion. Trace bilateral pleural effusion. 12-lead EKG: Sinus bradycardia. IMPRESSION: This is a 56-year-old female with multiple comorbidities who came to the emergency room with multiple complaints, who was found to have evidence of recurrent hypoglycemia. She will be admitted here for further treatment and evaluation. ASSESSMENT & PLAN: 1. Hypoglycemia. Most probably sulfonylurea-induced hyperglycemia. The patient will be started on octreotide and IV dextrose. The patient's sulfonylureas will be put on hold. Hemoglobin A1c will be obtained to evaluate the blood glucose control over the past few weeks. The patient's insulin will be put on hold at this time. 2. End-stage renal disease, on hemodialysis. Nephrology consult will be obtained. The patient is scheduled to get hemodialysis today. The patient has no evidence of any hyperkalemia at this time. 3. Essential hypertension. The patient will be started on routine antihypertensives. The patient will also be started on p.r.n. antihypertensives for any systolic blood pressure readings greater than 160 mmHg. 4. Recent mesenteric ischemia status post bowel resection with postoperative dehiscence status post repair on 08/07/2016. We will monitor the patient's wound. Wound care consult will be ordered. The patient will be started on antibiotics since the patient has some josue-incisional erythema and minimal leukocytosis. 5. Constipation. The patient will be started on a bowel regimen. The patient will also be started on p.r.n. laxatives. PLAN. The patient will be admitted to inpatient telemetry floor. The patient will be started on a carbohydrate controlled renal diet. The patient will be started on DVT prophylaxis and gastrointestinal prophylaxis. The patient will remain a FULL CODE. Activities will be as tolerated. The rest of the patient's management will be based on the clinical course, the results of diagnostic studies, and inputs from the consultants. Based on the patient's clinical presentation, she most probably requires at least 2 midnights' stay for further management and evaluation of her clinical presentation. The case and management of this patient was fully discussed with Dr. Alvarado. SCOOTER ALVARADO MD, AM/LEXI Conf#: [id number] DID#: [id number] MTDD
--- NOTE | 2016-08-10 17:44 | CONS ---
Date/Time of Note Date/Time of Note DATE: 08/10/16 TIME: 17:43 Assessment/Plan Assessment/Plan Chief Complaint/Hosp Course [id number] a/p esrd htn dm cad abd wound plan hd Problems: Consultation Date/Type/Reason Admit Date/Time August 10, 2016 at 08:42 Initial Consult Date Type of Consultation: renal 24 HR Interval Summary Constitutional: other (abd pain) Exam/Review of Systems Vital Signs Vitals Vital Signs Date Time Temp Pulse Resp B/P Pulse Ox O2 Delivery O2 Flow Rate FiO2 08/10/16 16:40 68 08/10/16 16:20 19 08/10/16 15:22 98.7 95/48 96 08/10/16 10:35 Room Air Exam Neck: supple Respiratory: clear to auscultation Cardiovascular: regular rate and rhythm Gastrointestinal: bowel sounds (pos), soft Extremities: normal pulses Neurological: [employer]IST II-XII intact Results Result Diagram: 08/10/16 0640 08/10/16 0640 Results 24 hrs Laboratory Tests Test 08/10/16 04:45 08/10/16 05:21 08/10/16 05:43 08/10/16 06:30 Bedside Glucose 37 *L 56 L 63 L Hemoglobin A1c 4.8 Test 08/10/16 06:40 08/10/16 06:48 08/10/16 07:32 08/10/16 09:18 White Blood Count 11.7 #H Red Blood Count 3.50 L Hemoglobin 11.2 L Hematocrit 36.3 L Mean Corpuscular Volume 103.7 H Mean Corpuscular Hemoglobin 32.0 Mean Corpuscular Hemoglobin Concent 30.9 L Red Cell Distribution Width 19.3 H Platelet Count 197 Mean Platelet Volume 10.5 H Neutrophils % 82.9 H Lymphocytes % 4.9 L Monocytes % 10.2 Eosinophils % 1.0 Basophils % 0.2 Nucleated Red Blood Cells % 0.0 Neutrophils # 9.7 H Lymphocytes # 0.6 L Monocytes # 1.2 H Eosinophils # 0.1 Basophils # 0.0 Nucleated Red Blood Cells # 0.0 Prothrombin Time 22.0 #H Prothrombin Time Ratio 1.7 INR International Normalized Ratio 1.90 Activated Partial Thromboplast Time 51.5 H Sodium Level 132 L Potassium Level 4.6 Chloride Level 108 Carbon Dioxide Level 19 L Anion Gap 10 Blood Urea Nitrogen 59 H Creatinine 8.21 H Glucose Level 192 Calcium Level 8.4 Total Bilirubin 0.0 L Direct Bilirubin 0.00 Indirect Bilirubin 0.0 Aspartate Amino Transf (AST/SGOT) 24 Alanine Aminotransferase (ALT/SGPT) 15 Alkaline Phosphatase 125 H Troponin I < 0.012 Total Protein 6.8 Albumin 2.5 L Globulin 4.30 H Albumin/Globulin Ratio 0.58 Thyroid Stimulating Hormone (TSH) 4.750 H Free Thyroxine 1.19 Lactic Acid Level 0.9 1.1 Bedside Glucose 171 Test 08/10/16 12:20 08/10/16 13:40 08/10/16 15:20 Bedside Glucose 88 112 Lactic Acid Level 1.3 Medications Medications Current Medications Lorazepam (Ativan) 0.5 mg Q6H PRN IV ANXIETY; Start 08/10/16 at 11:00 Ondansetron HCl (Zofran Inj) 4 mg Q6H PRN IV NAUSEA AND/OR VOMITING; Start at 11:00 Acetaminophen (Tylenol Tab) 650 mg Q6H PRN PO PAIN LEVEL 1-3 OR FEVER; Start at 11:00 Acetaminophen/ Hydrocodone Bitart ([place] (5/325)) 1 tab Q6H PRN PO PAIN LEVEL 4 -6; Start 08/10/16 at 11:00 Morphine Sulfate (morphine) 2 mg Q4H PRN IV PAIN LEVEL 7-10; Start 08/10/16 at 11:00 Magnesium Hydroxide (Milk Of Mag) 30 ml DAILY PRN PO CONSTIPATION; Start at 11:00 Bisacodyl (Dulcolax) 5 mg DAILY PRN PO CONSTIPATION; Start 08/10/16 at 11:00 Famotidine (Pepcid) 20 mg HS PO ; Start 08/10/16 at 21:00 Heparin Sodium (Porcine) (Heparin (5000 Units/0.5 ml)) 5,000 unit Q12 SC ; Start 08/10/16 at 21:00 Hydralazine HCl (Apresoline) 10 mg Q6H PRN IV SBP>160; Start 08/10/16 at 11:00 Aspirin (Halfprin) 81 mg DAILY PO ; Start 08/11/16 at 09:00 Atorvastatin Calcium (Lipitor) 10 mg QHS PO ; Start 08/10/16 at 21:00 Carvedilol (Coreg) 6.25 mg BID PO ; Start 08/10/16 at 21:00 Cholecalciferol (Vitamin D) 400 units DAILY PO ; Start 08/11/16 at 09:00 Docusate Sodium (Colace) 100 mg BID PO ; Start 08/10/16 at 21:00 Folic Acid (Folic Acid) 1 mg DAILY PO ; Start 08/11/16 at 09:00 Gabapentin (Neurontin) 100 mg TID PO Last administered on 08/10/16 13:09; Admin Dose 100 MG; Start 08/10/16 at 13:00 Losartan Potassium (Cozaar) 50 mg BID PO ; Start 08/10/16 at 21:00 Multivit/Ca Carb/ B Cmplx/FA/Prenat (Cindy-Matias) 1 tab DAILY PO ; Start 08/11/16 at 09:00 Octreotide Acetate 50 mcg 50 mcg TID SC Last administered on 08/10/16 13:30; Admin Dose 50 MCG; Start 08/10/16 at 13:00; Stop 08/11/16 at 13:00 Dextrose (D5W) 1,000 ml @ 50 mls/hr Q20H IV Last administered on 08/10/16 11: 00; Admin Dose 50 MLS/HR; Start 08/10/16 at 11:00; Stop 08/11/16 at 06:59 Polyethylene Glycol (Miralax) 17 gm BID PO Last administered on 08/10/16 13:09 ; Admin Dose 17 GM; Start 08/10/16 at 11:00 Cephalexin (Keflex) 500 mg Q8 PO ; Start 08/10/16 at 14:00 HORACIO PERERA MD August 10, 2016 17:44
[2016-08-10] MEDS: CEPHALEXIN 500 MG CAP PO SCH ×2 (17:47→21:22)
--- NOTE | 2016-08-10 18:42 | CONS ---
DATE OF ADMISSION: 08/10/2016 DATE OF CONSULTATION: 08/10/2016 TYPE OF CONSULTATION: Nephrology. Thank you Pranav Mirza and Dr. Wall for kindly asking me to see this patient in nephrology consultation. HISTORY OF PRESENT ILLNESS: Ariana Reynolds is a 56-year-old female with hypertension, diabetes mellitus, ESRD. The patient was recently discharged from this hospital. The patient was recently admitted from this hospital with a diagnosis of mesenteric ischemia and the patient's abdominal pain secondary to inferior _surgical wound being with a loop of small bowel, ESRD, hypertension, diabetes mellitus, mesenteric ischemia, status post exploratory laparotomy, history of hypoxic respiratory failure, history of septic shock. The patient comes with abdominal pain and uncontrolled hyperglycemia. PAST MEDICAL HISTORY: As mentioned above, diabetes, hypertension, CAD, CABG, history of multiple AV graft revision thrombectomy. ALLERGIES: PENICILLIN. SOCIAL HISTORY: Negative. FAMILY HISTORY: Negative. MEDICATION HISTORY: The patient is on: 1. Tylenol. 2. Aspirin. 3. Lipitor. 4. PhosLo. 5. Coreg. 6. Zyrtec. 7. Vitamin D. 8. Docusate sodium. 9. Fluticasone. 10. Folic acid. 11. Gabapentin. 12. Amaryl. 13. Hydrocodone. 14. Insulin. 15. Levothyroxine. 16. Losartan. 17. Multivitamins. 18. Omeprazole. REVIEW OF SYSTEMS: HEENT: Unremarkable. RESPIRATORY: Unremarkable. CARDIOVASCULAR: Unremarkable. ABDOMEN: Abdominal pain and redness of the abdominal wound sites. EXTREMITIES: Unremarkable. CENTRAL NERVOUS SYSTEM: Unremarkable. PHYSICAL EXAMINATION: GENERAL: The patient is awake and alert. VITAL SIGNS: Pulse 64, blood pressure 95/48. HEAD: Atraumatic, normocephalic. Pupils are equal, reactive. No pallor of conjunctival, no icterus. NECK: Supple. LUNGS: Clear. CARDIOVASCULAR: S1, S2 are normal. ABDOMEN: Soft, distended. Bowel sounds positive. Open wound noted. EXTREMITIES: There is no cyanosis, clubbing. Edema positive. CENTRAL NERVOUS SYSTEM: The patient is awake, alert, no focal deficit. LABORATORY DATA: WBC 11.7, hematocrit 36.3, platelet count of 197. The patient 's sodium 131, potassium 4.6. Chest x-ray: Mild cardiomegaly with mild pulmonary congestion. Trace bilateral pleural effusion. IMPRESSION: 1. Patient has end-stage renal disease. 2. Hypertension. 3. Diabetes mellitus. 4. Coronary artery disease. 5. History of coronary artery bypass graft. 6. History of mesenteric ischemia, status post _ 7. Hypoglycemia. 8. Per current chart, patient has a history of abdominal wound and sepsis with septic shock. 9. History of anemia. 10. History of multiple renal vein thrombectomies. PLAN: Continue the patient on current Aspirin, vitamin D3, folic acid, multiple vitamins, levothyroxine, Pepcid, Heparin, Lipitor, Coreg, Docusate sodium, Losartan, Keflex, gabapentin, octreotide, Sandostatin. The patient is also on [place], morphine. The patient will have hemodialysis ordered. The patient's laboratory data will be followed. Dictated By: HORACIO PERERA MD BS/LEXI Conf#: [id number] DID#: [id number] MTDD
[2016-08-10] MEDS: DOCUSATE SODIUM 100 MG CAP PO SCH (21:22)
[2016-08-10] MEDS: ATORVASTATIN 10 MG TAB PO SCH (21:22)
[2016-08-10] MEDS: FAMOTIDINE 20 MG TAB PO SCH (21:22)
[2016-08-10] MEDS: LOSARTAN 50 MG TAB PO SCH (21:27)
[2016-08-10] MEDS: HEPARIN 5,000 UNIT/0.5 ML VIAL SC SCH (21:30)
[2016-08-11] VITALS (13 sets, daily range): BP systolic 131–174; BP diastolic 53–78; PULSE 59–77; RESP 16–21
--- NOTE | 2016-08-11 02:28 | CONS ---
DATE OF ADMISSION: 08/10/2016 DATE OF CONSULTATION: 08/10/2016 TYPE OF CONSULTATION: Infectious Disease. REASON FOR CONSULTATION: Antibiotic management. HISTORY OF PRESENT ILLNESS: Ariana Lou is a 56-year-old female who was admi tted with generalized body weakness and is being seen for antibiotic management. Her past problems include: 1. Essential hypertension. 2. Adult-onset diabetes mellitus. 3. End-stage renal disease on hemodialysis. 4. Hypothyroidism. 5. Exploratory laparotomy with bowel resection for mesenteric ischemia. 6. Coronary artery bypass graft. Patient comes to the emergency room with multiple complaints, including generalized body weakness an d diaphoresis. She is scheduled for hemodialysis today. She was noted to have low blood sugars. S he takes insulin and glimepiride at home. Her blood glucose in the emergency room was 37. She rece ived IM Glucagon x4 with IV dextrose with improvement in her blood sugars. Chest x-ray showed cardi omegaly with pulmonary vascular congestion and trace bilateral pleural effusions. She was recently admitted for mesenteric ischemia in the beginning of July and had an exploratory laparotomy and bowel resection for the same. The patient was readmitted on 08/05 because of postoperative wound dehisce nce and was discharged on 08/07. At that time, she had a closure procedure done by the surgical tea m on 08/05. On admission, her white count was 11.7, H and H 11.2 and 36.3, platelet count 197. BUN and creatinine are 15/8.21. Glucose random was 192 after treatment. Chest x-ray is as noted. PAST MEDICAL HISTORY: Operations as outlined. FAMILY HISTORY: Noncontributory. SOCIAL HISTORY: She lives at home. She does not smoke, drink or abuse drugs. ALLERGIES: VANCOMYCIN. MEDICATIONS: Per chart. REVIEW OF SYSTEMS: As per HPI. PHYSICAL EXAMINATION: GENERAL: The patient is a well-developed, well-nourished female who is lying in bed in no acute dis tress. VITAL SIGNS: Stable. She is afebrile. SKIN: Without generalized rash. HEENT: Within normal limits. NECK: Supple. LYMPH NODES: None palpable. CHEST: Decreased breath sounds at the bases. HEART: Without murmur or gallop. ABDOMEN: Soft, nontender, without organosplenomegaly or masses. She has a midline incision with st aples and some erythema and minimal fluid. Tenderness in the josue-incisional area. Bowel sounds ar e hypoactive. EXTREMITIES: Without cyanosis, clubbing, or edema. RECTAL AND GENITAL: Deferred. NEUROLOGIC: No focal neurological abnormalities. IMPRESSION AND PLAN: The patient is a 56-year-old female with numerous problems who comes in to the emergency room with hypoglycemia, end-stage renal disease, history of recent mesenteric insufficien cy, and ischemia, status post resection. She has some cellulitis surrounding the wound. The patien t was started on cephalexin. We will add vancomycin to her regimen. She was seen in consultation b y Dr. Weaver in nephrology consultation. I will dictate my findings to the hospitalist and to Dr. Carol villatoro. Dictated By: REGINALD WAN MD, JD/LEXI Conf#: [id number] DID#: [id number]
[2016-08-11] MEDS: CLINDAMYCIN 900 MG/D5W (PMX) 50 ML IVPB SCH ×3 (05:39→22:07)
[2016-08-11 07:31] LABS: ADD SCAN DIFF NO
[2016-08-11 07:46] LABS: BASOPHILS % 0.4 % (0.0-2.0); EOSINOPHILS # 0.2 10^3/ul (0.0-0.5); HEMATOCRIT 32.6 % (37.0-47.0); HEMOGLOBIN 9.7 g/dl (12.0-16.0); LYMPHOCYTES # 0.8 10^3/ul (0.8-2.9); LYMPHOCYTES % 13.7 % (15.0-51.0); MEAN CORPUSCULAR HGB CONC 29.8 g/dl (32.0-37.0); MEAN CORPUSCULAR VOLUME 104.2 fl (82.0-101.0); MEAN PLATELET VOLUME 10.6 fl (7.4-10.4); MONOCYTE # 0.9 10^3/ul (0.3-0.9); MONOCYTES % 15.6 % (0.0-11.0); NEUTROPHIL # 3.8 10^3/ul (1.6-7.5); NEUTROPHILS % 66.6 % (39.0-77.0); PLATELET COUNT 178 10^3/UL (140-415); RED BLOOD COUNT 3.13 10^6/ul (4.20-5.40); RED CELL DISTRIBUTION WIDTH 19.4 % (11.5-14.5); WHITE BLOOD COUNT 5.6 10^3/ul (4.8-10.8)
[2016-08-11 08:04] LABS: ALBUMIN 2.8 g/dl (3.3-4.9)
[2016-08-11 08:05] LABS: POTASSIUM 4.7 mmol/L (3.5-5.1)
[2016-08-11 08:07] LABS: ALBUMIN/GLOBULIN RATIO 0.7; CREATININE 4.95 mg/dl (0.44-1.00); TOTAL PROTEIN 6.8 g/dl (6.1-8.1)
[2016-08-11 08:08] LABS: CHOL/HDL RATIO 4.7 RATIO; MAGNESIUM 2.1 mg/dl (1.7-2.5); PHOSPHORUS 2.7 mg/dl (2.5-4.9)
[2016-08-11] MEDS: LEVOTHYROXINE 150 MCG TAB PO SCH (08:33)
[2016-08-11] MEDS: CALCIUM ACETATE 667 MG CAP PO SCH ×3 (08:34→17:49)
[2016-08-11] MEDS: DOCUSATE SODIUM 100 MG CAP PO SCH ×2 (09:00→20:25)
[2016-08-11] MEDS: POLYETHYLENE GLYCOL 17 GM PACKET PO SCH ×2 (09:00→20:42)
[2016-08-11] MEDS: GABAPENTIN 100 MG CAP PO SCH ×3 (09:58→20:25)
[2016-08-11] MEDS: MULTIVIT/CA CARB/B CMPLX/FA TAB PO SCH (09:58)
[2016-08-11] MEDS: CHOLECALCIFEROL 400 UNITS TAB PO SCH (09:59)
[2016-08-11] MEDS: ASPIRIN (EC) 81 MG TAB PO SCH (09:59)
[2016-08-11] MEDS: FOLIC ACID 1 MG TAB PO SCH (09:59)
[2016-08-11] MEDS: LOSARTAN 50 MG TAB PO SCH ×2 (10:00→20:26)
[2016-08-11] MEDS: OCTREOTIDE 50 MCG INJ SC SCH ×2 (10:01→13:50)
[2016-08-11] MEDS: HEPARIN 5,000 UNIT/0.5 ML VIAL SC SCH ×2 (10:19→20:30)
[2016-08-11] MEDS ORDERED: GLUCAGON 1 MG INJ IM PRN (10:30)
[2016-08-11] MEDS ORDERED: DEXTROSE 50% 50 ML SYRINGE IV PRN ×2 (10:30)
[2016-08-11] MEDS ORDERED: GLUCOSE GEL 15 GRAM TUBE PO PRN ×2 (10:30)
[2016-08-11] MEDS ORDERED: GLUCOSE GEL 15 GRAM TUBE BUCCAL PRN (10:30)
--- NOTE | 2016-08-11 10:58 | PN ---
Date/Time of Note Date/Time of Note DATE: 08/11/16 TIME: 10:57 Assessment/Plan VTE Prophylaxis VTE Prophylaxis Intervention: heparin Lines/Catheters IV [facility]from [facility] PERMACATH Assessment/Plan Chief Complaint/Hosp Course 1. Hypoglycemia, most probably sulfonylurea-induced hyperglycemia. Resolved with holding sulfonylureas and treatment with octreotide and dextrose. Will discontinue sulfonylurea since this can cause significant hypoglycemia specifically in patients with end-stage renal disease. The patient's hemoglobin A1c is only 4.8. The patient will be started on sliding scale insulin. Will avoid any basal insulin at this time provided the recurrent hypoglycemic episodes and also low hemoglobin A1c. 2. End-stage renal disease, on hemodialysis. Hemodialysis as per nephrology. 3. Essentially hypertension. The patient will be continued on routine antihypertensives and p.r.n. antihypertensives for any systolic blood pressure readings greater than 160 mmHg. 4. Recent mesenteric ischemia status post bowel resection with postoperative dehiscence status post repair on 08/07/2016. We will monitor the patient's wound. Wound care consult has been ordered. 5. Cellulitis of the abdominal wall at the surgical incision site. On antibiotics as per infectious diseases. 6. Constipation. The patient will be continued on a bowel regimen and on p.r.n. laxatives. 7. Anemia of chronic kidney disease. Monitor H&H closely. Transfuse as needed. 8. Fluids, electrolytes, and nutrition. Renal, carbohydrate controlled diet. 9. DVT prophylaxis with subcutaneous heparin. 10. Gastrointestinal prophylaxis. Histamine 2 receptor blockers. 11. Plan. Stop octreotide and dextrose. Antibiotics as per infectious diseases. Start the patient on sliding scale insulin without basal insulin or pre-meal insulin. Case discussed with Dr. Wall. Problems: Subjective 24 Hr Interval Summary Free Text/Dictation No more episodes of hypoglycemia. Exam/Review of Systems Vital Signs Vitals Vital Signs Date Time Temp Pulse Resp B/P Pulse Ox O2 Delivery O2 Flow Rate FiO2 08/11/16 08:37 71 08/11/16 07:32 98.0 21 131/53 98 08/10/16 10:35 Room Air Intake and Output 08/10/16 08/10/16 08/11/16 14:59 22:59 06:59 Intake Total 1300 ml 1225 ml Output Total 3700 ml Balance -2400 ml 1225 ml Exam GENERAL: This is a 56-year-old female patient lying in bed in no apparent distress. HEENT: Head normocephalic and atraumatic. Eyes: Anicteric sclerae. Conjunctivae clear. ENT: Nasal septum is midline. Oral mucosa is dry. NECK: Supple. No JVD noticed. RESPIRATORY: Bilaterally diminished breath sounds. A few fine rales heard at the bases. No use of accessory muscles of respiration. CARDIAC: Regular rate and rhythm. S1, S2 heard. ABDOMEN: Soft. The patient has a midline incision with greyson over it with some erythema and minimal fluids. Tenderness in the josue-incisional. Bowel sounds hypoactive in all 4 quadrants. GENITOURINARY: Deferred. EXTREMITIES: No cyanosis, no clubbing, no edema. Peripheral pulses palpable. NEUROLOGIC: The patient is awake, alert, and oriented. Cranial nerves are grossly intact. Results Result Diagram: 08/11/16 0700 08/11/16 0700 Results 24 hrs Laboratory Tests Test 08/10/16 12:20 08/10/16 13:40 08/10/16 15:20 08/10/16 17:45 Bedside Glucose 88 112 117 Lactic Acid Level 1.3 Test 08/10/16 21:25 08/10/16 23:56 08/11/16 00:24 08/11/16 00:50 Bedside Glucose 73 64 L 77 72 Test 08/11/16 01:16 08/11/16 02:05 08/11/16 03:20 08/11/16 05:38 Bedside Glucose 63 L 88 112 155 Test 08/11/16 07:00 08/11/16 10:06 White Blood Count 5.6 # Red Blood Count 3.13 L Hemoglobin 9.7 L Hematocrit 32.6 L Mean Corpuscular Volume 104.2 H Mean Corpuscular Hemoglobin 31.0 Mean Corpuscular Hemoglobin Concent 29.8 L Red Cell Distribution Width 19.4 H Platelet Count 178 Mean Platelet Volume 10.6 H Neutrophils % 66.6 Lymphocytes % 13.7 L Monocytes % 15.6 H Eosinophils % 3.0 Basophils % 0.4 Nucleated Red Blood Cells % 0.0 Neutrophils # 3.8 Lymphocytes # 0.8 Monocytes # 0.9 Eosinophils # 0.2 Basophils # 0.0 Nucleated Red Blood Cells # 0.0 Sodium Level 134 L Potassium Level 4.7 Chloride Level 105 Carbon Dioxide Level 25 Anion Gap 9 Blood Urea Nitrogen 27 #H Creatinine 4.95 #H Glucose Level 166 Calcium Level 8.0 L Phosphorus Level 2.7 Magnesium Level 2.1 Total Bilirubin 0.0 L Direct Bilirubin 0.00 Indirect Bilirubin 0.0 Aspartate Amino Transf (AST/SGOT) 21 Alanine Aminotransferase (ALT/SGPT) 19 Alkaline Phosphatase 118 Total Protein 6.8 Albumin 2.8 L Globulin 4.00 H Albumin/Globulin Ratio 0.70 Triglycerides Level 163 H Cholesterol Level 105 LDL Cholesterol, Calculated 50 HDL Cholesterol 22 L Cholesterol/HDL Ratio 4.7 Bedside Glucose 168 Medications Medications Current Medications Lorazepam (Ativan) 0.5 mg Q6H PRN IV ANXIETY; Start 08/10/16 at 11:00 Ondansetron HCl (Zofran Inj) 4 mg Q6H PRN IV NAUSEA AND/OR VOMITING; Start at 11:00 Acetaminophen (Tylenol Tab) 650 mg Q6H PRN PO PAIN LEVEL 1-3 OR FEVER; Start at 11:00 Acetaminophen/ Hydrocodone Bitart ([place] (5/325)) 1 tab Q6H PRN PO PAIN LEVEL 4 -6; Start 08/10/16 at 11:00 Morphine Sulfate (morphine) 2 mg Q4H PRN IV PAIN LEVEL 7-10; Start 08/10/16 at 11:00 Magnesium Hydroxide (Milk Of Mag) 30 ml DAILY PRN PO CONSTIPATION; Start at 11:00 Bisacodyl (Dulcolax) 5 mg DAILY PRN PO CONSTIPATION; Start 08/10/16 at 11:00 Famotidine (Pepcid) 20 mg HS PO Last administered on 08/10/16 21:22; Admin Dose 20 MG; Start 08/10/16 at 21:00 Heparin Sodium (Porcine) (Heparin (5000 Units/0.5 ml)) 5,000 unit Q12 SC Last administered on 08/11/16 10:19; Admin Dose 5,000 UNIT; Start 08/10/16 at 21:00 Hydralazine HCl (Apresoline) 10 mg Q6H PRN IV SBP>160; Start 08/10/16 at 11:00 Aspirin (Halfprin) 81 mg DAILY PO Last administered on 08/11/16 09:59; Admin Dose 81 MG; Start 08/11/16 at 09:00 Atorvastatin Calcium (Lipitor) 10 mg QHS PO Last administered on 08/10/16 21: 22; Admin Dose 10 MG; Start 08/10/16 at 21:00 Carvedilol (Coreg) 6.25 mg BID PO Last administered on 08/11/16 09:59; Admin Dose 6.25 MG; Start 08/10/16 at 21:00 Cholecalciferol (Vitamin D) 400 units DAILY PO Last administered on 08/11/16 09:59; Admin Dose 400 UNITS; Start 08/11/16 at 09:00 Docusate Sodium (Colace) 100 mg BID PO Last administered on 08/10/16 21:22; Admin Dose 100 MG; Start 08/10/16 at 21:00 Folic Acid (Folic Acid) 1 mg DAILY PO Last administered on 08/11/16 09:59; Admin Dose 1 MG; Start 08/11/16 at 09:00 Gabapentin (Neurontin) 100 mg TID PO Last administered on 08/11/16 09:58; Admin Dose 100 MG; Start 08/10/16 at 13:00 Losartan Potassium (Cozaar) 50 mg BID PO Last administered on 08/11/16 10:00; Admin Dose 50 MG; Start 08/10/16 at 21:00 Multivit/Ca Carb/ B Cmplx/FA/Prenat (Cindy-Matias) 1 tab DAILY PO Last administered on 08/11/16 09:58; Admin Dose 1 TAB; Start 08/11/16 at 09:00 Octreotide Acetate (Sandostatin) 50 mcg TID SC Last administered on 08/11/16 10:01; Admin Dose 50 MCG; Start 08/10/16 at 13:00; Stop 08/11/16 at 13:00 Polyethylene Glycol 17 gm 17 gm BID PO Last administered on 08/10/16 21:22; Admin Dose 17 GM; Start 08/10/16 at 11:00 Clindamycin HCl/ Dextrose (Cleocin 900 Mg/ D5W (Pmx)) 50 ml @ 50 mls/hr Q8 IVPB Last administered on 08/11/16 05:39; Admin Dose 50 MLS/HR; Start 08/11/16 at 06:00 Diagnostic Test (Pha) (Accu-Chek) 1 ea 02 XX ; Start 08/12/16 at 02:00 Miscellaneous Information 1 ea NOTE XX ; Start 08/11/16 at 10:30 Glucose (Glutose) 15 gm Q15M PRN PO DECREASED GLUCOSE; Start 08/11/16 at 10:30 Glucose (Glutose) 22.5 gm Q15M PRN PO DECREASED GLUCOSE; Start 08/11/16 at 10: 30 Dextrose (D50w Syringe) 25 ml Q15M PRN IV DECREASED GLUCOSE; Start 08/11/16 at 10:30 Dextrose (D50w Syringe) 50 ml Q15M PRN IV DECREASED GLUCOSE; Start 08/11/16 at 10:30 Glucagon (Glucagen) 1 mg Q15M PRN IM DECREASED GLUCOSE; Start 08/11/16 at 10:30 Glucose (Glutose) 15 gm Q15M PRN BUCCAL DECREASED GLUCOSE; Start 08/11/16 at 10 :30 SCOOTER SCHRADER NP August 11, 2016 10:58
[2016-08-11] MEDS: INSULIN ASPART [NOVOLOG] 3 ML PEN SC SCH ×3 (12:09→20:58)
[2016-08-11] MEDS ORDERED: PENDING SANTYL ORDER FOR WOUND CARE XX PRN (13:00)
[2016-08-11] MEDS: FLUCONAZOLE 100 MG TAB PO SCH (15:41)
--- NOTE | 2016-08-11 16:03 | CONS ---
DATE OF ADMISSION: 08/10/2016 DATE OF CONSULTATION: 08/11/2016 HISTORY OF PRESENT ILLNESS: Ms. Rudy Haney is a 56-year-old female well known to me from a s mall-bowel obstruction with mesenteric ischemia. She then had dehiscence and returned to the ER las t week for closure of abdominal wound. However, she was admitted and she came to the ER last night due to generalized body weakness and diaphoresis. She was noted to be hyperglycemic on presentation to the ER. I was called for concern about her wound and that it was erythematosus wanted my consul tation. PAST MEDICAL HISTORY: Significant for essential hypertension, type 2 diabetes, end-stage renal dise ase on hemodialysis and hypothyroidism. PAST SURGICAL HISTORY: Exploratory laparotomy with small bowel resection for ischemia, CABG and for closure of abdominal wound first dehisced last week. MEDICATIONS: 1. Cetirizine. 2. Atorvastatin. 3. Coreg. 4. Losartan. 5. Aspirin. 6. Gabapentin, 7. Glimepiride. 8. Lantus. 9. Synthroid. ALLERGIES: ____ SOCIAL HISTORY: She denies drinking, drug use or smoking. She lives at home. PHYSICAL EXAMINATION: GENERAL: She is a well-nourished, well-developed female resting comfortably. VITAL SIGNS: She is afebrile. Vital signs stable. CHEST: Clear to auscultation bilaterally. HEART: Regular rhythm. ABDOMEN: Soft, nondistended. There is some erythema in the middle of her wound in between 2 of the retention sutures. I opened the middle of the midline wound in between and there was no purulent f luid draining LABORATORIES: Reveal white count of 6, hematocrit of 33 and platelets of 178. ASSESSMENT AND PLAN: Mr. Rudy Haney is a 56-year-old female with localized cellulitis of her abdominal wall. 1. Wound care: There is no abscess present. This is likely just a reaction to the retention sutur es. 2. I opened the wound and there was no purulence or serosanguineous discharge. This is likely a lo calized cellulitis. 3. Recommend daily packing every day and antibiotic therapy. 4. The patient should be followed up in my office next week. Dictated By: ROBERTO ANTOINE/LEXI Conf#: [id number] [facility]#: [id number]
--- NOTE | 2016-08-11 20:13 | CONS ---
Date/Time of Note Date/Time of Note DATE: 08/11/16 TIME: 20:12 Assessment/Plan Assessment/Plan Chief Complaint/Hosp Course IMPRESSION: 1. Patient has end-stage renal disease. 2. Hypertension. 3. Diabetes mellitus. 4. Coronary artery disease. 5. History of coronary artery bypass graft. 6. History of mesenteric ischemia, status post s/p surg_. 7. Hypoglycemia. 8. Per current chart, patient has a history of abdominal wound and sepsis with septic shock. 9. History of anemia. 10. History of multiple renal vein thrombectomies.hd am plan Problems: Consultation Date/Type/Reason Admit Date/Time August 10, 2016 at 08:42 Type of Consultation: renal 24 HR Interval Summary Constitutional: no complaints, other (abd better) Exam/Review of Systems Vital Signs Vitals Vital Signs Date Time Temp Pulse Resp B/P Pulse Ox O2 Delivery O2 Flow Rate FiO2 08/11/16 20:03 97.5 58 18 174/72 100 08/10/16 10:35 Room Air Intake and Output 08/10/16 08/10/16 08/11/16 15:00 23:00 07:00 Intake Total 1350 ml 1175 ml Output Total 3700 ml Balance -2350 ml 1175 ml Exam Respiratory: clear to auscultation Cardiovascular: regular rate and rhythm Gastrointestinal: soft Results Result Diagram: 08/11/16 0700 08/11/16 0700 Results 24 hrs Laboratory Tests Test 08/10/16 21:25 08/10/16 23:56 08/11/16 00:24 08/11/16 00:50 Bedside Glucose 73 64 L 77 72 Test 08/11/16 01:16 08/11/16 02:05 08/11/16 03:20 08/11/16 05:38 Bedside Glucose 63 L 88 112 155 Test 08/11/16 07:00 08/11/16 10:06 08/11/16 11:56 08/11/16 17:46 White Blood Count 5.6 # Red Blood Count 3.13 L Hemoglobin 9.7 L Hematocrit 32.6 L Mean Corpuscular Volume 104.2 H Mean Corpuscular Hemoglobin 31.0 Mean Corpuscular Hemoglobin Concent 29.8 L Red Cell Distribution Width 19.4 H Platelet Count 178 Mean Platelet Volume 10.6 H Neutrophils % 66.6 Lymphocytes % 13.7 L Monocytes % 15.6 H Eosinophils % 3.0 Basophils % 0.4 Nucleated Red Blood Cells % 0.0 Neutrophils # 3.8 Lymphocytes # 0.8 Monocytes # 0.9 Eosinophils # 0.2 Basophils # 0.0 Nucleated Red Blood Cells # 0.0 Sodium Level 134 L Potassium Level 4.7 Chloride Level 105 Carbon Dioxide Level 25 Anion Gap 9 Blood Urea Nitrogen 27 #H Creatinine 4.95 #H Glucose Level 166 Calcium Level 8.0 L Phosphorus Level 2.7 Magnesium Level 2.1 Total Bilirubin 0.0 L Direct Bilirubin 0.00 Indirect Bilirubin 0.0 Aspartate Amino Transf (AST/SGOT) 21 Alanine Aminotransferase (ALT/SGPT) 19 Alkaline Phosphatase 118 Total Protein 6.8 Albumin 2.8 L Globulin 4.00 H Albumin/Globulin Ratio 0.70 Triglycerides Level 163 H Cholesterol Level 105 LDL Cholesterol, Calculated 50 HDL Cholesterol 22 L Cholesterol/HDL Ratio 4.7 Bedside Glucose 168 172 151 Medications Medications Current Medications Lorazepam (Ativan) 0.5 mg Q6H PRN IV ANXIETY; Start 08/10/16 at 11:00 Ondansetron HCl (Zofran Inj) 4 mg Q6H PRN IV NAUSEA AND/OR VOMITING; Start at 11:00 Acetaminophen (Tylenol Tab) 650 mg Q6H PRN PO PAIN LEVEL 1-3 OR FEVER; Start at 11:00 Acetaminophen/ Hydrocodone Bitart ([place] (5/325)) 1 tab Q6H PRN PO PAIN LEVEL 4 -6; Start 08/10/16 at 11:00 Morphine Sulfate (morphine) 2 mg Q4H PRN IV PAIN LEVEL 7-10; Start 08/10/16 at 11:00 Magnesium Hydroxide (Milk Of Mag) 30 ml DAILY PRN PO CONSTIPATION; Start at 11:00 Bisacodyl (Dulcolax) 5 mg DAILY PRN PO CONSTIPATION; Start 08/10/16 at 11:00 Famotidine (Pepcid) 20 mg HS PO Last administered on 08/10/16 21:22; Admin Dose 20 MG; Start 08/10/16 at 21:00 Heparin Sodium (Porcine) (Heparin (5000 Units/0.5 ml)) 5,000 unit Q12 SC Last administered on 08/11/16 10:19; Admin Dose 5,000 UNIT; Start 08/10/16 at 21:00 Hydralazine HCl (Apresoline) 10 mg Q6H PRN IV SBP>160; Start 08/10/16 at 11:00 Aspirin (Halfprin) 81 mg DAILY PO Last administered on 08/11/16 09:59; Admin Dose 81 MG; Start 08/11/16 at 09:00 Atorvastatin Calcium (Lipitor) 10 mg QHS PO Last administered on 08/10/16 21: 22; Admin Dose 10 MG; Start 08/10/16 at 21:00 Carvedilol (Coreg) 6.25 mg BID PO Last administered on 08/11/16 09:59; Admin Dose 6.25 MG; Start 08/10/16 at 21:00 Cholecalciferol (Vitamin D) 400 units DAILY PO Last administered on 08/11/16 09:59; Admin Dose 400 UNITS; Start 08/11/16 at 09:00 Docusate Sodium (Colace) 100 mg BID PO Last administered on 08/10/16 21:22; Admin Dose 100 MG; Start 08/10/16 at 21:00 Folic Acid (Folic Acid) 1 mg DAILY PO Last administered on 08/11/16 09:59; Admin Dose 1 MG; Start 08/11/16 at 09:00 Gabapentin (Neurontin) 100 mg TID PO Last administered on 08/11/16 13:50; Admin Dose 100 MG; Start 08/10/16 at 13:00 Losartan Potassium (Cozaar) 50 mg BID PO Last administered on 08/11/16 10:00; Admin Dose 50 MG; Start 08/10/16 at 21:00 Multivit/Ca Carb/ B Cmplx/FA/Prenat (Cindy-Matias) 1 tab DAILY PO Last administered on 08/11/16 09:58; Admin Dose 1 TAB; Start 08/11/16 at 09:00 Polyethylene Glycol 17 gm 17 gm BID PO Last administered on 08/10/16 21:22; Admin Dose 17 GM; Start 08/10/16 at 11:00 Clindamycin HCl/ Dextrose (Cleocin 900 Mg/ D5W (Pmx)) 50 ml @ 50 mls/hr Q8 IVPB Last administered on 08/11/16 13:50; Admin Dose 50 MLS/HR; Start 08/11/16 at 06:00 Diagnostic Test (Pha) (Accu-Chek) 1 ea 02 XX ; Start 08/12/16 at 02:00 Miscellaneous Information 1 ea NOTE XX ; Start 08/11/16 at 10:30 Glucose (Glutose) 15 gm Q15M PRN PO DECREASED GLUCOSE; Start 08/11/16 at 10:30 Glucose (Glutose) 22.5 gm Q15M PRN PO DECREASED GLUCOSE; Start 08/11/16 at 10: 30 Dextrose (D50w Syringe) 25 ml Q15M PRN IV DECREASED GLUCOSE; Start 08/11/16 at 10:30 Dextrose (D50w Syringe) 50 ml Q15M PRN IV DECREASED GLUCOSE; Start 08/11/16 at 10:30 Glucagon (Glucagen) 1 mg Q15M PRN IM DECREASED GLUCOSE; Start 08/11/16 at 10:30 Glucose (Glutose) 15 gm Q15M PRN BUCCAL DECREASED GLUCOSE; Start 08/11/16 at 10 :30 Miscellaneous Information (Pending [facility] Order For Wound Care) This patient hernandez... PRN PRN XX WOUND CARE; Start 08/11/16 at 13:00 Guaifenesin (Robitussin Liquid Cup) 100 mg Q4H PRN PO COUGH; Start 08/11/16 at 13:00 Fluconazole (Diflucan) 100 mg DAILY PO Last administered on 08/11/16t 15:41; Admin Dose 100 MG; Start 08/11/16 at 14:30 HORACIO PERERA MD August 11, 2016 20:13
[2016-08-11] MEDS: FAMOTIDINE 20 MG TAB PO SCH (20:25)
[2016-08-11] MEDS: ATORVASTATIN 10 MG TAB PO SCH (20:25)
[2016-08-11] MEDS: GUAIFENESIN 20 MG/ML 5ML CUP PO PRN (20:42)
[2016-08-12] VITALS (19 sets, daily range): BP systolic 118–200; BP diastolic 48–90; PULSE 48–65; RESP 19–20
[2016-08-12] MEDS ORDERED: ACCU-CHEK XX SCH (02:00)
[2016-08-12] MEDS: GUAIFENESIN 20 MG/ML 5ML CUP PO PRN ×2 (04:23→12:56)
[2016-08-12] MEDS: CLINDAMYCIN 900 MG/D5W (PMX) 50 ML IVPB SCH ×2 (05:10→12:58)
[2016-08-12] MEDS: LEVOTHYROXINE 150 MCG TAB PO SCH (06:10)
--- NOTE | 2016-08-12 07:23 | PN ---
DATE: 08/11/2016 SUBJECTIVE: No events overnight. No fevers. The patient is lying comfortably in bed. WBC today 5.6, platelets 178. MICROBIOLOGY: Abdominal wound culture grew Rafia albicans. Blood cultures remain negative. DIAGNOSTICS: Chest x-ray on admission revealed mild pulmonary vascular congestion. INDWELLINGS: Left chest PermCath. ANTIMICROBIALS: Patient is on IV clindamycin. PHYSICAL EXAMINATION: GENERAL: Well-developed, middle-aged woman who is awake, in no distress. HEENT: Head atraumatic, normocephalic. Sclerae anicteric. Buccal mucosa dry. NECK: Supple, trachea midline. CHEST: Rise symmetrical. Breath sounds diminished to bases. HEART: S1, S2. ABDOMEN: Soft. Bowel sounds present. The patient has midabdominal incision with erythema and smal l amount of drainage. EXTREMITIES: Without cyanosis. ASSESSMENT: 1. Systemic inflammatory response syndrome with leukocytosis and hypothermia on admission. 2. Abdominal wall cellulitis. 3. End-stage renal disease, hemodialysis dependent. 4. History of bowel resection for mesenteric ischemia. 5. History of coronary artery bypass graft. 6. Diabetes. ALLERGIES: VANCOMYCIN. PLAN: We will continue the patient on clindamycin. Add fluconazole to the regimen and await for fi nal cultures. Dictated By: ELLEN MARTINEZ SIGNAL WIRER for REGINALD KAUR/LEXI Conf#: [id number] DID#: [id number]
[2016-08-12 07:34] LABS: ADD SCAN DIFF NO
[2016-08-12 07:41] LABS: BASOPHILS % 0.5 % (0.0-2.0); EOSINOPHILS # 0.2 10^3/ul (0.0-0.5); EOSINOPHILS % 2.9 % (0.0-7.0); HEMATOCRIT 32.6 % (37.0-47.0); HEMOGLOBIN 9.8 g/dl (12.0-16.0); LYMPHOCYTES # 0.7 10^3/ul (0.8-2.9); LYMPHOCYTES % 11.8 % (15.0-51.0); MEAN CORPUSCULAR HEMOGLOBIN 31.8 pg (29.0-33.0); MEAN CORPUSCULAR HGB CONC 30.1 g/dl (32.0-37.0); MEAN CORPUSCULAR VOLUME 105.8 fl (82.0-101.0); MEAN PLATELET VOLUME 10.7 fl (7.4-10.4); MONOCYTES % 15.8 % (0.0-11.0); NEUTROPHIL # 4.2 10^3/ul (1.6-7.5); NEUTROPHILS % 67.9 % (39.0-77.0); PLATELET COUNT 173 10^3/UL (140-415); RED BLOOD COUNT 3.08 10^6/ul (4.20-5.40); RED CELL DISTRIBUTION WIDTH 19.5 % (11.5-14.5); WHITE BLOOD COUNT 6.1 10^3/ul (4.8-10.8)
[2016-08-12] MEDS: INSULIN ASPART [NOVOLOG] 3 ML PEN SC SCH ×3 (07:55→17:43)
[2016-08-12 08:02] LABS: MAGNESIUM 2.2 mg/dl (1.7-2.5); PHOSPHORUS 3.6 mg/dl (2.5-4.9)
[2016-08-12 08:05] LABS: CALCIUM 8.7 mg/dl (8.4-10.2); CREATININE 6.03 mg/dl (0.44-1.00); POTASSIUM 5.1 mmol/L (3.5-5.1)
[2016-08-12] MEDS: CALCIUM ACETATE 667 MG CAP PO SCH ×3 (08:44→17:42)
[2016-08-12] MEDS: DOCUSATE SODIUM 100 MG CAP PO SCH (08:44)
[2016-08-12] MEDS: ASPIRIN (EC) 81 MG TAB PO SCH (08:56)
[2016-08-12] MEDS: CHOLECALCIFEROL 400 UNITS TAB PO SCH (08:56)
[2016-08-12] MEDS: FOLIC ACID 1 MG TAB PO SCH (08:56)
[2016-08-12] MEDS: POLYETHYLENE GLYCOL 17 GM PACKET PO SCH (08:57)
[2016-08-12] MEDS: MULTIVIT/CA CARB/B CMPLX/FA TAB PO SCH (08:57)
[2016-08-12] MEDS: GABAPENTIN 100 MG CAP PO SCH ×2 (08:57→12:25)
[2016-08-12] MEDS: LOSARTAN 50 MG TAB PO SCH (08:57)
[2016-08-12] MEDS: FLUCONAZOLE 100 MG TAB PO SCH (08:57)
[2016-08-12] MEDS: HEPARIN 5,000 UNIT/0.5 ML VIAL SC SCH (08:58)
--- NOTE | 2016-08-12 14:19 | PN ---
DATE: 08/12/2016 INFECTIOUS DISEASE PROGRESS NOTE SUBJECTIVE: The patient is in hemodialysis, looks comfortable, no fevers. WBC today 6.1, platelets 173, neutrophils 67.9. MICROBIOLOGY: Wound culture grew Rafia albicans. Nares swab and blood cultures remain negative. INDWELLINGS: The patient has a Perm-A-Cath. ANTIMICROBIALS: 1. Fluconazole. 2. Clindamycin. ALLERGIES: VANCOMYCIN. PHYSICAL EXAMINATION: GENERAL: Chronically ill-appearing, obese, middle-aged woman who is awake, in no distress. HEENT: Head atraumatic, normocephalic. Sclerae anicteric. Buccal mucosa dry. NECK: Supple, trachea midline. CHEST: Rise symmetrical. Breath sounds diminished to bases. HEART: S1, S2. ABDOMEN: Soft, bowel tones present. EXTREMITIES: No cyanosis. ASSESSMENT 1. Abdominal wall cellulitis, status post bowel resection for mesenteric ischemia, surgery follows. 2. End-stage renal disease, on hemodialysis. 3. History of coronary artery bypass graft. 4. Diabetes. PLAN: The patient remains stable. Continue present care, antibiotics, local wound care. Dictated By: ELLEN MARTINEZ MDM SR for REGINALD WAN MD NI/NTS Conf#: [id number] DID#: [id number]
--- NOTE | 2016-08-12 16:10 | PDOCDIS ---
Discharge Instructions CONDITION Patient Condition: Good HOME CARE INSTRUCTIONS: Special Diet: Renal, Carb Controlled ACTIVITY: Activity Restrictions: Slowly Increase Activity Rest between Activity Avoid heavy lifting Avoid Heavy Housework Bathing Restrictions: Sponge Bath FOLLOW UP/APPOINTMENTS Appointments Follow up with Surgery in one week FOllow up with nephrology as out-pt RADHA CORDERO MD Aug 12, 2016 16:10
[2016-08-12] MEDS ORDERED: CLIN-73 PO (16:13)
[2016-08-12] MEDS ORDERED: LACT1CAP57 PO (16:13)
[2016-08-12] MEDS ORDERED: FLUC100T PO (16:13)
--- NOTE | 2016-08-12 16:50 | DS ---
DATE OF ADMISSION: 08/10/2016 DATE OF DISCHARGE: 08/12/2016 CONSULTANTS: 1. Dr. Christian Weaver 2. Dr. Sandeep Lake 3. Dr. Odin Boateng PROCEDURES: 1. I and D at the bedside. 2. Hemodialysis. DIAGNOSES: 1. Hypoglycemia, most probably sulfonylurea-induced hypoglycemia. The sulfonylurea was placed on h old. The patient was placed on octreotide and dextrose. 2. Abdominal wall cellulitis. The patient was discharge on clindamycin and fluconazole. 3. Dyslipidemia. Continue statin. 4. End-stage renal hemodialysis. Continue calcium acetate. 5. Essential hypertension. Well controlled on Coreg. 6. Diabetic neuropathy. Continue gabapentin. 7. Hypothyroidism. Continue levothyroxine. 8. Diabetes mellitus. Continue Lantus. The patient's glimepiride was placed on hold secondary to hypoglycemia. 9. Gastroesophageal reflux disease. Continue omeprazole. 10. Constipation. Continue MiraLax. MEDICATIONS: 1. Clindamycin 300 mg. 2. Diflucan 100 mg. 3. Culturelle 1 tab p.o. b.i.d. 4. The patient will continue her home medications of Tylenol. 5. Aspirin. 6. Lipitor. 7. Calcium acetate. 8. Coreg 6.25 mg 9. Cetirizine. 10. Vitamin D. 11. Colace. 12. Fluticasone nasal. 13. Folic acid. 14. Gabapentin. 15. [place]. 16. Lantus 12 units. 17. Levothyroxine. 18. Losartan. 19. Multivitamin/Cindy-Matias. 20. Omeprazole. 21. MiraLax. ALLERGIES: VANCOMYCIN. Laboratory and vitals: Temperature 98.6, pulse 63, respiration rate 19, blood pressure 118/58, oxyg en saturation 94%. Sodium 129, potassium 4.1, chloride 99, bicarbonate 25, BUN 35, creatinine 6.03, glucose 127, calcium 8.7, magnesium 2.2, phosphorus 3.6. WBC 6.1, hemoglobin 9.8, hematocrit 32.1, MCV 105.8, platelets 173. HOSPITAL COURSE: This is a 56-year-old female with a past medical history of essential hypertension , diabetes mellitus type 2, end-stage renal disease, on hemodialysis, hypothyroidism, dyslipidemia, neuropathy and diabetic neuropathy, who presented to [facility] secondary to havin g multiple complaints of generalized weakness and diaphoresis. The patient was scheduled for hemodia lysis on 08/10/2016, although while the patient was being taken for hemodialysis, meanwhile the marianna ent was noted to have a low blood glucose, which has been going on x2 days. The patient does take Gl imepiride and insulin. Her blood glucose was found to be 37. She was treated with IM x4 and d extrose, in which her blood glucose improved. Glimepiride was placed on hold. She was also recentl y admitted for mesenteric ischemia in early July and had exploratory laparotomy and bowel resection. The patient also had postoperative wound dehiscence, and was found to have abdominal wall celluliti s. General surgery was consulted. The patient's wound was assessed by the bedside and there was no evidence of abscess. The infectious disease doctor was consulted and the patient was placed on cli ndamycin and Diflucan. Stool cultures showed coliform. Gram stain showed Rafia albicans. Blood culture was negative. The patient was continued on clindamycin and Diflucan and will be discharged home on those medications, as per infectious disease doctor. Regarding her diabetic mellitus, the p atient was found to be hypoglycemic at the time of admission and her glimepiride was placed on hold, along with her Lantus. The patient may restart her Lantus in 2 days, although she needs to hold her glimepiride. The patient's blood pressure is well controlled on medical management. At this time the patient is medically stable to be discharged home, with [facility] as an outpatient. The patient is to continue her hemodialysis as sched ed. Dictated By: RADHA CORDERO MD PN/NTS Conf#: [id number] DID#: [id number]
--- NOTE | 2016-08-12 19:36 | CONS ---
Date/Time of Note Date/Time of Note DATE: 08/12/16 TIME: 19:35 Assessment/Plan Assessment/Plan Chief Complaint/Hosp Course IMPRESSION: 1. Patient has end-stage renal disease. 2. Hypertension. 3. Diabetes mellitus. 4. Coronary artery disease. 5. History of coronary artery bypass graft. 6. History of mesenteric ischemia, status post s/p surg_. 7. Hypoglycemia. 8. Per current chart, patient has a history of abdominal wound and sepsis with septic shock. 9. History of anemia. 10. History of multiple renal vein thrombectomies.hd am plan hd per surgery Problems: Consultation Date/Type/Reason Admit Date/Time August 10, 2016 at 08:42 Type of Consultation: renal 24 HR Interval Summary Constitutional: No diaphoresis, No febrile Exam/Review of Systems Vital Signs Vitals Vital Signs Date Time Temp Pulse Resp B/P Pulse Ox O2 Delivery O2 Flow Rate FiO2 08/12/16 16:53 59 139/65 08/12/16 15:37 98.6 19 94 08/11/16 21:00 Room Air Intake and Output 08/11/16 08/11/16 08/12/16 15:00 23:00 07:00 Intake Total 475 ml 750 ml 400 ml Output Total 1 ml 200 ml Balance 475 ml 749 ml 200 ml Exam Respiratory: clear to auscultation Cardiovascular: regular rate and rhythm Gastrointestinal: bowel sounds (+), No tender Results Result Diagram: 08/12/16 0621 08/12/16 0621 Results 24 hrs Laboratory Tests Test 08/11/16 20:09 08/12/16 06:21 08/12/16 08:13 08/12/16 12:22 Bedside Glucose 163 135 157 White Blood Count 6.1 Red Blood Count 3.08 L Hemoglobin 9.8 L Hematocrit 32.6 L Mean Corpuscular Volume 105.8 H Mean Corpuscular Hemoglobin 31.8 Mean Corpuscular Hemoglobin Concent 30.1 L Red Cell Distribution Width 19.5 H Platelet Count 173 Mean Platelet Volume 10.7 H Neutrophils % 67.9 Lymphocytes % 11.8 L Monocytes % 15.8 H Eosinophils % 2.9 Basophils % 0.5 Nucleated Red Blood Cells % 0.0 Neutrophils # 4.2 Lymphocytes # 0.7 L Monocytes # 1.0 H Eosinophils # 0.2 Basophils # 0.0 Nucleated Red Blood Cells # 0.0 Sodium Level 129 L Potassium Level 5.1 Chloride Level 99 Carbon Dioxide Level 25 Anion Gap 10 Blood Urea Nitrogen 35 H Creatinine 6.03 H Glucose Level 127 Calcium Level 8.7 Phosphorus Level 3.6 Magnesium Level 2.2 Test 08/12/16 17:43 Bedside Glucose 153 Medications Medications Current Medications Lorazepam (Ativan) 0.5 mg Q6H PRN IV ANXIETY; Start 08/10/16 at 11:00 Ondansetron HCl (Zofran Inj) 4 mg Q6H PRN IV NAUSEA AND/OR VOMITING Last administered on 08/11/16 20:34; Admin Dose 4 MG; Start 08/10/16 at 11:00 Acetaminophen (Tylenol Tab) 650 mg Q6H PRN PO PAIN LEVEL 1-3 OR FEVER; Start at 11:00 Acetaminophen/ Hydrocodone Bitart ([place] (5/325)) 1 tab Q6H PRN PO PAIN LEVEL 4 -6; Start 08/10/16 at 11:00 Morphine Sulfate (morphine) 2 mg Q4H PRN IV PAIN LEVEL 7-10; Start 08/10/16 at 11:00 Magnesium Hydroxide (Milk Of Mag) 30 ml DAILY PRN PO CONSTIPATION; Start at 11:00 Bisacodyl (Dulcolax) 5 mg DAILY PRN PO CONSTIPATION; Start 08/10/16 at 11:00 Famotidine (Pepcid) 20 mg HS PO Last administered on 08/11/16 20:25; Admin Dose 20 MG; Start 08/10/16 at 21:00 Heparin Sodium (Porcine) (Heparin (5000 Units/0.5 ml)) 5,000 unit Q12 SC Last administered on 08/12/16 08:58; Admin Dose 5,000 UNIT; Start 08/10/16 at 21:00 Hydralazine HCl (Apresoline) 10 mg Q6H PRN IV SBP>160 Last administered on 15:40; Admin Dose 10 MG; Start 08/10/16 at 11:00 Aspirin (Halfprin) 81 mg DAILY PO Last administered on 08/12/16 08:56; Admin Dose 81 MG; Start 08/11/16 at 09:00 Atorvastatin Calcium (Lipitor) 10 mg QHS PO Last administered on 08/11/16 20: 25; Admin Dose 10 MG; Start 08/10/16 at 21:00 Carvedilol (Coreg) 6.25 mg BID PO Last administered on 08/11/16 09:59; Admin Dose 6.25 MG; Start 08/10/16 at 21:00 Cholecalciferol (Vitamin D) 400 units DAILY PO Last administered on 08/12/16 08 :56; Admin Dose 400 UNITS; Start 08/11/16 at 09:00 Docusate Sodium (Colace) 100 mg BID PO Last administered on 08/12/16 08:44; Admin Dose 100 MG; Start 08/10/16 at 21:00 Folic Acid (Folic Acid) 1 mg DAILY PO Last administered on 08/12/16 08:56; Admin Dose 1 MG; Start 08/11/16 at 09:00 Gabapentin (Neurontin) 100 mg TID PO Last administered on 08/12/16 12:25; Admin Dose 100 MG; Start 08/10/16 at 13:00 Losartan Potassium (Cozaar) 50 mg BID PO Last administered on 08/11/16 20:26; Admin Dose 50 MG; Start 08/10/16 at 21:00 Multivit/Ca Carb/ B Cmplx/FA/Prenat (Cindy-Matias) 1 tab DAILY PO Last administered on 08/12/16 08:57; Admin Dose 1 TAB; Start 08/11/16 at 09:00 Polyethylene Glycol 17 gm 17 gm BID PO Last administered on 08/12/16 08:57; Admin Dose 17 GM; Start 08/10/16 at 11:00 Clindamycin HCl/ Dextrose (Cleocin 900 Mg/ D5W (Pmx)) 50 ml @ 50 mls/hr Q8 IVPB Last administered on 08/12/16 12:58; Admin Dose 50 MLS/HR; Start 08/11/16 at 06:00 Diagnostic Test (Pha) (Accu-Chek) 1 ea 02 XX ; Start 08/12/16 at 02:00 Miscellaneous Information 1 ea NOTE XX ; Start 08/11/16 at 10:30 Glucose (Glutose) 15 gm Q15M PRN PO DECREASED GLUCOSE; Start 08/11/16 at 10:30 Glucose (Glutose) 22.5 gm Q15M PRN PO DECREASED GLUCOSE; Start 08/11/16 at 10: 30 Dextrose (D50w Syringe) 25 ml Q15M PRN IV DECREASED GLUCOSE; Start 08/11/16 at 10:30 Dextrose (D50w Syringe) 50 ml Q15M PRN IV DECREASED GLUCOSE; Start 08/11/16 at 10:30 Glucagon (Glucagen) 1 mg Q15M PRN IM DECREASED GLUCOSE; Start 08/11/16 at 10:30 Glucose (Glutose) 15 gm Q15M PRN BUCCAL DECREASED GLUCOSE; Start 08/11/16 at 10 :30 Miscellaneous Information (Pending Santyl Order For Wound Care) This patient hernandez... PRN PRN XX WOUND CARE; Start 08/11/16 at 13:00 Guaifenesin (Robitussin Liquid Cup) 100 mg Q4H PRN PO COUGH Last administered on 08/12/16 12:56; Admin Dose 100 MG; Start 08/11/16 at 13:00 Fluconazole (Diflucan) 100 mg DAILY PO Last administered on 08/12/16 08:57; Admin Dose 100 MG; Start 08/11/16 at 14:30 HORACIO PERERA MD Aug 12, 2016 19:36
--- NOTE | 2016-08-23 14:01 | RADRPT ---
Vent Rate: 58 bpm RR Interval: 0 msec WA Interval: 162 msec QRS Duration: 76 msec QT Interval: 428 msec QTC Interval: 420 msec P-R-T [place]: 42 - 56 - 96 degrees Sinus bradycardia Anterior infarct , age undetermined Abnormal ECG Electronically Signed By: Ranjeet Flores [phone]
== END 2016-08-12 18:58 | disposition home or self-care (01) ==
LOC: E/R 04:31 → TEL 08:42
PROVIDERS: ADMIT Family Medicine; ATTEND Family Medicine
DX: E11.649 Type 2 diabetes mellitus with hypoglycemia without coma (principal); L03.311 Cellulitis of abdominal wall; E03.9 Hypothyroidism, unspecified; K21.9 Gastro-esophageal reflux disease without esophagitis; I12.0 Hypertensive chronic kidney disease with stage 5 chronic kidney disease or end stage renal disease; N18.6 End stage renal disease; Z99.2 Dependence on renal dialysis; E11.40 Type 2 diabetes mellitus with diabetic neuropathy, unspecified; E11.22 Type 2 diabetes mellitus with diabetic chronic kidney disease; K59.00 Constipation, unspecified; D63.1 Anemia in chronic kidney disease; I25.10 Atherosclerotic heart disease of native coronary artery without angina pectoris; Z95.1 Presence of aortocoronary bypass graft; E78.5 Hyperlipidemia, unspecified; Z79.4 Long term (current) use of insulin; Z79.82 Long term (current) use of aspirin; Z88.1 Allergy status to other antibiotic agents
CPT/HCPCS: 71010; 80048; 80053; 80061; 82962; 83036; 83605; 83735; 84100; 84439; 84443; 84484; 85025; 85610; 85730; 87040; 87045; 87070; 87081; 90935; 93005; 96365; 96366; 96372; 96374; 96375; 96376; J0360; J1644; J1815; J2354; J2405; J7070; Z7500; Z7502; Z7610; G0378

== ENCOUNTER 2016-09-09 11:23 | Emergency (ER) | payer OTHER ==
[~2016-09-09] VITALS: Ht 152.4 cm; Wt 57.0 kg
[~2016-09-09 11:23] MED LIST changes: +CLIN-73 PO; +FLUC100T PO; -GLIM1TAB2 PO; +LACT1CAP57 PO
[2016-09-09 11:26] VITALS: Ht 152.4 cm; Wt 57.0 kg
--- NOTE | 2016-09-09 12:27 | ERD ---
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 The patient has a history of dialysis and hypertension. She did not take her morning blood pressure medication, after dialysis the patient's blood pressure was in the 200s. She was asymptomatic. She was given her daily medications and told to come to the emergency room. Upon arrival the patient is normotensive. Occasionally over the last several days with elevated blood pressure she notes throbbing behind her eyes but this is improving. No vision changes or vision loss, no sudden onset of headache. The patient is now a symptomatic and resting comfortably. No chest pain or shortness of breath. ROS All systems reviewed and are negative except as per history of present illness. Medications Home Meds Active Scripts Lactobacillus Rhamnosus* (Culturelle*) 1 Each Cap.sprink, 1 CAP PO BID, #60 CAP Prov:RADHA CORDERO MD 08/12/16 Polyethylene Glycol* (Miralax*) 17 Gm Powd.pack, 8.5 GM PO DAILY Y for CONSTIPATION for 14 Days Prov:FLY ALVARADO 07/29/16 Insulin Glargine* (Lantus*) 100 Unit/Ml Soln, 12 UNIT SC DAILY@09 for 30 Days, 2 Refills Prov:FLY ALVARADO 07/29/16 Reported Medications Cholecalciferol (Vitamin D3) 400 Unit Capsule, 400 UNIT PO DAILY, CAP 07/20/16 Omeprazole* (Omeprazole*) 20 Mg Capsule.dr, 20 MG PO DAILY, #30 CAP 07/20/16 Docusate Sodium* (Docusate Sodium*) 100 Mg Capsule, 100 MG PO BID, #60 CAP 07/20/16 Folic Acid* (Folic Acid*) 1 Mg Tablet, 1 MG PO DAILY, TAB 07/20/16 Atorvastatin Calcium (Atorvastatin Calcium) 10 Mg Tablet, 10 MG PO QHS, #30 TAB 07/20/16 Gabapentin* (Gabapentin*) 100 Mg Capsule, 100 MG PO TID, #90 CAP 07/20/16 Acetaminophen* (Acetaminophen*) 500 MG Extra Strength Tablet, 1000 MG PO Q6H Y for PAIN AND OR ELEVATED TEMP, TAB 07/20/16 Losartan Potassium* (Losartan Potassium*) 50 Mg Tablet, 50 MG PO BID, TAB 07/20/16 Carvedilol* (Carvedilol*) 6.25 Mg Tablet, 6.25 MG PO BID, #60 TAB 07/20/16 Levothyroxine Sodium* (Levothyroxine Sodium*) 150 Mcg Tablet, 150 MCG PO BEFORE BREAKFAST, #30 TAB 07/20/16 Fluticasone Propionate* (Fluticasone Propionate* Nasal) 50 Mcg/Edgar - 16 Gm Edgar.susp, 2 SPRAYS NASAL DAILY, #1 BOTTLE TO EACH NOSTRIL 07/20/16 Calcium Acetate* (Calcium Acetate*) 667 Mg Capsule, 3335 MG PO WITH MEALS, #90 CAP 07/20/16 Cetirizine Hcl* (Cetirizine Hcl*) 10 Mg Tablet, 10 MG PO DAILY, #30 TAB 07/20/16 Aspirin* (Aspirin* EC) 81 Mg Tablet.dr, 81 MG PO DAILY, TAB 07/20/16 Multivit/Ca Carb/B Cmplx/Fa* (Cindy-Matias*) 1 Tab Tab, 1 TAB PO DAILY, TAB 07/20/16 Discontinued Scripts Clindamycin Hcl* (Clindamycin Hcl*) 300 Mg Capsule, 300 MG PO Q8, #21 CAP Prov:RADHA CORDERO MD 08/12/16 Fluconazole* (Diflucan*) 100 Mg Tablet, 100 MG PO DAILY, #7 TAB Prov:RADHA CORDERO MD 08/12/16 Hydrocodone/Acetaminophen ([place] 5-325 Tablet) 1 Each Tablet, 1 EACH PO Q6, #20 TAB Prov:LESLIE DEMPSEY 08/07/16 Allergies Allergies: Coded Allergies: vancomycin (Verified Allergy, Intermediate, 09/09/16) RED RASH WITH ITCHING. PMhx/Soc Anesthesia Reaction: No Hx Psychiatric Problems: No Hx Alcohol Use: No Hx Substance Use: No Hx Tobacco Use: No FmHx Family History: No diabetes Physical Exam Vitals Vital Signs Date Time Temp Pulse Resp B/P Pulse Ox O2 Delivery O2 Flow Rate FiO2 09/09/16 11:26 98.0 79 20 137/63 99 Physical Exam General: Well developed, well nourished, no acute distress Head: Normocephalic, atraumatic. Eyes: Pupils equally reactive, EOM intact ENT: Moist mucous membranes Neck: Supple, no lymphadenopathy Respiratory: Lungs clear bilaterally, no distress Cardiovascular: RRR, no murmurs, rubs, or gallops Abdominal: Soft, non-tender, non-distended, no peritoneal signs : Deferred MSK: No edema, no unilateral swelling, 5/5 strength Neurologic: Alert and oriented, moving all extremities, normal speech, no focal weakness, no cerebellar signs Skin: No rash Psych: Normal mood Procedures/MDM Patient's blood pressure was elevated (>120/80) but appears stable without evidence of hypertensive emergency or urgency. The patient was counseled about the risks of hypertension and urged to pursue outpatient monitoring and therapy within a week with their primary care physician. The patient is normotensive and has received her daily medications. No evidence of endorgan dysfunction. The patient's ocular complaints are likely consistent to elevated blood pressure and now resolved. No evidence of intracranial process such as hemorrhage, no evidence of vision loss, no monocular symptoms to suggest giant cell arteritis or glaucoma. Outpatient follow-up is appropriate. We discussed follow up with the patient's primary care doctor within 24 to 48 hours as needed. We also discussed return to the emergency room for worsening symptoms or worsening condition. Outpatient referral: [None required] Departure Diagnosis: Primary Impression: Essential hypertension Condition: Stable Patient Instructions: Hypertension, Established [facility]errals: [facility] Usted se hernandez hecho un examen mdico de control que le indica que no est en reny condicin que requiera tratamiento urgente en el Departamento de Emergencia. Un estudio ms profundo y el tratamiento de manning condicin pueden esperar sin ningn riesgo hasta que usted sea atendida/o en el consultorio de manning mdico o reny cl maikel. Es responsabilidad suya arreglar reny aniket para el seguimiento del peña. MANEJO DE CONDICIONES NO URGENTES EN EL FUTURO 1) Si usted tiene un mdico de atencin primaria: Usted debera llamar a manning mdico de atencin primaria antes de venir al departamento de emergencia. Despus de las horas de consultorio, manning doctor o manning asociado/a est disponible por telfono. El mdico o enfermero de elmo en el servicio telefnico puede asesorarle por joseline medio para atender el problema, o peña contrario se puede programar reny aniket. 2) Si usted no tiene un mdico de atencin primaria: Llame al mdico o clnica de referencia que aparece abajo delilah las horas de consultorio para hacer reny aniket para que le vean. CLINICAS: [facility] [phone] [facility] [phone] [facility] [phone] [place] [address] [phone] [place] [address] [phone] [facility]. [phone] [address] [facility]. [facility] () Marielena se hernandez hecho un examen mdico de control que le indica que no est en reny condicin que requiera tratamiento urgente en el Departamento de Emergencia. Un estudio ms profundo y el tratamiento de manning condicin pueden esperar sin ningn riesgo hasta que usted sea atendida/o en el consultorio de amnning mdico o reny cl maikel. Es responsabilidad suya arreglar reny aniket para el seguimiento del peña. MANEJO DE CONDICIONES NO URGENTES EN EL FUTURO 1) Si usted tiene un mdico de atencin primaria: Usted debera llamar a manning mdico de atencin primaria antes de venir al departamento de emergencia. Despus de las horas de consultorio, manning doctor o manning asociado/a est disponible por telfono. El mdico o enfermero de elmo en el servicio telefnico puede asesorarle por joseline medio para atender el problema, o peña contrario se puede programar reny aniket. 2) Si usted no tiene un mdico de atencin primaria: Llame al mdico o condado institucions de referencia que aparece abajo delilah las horas de consultorio para hacer reny aniket para que le vean. SI USTED NO PUEDE PAGAR PARA VISHAL UN MEDICO puede ir a: [facility] [id number] [place] [address] [facility] [address] [place] [address] [facility] [address] [place] [address] PARA ABDIAZIZ [facility] [address] [place], [place] [id number] Additional Instructions: Llame al doctor nombrado abajo (Referral Sources) MAANA y enrico reny ANIKET PARA DENTRO DE RENY SEMANA. Dgale a la secretaria que nosotros le instruimos hacer esta aniket.Avise o llame si manning condicin se empeora antes de la aniket. CAM HUNTER MD Sep 09, 2016 12:27
== END 2016-09-09 12:52 | disposition home or self-care (01) ==
LOC: E/R 11:23
DX: I10 Essential (primary) hypertension (principal); E11.9 Type 2 diabetes mellitus without complications; Z79.82 Long term (current) use of aspirin; Z79.84 Long term (current) use of oral hypoglycemic drugs
CPT/HCPCS: 99282